=== PATIENT | male | born 1945 | race Caucasian/White ===

== ENCOUNTER 2017-11-08 13:19 | Inpatient (IN) | payer MEDICARE ==
[~2017-11-08] VITALS: Ht 172.7 cm; Wt 59.6 kg
[2017-11-08] MEDS ORDERED: SENN8.6T99 PO ×2 (14:51)
[2017-11-08] MEDS ORDERED: DOCU-109 PO (14:51)
[2017-11-08] MEDS ORDERED: AMIT50TA PO (14:51)
[2017-11-08] MEDS ORDERED: BACL10TA PO (14:51)
[2017-11-08] MEDS ORDERED: MAGN2400 PO (14:51)
[2017-11-08] MEDS ORDERED: ACET325T9 PO (14:51)
[2017-11-08] MEDS ORDERED: LORA10TA3 PO (14:51)
[2017-11-08] MEDS ORDERED: TERA10CA3 PO (14:51)
[2017-11-08] MEDS ORDERED: FAMO20TA5 PO (14:51)
[2017-11-08] MEDS ORDERED: HALO2TAB PO (14:51)
[2017-11-08] MEDS ORDERED: OXYC5CAP PO (14:51)
[2017-11-08] MEDS ORDERED: ONDA4TAB12 PO (14:51)
[2017-11-08] MEDS ORDERED: BISA10SU2 RC (14:51)
[2017-11-08] MEDS ORDERED: LORA0.5T PO (14:51)
[2017-11-08] MEDS ORDERED: MAG355OR12 PO (14:51)
[2017-11-08] MEDS ORDERED: FINA5TAB4 PO (14:51)
[2017-11-08] MEDS ORDERED: LITH300C PO (14:51)
[2017-11-08] MEDS ORDERED: METHYL SALICYLATE/MENTHOL TOPICAL OINTMENT 29GM TUBE. TP PRN ×2 (15:00→15:45)
[2017-11-08 15:14] VITALS: BP 146/90
[2017-11-08] MEDS ORDERED: AMIT75TA PO (15:26)
[2017-11-08] MEDS ORDERED: SENNOSIDES 8.6 MG TABLET PO PRN (15:30)
[2017-11-08] MEDS ORDERED: DOCUSATE SODIUM 100 MG CAPSULE PO PRN (15:30)
[2017-11-08] MEDS ORDERED: ONDANSETRON ODT 4 MG TAB.RAPDIS PO PRN (15:30)
[2017-11-08] MEDS ORDERED: MAG HYDROX/AL HYDROX/SIMETH 30 ML ORAL.SUSP PO PRN (15:45)
[2017-11-08] MEDS: FAMOTIDINE 20 MG TABLET PO SCH (18:31)
[2017-11-08] MEDS: LITHIUM CARBONATE 300 MG TABLET PO SCH (20:18)
[2017-11-08] MEDS: SENNOSIDES 8.6 MG TABLET PO SCH (20:18)
[2017-11-08] MEDS: BACLOFEN 10 MG TABLET PO SCH (20:18)
[2017-11-08] MEDS: AMITRIPTYLINE HCL 75 MG TABLET PO SCH (20:18)
[2017-11-08] MEDS ORDERED: ENOXAPARIN 40 MG/0.4 ML SYRINGE. SQ SCH (21:00)
--- NOTE | 2017-11-08 22:54 | PDOC ---
Exam Note: Torsten Note: Please also refer to the separate dictated note~for this date of service dictated separately.~Patient seen individually. Discussed the patient with Nursing staff reviewed the chart.~Reviewed interim history and current functioning. Reviewed vital signs,~Labs/ Radiology~and current medications noted below. Continue current treatment with the changes noted in the dictated addendum note Assessment: Vital Signs: Vital Signs Date Time Temp Pulse Resp B/P (MAP) Pulse Ox O2 Delivery O2 Flow Rate FiO2 11/08/17 15:14 98.1 73 18 146/90 (108) 96 Current Medications: Meds: Current Medications Multi-Ingredient Ointment (Analgesic [place]) 1 warren PRN QID PRN TP MUSCLE PAIN; Start 11/08/17 at 15:00 Acetaminophen (Tylenol) 650 mg PRN Q6HRS PRN PO PAIN / TEMP; Start 11/08/17 at 15:30 Baclofen (Lioresal) 10 mg BID PO Last administered on 11/08/17at 20:18; Start 11/08/17 at 21:00 Bisacodyl (Dulcolax Supp) 10 mg PRN DAILY PRN RC CONSTIPATION; Start 11/08/17 at 15:30 Docusate Sodium (Colace) 100 mg PRN BID PRN PO CONSTIPATION; Start 11/08/17 at 15:30 Famotidine (Pepcid) 20 mg BIDBFRMEAL PO Last administered on 11/08/17at 18:31; Start 11/08/17 at 16:30 Finasteride (Proscar) 5 mg DAILY PO ; Start 11/09/17 at 09:00 Haloperidol (Haldol) 0.5 mg PRN TID PRN PO AGITATION; Start 11/08/17 at 15:30 Lorazepam (Ativan) 0.5 mg TID PRN PRN PO ANXIETY / AGITATION; Start 11/08/17 at 15:30 Ondansetron HCl (Zofran Odt) 4 mg PRN Q6HRS PRN PO NAUSEA/VOMITING; Start at 15:30 Sennosides (Senna) 8.6 mg BID PO Last administered on 11/08/17at 20:18; Start 11/08/17 at 21:00 Sennosides (Senna) 8.6 mg PRN DAILY PRN PO CONSTIPATION; Start 11/08/17 at 15:30 [place] Carbonate 300 mg BID PO Last administered on 11/08/17at 20:18; Start 11/08 at 21:00 Oxycodone HCl (Roxicodone) 5 mg PRN Q6HRS PRN PO PAIN; Start 11/08/17 at 15:45 Terazosin HCl (Hytrin) 10 mg DAILY PO ; Start 11/09/17 at 09:00 Amitriptyline HCl (Elavil) 75 mg QHS PO Last administered on 11/08/17at 20:18; Start 11/08/17 at 21:00 Cetirizine HCl (ZyrTEC) 10 mg DAILY PO ; Start 11/09/17 at 09:00 Olanzapine (ZyPREXA ZYDIS) 2.5 mg PRN Q2HR PRN PO Psychosis; Start 11/08/17 at 15:45 Multi-Ingredient Ointment (Analgesic [place]) 1 warren PRN QID PRN TP MUSCLE PAIN; Start 11/08/17 at 15:45 Al Hydroxide/Mg Hydroxide (Mylanta Plus Xs) 15 ml PRN AFTMEALHC PRN PO DYSPEPSIA; Start 11/08/17 at 15:45 Magnesium Hydroxide (Milk Of Magnesia) 2,400 mg PRN QHS PRN PO CONSTIPATION; Start 11/08/17 at 15:45 Enoxaparin Sodium (Lovenox) 40 mg Q24H SQ Last administered on 11/08/17at 20:19; Start 11/08/17 at 21:00 Active Scripts Active Reported Amitriptyline Hcl 75 Mg Tablet 75 Mg PO QHS Oxycodone Hcl 5 Mg Capsule 5 Mg PO PRN Q6HRS PRN Lorazepam 0.5 Mg Tablet 0.5 Mg PO TID PRN PRN Famotidine 20 Mg Tablet 20 Mg PO BIDBFRMEAL Haloperidol 2 Mg Tablet 0.5 Mg PO PRN TID PRN Terazosin Hcl 10 Mg Capsule 10 Mg PO DAILY Ondansetron Odt (Ondansetron) 4 Mg Tab.rapdis 4 Mg PO PRN Q6HRS Milk Of Magnesia (Magnesium Hydroxide) 2,400 Mg/10 Ml Oral.susp 2,400 Mg PO PRN QID PRN Loratadine 10 Mg Tablet 10 Mg PO [place] Carbonate 300 Mg Capsule 300 Mg PO BID Baclofen 10 Mg Tablet 10 Mg PO BID Maalox Maximum Strength Susp (Mag Hydrox/Al Hydrox/Simeth) 355 Ml Oral.susp 15 Ml PO PRN Q6HRS PRN Finasteride 5 Mg Tablet 5 Mg PO DAILY Colace (Docusate Sodium) 100 Mg Capsule 100 Mg PO PRN BID PRN Senokot (Sennosides) 8.6 Mg Tablet 8.6 Mg PO PRN DAILY PRN Senokot (Sennosides) 8.6 Mg Tablet 8.6 Mg PO BID Bisacodyl 10 Mg Supp.rect 10 Mg RC PRN DAILY PRN Tylenol (Acetaminophen) 325 Mg Tablet 650 Mg PO PRN Q6HRS PRN I have reviewed the current psychotropics carefully including drug interactions. Risk benefit ratio favors no change other than as noted in my dictated progress note. Diagnosis: Problems: (1) Anxiety disorder (2) Bipolar affective, mixed, sev w/ psych (3) Dementia, vascular, with delusions (4) Mild cognitive impairment MARQUIS SCOTT MD November 08, 2017 22:54
--- NOTE | 2017-11-09 00:01 | HP ---
ADMIT DATE: 11/08/2017 PSYCHIATRIC ADMISSION HISTORY AND EVALUATION This note covers elements not covered in my initial note of 11/08/2017. The patient was seen individually evening of 11/08/2017. Discussed with nursing staff, reviewed the chart, previously discussed with nursing staff on a couple of occasions after the patient was referred to us from [facility], where he presented from [facility] on account of "screaming for 45 minutes at the ghost trying to get into bed with him." Reportedly, the patient has been increasingly confused, disoriented and seems to be telling the ghost to keep quiet when staff are attempting to talk to him. Haldol was initiated at the nursing facility, was not effective. Ativan started, also seemed to have failed. He was referred to the ER, found to be extremely psychotic, confused within the context of his past diagnosis of bipolar disorder with worsening mood swings and referred for inpatient psychiatric stabilization. CHIEF COMPLAINT: "Ghost comes." The patient was clenching his fists restless, anxious, somewhat paranoid, delusional as I met with him, quite apprehensive, seems scared of his psychotic symptoms. HISTORY OF PRESENT ILLNESS: The patient has a history of bipolar disorder with periods of elation, racing thoughts alternating with depression. He has had significant insomnia recently with worsening mood swings, worsening confusion. He has been at the above nursing facility and has failed interventions while there. Behaviors have been deemed dangerous, unmanageable resulting in this referral to the ER and then to us. No active suicidal or homicidal ideation. PAST PSYCHIATRIC HISTORY: As above. PAST MEDICAL HISTORY: Positive for hypothyroidism, chronic constipation, and history of borderline personality disorder. DRUG ALLERGIES: PENICILLIN. CODE STATUS: Full code. ACCU-CHEKS: None. DIET: Regular, takes his medications crushed. Ambulates with wheelchair. CURRENT PSYCHOTROPICS: Crane carbonate 300 mg b.i.d., Zyprexa was added p.r.n., Ativan p.r.n., Haldol 0.5 mg t.i.d. p.r.n., amitriptyline 75 mg at bedtime, and Roxicodone p.r.n. FAMILY HISTORY: Noncontributory. SOCIAL HISTORY: No alcohol, drug abuse, physical, sexual or elder abuse history is noted. Not known to be a perpetrator. The patient states he used to work for the [employer]. He states he lives at home with his and she does the driving, cooking, and grocery shopping. In fact, he has been living at [facility] as noted above. MENTAL STATUS EXAMINATION: The patient was seen individually evening of 11/08/2017. He is in his wheelchair, anxious, clenching his fist, quite paranoid, psychotic. Insight limited, judgment marginal, language function intact. Mood and affect remain labile. The patient was able to tell me the year is 2017, was unsure of the month and the date, however. He did know he came here today earlier in the day. REACTION TO THE HOSPIALIZATION: The patient accepting of it. ASSETS: Stable living at the long-term. IMPRESSION: Bipolar 1 disorder, mixed with psychotic features; cognitive disorder, unspecified versus major neurocognitive disorder; early Alzheimer, vascular with delusion; anxiety disorder, unspecified; impulse control disorder, unspecified. Rest as noted above. TREATMENT PLAN: Admit to Geropsychiatry Unit at [facility]. I will see the patient daily individually from a psychiatric standpoint, medical followup per Dr. Lincoln/Dr. Alonzo. We will check a lithium level, adjust to reach a therapeutic level. Continue rest unchanged. May need to reduce the amitriptyline, since it could be worsening some of his bipolar symptoms. We may need a scheduled atypical antipsychotic, but we make those decisions post baseline assessment. MARQUIS SCOTT MD DR: ARIA/rut JOB#: [id number] / [id number]
[2017-11-09 06:17] VITALS: BP 132/73
[2017-11-09] MEDS: LITHIUM CARBONATE 300 MG TABLET PO SCH ×2 (08:14→20:00)
[2017-11-09] MEDS: SENNOSIDES 8.6 MG TABLET PO SCH ×2 (08:14→20:00)
[2017-11-09] MEDS: FAMOTIDINE 20 MG TABLET PO SCH ×2 (08:14→20:01)
[2017-11-09] MEDS: BACLOFEN 10 MG TABLET PO SCH ×2 (08:14→20:00)
[2017-11-09] MEDS: CETIRIZINE HCL 10 MG TABLET PO SCH (08:16)
[2017-11-09] MEDS: oxyCODONE IR 5 MG TABLET PO PRN (08:16)
[2017-11-09] MEDS: TERAZOSIN 5 MG CAPSULE. PO SCH (08:17)
[2017-11-09] MEDS: FINASTERIDE 5 MG TABLET PO SCH (08:17)
[2017-11-09 10:11] LABS: BASO % 1 % (0-3); EOS # 0.1 x10^3/uL (0.0-0.7); EOS % 2 % (0-3); HEMATOCRIT 44.6 % (39.0-53.0); HEMOGLOBIN 14.5 g/dL (13.0-17.5); LYMPH # 2.5 x10^3/uL (1.0-4.8); LYMPH % 30 % (24-48); MEAN CORPUSCULAR HEMOGLOBIN 30 pg (25-35); MEAN CORPUSCULAR HGB CONC 33 g/dL (31-37); MEAN CORPUSCULAR VOLUME 91 fL (79-100); MONO # 0.5 x10^3/uL (0.0-1.1); MONO % 6 % (0-9); NEUT % 62 % (31-73); PLATELET COUNT 249 x10^3/uL (140-400); RED CELL DISTRIBUTION WIDTH 15.7 % (11.5-14.5); WHITE BLOOD COUNT 8.1 x10^3/uL (4.0-11.0)
[2017-11-09 10:29] LABS: ALBUMIN 3.4 g/dL (3.4-5.0); ALBUMIN/GLOBULIN RATIO 0.6 (1.0-1.7); CALCIUM 9.7 mg/dL (8.5-10.1); CREATININE 1.9 mg/dL (0.7-1.3); GFR 34.9; MAGNESIUM 2.5 mg/dL (1.8-2.4); TOTAL BILIRUBIN 0.7 mg/dL (0.2-1.0); TOTAL PROTEIN 8.7 g/dL (6.4-8.2)
[2017-11-09 16:29] VITALS: BP 138/71
[2017-11-09 17:54] LABS: LI 1.1 mmol/L (0.6-1.2)
[2017-11-09 17:55] LABS: THYROID STIM HORMONE (TSH) 0.222 uIU/mL (0.358-3.740)
--- NOTE | 2017-11-09 18:41 | PDOC ---
Exam Note: Torsten Note: Please also refer to the separate dictated note~for this date of service dictated separately.~Patient seen individually. Discussed the patient with Nursing staff reviewed the chart.~Reviewed interim history and current functioning. Reviewed vital signs,~Labs/ Radiology~and current medications noted below. Continue current treatment with the changes noted in the dictated addendum note Assessment: Vital Signs: Vital Signs Date Time Temp Pulse Resp B/P (MAP) Pulse Ox O2 Delivery O2 Flow Rate FiO2 11/09/17 16:29 98.2 58 19 138/71 (93) 100 11/09/17 09:16 Room Air I&O Intake and Output 11/09/17 07:00 Intake Total 360 ml Output Total 1100 ml Balance -740 ml Intake Oral 360 ml Output Urine Total 1100 ml Labs: Laboratory Tests Test 11/09/17 09:23 White Blood Count 8.1 x10^3/uL (4.0-11.0) Red Blood Count 4.90 x10^6/uL (4.30-5.70) Hemoglobin 14.5 g/dL (13.0-17.5) Hematocrit 44.6 % (39.0-53.0) Mean Corpuscular Volume 91 fL (79-100) Mean Corpuscular Hemoglobin 30 pg (25-35) Mean Corpuscular Hemoglobin Concent 33 g/dL (31-37) Red Cell Distribution Width 15.7 % (11.5-14.5) H Platelet Count 249 x10^3/uL (140-400) Neutrophils (%) (Auto) 62 % (31-73) Lymphocytes (%) (Auto) 30 % (24-48) Monocytes (%) (Auto) 6 % (0-9) Eosinophils (%) (Auto) 2 % (0-3) Basophils (%) (Auto) 1 % (0-3) Neutrophils # (Auto) 5.0 x10^3uL (1.8-7.7) Lymphocytes # (Auto) 2.5 x10^3/uL (1.0-4.8) Monocytes # (Auto) 0.5 x10^3/uL (0.0-1.1) Eosinophils # (Auto) 0.1 x10^3/uL (0.0-0.7) Basophils # (Auto) 0.0 x10^3/uL (0.0-0.2) Sodium Level 142 mmol/L (136-145) Potassium Level 4.0 mmol/L (3.5-5.1) Chloride Level 107 mmol/L (98-107) Carbon Dioxide Level 26 mmol/L (21-32) Anion Gap 9 (6-14) Blood Urea Nitrogen 22 mg/dL (8-26) Creatinine 1.9 mg/dL (0.7-1.3) H Estimated GFR (Cockcroft-Gault) 34.9 BUN/Creatinine Ratio 12 (6-20) Glucose Level 152 mg/dL (70-99) H Calcium Level 9.7 mg/dL (8.5-10.1) Magnesium Level 2.5 mg/dL (1.8-2.4) H Iron Level 61 ug/dL (65-175) L Total Iron Binding Capacity 240 ug/dL (250-450) L Iron Saturation 25 % (15-34) Total Bilirubin 0.7 mg/dL (0.2-1.0) Aspartate Amino Transferase (AST) 32 U/L (15-37) Alanine Aminotransferase (ALT) 53 U/L (16-63) Alkaline Phosphatase 111 U/L (46-116) Total Protein 8.7 g/dL (6.4-8.2) H Albumin 3.4 g/dL (3.4-5.0) Albumin/Globulin Ratio 0.6 (1.0-1.7) L Triglycerides Level 76 mg/dL (0-150) Cholesterol Level 157 mg/dL (0-200) LDL Cholesterol, Calculated 101 mg/dL (0-100) H VLDL Cholesterol, Calculated 15 mg/dL (0-40) Non-HDL Cholesterol Calculated 116 mg/dL (0-129) HDL Cholesterol 41 mg/dL (40-60) Cholesterol/HDL Ratio 3.0 Thyroid Stimulating Hormone (TSH) 0.222 uIU/mL (0.358-3.740) Dime Box Level 1.1 mmol/L (0.6-1.2) Dime Box Last Dose Date 11/08/17 Dime Box Last Dose Time 2100 Current Medications: Meds: Current Medications Multi-Ingredient Ointment (Analgesic [place]) 1 warren PRN QID PRN TP MUSCLE PAIN; Start 11/08/17 at 15:00 Acetaminophen (Tylenol) 650 mg PRN Q6HRS PRN PO PAIN / TEMP; Start 11/08/17 at 15:30 Baclofen (Lioresal) 10 mg BID PO Last administered on 11/09/17at 08:14; Start 11/08/17 at 21:00 Bisacodyl (Dulcolax Supp) 10 mg PRN DAILY PRN RC CONSTIPATION; Start 11/08/17 at 15:30 Docusate Sodium (Colace) 100 mg PRN BID PRN PO CONSTIPATION; Start 11/08/17 at 15:30 Famotidine (Pepcid) 20 mg BIDBFRMEAL PO Last administered on 11/09/17at 08:14; Start 11/08/17 at 16:30 Finasteride (Proscar) 5 mg DAILY PO Last administered on 11/09/17at 08:17; Start 11/09/17 at 09:00 Haloperidol (Haldol) 0.5 mg PRN TID PRN PO AGITATION; Start 11/08/17 at 15:30 Lorazepam (Ativan) 0.5 mg TID PRN PRN PO ANXIETY / AGITATION; Start 11/08/17 at 15:30 Ondansetron HCl (Zofran Odt) 4 mg PRN Q6HRS PRN PO NAUSEA/VOMITING; Start at 15:30 Sennosides (Senna) 8.6 mg BID PO Last administered on 11/09/17at 08:14; Start 11/08/17 at 21:00 Sennosides (Senna) 8.6 mg PRN DAILY PRN PO CONSTIPATION; Start 11/08/17 at 15:30 [place] Carbonate 300 mg BID PO Last administered on 11/09/17at 08:14; Start 11/08 at 21:00 Oxycodone HCl (Roxicodone) 5 mg PRN Q6HRS PRN PO PAIN Last administered on at 08:16; Start 11/08/17 at 15:45 Terazosin HCl (Hytrin) 10 mg DAILY PO Last administered on 11/09/17at 08:17; Start 11/09/17 at 09:00 Amitriptyline HCl (Elavil) 75 mg QHS PO Last administered on 11/08/17at 20:18; Start 11/08/17 at 21:00 Cetirizine HCl (ZyrTEC) 10 mg DAILY PO Last administered on 11/09/17at 08:16; Start 11/09/17 at 09:00 Olanzapine (ZyPREXA ZYDIS) 2.5 mg PRN Q2HR PRN PO Psychosis; Start 11/08/17 at 15:45 Multi-Ingredient Ointment (Analgesic [place]) 1 warren PRN QID PRN TP MUSCLE PAIN; Start 11/08/17 at 15:45 Al Hydroxide/Mg Hydroxide (Mylanta Plus Xs) 15 ml PRN AFTMEALHC PRN PO DYSPEPSIA; Start 11/08/17 at 15:45 Magnesium Hydroxide (Milk Of Magnesia) 2,400 mg PRN QHS PRN PO CONSTIPATION; Start 11/08/17 at 15:45 Enoxaparin Sodium (Lovenox) 40 mg Q24H SQ Last administered on 11/08/17at 20:19; Start 11/08/17 at 21:00; Stop 11/09/17 at 14:41; Status DC Enoxaparin Sodium (Lovenox) 30 mg Q24H SQ ; Start 11/09/17 at 21:00 Active Scripts Active Reported Amitriptyline Hcl 75 Mg Tablet 75 Mg PO QHS Oxycodone Hcl 5 Mg Capsule 5 Mg PO PRN Q6HRS PRN Lorazepam 0.5 Mg Tablet 0.5 Mg PO TID PRN PRN Famotidine 20 Mg Tablet 20 Mg PO BIDBFRMEAL Haloperidol 2 Mg Tablet 0.5 Mg PO PRN TID PRN Terazosin Hcl 10 Mg Capsule 10 Mg PO DAILY Ondansetron Odt (Ondansetron) 4 Mg Tab.rapdis 4 Mg PO PRN Q6HRS Milk Of Magnesia (Magnesium Hydroxide) 2,400 Mg/10 Ml Oral.susp 2,400 Mg PO PRN QID PRN Loratadine 10 Mg Tablet 10 Mg PO [place] Carbonate 300 Mg Capsule 300 Mg PO BID Baclofen 10 Mg Tablet 10 Mg PO BID Maalox Maximum Strength Susp (Mag Hydrox/Al Hydrox/Simeth) 355 Ml Oral.susp 15 Ml PO PRN Q6HRS PRN Finasteride 5 Mg Tablet 5 Mg PO DAILY Colace (Docusate Sodium) 100 Mg Capsule 100 Mg PO PRN BID PRN Senokot (Sennosides) 8.6 Mg Tablet 8.6 Mg PO PRN DAILY PRN Senokot (Sennosides) 8.6 Mg Tablet 8.6 Mg PO BID Bisacodyl 10 Mg Supp.rect 10 Mg RC PRN DAILY PRN Tylenol (Acetaminophen) 325 Mg Tablet 650 Mg PO PRN Q6HRS PRN I have reviewed the current psychotropics carefully including drug interactions. Risk benefit ratio favors no change other than as noted in my dictated progress note. Diagnosis: Problems: (1) Mild cognitive impairment (2) Dementia, vascular, with delusions (3) Bipolar affective, mixed, sev w/ psych (4) Anxiety disorder MARQUIS SCOTT MD November 09, 2017 18:41
[2017-11-09] MEDS: AMITRIPTYLINE HCL 75 MG TABLET PO SCH (20:00)
[2017-11-09] MEDS: ENOXAPARIN 30 MG/0.3 ML SYRINGE. SQ SCH (20:02)
[2017-11-09] MEDS ORDERED: risperiDONE 0.25 MG TABLET. PO SCH (21:00)
[2017-11-09 23:07] LABS: T3 TOTAL 67 ng/dL (71-180); THYROXINE 7.6 ug/dL (4.5-12.0)
[2017-11-10 03:08] LABS: HEMOGLOBIN A1C 5.1 % (4.8-5.6)
[2017-11-10 05:42] LABS: COLOR,URINE YELLOW
[2017-11-10 05:43] LABS: BACTERIA,URINE FEW /HPF (0-FEW); BILIRUBIN,URINE NEG (NEG); CLARITY,URINE HAZY; GLUCOSE,URINE NEG (NEG); NITRITE,URINE NEG (NEG); RBC,URINE OCC /HPF (0-2); UROBILINOGEN,URINE 0.2 mg/dL (0.2 mg/dL); WBC,URINE >40 /HPF (0-4)
[2017-11-10 06:18] VITALS: BP 147/61
[2017-11-10] MEDS: FAMOTIDINE 20 MG TABLET PO SCH ×2 (08:55→17:06)
[2017-11-10] MEDS: BACLOFEN 10 MG TABLET PO SCH ×2 (08:55→19:44)
[2017-11-10] MEDS: TERAZOSIN 5 MG CAPSULE. PO SCH (08:55)
[2017-11-10] MEDS: LITHIUM CARBONATE 300 MG TABLET PO SCH ×2 (08:55→19:43)
[2017-11-10] MEDS: FINASTERIDE 5 MG TABLET PO SCH (08:55)
[2017-11-10] MEDS: SENNOSIDES 8.6 MG TABLET PO SCH ×2 (08:56→19:43)
[2017-11-10] MEDS: CETIRIZINE HCL 10 MG TABLET PO SCH (08:56)
[2017-11-10] MEDS: LORazepam 0.5 MG TABLET PO PRN ×3 (08:57→23:21)
[2017-11-10] MEDS: HALOPERIDOL 2 MG TABLET PO PRN ×3 (08:57→23:21)
--- NOTE | 2017-11-10 10:21 | CONS ---
DATE OF CONSULTATION: 11/09/2017 REASON FOR CONSULTATION: Medical management. HISTORY OF PRESENT ILLNESS: The patient is a 72-year-old male patient, a resident at [facility], who was seen originally to [facility] Emergency Room on account of screaming for 45 minutes that the ghost trying to get into bet with him. The patient apparently has been increasingly confused, disoriented, seems to be telling the ghost to keep quiet when staffs were attempting talk to him. Haldol and subsequently Ativan tried and failed. He was referred to the ER, found to be extremely psychotic, confused within the context of diagnosis of bipolar disorder with worsening mood swings and referred for inpatient psychiatric stabilization. PAST PSYCHIATRIC HISTORY: Significant for bipolar disorder, periods of elevation and racing thoughts alternating with depression, has significant insomnia and worsening mood swings, worsening confusion. His behavior has been deemed dangerous, unmanageable, resulting in his referral to the Emergency Room and then to [facility]. The patient did not have active suicidal or homicidal ideation. PAST MEDICAL HISTORY: Significant for hypothyroidism, benign prostatic hypertrophy, chronic constipation and cervical myelopathy. ALLERGIES: He is allergic to PENICILLIN. MEDICATIONS: He is currently on following medications: He is on loratadine 10 mg once a day, baclofen 10 mg twice a day, terazosin 10 mg daily, oxycodone 5 mg every 6 hours as needed, Tylenol 650 mg every 6 hours, amitriptyline 75 mg at bedtime, Haldol 0.5 mg 3 times a day, lorazepam 0.5 mg 3 times a day. He is on lithium carbonate 300 mg twice a day, Maalox 15 mL every 6 hours as needed, bisacodyl 10 mg rectally daily p.r.n. for constipation, Colace 100 mg twice a day, milk of magnesia 30 mL p.o. daily p.r.n. for constipation, senna 1 tablet twice a day, ondansetron 4 mg every 6 hours as needed, famotidine 20 mg twice a day, finasteride 5 mg once a day. FAMILY HISTORY: Noncontributory. SOCIAL HISTORY: He is a resident at [facility]. He is retired from [employer]. He states that he lives at home with his . However, he has been at [facility] Nursing facility. He does not smoke, drink alcohol or use any recreational drugs. PHYSICAL EXAMINATION: GENERAL: When I examined him, he was resting, slightly propped up in bed, in no apparent distress. He is pale, somewhat cachectic, but no jaundice or cyanosis. No lymphadenopathy, no thyromegaly. No jugular venous distension. No lower limb edema. VITAL SIGNS: His heart rate was 74, blood pressure 132/73, temperature was 97.8, respiratory rate was 18 and oxygen saturation was 96%. HEAD, EYES, EARS, NOSE AND THROAT: Showed normocephalic, atraumatic. NECK: Supple. HEART: Showed normal first and second sounds. No gallop, rub or murmur. CHEST: Clear to auscultation. No crepitation or rhonchi. ABDOMEN: Distended, soft, nontender. No guarding or rigidity. No organomegaly. All hernial orifices intact. Bowel sounds normal. NEUROLOGIC: He was awake, alert. All his cranial nerves are intact. He has marked muscle wasting, especially thenar and hypothenar consistent with severe cervical myelopathy with marked muscle wasting. He apparently is mostly wheelchair bound. LABORATORY DATA: Showed white cell count of 8100, hemoglobin 14.5, hematocrit 44.6, MCV 91, and platelet count 249,000. Her chemistry showed a serum sodium 142, potassium 4, chloride 107, bicarbonate 26, anion gap of 9, BUN 22, creatinine 1.9, estimated GFR was 55 mL per minute, his glucose 152, calcium was 9.7, magnesium 2.5. Total bilirubin, AST, ALT, alkaline phosphatase were normal. His calcium was 8.7. Albumin was 3.4. IMPRESSION: So All in all, this is a 72-year-old male patient, who was [facility] on account of screaming for 45 minutes as the ghost trying to get into bed with him. He has also noted to be increasing confusion and we have reviewed his vital signs, his lab work and all his medications seem to be appropriate and he seemed to be medically stable except the fact that his creatinine is high at 1.9 in the context of the cervical myelopathy. He probably is retaining urine. Apparently a Rosa catheter was already put in, which should hopefully help improve his kidney function. Eventually, I will review all the labs that are still pending at the time of this dictation and make necessary recommendation. Thank you, Dr. Banda for allowing me to participate in the care of this patient. MONIKA FOFANA MD DR: KARLA/rut JOB#: [id number] / [id number]
[2017-11-10 10:57] LABS: CALCIUM 9.5 mg/dL (8.5-10.1); CREATININE 1.9 mg/dL (0.7-1.3); GFR 34.9; POTASSIUM 3.8 mmol/L (3.5-5.1)
[2017-11-10 16:27] VITALS: BP 124/73
--- NOTE | 2017-11-10 17:01 | EKG ---
[address] [address] Test Date: 2017-11-10 Test Time: 14:15:46 Pat Name: SYLWIA TRUJILLO Department: Room: [address] [place] [address] Gender: M Transportation Aide: ENIO : 1945 Requested By: MARQUIS SCOTT Order Number: [id number] Reading MD: Faustino Rivera MD Measurements Intervals Taylor Rate: 70 P: 0 DC: 250 QRS: 24 QRSD: 82 T: 43 QT: 452 QTc: 491 Interpretive Statements SINUS RHYTHM 1ST DEGREE AVB Electronically Signed On 11-11-2017 12:54:29 CDT by Faustino Rivera MD
[2017-11-10] MEDS: ENOXAPARIN 30 MG/0.3 ML SYRINGE. SQ SCH (19:45)
[2017-11-10] MEDS: risperiDONE 0.5 MG TABLET. PO SCH (19:46)
--- NOTE | 2017-11-10 20:54 | PDOC ---
Exam Note: Torsten Note: Please also refer to the separate dictated note~for this date of service dictated separately.~Patient seen individually. Discussed the patient with Nursing staff reviewed the chart.~Reviewed interim history and current functioning. Reviewed vital signs,~Labs/ Radiology~and current medications noted below. Continue current treatment with the changes noted in the dictated addendum note Assessment: Vital Signs: Vital Signs Date Time Temp Pulse Resp B/P (MAP) Pulse Ox O2 Delivery O2 Flow Rate FiO2 11/10/17 16:27 97.7 70 16 124/73 (90) 98 11/09/17 09:16 Room Air I&O Intake and Output 11/10/17 07:00 Intake Total 1140 ml Output Total 1125 ml Balance 15 ml Intake Oral 1140 ml Output Urine Total 1125 ml Labs: Laboratory Tests Test 11/10/17 04:51 11/10/17 09:39 Urine Collection Type Unknown Urine Color Yellow Urine Clarity Hazy Urine pH 6.5 Urine Specific [place] 1.010 Urine Protein Neg (NEG-TRACE) Urine Glucose (UA) Neg mg/dL (NEG) Urine Ketones (Stick) Neg mg/dL (NEG) Urine Blood Small (NEG) Urine Nitrite Neg (NEG) Urine Bilirubin Neg (NEG) Urine Urobilinogen Dipstick 0.2 mg/dL (0.2 mg/dL) Urine Leukocyte Esterase Large (NEG) Urine RBC Occ /HPF (0-2) Urine WBC >40 /HPF (0-4) Urine Squamous Epithelial Cells None /LPF Urine Bacteria Few /HPF (0-FEW) Sodium Level 143 mmol/L (136-145) Potassium Level 3.8 mmol/L (3.5-5.1) Chloride Level 110 mmol/L (98-107) H Carbon Dioxide Level 27 mmol/L (21-32) Anion Gap 6 (6-14) Blood Urea Nitrogen 21 mg/dL (8-26) Creatinine 1.9 mg/dL (0.7-1.3) H Estimated GFR (Cockcroft-Gault) 34.9 Glucose Level 141 mg/dL (70-99) H Calcium Level 9.5 mg/dL (8.5-10.1) Current Medications: Meds: Current Medications Multi-Ingredient Ointment (Analgesic [place]) 1 warren PRN QID PRN TP MUSCLE PAIN; Start 11/08/17 at 15:00 Acetaminophen (Tylenol) 650 mg PRN Q6HRS PRN PO PAIN / TEMP; Start 11/08/17 at 15:30 Baclofen (Lioresal) 10 mg BID PO Last administered on 11/10/17 19:44; Start 11/08/17 at 21:00 Bisacodyl (Dulcolax Supp) 10 mg PRN DAILY PRN RC CONSTIPATION; Start 11/08/17 at 15:30 Docusate Sodium (Colace) 100 mg PRN BID PRN PO CONSTIPATION; Start 11/08/17 at 15:30 Famotidine (Pepcid) 20 mg BIDBFRMEAL PO Last administered on 11/10/17 17:06; Start 11/08/17 at 16:30 Finasteride (Proscar) 5 mg DAILY PO Last administered on 11/10/17 08:55; Start 11/09/17 at 09:00 Haloperidol (Haldol) 0.5 mg PRN TID PRN PO AGITATION Last administered on 13:07; Start 11/08/17 at 15:30 Lorazepam (Ativan) 0.5 mg TID PRN PRN PO ANXIETY / AGITATION Last administered on 11/10/17 13:07; Start 11/08/17 at 15:30 Ondansetron HCl (Zofran Odt) 4 mg PRN Q6HRS PRN PO NAUSEA/VOMITING; Start at 15:30 Sennosides (Senna) 8.6 mg BID PO Last administered on 11/10/17 19:43; Start 11/08/17 at 21:00 Sennosides (Senna) 8.6 mg PRN DAILY PRN PO CONSTIPATION; Start 11/08/17 at 15:30 [place] Carbonate 300 mg BID PO Last administered on 11/10/17 19:43; Start 11/08 at 21:00 Oxycodone HCl (Roxicodone) 5 mg PRN Q6HRS PRN PO PAIN Last administered on 08:16; Start 11/08/17 at 15:45 Terazosin HCl (Hytrin) 10 mg DAILY PO Last administered on 11/10/17 08:55; Start 11/09/17 at 09:00 Amitriptyline HCl (Elavil) 75 mg QHS PO Last administered on 11/09/17 20:00; Start 11/08/17 at 21:00; Stop 11/10/17 at 19:22; Status DC Cetirizine HCl (ZyrTEC) 10 mg DAILY PO Last administered on 11/10/17at 08:56; Start 11/09/17 at 09:00 Olanzapine (ZyPREXA ZYDIS) 2.5 mg PRN Q2HR PRN PO Psychosis; Start 11/08/17 at 15:45 Multi-Ingredient Ointment (Analgesic [place]) 1 warren PRN QID PRN TP MUSCLE PAIN; Start 11/08/17 at 15:45; Status Cancel Al Hydroxide/Mg Hydroxide (Mylanta Plus Xs) 15 ml PRN AFTMEALHC PRN PO DYSPEPSIA; Start 11/08/17 at 15:45 Magnesium Hydroxide (Milk Of Magnesia) 2,400 mg PRN QHS PRN PO CONSTIPATION; Start 11/08/17 at 15:45 Enoxaparin Sodium (Lovenox) 40 mg Q24H SQ Last administered on 11/08/17at 20:19; Start 11/08/17 at 21:00; Stop 11/09/17 at 14:41; Status DC Enoxaparin Sodium (Lovenox) 30 mg Q24H SQ Last administered on 11/10/17at 19:45; Start 11/09/17 at 21:00 Risperidone (RisperDAL) 0.25 mg QHS PO Last administered on 11/09/17 20:00; Start 11/09/17 at 21:00; Stop 11/10/17 at 19:22; Status DC Vitamin D (Vitamin D3) 50,000 unit WEEKLY PO ; Start 11/11/17 at 09:00 Amitriptyline HCl (Elavil) 50 mg QHS PO Last administered on 11/10/17 19:46; Start 11/10/17 at 21:00 Risperidone (RisperDAL) 0.5 mg QHS PO Last administered on 11/10/17 19:46; Start 11/10/17 at 21:00 Active Scripts Active Reported Amitriptyline Hcl 75 Mg Tablet 75 Mg PO QHS Oxycodone Hcl 5 Mg Capsule 5 Mg PO PRN Q6HRS PRN Lorazepam 0.5 Mg Tablet 0.5 Mg PO TID PRN PRN Famotidine 20 Mg Tablet 20 Mg PO BIDBFRMEAL Haloperidol 2 Mg Tablet 0.5 Mg PO PRN TID PRN Terazosin Hcl 10 Mg Capsule 10 Mg PO DAILY Ondansetron Odt (Ondansetron) 4 Mg Tab.rapdis 4 Mg PO PRN Q6HRS Milk Of Magnesia (Magnesium Hydroxide) 2,400 Mg/10 Ml Oral.susp 2,400 Mg PO PRN QID PRN Loratadine 10 Mg Tablet 10 Mg PO [place] Carbonate 300 Mg Capsule 300 Mg PO BID Baclofen 10 Mg Tablet 10 Mg PO BID Maalox Maximum Strength Susp (Mag Hydrox/Al Hydrox/Simeth) 355 Ml Oral.susp 15 Ml PO PRN Q6HRS PRN Finasteride 5 Mg Tablet 5 Mg PO DAILY Colace (Docusate Sodium) 100 Mg Capsule 100 Mg PO PRN BID PRN Senokot (Sennosides) 8.6 Mg Tablet 8.6 Mg PO PRN DAILY PRN Senokot (Sennosides) 8.6 Mg Tablet 8.6 Mg PO BID Bisacodyl 10 Mg Supp.rect 10 Mg RC PRN DAILY PRN Tylenol (Acetaminophen) 325 Mg Tablet 650 Mg PO PRN Q6HRS PRN I have reviewed the current psychotropics carefully including drug interactions. Risk benefit ratio favors no change other than as noted in my dictated progress note. Diagnosis: Problems: (1) Anxiety disorder (2) Bipolar affective, mixed, sev w/ psych (3) Dementia, vascular, with delusions (4) Mild cognitive impairment MARQUIS SCOTT MD November 10, 2017 20:54
[2017-11-10] MEDS ORDERED: AMITRIPTYLINE HCL 50 MG TABLET PO SCH (21:00)
--- NOTE | 2017-11-11 04:59 | PN ---
DATE: 11/09/2017 This is a late entry for 11/09/2017 and covers the elements not covered in my initial note of 11/09/2017. SUBJECTIVE: I met with the patient in the evening of 11/09/2017. The patient slept 6-3/4 hours previous evening, he was anxious at lunchtime, no hallucinations in the morning, but around lunchtime he was actively hallucinating, calling out to people who were not around him "Hey, Hey, you there." He seemed to be hearing backward this people were responding. REVIEW OF SYSTEMS: Ambulation impaired. No CV, , pulmonary, eye, ENT system symptoms on review. Reliability varies. MENTAL STATUS EXAM: Oriented to himself and situation. Speech coherent, low in volume, at times. Abstraction fair, computation impaired, language function intact. Mood and affect remains labile and he remains actively psychotic. LABORATORY DATA: Reviewed. IMPRESSION: Bipolar 1 disorder, mixed with psychotic features; delirium, unspecified. PLAN: Start Risperdal 0.25 mg p.o. at bedtime for his psychosis. Check a lithium level. Rest unchanged. May need to reduce the amitriptyline 75 mg p.o. at bedtime since this could be worsening some of his bipolar symptoms. MARQUIS SCOTT MD DR: ARIA/rut JOB#: [id number] / [id number]
[2017-11-11 06:15] VITALS: BP 117/74
[2017-11-11] MEDS: FAMOTIDINE 20 MG TABLET PO SCH ×3 (08:57→16:30)
[2017-11-11] MEDS: FINASTERIDE 5 MG TABLET PO SCH ×2 (08:57→11:17)
[2017-11-11] MEDS: BACLOFEN 10 MG TABLET PO SCH ×3 (08:57→20:38)
[2017-11-11] MEDS: TERAZOSIN 5 MG CAPSULE. PO SCH ×2 (08:59→11:18)
[2017-11-11] MEDS: LITHIUM CARBONATE 300 MG TABLET PO SCH ×2 (08:59→11:17)
[2017-11-11] MEDS: SENNOSIDES 8.6 MG TABLET PO SCH ×3 (08:59→20:38)
[2017-11-11] MEDS: CETIRIZINE HCL 10 MG TABLET PO SCH ×2 (08:59→11:18)
[2017-11-11] MEDS: CHOLECALCIFEROL (VITAMIN D3) 50,000 UNIT CAPSULE PO SCH ×2 (09:01→11:18)
[2017-11-11] MEDS: HALOPERIDOL 2 MG TABLET PO PRN (09:21)
[2017-11-11] MEDS: LORazepam 0.5 MG TABLET PO PRN (09:21)
[2017-11-11] MEDS: oxyCODONE IR 5 MG TABLET PO PRN ×2 (11:18→12:04)
[2017-11-11] MEDS: MAGNESIUM HYDROXIDE 2,400 MG/30 ML ORAL.SUSP. PO PRN ×2 (11:19→12:05)
[2017-11-11] MEDS: BISACODYL 10 MG SUPP.RECT RC PRN (14:36)
[2017-11-11 16:10] VITALS: BP 119/72
[2017-11-11] MEDS: risperiDONE 0.5 MG TABLET. PO SCH (20:38)
[2017-11-11] MEDS: ENOXAPARIN 30 MG/0.3 ML SYRINGE. SQ SCH (20:40)
--- NOTE | 2017-11-11 20:47 | PDOC ---
Exam Note: Torsten Note: Please also refer to the separate dictated note~for this date of service dictated separately.~Patient seen individually. Discussed the patient with Nursing staff reviewed the chart.~Reviewed interim history and current functioning. Reviewed vital signs,~Labs/ Radiology~and current medications noted below. Continue current treatment with the changes noted in the dictated addendum note Assessment: Vital Signs: Vital Signs Date Time Temp Pulse Resp B/P (MAP) Pulse Ox O2 Delivery O2 Flow Rate FiO2 11/11/17 16:10 98.0 86 18 119/72 (88) 95 11/09/17 09:16 Room Air I&O Intake and Output 11/11/17 07:00 Intake Total 1730 ml Output Total 1150 ml Balance 580 ml Intake Oral 1730 ml Output Urine Total 1150 ml # Voids 1 Labs: Laboratory Tests Test 11/11/17 07:39 Cortisol AM Sample 18.36 ug/dL (4.3-22.4) Current Medications: Meds: Current Medications Multi-Ingredient Ointment (Analgesic [place]) 1 warren PRN QID PRN TP MUSCLE PAIN; Start 11/08/17 at 15:00 Acetaminophen (Tylenol) 650 mg PRN Q6HRS PRN PO PAIN / TEMP; Start 11/08/17 at 15:30 Baclofen (Lioresal) 10 mg BID PO Last administered on 11/11/17at 20:38; Start 11/08/17 at 21:00 Bisacodyl (Dulcolax Supp) 10 mg PRN DAILY PRN RC CONSTIPATION Last administered on 11/11/17at 14:36; Start 11/08/17 at 15:30 Docusate Sodium (Colace) 100 mg PRN BID PRN PO CONSTIPATION; Start 11/08/17 at 15:30 Famotidine (Pepcid) 20 mg BIDBFRMEAL PO Last administered on 11/11/17 11:17; Start 11/08/17 at 16:30 Finasteride (Proscar) 5 mg DAILY PO Last administered on 11/11/17 11:17; Start 11/09/17 at 09:00 Haloperidol (Haldol) 0.5 mg PRN TID PRN PO AGITATION Last administered on at 09:21; Start 11/08/17 at 15:30 Lorazepam (Ativan) 0.5 mg TID PRN PRN PO ANXIETY / AGITATION Last administered on 11/11/17 09:21; Start 11/08/17 at 15:30 Ondansetron HCl (Zofran Odt) 4 mg PRN Q6HRS PRN PO NAUSEA/VOMITING; Start at 15:30 Sennosides (Senna) 8.6 mg BID PO Last administered on 11/11/17 20:38; Start 11/08/17 at 21:00 Sennosides (Senna) 8.6 mg PRN DAILY PRN PO CONSTIPATION; Start 11/08/17 at 15:30 [place] Carbonate 300 mg BID PO Last administered on 11/11/17 11:17; Start 11/08 at 21:00; Stop 11/11/17 at 13:52; Status DC Oxycodone HCl (Roxicodone) 5 mg PRN Q6HRS PRN PO PAIN Last administered on 12:04; Start 11/08/17 at 15:45 Terazosin HCl (Hytrin) 10 mg DAILY PO Last administered on 11/11/17 11:18; Start 11/09/17 at 09:00 Amitriptyline HCl (Elavil) 75 mg QHS PO Last administered on 11/09/17 20:00; Start 11/08/17 at 21:00; Stop 11/10/17 at 19:22; Status DC Cetirizine HCl (ZyrTEC) 10 mg DAILY PO Last administered on 11/11/17 11:18; Start 11/09/17 at 09:00 Olanzapine (ZyPREXA ZYDIS) 2.5 mg PRN Q2HR PRN PO Psychosis; Start 11/08/17 at 15:45; Stop 11/11/17 at 11:33; Status DC Multi-Ingredient Ointment (Analgesic [place]) 1 warren PRN QID PRN TP MUSCLE PAIN; Start 11/08/17 at 15:45; Status Cancel Al Hydroxide/Mg Hydroxide (Mylanta Plus Xs) 15 ml PRN AFTMEALHC PRN PO DYSPEPSIA; Start 11/08/17 at 15:45 Magnesium Hydroxide (Milk Of Magnesia) 2,400 mg PRN QHS PRN PO CONSTIPATION Last administered on 11/11/17 12:05; Start 11/08/17 at 15:45 Enoxaparin Sodium (Lovenox) 40 mg Q24H SQ Last administered on 11/08/17 20:19; Start 11/08/17 at 21:00; Stop 11/09/17 at 14:41; Status DC Enoxaparin Sodium (Lovenox) 30 mg Q24H SQ Last administered on 11/11/17 20:40; Start 11/09/17 at 21:00 Risperidone (RisperDAL) 0.25 mg QHS PO Last administered on 11/09/17 20:00; Start 11/09/17 at 21:00; Stop 11/10/17 at 19:22; Status DC Vitamin D (Vitamin D3) 50,000 unit WEEKLY PO Last administered on 11/11/17 11: 18; Start 11/11/17 at 09:00 Amitriptyline HCl (Elavil) 50 mg QHS PO Last administered on 11/10/17at 19:46; Start 11/10/17 at 21:00; Stop 11/11/17 at 19:46; Status DC Risperidone (RisperDAL) 0.5 mg QHS PO Last administered on 11/11/17at 20:38; Start 11/10/17 at 21:00 Olanzapine (ZyPREXA ZYDIS) 5 mg PRN Q2HR PRN PO Psychosis Last administered on 11/11/17 12:05; Start 11/11/17 at 11:45 [place] Citrate 8 meq BID PO ; Start 11/11/17 at 21:00; Stop 11/11/17 at 21:00; Status DC Trazodone HCl (Desyrel) 50 mg PRN QHS PRN PO INSOMNIA; Start 11/11/17 at 19:45 Active Scripts Active Reported Amitriptyline Hcl 75 Mg Tablet 75 Mg PO QHS Oxycodone Hcl 5 Mg Capsule 5 Mg PO PRN Q6HRS PRN Lorazepam 0.5 Mg Tablet 0.5 Mg PO TID PRN PRN Famotidine 20 Mg Tablet 20 Mg PO BIDBFRMEAL Haloperidol 2 Mg Tablet 0.5 Mg PO PRN TID PRN Terazosin Hcl 10 Mg Capsule 10 Mg PO DAILY Ondansetron Odt (Ondansetron) 4 Mg Tab.rapdis 4 Mg PO PRN Q6HRS Milk Of Magnesia (Magnesium Hydroxide) 2,400 Mg/10 Ml Oral.susp 2,400 Mg PO PRN QID PRN Loratadine 10 Mg Tablet 10 Mg PO [place] Carbonate 300 Mg Capsule 300 Mg PO BID Baclofen 10 Mg Tablet 10 Mg PO BID Maalox Maximum Strength Susp (Mag Hydrox/Al Hydrox/Simeth) 355 Ml Oral.susp 15 Ml PO PRN Q6HRS PRN Finasteride 5 Mg Tablet 5 Mg PO DAILY Colace (Docusate Sodium) 100 Mg Capsule 100 Mg PO PRN BID PRN Senokot (Sennosides) 8.6 Mg Tablet 8.6 Mg PO PRN DAILY PRN Senokot (Sennosides) 8.6 Mg Tablet 8.6 Mg PO BID Bisacodyl 10 Mg Supp.rect 10 Mg RC PRN DAILY PRN Tylenol (Acetaminophen) 325 Mg Tablet 650 Mg PO PRN Q6HRS PRN I have reviewed the current psychotropics carefully including drug interactions. Risk benefit ratio favors no change other than as noted in my dictated progress note. Diagnosis: Problems: (1) Anxiety disorder (2) Bipolar affective, mixed, sev w/ psych (3) Dementia, vascular, with delusions (4) Mild cognitive impairment MARQUIS SCOTT MD November 11, 2017 20:47
[2017-11-11] MEDS ORDERED: LITHIUM CITRATE PO SCH (21:00)
--- NOTE | 2017-11-11 22:22 | PN ---
DATE: 11/10/2017 This is a late entry of 11/10/2017 covers elements not covered in my initial note of 11/10/2017. SUBJECTIVE: I met with the patient in the evening of 11/10/2017 and I had been called by the nursing staff earlier in the day as an emergency on account of his marked agitation, mood lability and we added Ativan and Haldol. He has been quite psychotic, hallucinating, Ativan, Haldol, given at 09:00 a.m., 01:00 p.m. agitated, grabbing at things around him, obsessed with having a coke with his meals. Slept 8-1/2 hours. REVIEW OF SYSTEMS: Ambulation impaired, in wheelchair. No CV, , pulmonary, eye, ENT system symptoms on review. Seemed a little calmer with music running in the background for him per nursing report. MENTAL STATUS EXAM: Oriented to himself and situation. Speech coherent, has some latency. Abstraction fair, computation impaired, language function intact. Mood and affect remains somewhat labile. LABORATORY DATA: Reviewed. UA, C and S is awaited. IMPRESSION: Bipolar 1 disorder, mixed with psychotic features, delirium, unspecified. PLAN: [place] level is 1.1. Maintain lithium at current dosage. Reduce amitriptyline to 50 mg at bedtime in case this is worsening his mood lability, increase Risperdal from 0.25 mg at bedtime to 0.5 mg at bedtime. Continue rest unchanged. MAN Lindsey SCOTT MD DR: ARIA/rut JOB#: [id number] / [id number]
[2017-11-11] MEDS: traZODone 50 MG TABLET. PO PRN (23:09)
[2017-11-12] MEDS: traZODone 50 MG TABLET. PO PRN (00:35)
[2017-11-12] MEDS: FAMOTIDINE 20 MG TABLET PO SCH ×3 (11:30→17:16)
[2017-11-12] MEDS: BACLOFEN 10 MG TABLET PO SCH ×2 (11:31→20:47)
[2017-11-12] MEDS: SENNOSIDES 8.6 MG TABLET PO SCH ×2 (11:31→20:47)
[2017-11-12] MEDS: FINASTERIDE 5 MG TABLET PO SCH (11:31)
[2017-11-12] MEDS: CETIRIZINE HCL 10 MG TABLET PO SCH (11:32)
[2017-11-12] MEDS: TERAZOSIN 5 MG CAPSULE. PO SCH (11:45)
[2017-11-12 18:12] VITALS: BP 93/70
[2017-11-12] MEDS: MIRTAZAPINE 7.5 MG TABLET. PO SCH (20:48)
[2017-11-12] MEDS: risperiDONE 0.5 MG TABLET. PO SCH (20:48)
[2017-11-12 20:55] LABS: BASO # 0.1 x10^3/uL (0.0-0.2); BASO % 1 % (0-3); EOS # 0.2 x10^3/uL (0.0-0.7); EOS % 1 % (0-3); HEMATOCRIT 40.8 % (39.0-53.0); HEMOGLOBIN 13.1 g/dL (13.0-17.5); LYMPH # 2.6 x10^3/uL (1.0-4.8); LYMPH % 24 % (24-48); MEAN CORPUSCULAR HEMOGLOBIN 29 pg (25-35); MEAN CORPUSCULAR HGB CONC 32 g/dL (31-37); MEAN CORPUSCULAR VOLUME 91 fL (79-100); MONO % 9 % (0-9); NEUT # 7.3 x10^3uL (1.8-7.7); NEUT % 66 % (31-73); PLATELET COUNT 232 x10^3/uL (140-400); RED BLOOD COUNT 4.49 x10^6/uL (4.30-5.70); RED CELL DISTRIBUTION WIDTH 15.8 % (11.5-14.5); WHITE BLOOD COUNT 11.1 x10^3/uL (4.0-11.0)
[2017-11-12 21:07] LABS: ALBUMIN 2.9 g/dL (3.4-5.0); ALBUMIN/GLOBULIN RATIO 0.6 (1.0-1.7); CALCIUM 9.5 mg/dL (8.5-10.1); CREATININE 1.9 mg/dL (0.7-1.3); GFR 34.9; POTASSIUM 3.8 mmol/L (3.5-5.1); TOTAL BILIRUBIN 0.3 mg/dL (0.2-1.0); TOTAL PROTEIN 7.6 g/dL (6.4-8.2)
[2017-11-12] MEDS: ENOXAPARIN 30 MG/0.3 ML SYRINGE. SQ SCH (21:38)
--- NOTE | 2017-11-12 22:13 | PDOC ---
Exam Note: Torsten Note: Please also refer to the separate dictated note~for this date of service dictated separately.~Patient seen individually. Discussed the patient with Nursing staff reviewed the chart.~Reviewed interim history and current functioning. Reviewed vital signs,~Labs/ Radiology~and current medications noted below. Continue current treatment with the changes noted in the dictated addendum note Assessment: Vital Signs: Vital Signs Date Time Temp Pulse Resp B/P (MAP) Pulse Ox O2 Delivery O2 Flow Rate FiO2 11/12/17 18:12 98.0 93 24 93/70 (78) 100 11/09/17 09:16 Room Air I&O Intake and Output 11/12/17 07:00 Intake Total 760 ml Output Total 550 ml Balance 210 ml Intake Oral 760 ml Output Urine Total 550 ml Labs: Laboratory Tests Test 11/12/17 20:31 White Blood Count 11.1 x10^3/uL (4.0-11.0) H Red Blood Count 4.49 x10^6/uL (4.30-5.70) Hemoglobin 13.1 g/dL (13.0-17.5) Hematocrit 40.8 % (39.0-53.0) Mean Corpuscular Volume 91 fL (79-100) Mean Corpuscular Hemoglobin 29 pg (25-35) Mean Corpuscular Hemoglobin Concent 32 g/dL (31-37) Red Cell Distribution Width 15.8 % (11.5-14.5) H Platelet Count 232 x10^3/uL (140-400) Neutrophils (%) (Auto) 66 % (31-73) Lymphocytes (%) (Auto) 24 % (24-48) Monocytes (%) (Auto) 9 % (0-9) Eosinophils (%) (Auto) 1 % (0-3) Basophils (%) (Auto) 1 % (0-3) Neutrophils # (Auto) 7.3 x10^3uL (1.8-7.7) Lymphocytes # (Auto) 2.6 x10^3/uL (1.0-4.8) Monocytes # (Auto) 1.0 x10^3/uL (0.0-1.1) Eosinophils # (Auto) 0.2 x10^3/uL (0.0-0.7) Basophils # (Auto) 0.1 x10^3/uL (0.0-0.2) Sodium Level 144 mmol/L (136-145) Potassium Level 3.8 mmol/L (3.5-5.1) Chloride Level 108 mmol/L (98-107) H Carbon Dioxide Level 25 mmol/L (21-32) Anion Gap 11 (6-14) Blood Urea Nitrogen 28 mg/dL (8-26) H Creatinine 1.9 mg/dL (0.7-1.3) H Estimated GFR (Cockcroft-Gault) 34.9 BUN/Creatinine Ratio 15 (6-20) Glucose Level 161 mg/dL (70-99) H Calcium Level 9.5 mg/dL (8.5-10.1) Total Bilirubin 0.3 mg/dL (0.2-1.0) Aspartate Amino Transferase (AST) 16 U/L (15-37) Alanine Aminotransferase (ALT) 30 U/L (16-63) Alkaline Phosphatase 92 U/L (46-116) Total Protein 7.6 g/dL (6.4-8.2) Albumin 2.9 g/dL (3.4-5.0) L Albumin/Globulin Ratio 0.6 (1.0-1.7) L Current Medications: Meds: Current Medications Multi-Ingredient Ointment (Analgesic [place]) 1 warren PRN QID PRN TP MUSCLE PAIN; Start 11/08/17 at 15:00 Acetaminophen (Tylenol) 650 mg PRN Q6HRS PRN PO PAIN / TEMP; Start 11/08/17 at 15:30 Baclofen (Lioresal) 10 mg BID PO Last administered on 11/12/17at 20:47; Start 11/08/17 at 21:00 Bisacodyl (Dulcolax Supp) 10 mg PRN DAILY PRN RC CONSTIPATION Last administered on 11/11/17at 14:36; Start 11/08/17 at 15:30 Docusate Sodium (Colace) 100 mg PRN BID PRN PO CONSTIPATION; Start 11/08/17 at 15:30 Famotidine (Pepcid) 20 mg BIDBFRMEAL PO Last administered on 11/12/17at 17:16; Start 11/08/17 at 16:30 Finasteride (Proscar) 5 mg DAILY PO Last administered on 11/12/17at 11:31; Start 11/09/17 at 09:00 Haloperidol (Haldol) 0.5 mg PRN TID PRN PO AGITATION Last administered on 09:21; Start 11/08/17 at 15:30 Lorazepam (Ativan) 0.5 mg TID PRN PRN PO ANXIETY / AGITATION Last administered on 11/11/17 09:21; Start 11/08/17 at 15:30 Ondansetron HCl (Zofran Odt) 4 mg PRN Q6HRS PRN PO NAUSEA/VOMITING; Start at 15:30 Sennosides (Senna) 8.6 mg BID PO Last administered on 11/12/17at 20:47; Start 11/08/17 at 21:00 Sennosides (Senna) 8.6 mg PRN DAILY PRN PO CONSTIPATION; Start 11/08/17 at 15:30 [place] Carbonate 300 mg BID PO Last administered on 11/11/17at 11:17; Start 11/08 at 21:00; Stop 11/11/17 at 13:52; Status DC Oxycodone HCl (Roxicodone) 5 mg PRN Q6HRS PRN PO PAIN Last administered on at 12:04; Start 11/08/17 at 15:45 Terazosin HCl (Hytrin) 10 mg DAILY PO Last administered on 11/12/17at 11:45; Start 11/09/17 at 09:00 Amitriptyline HCl (Elavil) 75 mg QHS PO Last administered on 11/09/17at 20:00; Start 11/08/17 at 21:00; Stop 11/10/17 at 19:22; Status DC Cetirizine HCl (ZyrTEC) 10 mg DAILY PO Last administered on 11/12/17at 11:32; Start 11/09/17 at 09:00 Olanzapine (ZyPREXA ZYDIS) 2.5 mg PRN Q2HR PRN PO Psychosis; Start 11/08/17 at 15:45; Stop 11/11/17 at 11:33; Status DC Multi-Ingredient Ointment (Analgesic [place]) 1 warren PRN QID PRN TP MUSCLE PAIN; Start 11/08/17 at 15:45; Status Cancel Al Hydroxide/Mg Hydroxide (Mylanta Plus Xs) 15 ml PRN AFTMEALHC PRN PO DYSPEPSIA; Start 11/08/17 at 15:45 Magnesium Hydroxide (Milk Of Magnesia) 2,400 mg PRN QHS PRN PO CONSTIPATION Last administered on 11/11/17 12:05; Start 11/08/17 at 15:45 Enoxaparin Sodium (Lovenox) 40 mg Q24H SQ Last administered on 11/08/17 20:19; Start 11/08/17 at 21:00; Stop 11/09/17 at 14:41; Status DC Enoxaparin Sodium (Lovenox) 30 mg Q24H SQ Last administered on 11/12/17 21:38; Start 11/09/17 at 21:00 Risperidone (RisperDAL) 0.25 mg QHS PO Last administered on 11/09/17 20:00; Start 11/09/17 at 21:00; Stop 11/10/17 at 19:22; Status DC Vitamin D (Vitamin D3) 50,000 unit WEEKLY PO Last administered on 11/11/17 11: 18; Start 11/11/17 at 09:00 Amitriptyline HCl (Elavil) 50 mg QHS PO Last administered on 11/10/17 19:46; Start 11/10/17 at 21:00; Stop 11/11/17 at 19:46; Status DC Risperidone (RisperDAL) 0.5 mg QHS PO Last administered on 11/12/17at 20:48; Start 11/10/17 at 21:00 Olanzapine (ZyPREXA ZYDIS) 5 mg PRN Q2HR PRN PO Psychosis Last administered on 11/12/17at 00:42; Start 11/11/17 at 11:45 [place] Citrate 8 meq BID PO ; Start 11/11/17 at 21:00; Stop 11/11/17 at 21:00; Status DC Trazodone HCl (Desyrel) 50 mg PRN QHS PRN PO INSOMNIA Last administered on at 00:35; Start 11/11/17 at 19:45 Mirtazapine (Remeron) 7.5 mg QHS PO Last administered on 11/12/17at 20:48; Start 11/12/17 at 21:00 Active Scripts Active Reported Amitriptyline Hcl 75 Mg Tablet 75 Mg PO QHS Oxycodone Hcl 5 Mg Capsule 5 Mg PO PRN Q6HRS PRN Lorazepam 0.5 Mg Tablet 0.5 Mg PO TID PRN PRN Famotidine 20 Mg Tablet 20 Mg PO BIDBFRMEAL Haloperidol 2 Mg Tablet 0.5 Mg PO PRN TID PRN Terazosin Hcl 10 Mg Capsule 10 Mg PO DAILY Ondansetron Odt (Ondansetron) 4 Mg Tab.rapdis 4 Mg PO PRN Q6HRS Milk Of Magnesia (Magnesium Hydroxide) 2,400 Mg/10 Ml Oral.susp 2,400 Mg PO PRN QID PRN Loratadine 10 Mg Tablet 10 Mg PO [place] Carbonate 300 Mg Capsule 300 Mg PO BID Baclofen 10 Mg Tablet 10 Mg PO BID Maalox Maximum Strength Susp (Mag Hydrox/Al Hydrox/Simeth) 355 Ml Oral.susp 15 Ml PO PRN Q6HRS PRN Finasteride 5 Mg Tablet 5 Mg PO DAILY Colace (Docusate Sodium) 100 Mg Capsule 100 Mg PO PRN BID PRN Senokot (Sennosides) 8.6 Mg Tablet 8.6 Mg PO PRN DAILY PRN Senokot (Sennosides) 8.6 Mg Tablet 8.6 Mg PO BID Bisacodyl 10 Mg Supp.rect 10 Mg RC PRN DAILY PRN Tylenol (Acetaminophen) 325 Mg Tablet 650 Mg PO PRN Q6HRS PRN I have reviewed the current psychotropics carefully including drug interactions. Risk benefit ratio favors no change other than as noted in my dictated progress note. Diagnosis: Problems: (1) Anxiety disorder (2) Bipolar affective, mixed, sev w/ psych (3) Dementia, vascular, with delusions (4) Mild cognitive impairment MARQUIS SCOTT MD November 12, 2017 22:13
--- NOTE | 2017-11-13 01:04 | PN ---
DATE: 11/11/2017 This is a late entry, 11/11/2017, covers the elements not covered in my initial note, 11/11/2017. SUBJECTIVE: I met with the patient in the evening of 11/11/2017. The patient did have a CT head at [facility] and was negative of anything acute. He has been quite anxious, restless, having jerking movements. Dr. Ford, Neurology has been consulted. [place] level was 1.1. He has been flailing his arms, he had been called by nursing staff several times during the day, paged as an emergency due to his marked agitation, restlessness, refusal of medications, hitting his hand and bursting his knuckles open. He had received 3 p.r.n. of Haldol and Ativan the day before. He slept poorly previous evening. We will start trazodone 50 mg p.o. at bedtime p.r.n., november repeat x 2. REVIEW OF SYSTEMS: Ambulation impaired, in a wheelchair. No CV, , pulmonary, eye, ENT system symptoms on review. Reliability poor. MENTAL STATUS EXAM: Oriented to himself. Insight, judgment, recent memory is impaired. Language function is intact. Attention span short. Mood and affect quite labile, remains quite psychotic, talking to himself. LABORATORY DATA: Reviewed. IMPRESSION: Bipolar 1 disorder, mixed with psychotic features, delirium, unspecified. PLAN: I would like to simplify the patient's psychotropics for baseline assessment and then reinstitute gradually. We will stop the lithium and the amitriptyline. Continue Zyprexa and increase it to 5 mg q.2 hours as needed psychosis, agitation, max 20 mg in 24 hours, start the trazodone as noted above, maintain Risperdal along with Ativan as needed, and Haldol as needed. MAN Lindsey SCOTT MD DR: ARIA/rut JOB#: [id number] / [id number]
[2017-11-13 06:30] VITALS: BP 128/73
[2017-11-13] MEDS: CETIRIZINE HCL 10 MG TABLET PO SCH (09:00)
[2017-11-13] MEDS: BACLOFEN 10 MG TABLET PO SCH ×2 (09:00→20:34)
[2017-11-13] MEDS: TERAZOSIN 5 MG CAPSULE. PO SCH (09:00)
[2017-11-13] MEDS: FINASTERIDE 5 MG TABLET PO SCH (09:00)
[2017-11-13] MEDS: SENNOSIDES 8.6 MG TABLET PO SCH ×2 (09:00→20:34)
[2017-11-13] MEDS: oxyCODONE IR 5 MG TABLET PO PRN (11:53)
[2017-11-13 14:41] LABS: LI 0.7 mmol/L (0.6-1.2)
[2017-11-13] MEDS: FAMOTIDINE 20 MG TABLET PO SCH (16:44)
[2017-11-13] MEDS: ACETAMINOPHEN 325 MG TABLET PO PRN (16:45)
[2017-11-13 17:19] LABS: BACTERIA,URINE 0 /HPF (0-FEW); BILIRUBIN,URINE NEG (NEG); CLARITY,URINE CLEAR; COLOR,URINE YELLOW; GLUCOSE,URINE NEG (NEG); NITRITE,URINE NEG (NEG); RBC,URINE 20-40 /HPF (0-2); UROBILINOGEN,URINE 0.2 mg/dL (0.2 mg/dL)
[2017-11-13 17:20] LABS: HYALINE CASTS, URINE FEW /HPF
[2017-11-13 18:11] VITALS: BP 120/73
[2017-11-13] MEDS: risperiDONE 0.5 MG TABLET. PO SCH (20:34)
[2017-11-13] MEDS: MIRTAZAPINE 7.5 MG TABLET. PO SCH (20:34)
[2017-11-13] MEDS: ENOXAPARIN 30 MG/0.3 ML SYRINGE. SQ SCH (20:35)
[2017-11-13] MEDS: LITHIUM CARBONATE 300 MG TABLET PO SCH (20:35)
--- NOTE | 2017-11-13 20:43 | PDOC ---
Exam Note: Torsten Note: Please also refer to the separate dictated note~for this date of service dictated separately.~Patient seen individually. Discussed the patient with Nursing staff reviewed the chart.~Reviewed interim history and current functioning. Reviewed vital signs,~Labs/ Radiology~and current medications noted below. Continue current treatment with the changes noted in the dictated addendum note Assessment: Vital Signs: Vital Signs Date Time Temp Pulse Resp B/P (MAP) Pulse Ox O2 Delivery O2 Flow Rate FiO2 11/13/17 18:11 97.4 71 18 120/73 (89) 96 11/13/17 14:45 Room Air I&O Intake and Output 11/13/17 07:00 Intake Total 1380 ml Output Total 650 ml Balance 730 ml Intake Oral 1380 ml Output Urine Total 650 ml Labs: Laboratory Tests Test 11/13/17 07:45 11/13/17 16:00 [place] Level 0.7 mmol/L (0.6-1.2) [place] Last Dose Date 11/11/17 [place] Last Dose Time 0900 Urine Collection Type Unknown Urine Color Yellow Urine Clarity Clear Urine pH 7.0 Urine Specific [place] 1.015 Urine Protein 100 mg/dl (NEG-TRACE) Urine Glucose (UA) Neg mg/dL (NEG) Urine Ketones (Stick) Neg mg/dL (NEG) Urine Blood Small (NEG) Urine Nitrite Neg (NEG) Urine Bilirubin Neg (NEG) Urine Urobilinogen Dipstick 0.2 mg/dL (0.2 mg/dL) Urine Leukocyte Esterase Trace (NEG) Urine RBC 20-40 /HPF (0-2) Urine WBC 1-4 /HPF (0-4) Urine Squamous Epithelial Cells None /LPF Urine Bacteria 0 /HPF (0-FEW) Urine Hyaline Casts Few /HPF Urine Mucus Slight /LPF Current Medications: Meds: Current Medications Multi-Ingredient Ointment (Analgesic [place]) 1 warren PRN QID PRN TP MUSCLE PAIN; Start 11/08/17 at 15:00 Acetaminophen (Tylenol) 650 mg PRN Q6HRS PRN PO PAIN / TEMP Last administered on 11/13/17at 16:45; Start 11/08/17 at 15:30 Baclofen (Lioresal) 10 mg BID PO Last administered on 11/13/17at 20:34; Start at 21:00 Bisacodyl (Dulcolax Supp) 10 mg PRN DAILY PRN RC CONSTIPATION Last administered on 11/11/17 14:36; Start 11/08/17 at 15:30 Docusate Sodium (Colace) 100 mg PRN BID PRN PO CONSTIPATION; Start 11/08/17 at 15:30 Famotidine (Pepcid) 20 mg BIDBFRMEAL PO Last administered on 11/13/17 16:44; Start 11/08/17 at 16:30 Finasteride (Proscar) 5 mg DAILY PO Last administered on 11/12/17 11:31; Start 11/09/17 at 09:00 Haloperidol (Haldol) 0.5 mg PRN TID PRN PO AGITATION Last administered on 09:21; Start 11/08/17 at 15:30 Lorazepam (Ativan) 0.5 mg TID PRN PRN PO ANXIETY / AGITATION Last administered on 11/11/17 09:21; Start 11/08/17 at 15:30 Ondansetron HCl (Zofran Odt) 4 mg PRN Q6HRS PRN PO NAUSEA/VOMITING; Start at 15:30 Sennosides (Senna) 8.6 mg BID PO Last administered on 11/13/17 20:34; Start at 21:00 Sennosides (Senna) 8.6 mg PRN DAILY PRN PO CONSTIPATION; Start 11/08/17 at 15:30 [place] Carbonate 300 mg BID PO Last administered on 11/11/17 11:17; Start 11/08 at 21:00; Stop 11/11/17 at 13:52; Status DC Oxycodone HCl (Roxicodone) 5 mg PRN Q6HRS PRN PO PAIN Last administered on 11/13 11:53; Start 11/08/17 at 15:45 Terazosin HCl (Hytrin) 10 mg DAILY PO Last administered on 11/12/17 11:45; Start 11/09/17 at 09:00 Amitriptyline HCl (Elavil) 75 mg QHS PO Last administered on 11/09/17 20:00; Start 11/08/17 at 21:00; Stop 11/10/17 at 19:22; Status DC Cetirizine HCl (ZyrTEC) 10 mg DAILY PO Last administered on 11/12/17at 11:32; Start 11/09/17 at 09:00 Olanzapine (ZyPREXA ZYDIS) 2.5 mg PRN Q2HR PRN PO Psychosis; Start 11/08/17 at 15:45; Stop 11/11/17 at 11:33; Status DC Multi-Ingredient Ointment (Analgesic [place]) 1 warren PRN QID PRN TP MUSCLE PAIN; Start 11/08/17 at 15:45; Status Cancel Al Hydroxide/Mg Hydroxide (Mylanta Plus Xs) 15 ml PRN AFTMEALHC PRN PO DYSPEPSIA; Start 11/08/17 at 15:45 Magnesium Hydroxide (Milk Of Magnesia) 2,400 mg PRN QHS PRN PO CONSTIPATION Last administered on 11/11/17 12:05; Start 11/08/17 at 15:45 Enoxaparin Sodium (Lovenox) 40 mg Q24H SQ Last administered on 11/08/17 20:19; Start 11/08/17 at 21:00; Stop 11/09/17 at 14:41; Status DC Enoxaparin Sodium (Lovenox) 30 mg Q24H SQ Last administered on 11/13/17at 20:35 ; Start 11/09/17 at 21:00 Risperidone (RisperDAL) 0.25 mg QHS PO Last administered on 11/09/17 20:00; Start 11/09/17 at 21:00; Stop 11/10/17 at 19:22; Status DC Vitamin D (Vitamin D3) 50,000 unit WEEKLY PO Last administered on 11/11/17 11: 18; Start 11/11/17 at 09:00 Amitriptyline HCl (Elavil) 50 mg QHS PO Last administered on 11/10/17 19:46; Start 11/10/17 at 21:00; Stop 11/11/17 at 19:46; Status DC Risperidone (RisperDAL) 0.5 mg QHS PO Last administered on 11/13/17 20:34; Start 11/10/17 at 21:00 Olanzapine (ZyPREXA ZYDIS) 5 mg PRN Q2HR PRN PO Psychosis Last administered on 11/12/17at 00:42; Start 11/11/17 at 11:45 [place] Citrate 8 meq BID PO ; Start 11/11/17 at 21:00; Stop 11/11/17 at 21:00; Status DC Trazodone HCl (Desyrel) 50 mg PRN QHS PRN PO INSOMNIA Last administered on at 00:35; Start 11/11/17 at 19:45 Mirtazapine (Remeron) 7.5 mg QHS PO Last administered on 11/13/17at 20:34; Start 11/12/17 at 21:00 [place] Carbonate 150 mg DAILY PO ; Start 11/14/17 at 09:00 [place] Carbonate 300 mg HS PO Last administered on 11/13/17at 20:35; Start 04/23 at 21:00 Active Scripts Active Reported Amitriptyline Hcl 75 Mg Tablet 75 Mg PO QHS Oxycodone Hcl 5 Mg Capsule 5 Mg PO PRN Q6HRS PRN Lorazepam 0.5 Mg Tablet 0.5 Mg PO TID PRN PRN Famotidine 20 Mg Tablet 20 Mg PO BIDBFRMEAL Haloperidol 2 Mg Tablet 0.5 Mg PO PRN TID PRN Terazosin Hcl 10 Mg Capsule 10 Mg PO DAILY Ondansetron Odt (Ondansetron) 4 Mg Tab.rapdis 4 Mg PO PRN Q6HRS Milk Of Magnesia (Magnesium Hydroxide) 2,400 Mg/10 Ml Oral.susp 2,400 Mg PO PRN QID PRN Loratadine 10 Mg Tablet 10 Mg PO [place] Carbonate 300 Mg Capsule 300 Mg PO BID Baclofen 10 Mg Tablet 10 Mg PO BID Maalox Maximum Strength Susp (Mag Hydrox/Al Hydrox/Simeth) 355 Ml Oral.susp 15 Ml PO PRN Q6HRS PRN Finasteride 5 Mg Tablet 5 Mg PO DAILY Colace (Docusate Sodium) 100 Mg Capsule 100 Mg PO PRN BID PRN Senokot (Sennosides) 8.6 Mg Tablet 8.6 Mg PO PRN DAILY PRN Senokot (Sennosides) 8.6 Mg Tablet 8.6 Mg PO BID Bisacodyl 10 Mg Supp.rect 10 Mg RC PRN DAILY PRN Tylenol (Acetaminophen) 325 Mg Tablet 650 Mg PO PRN Q6HRS PRN I have reviewed the current psychotropics carefully including drug interactions. Risk benefit ratio favors no change other than as noted in my dictated progress note. Diagnosis: Problems: (1) Anxiety disorder (2) Bipolar affective, mixed, sev w/ psych (3) Dementia, vascular, with delusions (4) Mild cognitive impairment MARQUIS SCOTT MD November 13, 2017 20:43
[2017-11-14 05:26] VITALS: BP 142/76
[2017-11-14 07:09] LABS: BASO # 0.1 x10^3/uL (0.0-0.2); BASO % 1 % (0-3); EOS # 0.2 x10^3/uL (0.0-0.7); EOS % 3 % (0-3); HEMATOCRIT 43.1 % (39.0-53.0); HEMOGLOBIN 14.3 g/dL (13.0-17.5); LYMPH # 2.7 x10^3/uL (1.0-4.8); LYMPH % 34 % (24-48); MEAN CORPUSCULAR HEMOGLOBIN 30 pg (25-35); MEAN CORPUSCULAR HGB CONC 33 g/dL (31-37); MEAN CORPUSCULAR VOLUME 91 fL (79-100); MONO # 0.7 x10^3/uL (0.0-1.1); MONO % 8 % (0-9); NEUT # 4.4 x10^3uL (1.8-7.7); NEUT % 54 % (31-73); PLATELET COUNT 228 x10^3/uL (140-400); RED BLOOD COUNT 4.74 x10^6/uL (4.30-5.70); RED CELL DISTRIBUTION WIDTH 15.7 % (11.5-14.5)
[2017-11-14 07:17] LABS: ALBUMIN 3.1 g/dL (3.4-5.0); ALBUMIN/GLOBULIN RATIO 0.6 (1.0-1.7); CALCIUM 9.6 mg/dL (8.5-10.1); CREATININE 1.6 mg/dL (0.7-1.3); GFR 42.6; POTASSIUM 3.9 mmol/L (3.5-5.1); TOTAL BILIRUBIN 0.5 mg/dL (0.2-1.0); TOTAL PROTEIN 7.9 g/dL (6.4-8.2)
[2017-11-14] MEDS: FAMOTIDINE 20 MG TABLET PO SCH ×2 (07:30→10:17)
[2017-11-14 08:54] LABS: BGAS PH 7.46 (7.35-7.46)
[2017-11-14] MEDS: BACLOFEN 10 MG TABLET PO SCH ×2 (10:16→20:22)
[2017-11-14] MEDS: FINASTERIDE 5 MG TABLET PO SCH (10:16)
[2017-11-14] MEDS: SENNOSIDES 8.6 MG TABLET PO SCH ×2 (10:16→20:22)
[2017-11-14] MEDS: TERAZOSIN 5 MG CAPSULE. PO SCH (10:17)
[2017-11-14] MEDS: CETIRIZINE HCL 10 MG TABLET PO SCH (10:17)
[2017-11-14] MEDS: LITHIUM CARBONATE 150 MG CAPSULE. PO SCH (10:18)
[2017-11-14] MEDS: ACETAMINOPHEN 325 MG TABLET PO PRN (10:18)
[2017-11-14] MEDS: oxyCODONE IR 5 MG TABLET PO PRN (12:27)
[2017-11-14] MEDS: HALOPERIDOL 2 MG TABLET PO PRN (12:42)
[2017-11-14 16:33] VITALS: BP 133/87
[2017-11-14] MEDS: MIRTAZAPINE 7.5 MG TABLET. PO SCH (20:23)
[2017-11-14] MEDS: risperiDONE 0.5 MG TABLET. PO SCH (20:23)
[2017-11-14] MEDS: LITHIUM CARBONATE 300 MG TABLET PO SCH (20:23)
[2017-11-14] MEDS: ENOXAPARIN 30 MG/0.3 ML SYRINGE. SQ SCH (20:24)
--- NOTE | 2017-11-14 20:42 | PDOC ---
Exam Note: Torsten Note: Please also refer to the separate dictated note~for this date of service dictated separately.~Patient seen individually. Discussed the patient with Nursing staff reviewed the chart.~Reviewed interim history and current functioning. Reviewed vital signs,~Labs/ Radiology~and current medications noted below. Continue current treatment with the changes noted in the dictated addendum note Assessment: Vital Signs: Vital Signs Date Time Temp Pulse Resp B/P (MAP) Pulse Ox O2 Delivery O2 Flow Rate FiO2 11/14/17 16:57 18 97 Room Air 11/14/17 16:33 96.3 81 133/87 (102) I&O Intake and Output 11/14/17 07:00 Intake Total 600 ml Balance 600 ml Intake Oral 600 ml Labs: Laboratory Tests Test 11/14/17 06:28 11/14/17 06:42 11/14/17 08:34 Glucose (Fingerstick) 88 mg/dL (70-99) White Blood Count 8.0 x10^3/uL (4.0-11.0) Red Blood Count 4.74 x10^6/uL (4.30-5.70) Hemoglobin 14.3 g/dL (13.0-17.5) Hematocrit 43.1 % (39.0-53.0) Mean Corpuscular Volume 91 fL (79-100) Mean Corpuscular Hemoglobin 30 pg (25-35) Mean Corpuscular Hemoglobin Concent 33 g/dL (31-37) Red Cell Distribution Width 15.7 % (11.5-14.5) H Platelet Count 228 x10^3/uL (140-400) Neutrophils (%) (Auto) 54 % (31-73) Lymphocytes (%) (Auto) 34 % (24-48) Monocytes (%) (Auto) 8 % (0-9) Eosinophils (%) (Auto) 3 % (0-3) Basophils (%) (Auto) 1 % (0-3) Neutrophils # (Auto) 4.4 x10^3uL (1.8-7.7) Lymphocytes # (Auto) 2.7 x10^3/uL (1.0-4.8) Monocytes # (Auto) 0.7 x10^3/uL (0.0-1.1) Eosinophils # (Auto) 0.2 x10^3/uL (0.0-0.7) Basophils # (Auto) 0.1 x10^3/uL (0.0-0.2) Sodium Level 142 mmol/L (136-145) Potassium Level 3.9 mmol/L (3.5-5.1) Ch[place] Level 106 mmol/L (98-107) Carbon Dioxide Level 29 mmol/L (21-32) Anion Gap 7 (6-14) Blood Urea Nitrogen 25 mg/dL (8-26) Creatinine 1.6 mg/dL (0.7-1.3) H Estimated GFR (Cockcroft-Gault) 42.6 BUN/Creatinine Ratio 16 (6-20) Glucose Level 94 mg/dL (70-99) Lactic Acid Level 0.8 mmol/L (0.4-2.0) Calcium Level 9.6 mg/dL (8.5-10.1) Total Bilirubin 0.5 mg/dL (0.2-1.0) Aspartate Amino Transferase (AST) 15 U/L (15-37) Alanine Aminotransferase (ALT) 27 U/L (16-63) Alkaline Phosphatase 95 U/L (46-116) Total Protein 7.9 g/dL (6.4-8.2) Albumin 3.1 g/dL (3.4-5.0) L Albumin/Globulin Ratio 0.6 (1.0-1.7) L Blood pH 7.46 (7.35-7.46) Blood Gas PCO2 35 mmHg (35-46) Blood Gas PO2 78 mmHg (71-100) Blood Gas HCO3 25 mmol/L (21-28) Arterial Bld O2 Saturation (Calc) 96 % (92-99) FiO2 21 % Current Medications: Meds: Current Medications Multi-Ingredient Ointment (Analgesic [place]) 1 warren PRN QID PRN TP MUSCLE PAIN; Start 11/08/17 at 15:00 Acetaminophen (Tylenol) 650 mg PRN Q6HRS PRN PO PAIN / TEMP Last administered on 11/14/17at 10:18; Start 11/08/17 at 15:30 Baclofen (Lioresal) 10 mg BID PO Last administered on 11/14/17at 20:22; Start at 21:00 Bisacodyl (Dulcolax Supp) 10 mg PRN DAILY PRN RC CONSTIPATION Last administered on 11/11/17 14:36; Start 11/08/17 at 15:30 Docusate Sodium (Colace) 100 mg PRN BID PRN PO CONSTIPATION; Start 11/08/17 at 15:30 Famotidine (Pepcid) 20 mg BIDBFRMEAL PO Last administered on 11/14/17 10:17; Start 11/08/17 at 16:30 Finasteride (Proscar) 5 mg DAILY PO Last administered on 11/14/17 10:16; Start 11/09/17 at 09:00 Haloperidol (Haldol) 0.5 mg PRN TID PRN PO AGITATION Last administered on 12:42; Start 11/08/17 at 15:30 Lorazepam (Ativan) 0.5 mg TID PRN PRN PO ANXIETY / AGITATION Last administered on 11/11/17 09:21; Start 11/08/17 at 15:30 Ondansetron HCl (Zofran Odt) 4 mg PRN Q6HRS PRN PO NAUSEA/VOMITING; Start at 15:30 Sennosides (Senna) 8.6 mg BID PO Last administered on 11/14/17 20:22; Start at 21:00 Sennosides (Senna) 8.6 mg PRN DAILY PRN PO CONSTIPATION; Start 11/08/17 at 15:30 [place] Carbonate 300 mg BID PO Last administered on 11/11/17 11:17; Start 11/08 at 21:00; Stop 11/11/17 at 13:52; Status DC Oxycodone HCl (Roxicodone) 5 mg PRN Q6HRS PRN PO PAIN Last administered on 11/14 12:27; Start 11/08/17 at 15:45 Terazosin HCl (Hytrin) 10 mg DAILY PO Last administered on 11/14/17 10:17; Start 11/09/17 at 09:00 Amitriptyline HCl (Elavil) 75 mg QHS PO Last administered on 11/09/17 20:00; Start 11/08/17 at 21:00; Stop 11/10/17 at 19:22; Status DC Cetirizine HCl (ZyrTEC) 10 mg DAILY PO Last administered on 11/14/17at 10:17; Start 11/09/17 at 09:00 Olanzapine (ZyPREXA ZYDIS) 2.5 mg PRN Q2HR PRN PO Psychosis; Start 11/08/17 at 15:45; Stop 11/11/17 at 11:33; Status DC Multi-Ingredient Ointment (Analgesic [place]) 1 warren PRN QID PRN TP MUSCLE PAIN; Start 11/08/17 at 15:45; Status Cancel Al Hydroxide/Mg Hydroxide (Mylanta Plus Xs) 15 ml PRN AFTMEALHC PRN PO DYSPEPSIA; Start 11/08/17 at 15:45 Magnesium Hydroxide (Milk Of Magnesia) 2,400 mg PRN QHS PRN PO CONSTIPATION Last administered on 11/11/17at 12:05; Start 11/08/17 at 15:45 Enoxaparin Sodium (Lovenox) 40 mg Q24H SQ Last administered on 11/08/17at 20:19; Start 11/08/17 at 21:00; Stop 11/09/17 at 14:41; Status DC Enoxaparin Sodium (Lovenox) 30 mg Q24H SQ Last administered on 11/14/17at 20:24 ; Start 11/09/17 at 21:00 Risperidone (RisperDAL) 0.25 mg QHS PO Last administered on 11/09/17 20:00; Start 11/09/17 at 21:00; Stop 11/10/17 at 19:22; Status DC Vitamin D (Vitamin D3) 50,000 unit WEEKLY PO Last administered on 11/11/17 11: 18; Start 11/11/17 at 09:00 Amitriptyline HCl (Elavil) 50 mg QHS PO Last administered on 11/10/17at 19:46; Start 11/10/17 at 21:00; Stop 11/11/17 at 19:46; Status DC Risperidone (RisperDAL) 0.5 mg QHS PO Last administered on 11/14/17at 20:23; Start 11/10/17 at 21:00 Olanzapine (ZyPREXA ZYDIS) 5 mg PRN Q2HR PRN PO Psychosis Last administered on 11/12/17at 00:42; Start 11/11/17 at 11:45 [place] Citrate 8 meq BID PO ; Start 11/11/17 at 21:00; Stop 11/11/17 at 21:00; Status DC Trazodone HCl (Desyrel) 50 mg PRN QHS PRN PO INSOMNIA Last administered on at 00:35; Start 11/11/17 at 19:45 Mirtazapine (Remeron) 7.5 mg QHS PO Last administered on 11/14/17at 20:23; Start 11/12/17 at 21:00 [place] Carbonate 150 mg DAILY PO Last administered on 11/14/17at 10:18; Start 11/14/17 at 09:00 [place] Carbonate 300 mg HS PO Last administered on 11/14/17at 20:23; Start 04/23 at 21:00 Active Scripts Active Reported Amitriptyline Hcl 75 Mg Tablet 75 Mg PO QHS Oxycodone Hcl 5 Mg Capsule 5 Mg PO PRN Q6HRS PRN Lorazepam 0.5 Mg Tablet 0.5 Mg PO TID PRN PRN Famotidine 20 Mg Tablet 20 Mg PO BIDBFRMEAL Haloperidol 2 Mg Tablet 0.5 Mg PO PRN TID PRN Terazosin Hcl 10 Mg Capsule 10 Mg PO DAILY Ondansetron Odt (Ondansetron) 4 Mg Tab.rapdis 4 Mg PO PRN Q6HRS Milk Of Magnesia (Magnesium Hydroxide) 2,400 Mg/10 Ml Oral.susp 2,400 Mg PO PRN QID PRN Loratadine 10 Mg Tablet 10 Mg PO [place] Carbonate 300 Mg Capsule 300 Mg PO BID Baclofen 10 Mg Tablet 10 Mg PO BID Maalox Maximum Strength Susp (Mag Hydrox/Al Hydrox/Simeth) 355 Ml Oral.susp 15 Ml PO PRN Q6HRS PRN Finasteride 5 Mg Tablet 5 Mg PO DAILY Colace (Docusate Sodium) 100 Mg Capsule 100 Mg PO PRN BID PRN Senokot (Sennosides) 8.6 Mg Tablet 8.6 Mg PO PRN DAILY PRN Senokot (Sennosides) 8.6 Mg Tablet 8.6 Mg PO BID Bisacodyl 10 Mg Supp.rect 10 Mg RC PRN DAILY PRN Tylenol (Acetaminophen) 325 Mg Tablet 650 Mg PO PRN Q6HRS PRN I have reviewed the current psychotropics carefully including drug interactions. Risk benefit ratio favors no change other than as noted in my dictated progress note. Diagnosis: Problems: (1) Anxiety disorder (2) Bipolar affective, mixed, sev w/ psych (3) Dementia, vascular, with delusions (4) Mild cognitive impairment MARQUIS SCOTT MD November 14, 2017 20:42
[2017-11-14] MEDS ORDERED: NYSTATIN TOPICAL POWDER 15GM BOTTLE. TP ONE (22:17)
[2017-11-15 05:48] VITALS: BP 143/89
[2017-11-15 06:31] VITALS: BP 119/79
[2017-11-15] MEDS: SENNOSIDES 8.6 MG TABLET PO SCH ×2 (09:14→20:56)
[2017-11-15] MEDS: BACLOFEN 10 MG TABLET PO SCH ×2 (09:14→20:55)
[2017-11-15] MEDS: FINASTERIDE 5 MG TABLET PO SCH (09:16)
[2017-11-15] MEDS: TERAZOSIN 5 MG CAPSULE. PO SCH (09:16)
[2017-11-15] MEDS: CETIRIZINE HCL 10 MG TABLET PO SCH (09:16)
[2017-11-15] MEDS: LITHIUM CARBONATE 150 MG CAPSULE. PO SCH (09:16)
[2017-11-15] MEDS: FAMOTIDINE 20 MG TABLET PO SCH ×2 (09:17→18:16)
[2017-11-15] MEDS: LORazepam 0.5 MG TABLET PO PRN (09:53)
--- NOTE | 2017-11-15 11:40 | PN ---
DATE: 11/12/2017 This late entry, 11/12/2017, covers elements not covered in my initial note of 11/12/2017. SUBJECTIVE: I met with the patient in the evening. The patient slept just 1 hour previous evening, quite anxious, restless. Appetite is poor. We will check a CBC, CMP evening of 11/12/[address] Lincoln if dehydrated. He has had some night terrors screaming in his bed, hallucinating, repeatedly wanting coke, obsessed with this, drank one-third of his chocolate Boost. REVIEW OF SYSTEMS: Ambulation impaired, in wheelchair. No CV, , pulmonary, eye, ENT system symptoms on review. Reliability poor. MENTAL STATUS EXAM: Oriented to himself and situation at times. Speech coherent, difficult to understand. Abstraction fair, computation impaired, language function intact. Remains intermittently psychotic. No suicidal or homicidal ideation. IMPRESSION: Unchanged from initial note. PLAN: Start Remeron 7.5 mg p.o. at bedtime. We will discuss with family morning of 11/13/2017 about past response to psychotropics and decide to reinstitute lithium or try Depakote. MARQUIS SCOTT MD DR: ARIA/rut JOB#: [id number] / [id number]
--- NOTE | 2017-11-15 11:56 | PN ---
DATE: 11/13/2017 PSYCHIATRIC PROGRESS NOTE This late entry 11/13/2017 covers elements not covered in my initial note of 11/13/2017. SUBJECTIVE: Met with the patient in the evening, staffed at treatment team meeting with the entire team and the patient's , Marquis, attended together with his brother, Drew. Reviewed his history at length. He has been treated with ECT on two separate occasions apparently in the past with good results. He has been tried on various and all psychotropics, according to the family including Depakote and none of these were effective. He has done best on lithium over time and he has been on that for about 40 years. He has been an inpatient at [facility] about 30 years ago. He slept 3-1/4 hours, appetite is 50%, manipulative, repeatedly wanting Coke, unable to attend groups, quite anxious. Fluids are being pushed, ambulation impaired, and in wheelchair. REVIEW OF SYSTEMS: No CV, , pulmonary, eye, ENT system symptoms on review. Reliability varies. MENTAL STATUS EXAM: Oriented to himself, situation. Speech is difficult to understand at times, low in volume. Abstraction fair, computation is impaired, language function intact. Mood and affect remains labile. He does have some dehydration. Fluids are being pushed. LABORATORY DATA: Reviewed. IMPRESSION: Unchanged from initial note. Bipolar 1 disorder, mixed with psychotic features. PLAN: Restart lithium 150 in the morning and 300 at night. Check CBC, CMP, lithium level in 3 days. Continue Rest unchanged for now. Consider ECT if all else fails. MAN Lindsey SCOTT MD DR: ARIA/rut JOB#: [id number] / [id number]
[2017-11-15] MEDS: oxyCODONE IR 5 MG TABLET PO PRN ×2 (12:40→20:59)
[2017-11-15 16:03] VITALS: BP 125/85
[2017-11-15] MEDS: MIRTAZAPINE 7.5 MG TABLET. PO SCH (20:55)
[2017-11-15] MEDS: LITHIUM CARBONATE 300 MG TABLET PO SCH (20:55)
[2017-11-15] MEDS: risperiDONE 0.5 MG TABLET. PO SCH (20:58)
[2017-11-15] MEDS: traZODone 50 MG TABLET. PO PRN (20:59)
[2017-11-15] MEDS: ENOXAPARIN 30 MG/0.3 ML SYRINGE. SQ SCH (21:04)
--- NOTE | 2017-11-15 22:46 | PDOC ---
Exam Note: Torsten Note: Please also refer to the separate dictated note~for this date of service dictated separately.~Patient seen individually. Discussed the patient with Nursing staff reviewed the chart.~Reviewed interim history and current functioning. Reviewed vital signs,~Labs/ Radiology~and current medications noted below. Continue current treatment with the changes noted in the dictated addendum note Assessment: Vital Signs: Vital Signs Date Time Temp Pulse Resp B/P (MAP) Pulse Ox O2 Delivery O2 Flow Rate FiO2 11/15/17 16:03 97.3 79 18 125/85 (98) 100 11/15/17 14:10 Room Air I&O Intake and Output 11/15/17 07:00 Intake Total 240 ml Output Total 520 ml Balance -280 ml Intake Oral 240 ml Output Urine Total 520 ml Current Medications: Meds: Current Medications Multi-Ingredient Ointment (Analgesic [place]) 1 warren PRN QID PRN TP MUSCLE PAIN; Start 11/08/17 at 15:00 Acetaminophen (Tylenol) 650 mg PRN Q6HRS PRN PO PAIN / TEMP Last administered on 11/14/17 10:18; Start 11/08/17 at 15:30 Baclofen (Lioresal) 10 mg BID PO Last administered on 11/15/17at 20:55; Start at 21:00 Bisacodyl (Dulcolax Supp) 10 mg PRN DAILY PRN RC CONSTIPATION Last administered on 11/11/17at 14:36; Start 11/08/17 at 15:30 Docusate Sodium (Colace) 100 mg PRN BID PRN PO CONSTIPATION; Start 11/08/17 at 15:30 Famotidine (Pepcid) 20 mg BIDBFRMEAL PO Last administered on 11/15/17at 18:16; Start 11/08/17 at 16:30 Finasteride (Proscar) 5 mg DAILY PO Last administered on 11/15/17 09:16; Start 11/09/17 at 09:00 Haloperidol (Haldol) 0.5 mg PRN TID PRN PO AGITATION Last administered on 12:42; Start 11/08/17 at 15:30 Lorazepam (Ativan) 0.5 mg TID PRN PRN PO ANXIETY / AGITATION Last administered on 11/15/17 09:53; Start 11/08/17 at 15:30 Ondansetron HCl (Zofran Odt) 4 mg PRN Q6HRS PRN PO NAUSEA/VOMITING; Start at 15:30 Sennosides (Senna) 8.6 mg BID PO Last administered on 11/15/17at 20:56; Start at 21:00 Sennosides (Senna) 8.6 mg PRN DAILY PRN PO CONSTIPATION; Start 11/08/17 at 15:30 [place] Carbonate 300 mg BID PO Last administered on 11/11/17at 11:17; Start 11/08 at 21:00; Stop 11/11/17 at 13:52; Status DC Oxycodone HCl (Roxicodone) 5 mg PRN Q6HRS PRN PO PAIN Last administered on 11/15at 20:59; Start 11/08/17 at 15:45 Terazosin HCl (Hytrin) 10 mg DAILY PO Last administered on 11/15/17at 09:16; Start 11/09/17 at 09:00 Amitriptyline HCl (Elavil) 75 mg QHS PO Last administered on 11/09/17at 20:00; Start 11/08/17 at 21:00; Stop 11/10/17 at 19:22; Status DC Cetirizine HCl (ZyrTEC) 10 mg DAILY PO Last administered on 11/15/17at 09:16; Start 11/09/17 at 09:00 Olanzapine (ZyPREXA ZYDIS) 2.5 mg PRN Q2HR PRN PO Psychosis; Start 11/08/17 at 15:45; Stop 11/11/17 at 11:33; Status DC Multi-Ingredient Ointment (Analgesic [place]) 1 warren PRN QID PRN TP MUSCLE PAIN; Start 11/08/17 at 15:45; Status Cancel Al Hydroxide/Mg Hydroxide (Mylanta Plus Xs) 15 ml PRN AFTMEALHC PRN PO DYSPEPSIA; Start 11/08/17 at 15:45 Magnesium Hydroxide (Milk Of Magnesia) 2,400 mg PRN QHS PRN PO CONSTIPATION Last administered on 11/11/17at 12:05; Start 11/08/17 at 15:45 Enoxaparin Sodium (Lovenox) 40 mg Q24H SQ Last administered on 11/08/17 20:19; Start 11/08/17 at 21:00; Stop 11/09/17 at 14:41; Status DC Enoxaparin Sodium (Lovenox) 30 mg Q24H SQ Last administered on 11/15/17 21:04 ; Start 11/09/17 at 21:00 Risperidone (RisperDAL) 0.25 mg QHS PO Last administered on 11/09/17 20:00; Start 11/09/17 at 21:00; Stop 11/10/17 at 19:22; Status DC Vitamin D (Vitamin D3) 50,000 unit WEEKLY PO Last administered on 11/11/17 11: 18; Start 11/11/17 at 09:00 Amitriptyline HCl (Elavil) 50 mg QHS PO Last administered on 11/10/17 19:46; Start 11/10/17 at 21:00; Stop 11/11/17 at 19:46; Status DC Risperidone (RisperDAL) 0.5 mg QHS PO Last administered on 11/14/17at 20:23; Start 11/10/17 at 21:00; Stop 11/15/17 at 20:19; Status DC Olanzapine (ZyPREXA ZYDIS) 5 mg PRN Q2HR PRN PO Psychosis Last administered on 11/12/17at 00:42; Start 11/11/17 at 11:45 [place] Citrate 8 meq BID PO ; Start 11/11/17 at 21:00; Stop 11/11/17 at 21:00; Status DC Trazodone HCl (Desyrel) 50 mg PRN QHS PRN PO INSOMNIA Last administered on 11/15at 20:59; Start 11/11/17 at 19:45 Mirtazapine (Remeron) 7.5 mg QHS PO Last administered on 11/15/17 20:55; Start 11/12/17 at 21:00 [place] Carbonate 150 mg DAILY PO Last administered on 11/15/17 09:16; Start 11/14/17 at 09:00 [place] Carbonate 300 mg HS PO Last administered on 11/15/17at 20:55; Start 04/23 at 21:00 Nystatin (Nystop) 15 warren STK-MED ONCE TP Last administered on 11/14/17at 22:17; Start 11/14/17 at 22:17; Stop 11/14/17 at 22:18; Status DC Risperidone (RisperDAL) 0.75 mg QHS PO Last administered on 11/15/17at 20:58; Start 11/15/17 at 21:00 Active Scripts Active Reported Amitriptyline Hcl 75 Mg Tablet 75 Mg PO QHS Oxycodone Hcl 5 Mg Capsule 5 Mg PO PRN Q6HRS PRN Lorazepam 0.5 Mg Tablet 0.5 Mg PO TID PRN PRN Famotidine 20 Mg Tablet 20 Mg PO BIDBFRMEAL Haloperidol 2 Mg Tablet 0.5 Mg PO PRN TID PRN Terazosin Hcl 10 Mg Capsule 10 Mg PO DAILY Ondansetron Odt (Ondansetron) 4 Mg Tab.rapdis 4 Mg PO PRN Q6HRS Milk Of Magnesia (Magnesium Hydroxide) 2,400 Mg/10 Ml Oral.susp 2,400 Mg PO PRN QID PRN Loratadine 10 Mg Tablet 10 Mg PO [place] Carbonate 300 Mg Capsule 300 Mg PO BID Baclofen 10 Mg Tablet 10 Mg PO BID Maalox Maximum Strength Susp (Mag Hydrox/Al Hydrox/Simeth) 355 Ml Oral.susp 15 Ml PO PRN Q6HRS PRN Finasteride 5 Mg Tablet 5 Mg PO DAILY Colace (Docusate Sodium) 100 Mg Capsule 100 Mg PO PRN BID PRN Senokot (Sennosides) 8.6 Mg Tablet 8.6 Mg PO PRN DAILY PRN Senokot (Sennosides) 8.6 Mg Tablet 8.6 Mg PO BID Bisacodyl 10 Mg Supp.rect 10 Mg RC PRN DAILY PRN Tylenol (Acetaminophen) 325 Mg Tablet 650 Mg PO PRN Q6HRS PRN I have reviewed the current psychotropics carefully including drug interactions. Risk benefit ratio favors no change other than as noted in my dictated progress note. Diagnosis: Problems: (1) Anxiety disorder (2) Bipolar affective, mixed, sev w/ psych (3) Dementia, vascular, with delusions (4) Mild cognitive impairment MARQUIS SCOTT MD November 15, 2017 22:46
[2017-11-16 05:29] VITALS: BP 118/72
[2017-11-16] MEDS: BISACODYL 10 MG SUPP.RECT RC PRN (05:47)
[2017-11-16 08:52] LABS: BASO # 0.1 x10^3/uL (0.0-0.2); BASO % 1 % (0-3); EOS # 0.2 x10^3/uL (0.0-0.7); EOS % 2 % (0-3); HEMATOCRIT 41.4 % (39.0-53.0); HEMOGLOBIN 13.6 g/dL (13.0-17.5); LYMPH # 3.3 x10^3/uL (1.0-4.8); LYMPH % 31 % (24-48); MEAN CORPUSCULAR HEMOGLOBIN 30 pg (25-35); MEAN CORPUSCULAR HGB CONC 33 g/dL (31-37); MEAN CORPUSCULAR VOLUME 90 fL (79-100); MONO # 0.9 x10^3/uL (0.0-1.1); MONO % 9 % (0-9); NEUT # 6.2 x10^3uL (1.8-7.7); NEUT % 58 % (31-73); PLATELET COUNT 250 x10^3/uL (140-400); RED BLOOD COUNT 4.59 x10^6/uL (4.30-5.70); RED CELL DISTRIBUTION WIDTH 15.7 % (11.5-14.5); WHITE BLOOD COUNT 10.7 x10^3/uL (4.0-11.0)
[2017-11-16 09:11] LABS: ALBUMIN 2.7 g/dL (3.4-5.0); ALBUMIN/GLOBULIN RATIO 0.6 (1.0-1.7); CALCIUM 9.4 mg/dL (8.5-10.1); CREATININE 1.6 mg/dL (0.7-1.3); GFR 42.6; POTASSIUM 4.3 mmol/L (3.5-5.1); TOTAL BILIRUBIN 0.4 mg/dL (0.2-1.0); TOTAL PROTEIN 7.2 g/dL (6.4-8.2)
[2017-11-16] MEDS: LITHIUM CARBONATE 150 MG CAPSULE. PO SCH (09:57)
[2017-11-16] MEDS: FAMOTIDINE 20 MG TABLET PO SCH ×2 (09:57→17:16)
[2017-11-16] MEDS: CETIRIZINE HCL 10 MG TABLET PO SCH (09:58)
[2017-11-16] MEDS: BACLOFEN 10 MG TABLET PO SCH ×2 (09:58→21:09)
[2017-11-16] MEDS: FINASTERIDE 5 MG TABLET PO SCH (09:58)
[2017-11-16] MEDS: SENNOSIDES 8.6 MG TABLET PO SCH ×2 (09:58→21:09)
[2017-11-16] MEDS: TERAZOSIN 5 MG CAPSULE. PO SCH (09:58)
[2017-11-16 10:11] LABS: LI 0.7 mmol/L (0.6-1.2)
[2017-11-16 16:41] VITALS: BP 120/79
--- NOTE | 2017-11-16 20:44 | PDOC ---
Exam Note: Torsten Note: Please also refer to the separate dictated note~for this date of service dictated separately.~Patient seen individually. Discussed the patient with Nursing staff reviewed the chart.~Reviewed interim history and current functioning. Reviewed vital signs,~Labs/ Radiology~and current medications noted below. Continue current treatment with the changes noted in the dictated addendum note Assessment: Vital Signs: Vital Signs Date Time Temp Pulse Resp B/P (MAP) Pulse Ox O2 Delivery O2 Flow Rate FiO2 11/16/17 16:41 99.0 94 20 120/79 (93) 97 11/15/17 14:10 Room Air I&O Intake and Output 11/16/17 07:00 Intake Total 2080 ml Output Total 1200 ml Balance 880 ml Intake Oral 2080 ml Output Urine Total 1200 ml Labs: Laboratory Tests Test 11/16/17 08:05 White Blood Count 10.7 x10^3/uL (4.0-11.0) Red Blood Count 4.59 x10^6/uL (4.30-5.70) Hemoglobin 13.6 g/dL (13.0-17.5) Hematocrit 41.4 % (39.0-53.0) Mean Corpuscular Volume 90 fL (79-100) Mean Corpuscular Hemoglobin 30 pg (25-35) Mean Corpuscular Hemoglobin Concent 33 g/dL (31-37) Red Cell Distribution Width 15.7 % (11.5-14.5) H Platelet Count 250 x10^3/uL (140-400) Neutrophils (%) (Auto) 58 % (31-73) Lymphocytes (%) (Auto) 31 % (24-48) Monocytes (%) (Auto) 9 % (0-9) Eosinophils (%) (Auto) 2 % (0-3) Basophils (%) (Auto) 1 % (0-3) Neutrophils # (Auto) 6.2 x10^3uL (1.8-7.7) Lymphocytes # (Auto) 3.3 x10^3/uL (1.0-4.8) Monocytes # (Auto) 0.9 x10^3/uL (0.0-1.1) Eosinophils # (Auto) 0.2 x10^3/uL (0.0-0.7) Basophils # (Auto) 0.1 x10^3/uL (0.0-0.2) Sodium Level 139 mmol/L (136-145) Potassium Level 4.3 mmol/L (3.5-5.1) Chloride Level 105 mmol/L (98-107) Carbon Dioxide Level 26 mmol/L (21-32) Anion Gap 8 (6-14) Blood Urea Nitrogen 27 mg/dL (8-26) H Creatinine 1.6 mg/dL (0.7-1.3) H Estimated GFR (Cockcroft-Gault) 42.6 BUN/Creatinine Ratio 17 (6-20) Glucose Level 96 mg/dL (70-99) Calcium Level 9.4 mg/dL (8.5-10.1) Total Bilirubin 0.4 mg/dL (0.2-1.0) Aspartate Amino Transferase (AST) 23 U/L (15-37) Alanine Aminotransferase (ALT) 22 U/L (16-63) Alkaline Phosphatase 90 U/L (46-116) Total Protein 7.2 g/dL (6.4-8.2) Albumin 2.7 g/dL (3.4-5.0) L Albumin/Globulin Ratio 0.6 (1.0-1.7) L [place] Level 0.7 mmol/L (0.6-1.2) [place] Last Dose Date 11/15/17 [place] Last Dose Time 2100 Current Medications: Meds: Current Medications Multi-Ingredient Ointment (Analgesic Mio) 1 warren PRN QID PRN TP MUSCLE PAIN; Start 11/08/17 at 15:00 Acetaminophen (Tylenol) 650 mg PRN Q6HRS PRN PO PAIN / TEMP Last administered on 11/14/17at 10:18; Start 11/08/17 at 15:30 Baclofen (Lioresal) 10 mg BID PO Last administered on 11/16/17at 09:58; Start at 21:00 Bisacodyl (Dulcolax Supp) 10 mg PRN DAILY PRN RC CONSTIPATION Last administered on 11/16/17at 05:47; Start 11/08/17 at 15:30 Docusate Sodium (Colace) 100 mg PRN BID PRN PO CONSTIPATION; Start 11/08/17 at 15:30 Famotidine (Pepcid) 20 mg BIDBFRMEAL PO Last administered on 11/16/17 17:16; Start 11/08/17 at 16:30 Finasteride (Proscar) 5 mg DAILY PO Last administered on 11/16/17 09:58; Start 11/09/17 at 09:00 Haloperidol (Haldol) 0.5 mg PRN TID PRN PO AGITATION Last administered on 12:42; Start 11/08/17 at 15:30 Lorazepam (Ativan) 0.5 mg TID PRN PRN PO ANXIETY / AGITATION Last administered on 11/15/17 09:53; Start 11/08/17 at 15:30 Ondansetron HCl (Zofran Odt) 4 mg PRN Q6HRS PRN PO NAUSEA/VOMITING; Start at 15:30 Sennosides (Senna) 8.6 mg BID PO Last administered on 11/16/17 09:58; Start at 21:00 Sennosides (Senna) 8.6 mg PRN DAILY PRN PO CONSTIPATION; Start 11/08/17 at 15:30 [place] Carbonate 300 mg BID PO Last administered on 11/11/17 11:17; Start 11/08 at 21:00; Stop 11/11/17 at 13:52; Status DC Oxycodone HCl (Roxicodone) 5 mg PRN Q6HRS PRN PO PAIN Last administered on 11/15 20:59; Start 11/08/17 at 15:45 Terazosin HCl (Hytrin) 10 mg DAILY PO Last administered on 11/16/17 09:58; Start 11/09/17 at 09:00 Amitriptyline HCl (Elavil) 75 mg QHS PO Last administered on 11/09/17 20:00; Start 11/08/17 at 21:00; Stop 11/10/17 at 19:22; Status DC Cetirizine HCl (ZyrTEC) 10 mg DAILY PO Last administered on 11/16/17 09:58; Start 11/09/17 at 09:00 Olanzapine (ZyPREXA ZYDIS) 2.5 mg PRN Q2HR PRN PO Psychosis; Start 11/08/17 at 15:45; Stop 11/11/17 at 11:33; Status DC Multi-Ingredient Ointment (Analgesic Mio) 1 warren PRN QID PRN TP MUSCLE PAIN; Start 11/08/17 at 15:45; Status Cancel Al Hydroxide/Mg Hydroxide (Mylanta Plus Xs) 15 ml PRN AFTMEALHC PRN PO DYSPEPSIA; Start 11/08/17 at 15:45 Magnesium Hydroxide (Milk Of Magnesia) 2,400 mg PRN QHS PRN PO CONSTIPATION Last administered on 11/11/17at 12:05; Start 11/08/17 at 15:45 Enoxaparin Sodium (Lovenox) 40 mg Q24H SQ Last administered on 11/08/17at 20:19; Start 11/08/17 at 21:00; Stop 11/09/17 at 14:41; Status DC Enoxaparin Sodium (Lovenox) 30 mg Q24H SQ Last administered on 11/15/17at 21:04 ; Start 11/09/17 at 21:00 Risperidone (RisperDAL) 0.25 mg QHS PO Last administered on 11/09/17at 20:00; Start 11/09/17 at 21:00; Stop 11/10/17 at 19:22; Status DC Vitamin D (Vitamin D3) 50,000 unit WEEKLY PO Last administered on 11/11/17 11: 18; Start 11/11/17 at 09:00 Amitriptyline HCl (Elavil) 50 mg QHS PO Last administered on 11/10/17at 19:46; Start 11/10/17 at 21:00; Stop 11/11/17 at 19:46; Status DC Risperidone (RisperDAL) 0.5 mg QHS PO Last administered on 11/14/17at 20:23; Start 11/10/17 at 21:00; Stop 11/15/17 at 20:19; Status DC Olanzapine (ZyPREXA ZYDIS) 5 mg PRN Q2HR PRN PO Psychosis Last administered on 11/12/17at 00:42; Start 11/11/17 at 11:45 [place] Citrate 8 meq BID PO ; Start 11/11/17 at 21:00; Stop 11/11/17 at 21:00; Status DC Trazodone HCl (Desyrel) 50 mg PRN QHS PRN PO INSOMNIA Last administered on 11/15at 20:59; Start 11/11/17 at 19:45 Mirtazapine (Remeron) 7.5 mg QHS PO Last administered on 11/15/17at 20:55; Start 11/12/17 at 21:00 [place] Carbonate 150 mg DAILY PO Last administered on 11/16/17at 09:57; Start 11/14/17 at 09:00 [place] Carbonate 300 mg HS PO Last administered on 11/15/17at 20:55; Start 04/23 at 21:00 Nystatin (Nystop) 15 wraren STK-MED ONCE TP Last administered on 11/14/17at 22:17; Start 11/14/17 at 22:17; Stop 11/14/17 at 22:18; Status DC Risperidone (RisperDAL) 0.75 mg QHS PO Last administered on 11/15/17at 20:58; Start 11/15/17 at 21:00 Active Scripts Active Reported Amitriptyline Hcl 75 Mg Tablet 75 Mg PO QHS Oxycodone Hcl 5 Mg Capsule 5 Mg PO PRN Q6HRS PRN Lorazepam 0.5 Mg Tablet 0.5 Mg PO TID PRN PRN Famotidine 20 Mg Tablet 20 Mg PO BIDBFRMEAL Haloperidol 2 Mg Tablet 0.5 Mg PO PRN TID PRN Terazosin Hcl 10 Mg Capsule 10 Mg PO DAILY Ondansetron Odt (Ondansetron) 4 Mg Tab.rapdis 4 Mg PO PRN Q6HRS Milk Of Magnesia (Magnesium Hydroxide) 2,400 Mg/10 Ml Oral.susp 2,400 Mg PO PRN QID PRN Loratadine 10 Mg Tablet 10 Mg PO [place] Carbonate 300 Mg Capsule 300 Mg PO BID Baclofen 10 Mg Tablet 10 Mg PO BID Maalox Maximum Strength Susp (Mag Hydrox/Al Hydrox/Simeth) 355 Ml Oral.susp 15 Ml PO PRN Q6HRS PRN Finasteride 5 Mg Tablet 5 Mg PO DAILY Colace (Docusate Sodium) 100 Mg Capsule 100 Mg PO PRN BID PRN Senokot (Sennosides) 8.6 Mg Tablet 8.6 Mg PO PRN DAILY PRN Senokot (Sennosides) 8.6 Mg Tablet 8.6 Mg PO BID Bisacodyl 10 Mg Supp.rect 10 Mg RC PRN DAILY PRN Tylenol (Acetaminophen) 325 Mg Tablet 650 Mg PO PRN Q6HRS PRN I have reviewed the current psychotropics carefully including drug interactions. Risk benefit ratio favors no change other than as noted in my dictated progress note. Diagnosis: Problems: (1) Anxiety disorder (2) Bipolar affective, mixed, sev w/ psych (3) Dementia, vascular, with delusions (4) Mild cognitive impairment MARQUIS SCOTT MD November 16, 2017 20:44
[2017-11-16] MEDS: LITHIUM CARBONATE 300 MG TABLET PO SCH (21:09)
[2017-11-16] MEDS: risperiDONE 0.5 MG TABLET. PO SCH (21:09)
[2017-11-16] MEDS: MIRTAZAPINE 7.5 MG TABLET. PO SCH (21:09)
[2017-11-16] MEDS: traZODone 50 MG TABLET. PO PRN (21:14)
[2017-11-16] MEDS: oxyCODONE IR 5 MG TABLET PO PRN (21:14)
[2017-11-16] MEDS: ENOXAPARIN 30 MG/0.3 ML SYRINGE. SQ SCH (21:15)
--- NOTE | 2017-11-16 22:29 | PN ---
DATE: 11/14/2017 This is a late entry of 11/14/2017 covers elements not covered in my initial note of 11/14/2017. SUBJECTIVE: I met with the patient in the evening. The patient slept 5-3/4 hours. IN the morning of 11/14/2017, he was somewhat unresponsive. Dr. Lincoln ordered labs. WBC is improved as is the BUN and creatinine. Albumin is improved as well. He is complaining of pain, was agitated, psychotic, received p.r.n. Haldol at 12:40. Oral intake is poor. Fluids are being pushed. REVIEW OF SYSTEMS: Ambulation impaired, in Broda chair. No CV, , pulmonary, eye system symptoms on review. Reliability poor. MENTAL STATUS EXAM: Oriented to himself and situation. Speech is coherent, has some latency, often responses monosyllabic. Abstraction fair, computation impaired, language function intact. Mood and affect somewhat withdrawn. LABORATORY DATA: Reviewed. IMPRESSION: Bipolar 1 disorder, mixed with psychotic features. PLAN: Continue psychotropics mentioned in my initial note. Repeat lithium level is at 0.7. Continue lithium 150 mg in a.m. and 300 in p.m. Rest unchanged. MAN Lindsey SCOTT MD DR: ARIA/rut JOB#: [id number] / [id number]
--- NOTE | 2017-11-17 00:11 | PN ---
DATE: 11/15/2017 This is a late entry, 11/15/2017, covers the elements not covered in my initial note, 11/15/2017. I met with the patient in the evening. The patient slept 6-3/4 hours the previous night. Appetite is poor, though he takes the fluids better, refuses boost, received Ativan for anxiety at 10 a.m. He is anxious, afraid, paranoid, believing something is behind him. "She is a clone, she is going to hurt me." REVIEW OF SYSTEMS: Ambulation impaired, in a Broda chair. No CV, , pulmonary, eye, ENT system symptoms on review. MENTAL STATUS EXAM: Oriented to himself and situation. Speech coherent, has some latency. Abstraction fair, computation impaired, language function intact, attention span short. Mood and affect somewhat anxious, labile. LABORATORY DATA: Reviewed. IMPRESSION: Bipolar 1 disorder, mixed with psychotic features. Rest unchanged. PLAN: Increase Risperdal from 0.5 mg at bedtime to 0.75 mg at bedtime. Continue rest unchanged including lithium 150 mg before meals and 300 at bedtime, level is 0.7. MAN Linsdey SCOTT MD DR: ARIA/rut JOB#: [id number] / [id number]
[2017-11-17 05:43] VITALS: BP 143/83
--- NOTE | 2017-11-17 08:00 | RAD ---
KUB, 11/17/2017: HISTORY: Abdominal pain There is gas and a moderate amount stool scattered throughout the colon in a nonspecific pattern. There is no evidence of organomegaly. Faint pelvic calcifications are probably vascular. Surgical pins are present in the right hip. There are mild scattered degenerative changes in the lumbar spine. IMPRESSION: No acute abdominal abnormality is detected. Electronically signed by: Roland Guevara MD (11/17/2017 7:57 AM) [facility]
[2017-11-17] MEDS: TERAZOSIN 5 MG CAPSULE. PO SCH (08:31)
[2017-11-17] MEDS: SENNOSIDES 8.6 MG TABLET PO SCH ×2 (08:31→19:27)
[2017-11-17] MEDS: FINASTERIDE 5 MG TABLET PO SCH (08:31)
[2017-11-17] MEDS: LITHIUM CARBONATE 150 MG CAPSULE. PO SCH (08:31)
[2017-11-17] MEDS: BACLOFEN 10 MG TABLET PO SCH ×2 (08:32→19:28)
[2017-11-17] MEDS: CETIRIZINE HCL 10 MG TABLET PO SCH (08:32)
[2017-11-17] MEDS: FAMOTIDINE 20 MG TABLET PO SCH ×2 (08:32→16:58)
[2017-11-17] MEDS: POLYETHYLENE GLYCOL 3350 17 GM PACKET. PO SCH ×2 (08:34→19:27)
[2017-11-17 15:50] VITALS: BP 128/81
[2017-11-17] MEDS: LORazepam 0.5 MG TABLET PO PRN (16:58)
[2017-11-17] MEDS: ENOXAPARIN 30 MG/0.3 ML SYRINGE. SQ SCH (19:27)
[2017-11-17] MEDS: MIRTAZAPINE 7.5 MG TABLET. PO SCH (19:28)
[2017-11-17] MEDS: risperiDONE 0.5 MG TABLET. PO SCH (19:28)
[2017-11-17] MEDS: LITHIUM CARBONATE 300 MG TABLET PO SCH (19:28)
--- NOTE | 2017-11-17 20:48 | PDOC ---
Exam Note: Torsten Note: Please also refer to the separate dictated note~for this date of service dictated separately.~Patient seen individually. Discussed the patient with Nursing staff reviewed the chart.~Reviewed interim history and current functioning. Reviewed vital signs,~Labs/ Radiology~and current medications noted below. Continue current treatment with the changes noted in the dictated addendum note Assessment: Vital Signs: Vital Signs Date Time Temp Pulse Resp B/P (MAP) Pulse Ox O2 Delivery O2 Flow Rate FiO2 11/17/17 15:50 97.5 87 22 128/81 (97) 98 11/17/17 05:43 Room Air I&O Intake and Output 11/17/17 07:00 Intake Total 720 ml Output Total 1250 ml Balance -530 ml Intake Oral 720 ml Output Urine Total 1250 ml Current Medications: Meds: Current Medications Multi-Ingredient Ointment (Analgesic [place]) 1 warren PRN QID PRN TP MUSCLE PAIN; Start 11/08/17 at 15:00 Acetaminophen (Tylenol) 650 mg PRN Q6HRS PRN PO PAIN / TEMP Last administered on 11/14/17at 10:18; Start 11/08/17 at 15:30 Baclofen (Lioresal) 10 mg BID PO Last administered on 11/17/17at 19:28; Start at 21:00 Bisacodyl (Dulcolax Supp) 10 mg PRN DAILY PRN RC CONSTIPATION Last administered on 11/16/17at 05:47; Start 11/08/17 at 15:30 Docusate Sodium (Colace) 100 mg PRN BID PRN PO CONSTIPATION; Start 11/08/17 at 15:30 Famotidine (Pepcid) 20 mg BIDBFRMEAL PO Last administered on 11/17/17at 16:58; Start 11/08/17 at 16:30 Finasteride (Proscar) 5 mg DAILY PO Last administered on 11/17/17at 08:31; Start 11/09/17 at 09:00 Haloperidol (Haldol) 0.5 mg PRN TID PRN PO AGITATION Last administered on at 12:42; Start 11/08/17 at 15:30 Lorazepam (Ativan) 0.5 mg TID PRN PRN PO ANXIETY / AGITATION Last administered on 5/14/18at 16:58; Start 11/08/17 at 15:30 Ondansetron HCl (Zofran Odt) 4 mg PRN Q6HRS PRN PO NAUSEA/VOMITING; Start at 15:30 Sennosides (Senna) 8.6 mg BID PO Last administered on 11/17/17at 19:27; Start at 21:00 Sennosides (Senna) 8.6 mg PRN DAILY PRN PO CONSTIPATION; Start 11/08/17 at 15:30 [place] Carbonate 300 mg BID PO Last administered on 11/11/17at 11:17; Start 11/08 at 21:00; Stop 11/11/17 at 13:52; Status DC Oxycodone HCl (Roxicodone) 5 mg PRN Q6HRS PRN PO PAIN Last administered on 11/16at 21:14; Start 11/08/17 at 15:45 Terazosin HCl (Hytrin) 10 mg DAILY PO Last administered on 11/17/17at 08:31; Start 11/09/17 at 09:00 Amitriptyline HCl (Elavil) 75 mg QHS PO Last administered on 11/09/17at 20:00; Start 11/08/17 at 21:00; Stop 11/10/17 at 19:22; Status DC Cetirizine HCl (ZyrTEC) 10 mg DAILY PO Last administered on 11/17/17at 08:32; Start 11/09/17 at 09:00 Olanzapine (ZyPREXA ZYDIS) 2.5 mg PRN Q2HR PRN PO Psychosis; Start 11/08/17 at 15:45; Stop 11/11/17 at 11:33; Status DC Multi-Ingredient Ointment (Analgesic [place]) 1 warren PRN QID PRN TP MUSCLE PAIN; Start 11/08/17 at 15:45; Status Cancel Al Hydroxide/Mg Hydroxide (Mylanta Plus Xs) 15 ml PRN AFTMEALHC PRN PO DYSPEPSIA; Start 11/08/17 at 15:45 Magnesium Hydroxide (Milk Of Magnesia) 2,400 mg PRN QHS PRN PO CONSTIPATION Last administered on 11/11/17at 12:05; Start 11/08/17 at 15:45 Enoxaparin Sodium (Lovenox) 40 mg Q24H SQ Last administered on 11/08/17 20:19; Start 11/08/17 at 21:00; Stop 11/09/17 at 14:41; Status DC Enoxaparin Sodium (Lovenox) 30 mg Q24H SQ Last administered on 11/17/17 19:27 ; Start 11/09/17 at 21:00 Risperidone (RisperDAL) 0.25 mg QHS PO Last administered on 11/09/17 20:00; Start 11/09/17 at 21:00; Stop 11/10/17 at 19:22; Status DC Vitamin D (Vitamin D3) 50,000 unit WEEKLY PO Last administered on 11/11/17 11: 18; Start 11/11/17 at 09:00 Amitriptyline HCl (Elavil) 50 mg QHS PO Last administered on 11/10/17 19:46; Start 11/10/17 at 21:00; Stop 11/11/17 at 19:46; Status DC Risperidone (RisperDAL) 0.5 mg QHS PO Last administered on 11/14/17at 20:23; Start 11/10/17 at 21:00; Stop 11/15/17 at 20:19; Status DC Olanzapine (ZyPREXA ZYDIS) 5 mg PRN Q2HR PRN PO Psychosis Last administered on 11/17/17 16:58; Start 11/11/17 at 11:45 [place] Citrate 8 meq BID PO ; Start 11/11/17 at 21:00; Stop 11/11/17 at 21:00; Status DC Trazodone HCl (Desyrel) 50 mg PRN QHS PRN PO INSOMNIA Last administered on 11/16at 21:14; Start 11/11/17 at 19:45 Mirtazapine (Remeron) 7.5 mg QHS PO Last administered on 11/17/17 19:28; Start 11/12/17 at 21:00 [place] Carbonate 150 mg DAILY PO Last administered on 11/17/17at 08:31; Start 11/14/17 at 09:00 [place] Carbonate 300 mg HS PO Last administered on 11/17/17 19:28; Start 04/23 at 21:00 Nystatin (Nystop) 15 warren STK-MED ONCE TP Last administered on 11/14/17at 22:17; Start 11/14/17 at 22:17; Stop 11/14/17 at 22:18; Status DC Risperidone (RisperDAL) 0.75 mg QHS PO Last administered on 11/17/17at 19:28; Start 11/15/17 at 21:00 Polyethylene Glycol (miraLAX) 17 gm BID PO Last administered on 11/17/17at 19:27 ; Start 11/17/17 at 09:00 Active Scripts Active Reported Amitriptyline Hcl 75 Mg Tablet 75 Mg PO QHS Oxycodone Hcl 5 Mg Capsule 5 Mg PO PRN Q6HRS PRN Lorazepam 0.5 Mg Tablet 0.5 Mg PO TID PRN PRN Famotidine 20 Mg Tablet 20 Mg PO BIDBFRMEAL Haloperidol 2 Mg Tablet 0.5 Mg PO PRN TID PRN Terazosin Hcl 10 Mg Capsule 10 Mg PO DAILY Ondansetron Odt (Ondansetron) 4 Mg Tab.rapdis 4 Mg PO PRN Q6HRS Milk Of Magnesia (Magnesium Hydroxide) 2,400 Mg/10 Ml Oral.susp 2,400 Mg PO PRN QID PRN Loratadine 10 Mg Tablet 10 Mg PO [place] Carbonate 300 Mg Capsule 300 Mg PO BID Baclofen 10 Mg Tablet 10 Mg PO BID Maalox Maximum Strength Susp (Mag Hydrox/Al Hydrox/Simeth) 355 Ml Oral.susp 15 Ml PO PRN Q6HRS PRN Finasteride 5 Mg Tablet 5 Mg PO DAILY Colace (Docusate Sodium) 100 Mg Capsule 100 Mg PO PRN BID PRN Senokot (Sennosides) 8.6 Mg Tablet 8.6 Mg PO PRN DAILY PRN Senokot (Sennosides) 8.6 Mg Tablet 8.6 Mg PO BID Bisacodyl 10 Mg Supp.rect 10 Mg RC PRN DAILY PRN Tylenol (Acetaminophen) 325 Mg Tablet 650 Mg PO PRN Q6HRS PRN I have reviewed the current psychotropics carefully including drug interactions. Risk benefit ratio favors no change other than as noted in my dictated progress note. Diagnosis: Problems: (1) Anxiety disorder (2) Bipolar affective, mixed, sev w/ psych (3) Dementia, vascular, with delusions (4) Mild cognitive impairment MARQUIS SCOTT MD November 17, 2017 20:48
--- NOTE | 2017-11-18 05:07 | PN ---
DATE: 11/16/2017 This late entry 11/16/2017 covers elements not covered in my initial note 11/16/2017. I met with the patient in the evening. The patient has had a better day previous night. He was psychotic, delusional with nursing staff. He has had a distended abdomen, received suppository, takes his meds in ice cream. [place] level 0.7. REVIEW OF SYSTEMS: Ambulation impaired, in wheelchair. No CV, , pulmonary, eye, ENT system symptoms on review. MENTAL STATUS EXAM: Oriented to himself and situation. Speech moderate latency, often responses monosyllabic. Abstraction fair, computation impaired, language function intact. Mood and affect remains somewhat withdrawn. LABORATORY DATA: Reviewed. IMPRESSION: Unchanged from initial note. PLAN: Continue current psychotropics. Adjust as clinically indicated. MAN Lindsey SCOTT MD DR: ARIA/rut JOB#: [id number] / [id number]
[2017-11-18 08:11] VITALS: BP 127/81
[2017-11-18] MEDS: POLYETHYLENE GLYCOL 3350 17 GM PACKET. PO SCH ×2 (08:14→19:38)
[2017-11-18] MEDS: CETIRIZINE HCL 10 MG TABLET PO SCH (08:15)
[2017-11-18] MEDS: SENNOSIDES 8.6 MG TABLET PO SCH ×2 (08:15→19:37)
[2017-11-18] MEDS: BACLOFEN 10 MG TABLET PO SCH ×2 (08:15→19:37)
[2017-11-18] MEDS: FAMOTIDINE 20 MG TABLET PO SCH ×2 (08:15→16:14)
[2017-11-18] MEDS: TERAZOSIN 5 MG CAPSULE. PO SCH (08:16)
[2017-11-18] MEDS: LITHIUM CARBONATE 150 MG CAPSULE. PO SCH (08:16)
[2017-11-18] MEDS: LORazepam 0.5 MG TABLET PO PRN ×2 (08:16→21:39)
[2017-11-18] MEDS: CHOLECALCIFEROL (VITAMIN D3) 50,000 UNIT CAPSULE PO SCH (08:16)
[2017-11-18] MEDS: FINASTERIDE 5 MG TABLET PO SCH (08:16)
[2017-11-18] MEDS: HALOPERIDOL 2 MG TABLET PO PRN (12:30)
[2017-11-18] MEDS: oxyCODONE IR 5 MG TABLET PO PRN (12:32)
[2017-11-18 16:30] VITALS: BP 101/74
--- NOTE | 2017-11-18 18:07 | PN ---
DATE: 11/17/2017 PSYCHIATRIC PROGRESS NOTE This is a late entry for 11/17/2017, covers elements not covered in my initial note of 11/17/2017. SUBJECTIVE: I met with the patient in the evening. The patient slept 5-1/2 hours, took his medications in the morning, took them crushed. He has had no bowel movements and KUB has been done. Deferred to Dr. Lincoln and Dr. Alonzo. He is tearful at times. REVIEW OF SYSTEMS: Ambulation impaired, in wheelchair. No CV, , pulmonary, eye system symptoms on review. MENTAL STATUS EXAM: Oriented to himself and situation. Speech, low in volume, often responses monosyllabic. Abstraction fair, computation impaired, language function intact, attention span short. Mood and affect somewhat withdrawn. LABORATORY DATA: Reviewed. IMPRESSION: Unchanged from initial note. PLAN: Continue current psychotropics. Check lithium level, adjust as indicated. MAN Lindsey SCOTT MD DR: ARIA/rut JOB#: [id number] / [id number]
[2017-11-18] MEDS: LITHIUM CARBONATE 300 MG TABLET PO SCH (19:36)
[2017-11-18] MEDS: risperiDONE 0.5 MG TABLET. PO SCH (19:37)
[2017-11-18] MEDS: MIRTAZAPINE 7.5 MG TABLET. PO SCH (19:37)
[2017-11-18] MEDS: ENOXAPARIN 30 MG/0.3 ML SYRINGE. SQ SCH (19:38)
--- NOTE | 2017-11-18 20:16 | PDOC ---
Exam Note: Torsten Note: Please also refer to the separate dictated note~for this date of service dictated separately.~Patient seen individually. Discussed the patient with Nursing staff reviewed the chart.~Reviewed interim history and current functioning. Reviewed vital signs,~Labs/ Radiology~and current medications noted below. Continue current treatment with the changes noted in the dictated addendum note Assessment: Vital Signs: Vital Signs Date Time Temp Pulse Resp B/P (MAP) Pulse Ox O2 Delivery O2 Flow Rate FiO2 11/18/17 16:30 97.9 73 18 101/74 (83) 99 11/18/17 13:45 Room Air I&O Intake and Output 11/18/17 07:00 Intake Total 720 ml Output Total 600 ml Balance 120 ml Intake Oral 720 ml Output Urine Total 600 ml Current Medications: Meds: Current Medications Multi-Ingredient Ointment (Analgesic [place]) 1 warren PRN QID PRN TP MUSCLE PAIN; Start 11/08/17 at 15:00 Acetaminophen (Tylenol) 650 mg PRN Q6HRS PRN PO PAIN / TEMP Last administered on 11/14/17at 10:18; Start 11/08/17 at 15:30 Baclofen (Lioresal) 10 mg BID PO Last administered on 11/18/17at 19:37; Start at 21:00 Bisacodyl (Dulcolax Supp) 10 mg PRN DAILY PRN RC CONSTIPATION Last administered on 11/16/17at 05:47; Start 11/08/17 at 15:30 Docusate Sodium (Colace) 100 mg PRN BID PRN PO CONSTIPATION; Start 11/08/17 at 15:30 Famotidine (Pepcid) 20 mg BIDBFRMEAL PO Last administered on 11/18/17at 16:14; Start 11/08/17 at 16:30 Finasteride (Proscar) 5 mg DAILY PO Last administered on 11/18/17at 08:16; Start 11/09/17 at 09:00 Haloperidol (Haldol) 0.5 mg PRN TID PRN PO AGITATION Last administered on at 12:30; Start 11/08/17 at 15:30 Lorazepam (Ativan) 0.5 mg TID PRN PRN PO ANXIETY / AGITATION Last administered on 11/18/17at 08:16; Start 11/08/17 at 15:30 Ondansetron HCl (Zofran Odt) 4 mg PRN Q6HRS PRN PO NAUSEA/VOMITING; Start at 15:30 Sennosides (Senna) 8.6 mg BID PO Last administered on 11/18/17at 19:37; Start at 21:00 Sennosides (Senna) 8.6 mg PRN DAILY PRN PO CONSTIPATION; Start 11/08/17 at 15:30 [place] Carbonate 300 mg BID PO Last administered on 11/11/17at 11:17; Start 11/08 at 21:00; Stop 11/11/17 at 13:52; Status DC Oxycodone HCl (Roxicodone) 5 mg PRN Q6HRS PRN PO PAIN Last administered on 11/18at 12:32; Start 11/08/17 at 15:45 Terazosin HCl (Hytrin) 10 mg DAILY PO Last administered on 11/18/17at 08:16; Start 11/09/17 at 09:00 Amitriptyline HCl (Elavil) 75 mg QHS PO Last administered on 11/09/17at 20:00; Start 11/08/17 at 21:00; Stop 11/10/17 at 19:22; Status DC Cetirizine HCl (ZyrTEC) 10 mg DAILY PO Last administered on 11/18/17at 08:15; Start 11/09/17 at 09:00 Olanzapine (ZyPREXA ZYDIS) 2.5 mg PRN Q2HR PRN PO Psychosis; Start 11/08/17 at 15:45; Stop 11/11/17 at 11:33; Status DC Multi-Ingredient Ointment (Analgesic [place]) 1 warren PRN QID PRN TP MUSCLE PAIN; Start 11/08/17 at 15:45; Status Cancel Al Hydroxide/Mg Hydroxide (Mylanta Plus Xs) 15 ml PRN AFTMEALHC PRN PO DYSPEPSIA; Start 11/08/17 at 15:45 Magnesium Hydroxide (Milk Of Magnesia) 2,400 mg PRN QHS PRN PO CONSTIPATION Last administered on 11/11/17at 12:05; Start 11/08/17 at 15:45 Enoxaparin Sodium (Lovenox) 40 mg Q24H SQ Last administered on 11/08/17 20:19; Start 11/08/17 at 21:00; Stop 11/09/17 at 14:41; Status DC Enoxaparin Sodium (Lovenox) 30 mg Q24H SQ Last administered on 11/18/17 19:38 ; Start 11/09/17 at 21:00 Risperidone (RisperDAL) 0.25 mg QHS PO Last administered on 11/09/17 20:00; Start 11/09/17 at 21:00; Stop 11/10/17 at 19:22; Status DC Vitamin D (Vitamin D3) 50,000 unit WEEKLY PO Last administered on 11/18/17 08: 16; Start 11/11/17 at 09:00 Amitriptyline HCl (Elavil) 50 mg QHS PO Last administered on 11/10/17 19:46; Start 11/10/17 at 21:00; Stop 11/11/17 at 19:46; Status DC Risperidone (RisperDAL) 0.5 mg QHS PO Last administered on 11/14/17at 20:23; Start 11/10/17 at 21:00; Stop 11/15/17 at 20:19; Status DC Olanzapine (ZyPREXA ZYDIS) 5 mg PRN Q2HR PRN PO Psychosis Last administered on 11/17/17 16:58; Start 11/11/17 at 11:45 [place] Citrate 8 meq BID PO ; Start 11/11/17 at 21:00; Stop 11/11/17 at 21:00; Status DC Trazodone HCl (Desyrel) 50 mg PRN QHS PRN PO INSOMNIA Last administered on 11/16 21:14; Start 11/11/17 at 19:45 Mirtazapine (Remeron) 7.5 mg QHS PO Last administered on 11/18/17 19:37; Start 11/12/17 at 21:00 [place] Carbonate 150 mg DAILY PO Last administered on 11/18/17 08:16; Start 11/14/17 at 09:00 [place] Carbonate 300 mg HS PO Last administered on 11/18/17 19:36; Start 04/23 at 21:00 Nystatin (Nystop) 15 warren STK-MED ONCE TP Last administered on 11/14/17at 22:17; Start 11/14/17 at 22:17; Stop 11/14/17 at 22:18; Status DC Risperidone (RisperDAL) 0.75 mg QHS PO Last administered on 11/18/17at 19:37; Start 11/15/17 at 21:00 Polyethylene Glycol (miraLAX) 17 gm BID PO Last administered on 11/18/17at 19:38 ; Start 11/17/17 at 09:00 Active Scripts Active Reported Amitriptyline Hcl 75 Mg Tablet 75 Mg PO QHS Oxycodone Hcl 5 Mg Capsule 5 Mg PO PRN Q6HRS PRN Lorazepam 0.5 Mg Tablet 0.5 Mg PO TID PRN PRN Famotidine 20 Mg Tablet 20 Mg PO BIDBFRMEAL Haloperidol 2 Mg Tablet 0.5 Mg PO PRN TID PRN Terazosin Hcl 10 Mg Capsule 10 Mg PO DAILY Ondansetron Odt (Ondansetron) 4 Mg Tab.rapdis 4 Mg PO PRN Q6HRS Milk Of Magnesia (Magnesium Hydroxide) 2,400 Mg/10 Ml Oral.susp 2,400 Mg PO PRN QID PRN Loratadine 10 Mg Tablet 10 Mg PO [place] Carbonate 300 Mg Capsule 300 Mg PO BID Baclofen 10 Mg Tablet 10 Mg PO BID Maalox Maximum Strength Susp (Mag Hydrox/Al Hydrox/Simeth) 355 Ml Oral.susp 15 Ml PO PRN Q6HRS PRN Finasteride 5 Mg Tablet 5 Mg PO DAILY Colace (Docusate Sodium) 100 Mg Capsule 100 Mg PO PRN BID PRN Senokot (Sennosides) 8.6 Mg Tablet 8.6 Mg PO PRN DAILY PRN Senokot (Sennosides) 8.6 Mg Tablet 8.6 Mg PO BID Bisacodyl 10 Mg Supp.rect 10 Mg RC PRN DAILY PRN Tylenol (Acetaminophen) 325 Mg Tablet 650 Mg PO PRN Q6HRS PRN I have reviewed the current psychotropics carefully including drug interactions. Risk benefit ratio favors no change other than as noted in my dictated progress note. Diagnosis: Problems: (1) Anxiety disorder (2) Bipolar affective, mixed, sev w/ psych (3) Dementia, vascular, with delusions (4) Mild cognitive impairment MARQUIS SCOTT MD November 18, 2017 20:16
[2017-11-19 05:57] VITALS: BP 119/73
[2017-11-19 07:56] LABS: BASO # 0.1 x10^3/uL (0.0-0.2); BASO % 1 % (0-3); EOS # 0.1 x10^3/uL (0.0-0.7); EOS % 1 % (0-3); HEMATOCRIT 42.3 % (39.0-53.0); HEMOGLOBIN 13.6 g/dL (13.0-17.5); LYMPH # 2.6 x10^3/uL (1.0-4.8); LYMPH % 28 % (24-48); MEAN CORPUSCULAR HEMOGLOBIN 29 pg (25-35); MEAN CORPUSCULAR HGB CONC 32 g/dL (31-37); MEAN CORPUSCULAR VOLUME 92 fL (79-100); MONO % 10 % (0-9); NEUT # 5.5 x10^3uL (1.8-7.7); NEUT % 60 % (31-73); PLATELET COUNT 220 x10^3/uL (140-400); RED BLOOD COUNT 4.62 x10^6/uL (4.30-5.70); RED CELL DISTRIBUTION WIDTH 15.5 % (11.5-14.5); WHITE BLOOD COUNT 9.2 x10^3/uL (4.0-11.0)
[2017-11-19 08:18] LABS: ALBUMIN 2.6 g/dL (3.4-5.0); ALBUMIN/GLOBULIN RATIO 0.6 (1.0-1.7); CALCIUM 9.4 mg/dL (8.5-10.1); CREATININE 1.4 mg/dL (0.7-1.3); GFR 49.7; POTASSIUM 4.4 mmol/L (3.5-5.1); TOTAL BILIRUBIN 0.4 mg/dL (0.2-1.0)
[2017-11-19] MEDS: BACLOFEN 10 MG TABLET PO SCH ×2 (08:21→21:00)
[2017-11-19] MEDS: SENNOSIDES 8.6 MG TABLET PO SCH ×2 (08:21→21:00)
[2017-11-19] MEDS: CETIRIZINE HCL 10 MG TABLET PO SCH (08:21)
[2017-11-19] MEDS: TERAZOSIN 5 MG CAPSULE. PO SCH (08:21)
[2017-11-19] MEDS: LITHIUM CARBONATE 150 MG CAPSULE. PO SCH (08:22)
[2017-11-19] MEDS: FINASTERIDE 5 MG TABLET PO SCH (08:22)
[2017-11-19] MEDS: POLYETHYLENE GLYCOL 3350 17 GM PACKET. PO SCH ×2 (08:22→21:00)
[2017-11-19] MEDS: LORazepam 0.5 MG TABLET PO PRN ×2 (08:22→16:26)
[2017-11-19] MEDS: FAMOTIDINE 20 MG TABLET PO SCH ×2 (08:22→16:26)
[2017-11-19 13:19] LABS: LI 0.9 mmol/L (0.6-1.2)
[2017-11-19 18:14] VITALS: BP 112/59
[2017-11-19 20:38] VITALS: BP 178/89
[2017-11-19] MEDS: MIRTAZAPINE 7.5 MG TABLET. PO SCH (21:00)
[2017-11-19] MEDS: LITHIUM CARBONATE 300 MG TABLET PO SCH (21:00)
[2017-11-19] MEDS: ENOXAPARIN 30 MG/0.3 ML SYRINGE. SQ SCH (21:00)
[2017-11-19] MEDS: risperiDONE 1 MG TABLET. PO SCH (21:02)
--- NOTE | 2017-11-19 22:08 | PDOC ---
Exam Note: Torsten Note: Please also refer to the separate dictated note~for this date of service dictated separately.~Patient seen individually. Discussed the patient with Nursing staff reviewed the chart.~Reviewed interim history and current functioning. Reviewed vital signs,~Labs/ Radiology~and current medications noted below. Continue current treatment with the changes noted in the dictated addendum note Assessment: Vital Signs: Vital Signs Date Time Temp Pulse Resp B/P (MAP) Pulse Ox O2 Delivery O2 Flow Rate FiO2 11/19/17 20:38 98.3 87 24 178/89 (118) 94 11/18/17 13:45 Room Air I&O Intake and Output 11/19/17 07:00 Intake Total 1020 ml Output Total 600 ml Balance 420 ml Intake Oral 1020 ml Output Urine Total 600 ml Labs: Laboratory Tests Test 11/19/17 07:38 White Blood Count 9.2 x10^3/uL (4.0-11.0) Red Blood Count 4.62 x10^6/uL (4.30-5.70) Hemoglobin 13.6 g/dL (13.0-17.5) Hematocrit 42.3 % (39.0-53.0) Mean Corpuscular Volume 92 fL (79-100) Mean Corpuscular Hemoglobin 29 pg (25-35) Mean Corpuscular Hemoglobin Concent 32 g/dL (31-37) Red Cell Distribution Width 15.5 % (11.5-14.5) H Platelet Count 220 x10^3/uL (140-400) Neutrophils (%) (Auto) 60 % (31-73) Lymphocytes (%) (Auto) 28 % (24-48) Monocytes (%) (Auto) 10 % (0-9) H Eosinophils (%) (Auto) 1 % (0-3) Basophils (%) (Auto) 1 % (0-3) Neutrophils # (Auto) 5.5 x10^3uL (1.8-7.7) Lymphocytes # (Auto) 2.6 x10^3/uL (1.0-4.8) Monocytes # (Auto) 1.0 x10^3/uL (0.0-1.1) Eosinophils # (Auto) 0.1 x10^3/uL (0.0-0.7) Basophils # (Auto) 0.1 x10^3/uL (0.0-0.2) Sodium Level 139 mmol/L (136-145) Potassium Level 4.4 mmol/L (3.5-5.1) Chloride Level 105 mmol/L (98-107) Carbon Dioxide Level 29 mmol/L (21-32) Anion Gap 5 (6-14) L Blood Urea Nitrogen 25 mg/dL (8-26) Creatinine 1.4 mg/dL (0.7-1.3) H Estimated GFR (Cockcroft-Gault) 49.7 BUN/Creatinine Ratio 18 (6-20) Glucose Level 103 mg/dL (70-99) H Calcium Level 9.4 mg/dL (8.5-10.1) Total Bilirubin 0.4 mg/dL (0.2-1.0) Aspartate Amino Transferase (AST) 21 U/L (15-37) Alanine Aminotransferase (ALT) 21 U/L (16-63) Alkaline Phosphatase 84 U/L (46-116) Total Protein 7.0 g/dL (6.4-8.2) Albumin 2.6 g/dL (3.4-5.0) L Albumin/Globulin Ratio 0.6 (1.0-1.7) L Current Medications: Meds: Current Medications Multi-Ingredient Ointment (Analgesic [place]) 1 warren PRN QID PRN TP MUSCLE PAIN; Start 11/08/17 at 15:00 Acetaminophen (Tylenol) 650 mg PRN Q6HRS PRN PO PAIN / TEMP Last administered on 11/14/17at 10:18; Start 11/08/17 at 15:30 Baclofen (Lioresal) 10 mg BID PO Last administered on 11/19/17at 21:00; Start at 21:00 Bisacodyl (Dulcolax Supp) 10 mg PRN DAILY PRN RC CONSTIPATION Last administered on 11/16/17at 05:47; Start 11/08/17 at 15:30 Docusate Sodium (Colace) 100 mg PRN BID PRN PO CONSTIPATION; Start 11/08/17 at 15:30 Famotidine (Pepcid) 20 mg BIDBFRMEAL PO Last administered on 11/19/17at 16:26; Start 11/08/17 at 16:30 Finasteride (Proscar) 5 mg DAILY PO Last administered on 11/19/17 08:22; Start 11/09/17 at 09:00 Haloperidol (Haldol) 0.5 mg PRN TID PRN PO AGITATION Last administered on 12:30; Start 11/08/17 at 15:30 Lorazepam (Ativan) 0.5 mg TID PRN PRN PO ANXIETY / AGITATION Last administered on 11/19/17 16:26; Start 11/08/17 at 15:30 Ondansetron HCl (Zofran Odt) 4 mg PRN Q6HRS PRN PO NAUSEA/VOMITING; Start at 15:30 Sennosides (Senna) 8.6 mg BID PO Last administered on 11/19/17 21:00; Start at 21:00 Sennosides (Senna) 8.6 mg PRN DAILY PRN PO CONSTIPATION; Start 11/08/17 at 15:30 [place] Carbonate 300 mg BID PO Last administered on 11/11/17 11:17; Start 11/08 at 21:00; Stop 11/11/17 at 13:52; Status DC Oxycodone HCl (Roxicodone) 5 mg PRN Q6HRS PRN PO PAIN Last administered on 11/18 12:32; Start 11/08/17 at 15:45 Terazosin HCl (Hytrin) 10 mg DAILY PO Last administered on 11/19/17 08:21; Start 11/09/17 at 09:00 Amitriptyline HCl (Elavil) 75 mg QHS PO Last administered on 11/09/17at 20:00; Start 11/08/17 at 21:00; Stop 11/10/17 at 19:22; Status DC Cetirizine HCl (ZyrTEC) 10 mg DAILY PO Last administered on 11/19/17 08:21; Start 11/09/17 at 09:00 Olanzapine (ZyPREXA ZYDIS) 2.5 mg PRN Q2HR PRN PO Psychosis; Start 11/08/17 at 15:45; Stop 11/11/17 at 11:33; Status DC Multi-Ingredient Ointment (Analgesic [place]) 1 warren PRN QID PRN TP MUSCLE PAIN; Start 11/08/17 at 15:45; Status Cancel Al Hydroxide/Mg Hydroxide (Mylanta Plus Xs) 15 ml PRN AFTMEALHC PRN PO DYSPEPSIA; Start 11/08/17 at 15:45 Magnesium Hydroxide (Milk Of Magnesia) 2,400 mg PRN QHS PRN PO CONSTIPATION Last administered on 11/11/17at 12:05; Start 11/08/17 at 15:45 Enoxaparin Sodium (Lovenox) 40 mg Q24H SQ Last administered on 11/08/17at 20:19; Start 11/08/17 at 21:00; Stop 11/09/17 at 14:41; Status DC Enoxaparin Sodium (Lovenox 30mg Syringe) 30 mg Q24H SQ Last administered on at 21:00; Start 11/09/17 at 21:00 Risperidone (RisperDAL) 0.25 mg QHS PO Last administered on 11/09/17at 20:00; Start 11/09/17 at 21:00; Stop 11/10/17 at 19:22; Status DC Vitamin D (Vitamin D3) 50,000 unit WEEKLY PO Last administered on 11/18/17at 08: 16; Start 11/11/17 at 09:00 Amitriptyline HCl (Elavil) 50 mg QHS PO Last administered on 11/10/17at 19:46; Start 11/10/17 at 21:00; Stop 11/11/17 at 19:46; Status DC Risperidone (RisperDAL) 0.5 mg QHS PO Last administered on 11/14/17at 20:23; Start 11/10/17 at 21:00; Stop 11/15/17 at 20:19; Status DC Olanzapine (ZyPREXA ZYDIS) 5 mg PRN Q2HR PRN PO Psychosis Last administered on 11/17/17at 16:58; Start 11/11/17 at 11:45 [place] Citrate 8 meq BID PO ; Start 11/11/17 at 21:00; Stop 11/11/17 at 21:00; Status DC Trazodone HCl (Desyrel) 50 mg PRN QHS PRN PO INSOMNIA Last administered on 11/16at 21:14; Start 11/11/17 at 19:45 Mirtazapine (Remeron) 7.5 mg QHS PO Last administered on 11/19/17 21:00; Start 11/12/17 at 21:00 [place] Carbonate 150 mg DAILY PO Last administered on 11/19/17at 08:22; Start 11/14/17 at 09:00 [place] Carbonate 300 mg HS PO Last administered on 11/19/17 21:00; Start 04/23 at 21:00 Nystatin (Nystop) 15 warren STK-MED ONCE TP Last administered on 11/14/17at 22:17; Start 11/14/17 at 22:17; Stop 11/14/17 at 22:18; Status DC Risperidone (RisperDAL) 0.75 mg QHS PO Last administered on 11/18/17at 19:37; Start 11/15/17 at 21:00; Stop 11/19/17 at 13:06; Status DC Polyethylene Glycol (miraLAX) 17 gm BID PO Last administered on 11/19/17at 21:00 ; Start 11/17/17 at 09:00 Risperidone (RisperDAL) 1 mg QHS PO Last administered on 11/19/17at 21:02; Start 11/19/17 at 21:00 Active Scripts Active Reported Amitriptyline Hcl 75 Mg Tablet 75 Mg PO QHS Oxycodone Hcl 5 Mg Capsule 5 Mg PO PRN Q6HRS PRN Lorazepam 0.5 Mg Tablet 0.5 Mg PO TID PRN PRN Famotidine 20 Mg Tablet 20 Mg PO BIDBFRMEAL Haloperidol 2 Mg Tablet 0.5 Mg PO PRN TID PRN Terazosin Hcl 10 Mg Capsule 10 Mg PO DAILY Ondansetron Odt (Ondansetron) 4 Mg Tab.rapdis 4 Mg PO PRN Q6HRS Milk Of Magnesia (Magnesium Hydroxide) 2,400 Mg/10 Ml Oral.susp 2,400 Mg PO PRN QID PRN Loratadine 10 Mg Tablet 10 Mg PO [place] Carbonate 300 Mg Capsule 300 Mg PO BID Baclofen 10 Mg Tablet 10 Mg PO BID Maalox Maximum Strength Susp (Mag Hydrox/Al Hydrox/Simeth) 355 Ml Oral.susp 15 Ml PO PRN Q6HRS PRN Finasteride 5 Mg Tablet 5 Mg PO DAILY Colace (Docusate Sodium) 100 Mg Capsule 100 Mg PO PRN BID PRN Senokot (Sennosides) 8.6 Mg Tablet 8.6 Mg PO PRN DAILY PRN Senokot (Sennosides) 8.6 Mg Tablet 8.6 Mg PO BID Bisacodyl 10 Mg Supp.rect 10 Mg RC PRN DAILY PRN Tylenol (Acetaminophen) 325 Mg Tablet 650 Mg PO PRN Q6HRS PRN I have reviewed the current psychotropics carefully including drug interactions. Risk benefit ratio favors no change other than as noted in my dictated progress note. Diagnosis: Problems: (1) Anxiety disorder (2) Bipolar affective, mixed, sev w/ psych (3) Dementia, vascular, with delusions (4) Mild cognitive impairment MARQUIS SCOTT MD November 19, 2017 22:08
--- NOTE | 2017-11-20 01:19 | PN ---
DATE: 11/18/2017 PSYCHIATRIC PROGRESS NOTE This late entry 11/18/2017 covers elements, not covered in my initial note of 11/18/2017. I met with the patient in the evening. The patient slept 7-3/4 hours previous evening. He was quite agitated at breakfast time, received Ativan at 8:16 in the morning, was actively hallucinating at times, talking about they are trying to "kill me." He was agitated at lunchtime, stating that people were coming to beat his head. He was better after lunch. We will repeat lithium level and check CBC, CMP morning of 11/19/2017. REVIEW OF SYSTEMS: Ambulation impaired, in Broda chair. No CV, , pulmonary, eye, ENT system symptoms on review. Reliability varies. MENTAL STATUS EXAM: Oriented to himself and situation. Speech has some latency, coherent. Abstraction fair, computation impaired, language function intact, attention span short. Mood and affect remain somewhat labile. LABORATORY DATA: Reviewed. IMPRESSION: Unchanged from initial note. PLAN: Check lithium level, CBC, CMP. Continue rest of the psychotropics. May need to increase Risperdal for his ongoing psychotic symptoms. The patient may be a candidate for ECT if he fails adjustments in his psychotropics since he has had ECT twice in the past. MARQUIS SCOTT MD DR: ARIA/rut JOB#: [id number] / [id number]
[2017-11-20 05:56] VITALS: BP 99/58
[2017-11-20] MEDS: CETIRIZINE HCL 10 MG TABLET PO SCH (08:35)
[2017-11-20] MEDS: BACLOFEN 10 MG TABLET PO SCH ×2 (08:35→19:29)
[2017-11-20] MEDS: FAMOTIDINE 20 MG TABLET PO SCH ×2 (08:35→16:43)
[2017-11-20] MEDS: SENNOSIDES 8.6 MG TABLET PO SCH ×2 (08:35→19:29)
[2017-11-20] MEDS: FINASTERIDE 5 MG TABLET PO SCH (08:37)
[2017-11-20] MEDS: LITHIUM CARBONATE 150 MG CAPSULE. PO SCH (08:37)
[2017-11-20] MEDS: oxyCODONE IR 5 MG TABLET PO PRN ×2 (08:37→13:40)
[2017-11-20] MEDS: POLYETHYLENE GLYCOL 3350 17 GM PACKET. PO SCH ×2 (08:38→19:29)
[2017-11-20] MEDS: TERAZOSIN 5 MG CAPSULE. PO SCH (09:00)
[2017-11-20] MEDS: HALOPERIDOL 2 MG TABLET PO PRN (13:07)
[2017-11-20 16:36] VITALS: BP 112/62
[2017-11-20 16:39] VITALS: BP 112/62
[2017-11-20] MEDS: risperiDONE 1 MG TABLET. PO SCH (19:29)
[2017-11-20] MEDS: ENOXAPARIN 30 MG/0.3 ML SYRINGE. SQ SCH (19:29)
[2017-11-20] MEDS: LITHIUM CARBONATE 300 MG TABLET PO SCH (19:29)
[2017-11-20] MEDS: MIRTAZAPINE 7.5 MG TABLET. PO SCH (19:29)
--- NOTE | 2017-11-20 20:13 | PDOC ---
Exam Note: Torsten Note: Please also refer to the separate dictated note~for this date of service dictated separately.~Patient seen individually. Discussed the patient with Nursing staff reviewed the chart.~Reviewed interim history and current functioning. Reviewed vital signs,~Labs/ Radiology~and current medications noted below. Continue current treatment with the changes noted in the dictated addendum note Assessment: Vital Signs: Vital Signs Date Time Temp Pulse Resp B/P (MAP) Pulse Ox O2 Delivery O2 Flow Rate FiO2 11/20/17 16:39 97.2 69 16 112/62 (79) 96 Room Air I&O Intake and Output 11/20/17 07:00 Intake Total 120 ml Output Total 500 ml Balance -380 ml Intake Oral 120 ml Output Urine Total 500 ml Current Medications: Meds: Current Medications Multi-Ingredient Ointment (Analgesic [place]) 1 warren PRN QID PRN TP MUSCLE PAIN; Start 11/08/17 at 15:00 Acetaminophen (Tylenol) 650 mg PRN Q6HRS PRN PO PAIN / TEMP Last administered on 11/14/17at 10:18; Start 11/08/17 at 15:30 Baclofen (Lioresal) 10 mg BID PO Last administered on 11/20/17at 19:29; Start at 21:00 Bisacodyl (Dulcolax Supp) 10 mg PRN DAILY PRN RC CONSTIPATION Last administered on 11/16/17at 05:47; Start 11/08/17 at 15:30 Docusate Sodium (Colace) 100 mg PRN BID PRN PO CONSTIPATION; Start 11/08/17 at 15:30 Famotidine (Pepcid) 20 mg BIDBFRMEAL PO Last administered on 11/20/17at 16:43; Start 11/08/17 at 16:30 Finasteride (Proscar) 5 mg DAILY PO Last administered on 11/20/17at 08:37; Start 11/09/17 at 09:00 Haloperidol (Haldol) 0.5 mg PRN TID PRN PO AGITATION Last administered on at 13:07; Start 11/08/17 at 15:30; Stop 11/20/17 at 19:12; Status DC Lorazepam (Ativan) 0.5 mg TID PRN PRN PO ANXIETY / AGITATION Last administered on 11/19/17at 16:26; Start 11/08/17 at 15:30 Ondansetron HCl (Zofran Odt) 4 mg PRN Q6HRS PRN PO NAUSEA/VOMITING; Start at 15:30 Sennosides (Senna) 8.6 mg BID PO Last administered on 11/20/17at 19:29; Start at 21:00 Sennosides (Senna) 8.6 mg PRN DAILY PRN PO CONSTIPATION; Start 11/08/17 at 15:30 [place] Carbonate 300 mg BID PO Last administered on 11/11/17at 11:17; Start 11/08 at 21:00; Stop 11/11/17 at 13:52; Status DC Oxycodone HCl (Roxicodone) 5 mg PRN Q6HRS PRN PO PAIN Last administered on 11/20at 13:40; Start 11/08/17 at 15:45 Terazosin HCl (Hytrin) 10 mg DAILY PO Last administered on 11/19/17at 08:21; Start 11/09/17 at 09:00 Amitriptyline HCl (Elavil) 75 mg QHS PO Last administered on 11/09/17at 20:00; Start 11/08/17 at 21:00; Stop 11/10/17 at 19:22; Status DC Cetirizine HCl (ZyrTEC) 10 mg DAILY PO Last administered on 11/20/17at 08:35; Start 11/09/17 at 09:00 Olanzapine (ZyPREXA ZYDIS) 2.5 mg PRN Q2HR PRN PO Psychosis; Start 11/08/17 at 15:45; Stop 11/11/17 at 11:33; Status DC Multi-Ingredient Ointment (Analgesic [place]) 1 warren PRN QID PRN TP MUSCLE PAIN; Start 11/08/17 at 15:45; Status Cancel Al Hydroxide/Mg Hydroxide (Mylanta Plus Xs) 15 ml PRN AFTMEALHC PRN PO DYSPEPSIA; Start 11/08/17 at 15:45 Magnesium Hydroxide (Milk Of Magnesia) 2,400 mg PRN QHS PRN PO CONSTIPATION Last administered on 11/11/17at 12:05; Start 11/08/17 at 15:45 Enoxaparin Sodium (Lovenox) 40 mg Q24H SQ Last administered on 11/08/17 20:19; Start 11/08/17 at 21:00; Stop 11/09/17 at 14:41; Status DC Enoxaparin Sodium (Lovenox 30mg Syringe) 30 mg Q24H SQ Last administered on 19:29; Start 11/09/17 at 21:00 Risperidone (RisperDAL) 0.25 mg QHS PO Last administered on 11/09/17 20:00; Start 11/09/17 at 21:00; Stop 11/10/17 at 19:22; Status DC Vitamin D (Vitamin D3) 50,000 unit WEEKLY PO Last administered on 11/18/17 08: 16; Start 11/11/17 at 09:00 Amitriptyline HCl (Elavil) 50 mg QHS PO Last administered on 11/10/17 19:46; Start 11/10/17 at 21:00; Stop 11/11/17 at 19:46; Status DC Risperidone (RisperDAL) 0.5 mg QHS PO Last administered on 11/14/17at 20:23; Start 11/10/17 at 21:00; Stop 11/15/17 at 20:19; Status DC Olanzapine (ZyPREXA ZYDIS) 5 mg PRN Q2HR PRN PO Psychosis Last administered on 11/17/17at 16:58; Start 11/11/17 at 11:45 [place] Citrate 8 meq BID PO ; Start 11/11/17 at 21:00; Stop 11/11/17 at 21:00; Status DC Trazodone HCl (Desyrel) 50 mg PRN QHS PRN PO INSOMNIA Last administered on 11/16 21:14; Start 11/11/17 at 19:45 Mirtazapine (Remeron) 7.5 mg QHS PO Last administered on 11/20/17 19:29; Start 11/12/17 at 21:00 [place] Carbonate 150 mg DAILY PO Last administered on 11/20/17at 08:37; Start 11/14/17 at 09:00 [place] Carbonate 300 mg HS PO Last administered on 11/20/17 19:29; Start 04/23 at 21:00 Nystatin (Nystop) 15 warren STK-MED ONCE TP Last administered on 11/14/17at 22:17; Start 11/14/17 at 22:17; Stop 11/14/17 at 22:18; Status DC Risperidone (RisperDAL) 0.75 mg QHS PO Last administered on 11/18/17at 19:37; Start 11/15/17 at 21:00; Stop 11/19/17 at 13:06; Status DC Polyethylene Glycol (miraLAX) 17 gm BID PO Last administered on 11/20/17at 19:29 ; Start 11/17/17 at 09:00 Risperidone (RisperDAL) 1 mg QHS PO Last administered on 11/20/17at 19:29; Start 11/19/17 at 21:00 Active Scripts Active Reported Amitriptyline Hcl 75 Mg Tablet 75 Mg PO QHS Oxycodone Hcl 5 Mg Capsule 5 Mg PO PRN Q6HRS PRN Lorazepam 0.5 Mg Tablet 0.5 Mg PO TID PRN PRN Famotidine 20 Mg Tablet 20 Mg PO BIDBFRMEAL Haloperidol 2 Mg Tablet 0.5 Mg PO PRN TID PRN Terazosin Hcl 10 Mg Capsule 10 Mg PO DAILY Ondansetron Odt (Ondansetron) 4 Mg Tab.rapdis 4 Mg PO PRN Q6HRS Milk Of Magnesia (Magnesium Hydroxide) 2,400 Mg/10 Ml Oral.susp 2,400 Mg PO PRN QID PRN Loratadine 10 Mg Tablet 10 Mg PO [place] Carbonate 300 Mg Capsule 300 Mg PO BID Baclofen 10 Mg Tablet 10 Mg PO BID Maalox Maximum Strength Susp (Mag Hydrox/Al Hydrox/Simeth) 355 Ml Oral.susp 15 Ml PO PRN Q6HRS PRN Finasteride 5 Mg Tablet 5 Mg PO DAILY Colace (Docusate Sodium) 100 Mg Capsule 100 Mg PO PRN BID PRN Senokot (Sennosides) 8.6 Mg Tablet 8.6 Mg PO PRN DAILY PRN Senokot (Sennosides) 8.6 Mg Tablet 8.6 Mg PO BID Bisacodyl 10 Mg Supp.rect 10 Mg RC PRN DAILY PRN Tylenol (Acetaminophen) 325 Mg Tablet 650 Mg PO PRN Q6HRS PRN I have reviewed the current psychotropics carefully including drug interactions. Risk benefit ratio favors no change other than as noted in my dictated progress note. Diagnosis: Problems: (1) Anxiety disorder (2) Bipolar affective, mixed, sev w/ psych (3) Dementia, vascular, with delusions (4) Mild cognitive impairment MARQUIS SCOTT MD November 20, 2017 20:13
[2017-11-21 01:54] VITALS: BP 92/57
[2017-11-21 05:36] VITALS: BP 115/83
[2017-11-21] MEDS: LORazepam 0.5 MG TABLET PO PRN (07:06)
[2017-11-21] MEDS: oxyCODONE IR 5 MG TABLET PO PRN ×3 (07:07→23:20)
[2017-11-21] MEDS: TERAZOSIN 5 MG CAPSULE. PO SCH (10:08)
[2017-11-21] MEDS: SENNOSIDES 8.6 MG TABLET PO SCH ×2 (10:08→20:33)
[2017-11-21] MEDS: FAMOTIDINE 20 MG TABLET PO SCH ×2 (10:09→16:52)
[2017-11-21] MEDS: CETIRIZINE HCL 10 MG TABLET PO SCH (10:09)
[2017-11-21] MEDS: LITHIUM CARBONATE 150 MG CAPSULE. PO SCH (10:09)
[2017-11-21] MEDS: BACLOFEN 10 MG TABLET PO SCH ×2 (10:09→20:33)
[2017-11-21] MEDS: FINASTERIDE 5 MG TABLET PO SCH (10:09)
[2017-11-21] MEDS: POLYETHYLENE GLYCOL 3350 17 GM PACKET. PO SCH ×2 (10:10→20:33)
[2017-11-21 16:17] VITALS: BP 134/76
[2017-11-21] MEDS: NEOMY/BACITR/POLYMYXIN OINT PACKET. TP SCH (19:30)
[2017-11-21] MEDS: risperiDONE 1 MG TABLET. PO SCH (20:31)
[2017-11-21] MEDS: LITHIUM CARBONATE 300 MG TABLET PO SCH (20:33)
[2017-11-21] MEDS: MIRTAZAPINE 7.5 MG TABLET. PO SCH (20:33)
[2017-11-21] MEDS: ENOXAPARIN 30 MG/0.3 ML SYRINGE. SQ SCH (20:34)
[2017-11-22] MEDS: traZODone 50 MG TABLET. PO PRN (01:44)
--- NOTE | 2017-11-22 02:22 | PN ---
DATE: 11/19/2017 This is a late entry, 11/19/2017, covers the elements not covered in my initial note, 11/19/2017. SUBJECTIVE: I met with the patient in the evening, staffed at treatment team meeting with the entire team. Morning of 11/19/2017, the patient was worse in the morning, hallucinating, combative, angry. He is quite labile, withdrawn. Appetite is poor. REVIEW OF SYSTEMS: Ambulation impaired, in Broda chair. No CV, , pulmonary, eye, ENT system symptoms on review. Reliability poor. MENTAL STATUS EXAM: Oriented to himself and situation. Speech has some latency, at times pressured. Abstraction fair, computation impaired, language function intact, attention span short. Mood and affect still somewhat labile. LABORATORY DATA: Reviewed. IMPRESSION: Bipolar 1 disorder, mixed with psychotic features; cognitive disorder, unspecified. PLAN: Continue current psychotropics. Increase Risperdal to 1 mg by mouth at bedtime. The patient has responded positively to electroconvulsive therapy in the past and this may be needed again depending on how he does with the changes in his psychotropics. MAN Lindsey SCOTT MD DR: ARIA/rut JOB#: [id number] / [id number]
--- NOTE | 2017-11-22 02:28 | PN ---
DATE: 11/20/2017 This is a late entry, 11/20/2017, covers the elements not covered in my initial note, 11/20/2017. SUBJECTIVE: I met with the patient in the evening. The patient slept 6-1/2 hours, mildly agitated in the morning, having pain, received Roxicodone. He has been psychotic, hallucinating, believes there is someone behind him. "He is going to hit me." He ate some dinner. REVIEW OF SYSTEMS: Ambulation impaired, in Broda chair. No CV, , pulmonary, eye, ENT system symptoms on review. MENTAL STATUS EXAM: Oriented to himself and situation. Speech, moderate latency, coherent. Abstraction fair, computation impaired, language function intact. Mood and affect remains labile. LABORATORY DATA: Reviewed. IMPRESSION: Unchanged from initial note. PLAN: Continue current psychotropics and Risperdal was increased. [place] is therapeutic. Consider electroconvulsive therapy if all else fail. MARQUIS SCOTT MD DR: ARIA/rut JOB#: [id number] / [id number]
[2017-11-22 06:05] VITALS: BP 115/71
[2017-11-22 07:49] LABS: BASO # 0.1 x10^3/uL (0.0-0.2); BASO % 1 % (0-3); EOS # 0.1 x10^3/uL (0.0-0.7); EOS % 1 % (0-3); HEMOGLOBIN 12.2 g/dL (13.0-17.5); LYMPH # 2.4 x10^3/uL (1.0-4.8); LYMPH % 19 % (24-48); MEAN CORPUSCULAR HEMOGLOBIN 30 pg (25-35); MEAN CORPUSCULAR HGB CONC 33 g/dL (31-37); MEAN CORPUSCULAR VOLUME 90 fL (79-100); MONO % 8 % (0-9); NEUT # 9.2 x10^3uL (1.8-7.7); NEUT % 72 % (31-73); PLATELET COUNT 237 x10^3/uL (140-400); RED BLOOD COUNT 4.11 x10^6/uL (4.30-5.70); RED CELL DISTRIBUTION WIDTH 15.7 % (11.5-14.5); WHITE BLOOD COUNT 12.7 x10^3/uL (4.0-11.0)
[2017-11-22 08:19] LABS: ALBUMIN 2.5 g/dL (3.4-5.0); ALBUMIN/GLOBULIN RATIO 0.6 (1.0-1.7); CALCIUM 9.4 mg/dL (8.5-10.1); CREATININE 1.3 mg/dL (0.7-1.3); GFR 54.1; POTASSIUM 3.9 mmol/L (3.5-5.1); TOTAL BILIRUBIN 0.7 mg/dL (0.2-1.0); TOTAL PROTEIN 6.8 g/dL (6.4-8.2)
[2017-11-22] MEDS: FAMOTIDINE 20 MG TABLET PO SCH ×2 (08:57→17:13)
[2017-11-22] MEDS: LITHIUM CARBONATE 150 MG CAPSULE. PO SCH (08:57)
[2017-11-22] MEDS: TERAZOSIN 5 MG CAPSULE. PO SCH (08:58)
[2017-11-22] MEDS: BACLOFEN 10 MG TABLET PO SCH ×2 (08:58→20:21)
[2017-11-22] MEDS: FINASTERIDE 5 MG TABLET PO SCH (08:58)
[2017-11-22] MEDS: POLYETHYLENE GLYCOL 3350 17 GM PACKET. PO SCH ×2 (08:58→20:22)
[2017-11-22] MEDS: SENNOSIDES 8.6 MG TABLET PO SCH ×2 (08:59→20:22)
[2017-11-22] MEDS: CETIRIZINE HCL 10 MG TABLET PO SCH (08:59)
[2017-11-22 13:21] LABS: % BANDS 1 % (0-9); % LYMPHS 16 % (24-48); % MONOS 6 % (0-10); % SEGS 77 % (35-66); PLT ESTIMATE ADEQUATE (ADEQUATE); TOXIC GRANULATION SLIGHT
[2017-11-22] MEDS: NEOMY/BACITR/POLYMYXIN OINT PACKET. TP SCH (16:15)
[2017-11-22 16:33] VITALS: BP 140/59
[2017-11-22] MEDS: MIRTAZAPINE 7.5 MG TABLET. PO SCH (20:22)
[2017-11-22] MEDS: LITHIUM CARBONATE 300 MG TABLET PO SCH (20:22)
[2017-11-22] MEDS: risperiDONE 1 MG TABLET. PO SCH (20:22)
[2017-11-22] MEDS: ENOXAPARIN 30 MG/0.3 ML SYRINGE. SQ SCH (20:25)
[2017-11-22] MEDS: oxyCODONE IR 5 MG TABLET PO PRN (20:26)
--- NOTE | 2017-11-22 22:38 | PDOC ---
Exam Note: Torsten Note: Late entry for date of service November 21, 2017. Please also refer to the separate dictated note~for this date of service dictated separately.~Patient seen individually. Discussed the patient with Nursing staff reviewed the chart.~ Reviewed interim history and current functioning. Reviewed vital signs,~Labs/ Radiology~and current medications noted below. Continue current treatment with the changes noted in the dictated addendum note Assessment: Vital Signs: VS - Last 72 Hours, by Label Date Time Temp Pulse Resp B/P (MAP) Pulse Ox O2 Delivery O2 Flow Rate FiO2 11/22/17 16:33 97.2 72 20 140/59 (86) 95 11/22/17 08:58 91 115/71 11/22/17 06:05 98.8 91 20 115/71 (86) 98 11/22/17 01:45 18 11/21/17 23:20 20 11/21/17 16:50 96 Room Air 11/21/17 16:17 98.4 78 16 134/76 (95) 96 11/21/17 13:19 18 96 Room Air 11/21/17 10:08 78 115/83 11/21/17 07:07 18 96 Room Air 11/21/17 05:36 97.3 78 22 115/83 (94) Room Air 11/21/17 01:54 98.4 73 20 92/57 (69) 96 Room Air 11/20/17 16:39 97.2 69 16 112/62 (79) 96 Room Air 11/20/17 16:36 97.2 69 16 112/62 (79) 96 Room Air 11/20/17 13:40 18 97 Room Air 11/20/17 09:00 74 99/58 11/20/17 08:37 18 97 Room Air 11/20/17 05:56 97.2 74 18 99/58 (72) 97 Vital Signs Date Time Temp Pulse Resp B/P (MAP) Pulse Ox O2 Delivery O2 Flow Rate FiO2 11/22/17 16:33 97.2 72 20 140/59 (86) 95 11/21/17 16:50 Room Air I&O Intake and Output 11/22/17 07:00 Intake Total 240 ml Output Total 1600 ml Balance -1360 ml Intake Oral 240 ml Output Urine Total 1600 ml Labs: Laboratory Tests Test 11/22/17 07:30 White Blood Count 12.7 x10^3/uL (4.0-11.0) H Red Blood Count 4.11 x10^6/uL (4.30-5.70) L Hemoglobin 12.2 g/dL (13.0-17.5) L Hematocrit 37.0 % (39.0-53.0) L Mean Corpuscular Volume 90 fL (79-100) Mean Corpuscular Hemoglobin 30 pg (25-35) Mean Corpuscular Hemoglobin Concent 33 g/dL (31-37) Red Cell Distribution Width 15.7 % (11.5-14.5) H Platelet Count 237 x10^3/uL (140-400) Neutrophils (%) (Auto) 72 % (31-73) Lymphocytes (%) (Auto) 19 % (24-48) L Monocytes (%) (Auto) 8 % (0-9) Eosinophils (%) (Auto) 1 % (0-3) Basophils (%) (Auto) 1 % (0-3) Neutrophils # (Auto) 9.2 x10^3uL (1.8-7.7) H Lymphocytes # (Auto) 2.4 x10^3/uL (1.0-4.8) Monocytes # (Auto) 1.0 x10^3/uL (0.0-1.1) Eosinophils # (Auto) 0.1 x10^3/uL (0.0-0.7) Basophils # (Auto) 0.1 x10^3/uL (0.0-0.2) Segmented Neutrophils % 77 % (35-66) H Band Neutrophils % 1 % (0-9) Lymphocytes % 16 % (24-48) L Monocytes % 6 % (0-10) Toxic Granulation Slight Platelet Estimate Adequate (ADEQUATE) Large Platelets Occ Sodium Level 138 mmol/L (136-145) Potassium Level 3.9 mmol/L (3.5-5.1) Chloride Level 104 mmol/L (98-107) Carbon Dioxide Level 27 mmol/L (21-32) Anion Gap 7 (6-14) Blood Urea Nitrogen 21 mg/dL (8-26) Creatinine 1.3 mg/dL (0.7-1.3) Estimated GFR (Cockcroft-Gault) 54.1 BUN/Creatinine Ratio 16 (6-20) Glucose Level 98 mg/dL (70-99) Calcium Level 9.4 mg/dL (8.5-10.1) Total Bilirubin 0.7 mg/dL (0.2-1.0) Aspartate Amino Transferase (AST) 18 U/L (15-37) Alanine Aminotransferase (ALT) 21 U/L (16-63) Alkaline Phosphatase 91 U/L (46-116) Total Protein 6.8 g/dL (6.4-8.2) Albumin 2.5 g/dL (3.4-5.0) L Albumin/Globulin Ratio 0.6 (1.0-1.7) L Current Medications: Meds: Current Medications Multi-Ingredient Ointment (Analgesic [place]) 1 warren PRN QID PRN TP MUSCLE PAIN; Start 11/08/17 at 15:00 Acetaminophen (Tylenol) 650 mg PRN Q6HRS PRN PO PAIN / TEMP Last administered on 11/14/17at 10:18; Start 11/08/17 at 15:30 Baclofen (Lioresal) 10 mg BID PO Last administered on 11/22/17at 20:21; Start at 21:00 Bisacodyl (Dulcolax Supp) 10 mg PRN DAILY PRN RC CONSTIPATION Last administered on 11/16/17at 05:47; Start 11/08/17 at 15:30 Docusate Sodium (Colace) 100 mg PRN BID PRN PO CONSTIPATION; Start 11/08/17 at 15:30 Famotidine (Pepcid) 20 mg BIDBFRMEAL PO Last administered on 11/22/17at 17:13; Start 11/08/17 at 16:30 Finasteride (Proscar) 5 mg DAILY PO Last administered on 11/22/17at 08:58; Start 11/09/17 at 09:00 Haloperidol (Haldol) 0.5 mg PRN TID PRN PO AGITATION Last administered on at 13:07; Start 11/08/17 at 15:30; Stop 11/20/17 at 19:12; Status DC Lorazepam (Ativan) 0.5 mg TID PRN PRN PO ANXIETY / AGITATION Last administered on 11/21/17at 07:06; Start 11/08/17 at 15:30 Ondansetron HCl (Zofran Odt) 4 mg PRN Q6HRS PRN PO NAUSEA/VOMITING; Start at 15:30 Sennosides (Senna) 8.6 mg BID PO Last administered on 11/22/17 20:22; Start at 21:00 Sennosides (Senna) 8.6 mg PRN DAILY PRN PO CONSTIPATION; Start 11/08/17 at 15:30 Pollard Carbonate 300 mg BID PO Last administered on 11/11/17 11:17; Start 11/08 at 21:00; Stop 11/11/17 at 13:52; Status DC Oxycodone HCl (Roxicodone) 5 mg PRN Q6HRS PRN PO PAIN Last administered on 11/22 20:26; Start 11/08/17 at 15:45 Terazosin HCl (Hytrin) 10 mg DAILY PO Last administered on 11/22/17 08:58; Start 11/09/17 at 09:00 Amitriptyline HCl (Elavil) 75 mg QHS PO Last administered on 11/09/17 20:00; Start 11/08/17 at 21:00; Stop 11/10/17 at 19:22; Status DC Cetirizine HCl (ZyrTEC) 10 mg DAILY PO Last administered on 11/22/17at 08:59; Start 11/09/17 at 09:00 Olanzapine (ZyPREXA ZYDIS) 2.5 mg PRN Q2HR PRN PO Psychosis; Start 11/08/17 at 15:45; Stop 11/11/17 at 11:33; Status DC Multi-Ingredient Ointment (Analgesic [place]) 1 warren PRN QID PRN TP MUSCLE PAIN; Start 11/08/17 at 15:45; Status Cancel Al Hydroxide/Mg Hydroxide (Mylanta Plus Xs) 15 ml PRN AFTMEALHC PRN PO DYSPEPSIA; Start 11/08/17 at 15:45 Magnesium Hydroxide (Milk Of Magnesia) 2,400 mg PRN QHS PRN PO CONSTIPATION Last administered on 11/11/17at 12:05; Start 11/08/17 at 15:45 Enoxaparin Sodium (Lovenox) 40 mg Q24H SQ Last administered on 11/08/17at 20:19; Start 11/08/17 at 21:00; Stop 11/09/17 at 14:41; Status DC Enoxaparin Sodium (Lovenox 30mg Syringe) 30 mg Q24H SQ Last administered on 20:25; Start 11/09/17 at 21:00 Risperidone (RisperDAL) 0.25 mg QHS PO Last administered on 11/09/17 20:00; Start 11/09/17 at 21:00; Stop 11/10/17 at 19:22; Status DC Vitamin D (Vitamin D3) 50,000 unit WEEKLY PO Last administered on 11/18/17 08: 16; Start 11/11/17 at 09:00 Amitriptyline HCl (Elavil) 50 mg QHS PO Last administered on 11/10/17 19:46; Start 11/10/17 at 21:00; Stop 11/11/17 at 19:46; Status DC Risperidone (RisperDAL) 0.5 mg QHS PO Last administered on 11/14/17at 20:23; Start 11/10/17 at 21:00; Stop 11/15/17 at 20:19; Status DC Olanzapine (ZyPREXA ZYDIS) 5 mg PRN Q2HR PRN PO Psychosis Last administered on 11/22/17at 01:44; Start 11/11/17 at 11:45 [place] Citrate 8 meq BID PO ; Start 11/11/17 at 21:00; Stop 11/11/17 at 21:00; Status DC Trazodone HCl (Desyrel) 50 mg PRN QHS PRN PO INSOMNIA Last administered on 11/22at 01:44; Start 11/11/17 at 19:45 Mirtazapine (Remeron) 7.5 mg QHS PO Last administered on 11/22/17 20:22; Start 11/12/17 at 21:00 [place] Carbonate 150 mg DAILY PO Last administered on 11/22/17at 08:57; Start 11/14/17 at 09:00 [place] Carbonate 300 mg HS PO Last administered on 11/22/17 20:22; Start 04/23 at 21:00 Nystatin (Nystop) 15 warren STK-MED ONCE TP Last administered on 11/14/17 22:17; Start 11/14/17 at 22:17; Stop 11/14/17 at 22:18; Status DC Risperidone (RisperDAL) 0.75 mg QHS PO Last administered on 11/18/17at 19:37; Start 11/15/17 at 21:00; Stop 11/19/17 at 13:06; Status DC Polyethylene Glycol (miraLAX) 17 gm BID PO Last administered on 11/22/17at 20:22 ; Start 11/17/17 at 09:00 Risperidone (RisperDAL) 1 mg QHS PO Last administered on 11/20/17at 19:29; Start 11/19/17 at 21:00; Stop 11/21/17 at 20:05; Status DC Neomycin/ Polymyxin/ Bacitracin (Triple Antibiotic Ointment) 1 pkt DAILY TP Last administered on 11/22/17at 16:15; Start 11/21/17 at 19:30 Risperidone (RisperDAL) 1.5 mg QHS PO Last administered on 11/22/17at 20:22; Start 11/21/17 at 21:00 Active Scripts Active Reported Amitriptyline Hcl 75 Mg Tablet 75 Mg PO QHS Oxycodone Hcl 5 Mg Capsule 5 Mg PO PRN Q6HRS PRN Lorazepam 0.5 Mg Tablet 0.5 Mg PO TID PRN PRN Famotidine 20 Mg Tablet 20 Mg PO BIDBFRMEAL Haloperidol 2 Mg Tablet 0.5 Mg PO PRN TID PRN Terazosin Hcl 10 Mg Capsule 10 Mg PO DAILY Ondansetron Odt (Ondansetron) 4 Mg Tab.rapdis 4 Mg PO PRN Q6HRS Milk Of Magnesia (Magnesium Hydroxide) 2,400 Mg/10 Ml Oral.susp 2,400 Mg PO PRN QID PRN Loratadine 10 Mg Tablet 10 Mg PO [place] Carbonate 300 Mg Capsule 300 Mg PO BID Baclofen 10 Mg Tablet 10 Mg PO BID Maalox Maximum Strength Susp (Mag Hydrox/Al Hydrox/Simeth) 355 Ml Oral.susp 15 Ml PO PRN Q6HRS PRN Finasteride 5 Mg Tablet 5 Mg PO DAILY Colace (Docusate Sodium) 100 Mg Capsule 100 Mg PO PRN BID PRN Senokot (Sennosides) 8.6 Mg Tablet 8.6 Mg PO PRN DAILY PRN Senokot (Sennosides) 8.6 Mg Tablet 8.6 Mg PO BID Bisacodyl 10 Mg Supp.rect 10 Mg RC PRN DAILY PRN Tylenol (Acetaminophen) 325 Mg Tablet 650 Mg PO PRN Q6HRS PRN I have reviewed the current psychotropics carefully including drug interactions. Risk benefit ratio favors no change other than as noted in my dictated progress note. Diagnosis: Problems: (1) Anxiety disorder (2) Bipolar affective, mixed, sev w/ psych (3) Dementia, vascular, with delusions (4) Mild cognitive impairment MARQUIS SCOTT MD November 22, 2017 22:38
--- NOTE | 2017-11-22 23:11 | PDOC ---
Exam Note: Torsten Note: Please also refer to the separate dictated note~for this date of service dictated separately.~Patient seen individually. Discussed the patient with Nursing staff reviewed the chart.~Reviewed interim history and current functioning. Reviewed vital signs,~Labs/ Radiology~and current medications noted below. Continue current treatment with the changes noted in the dictated addendum note Assessment: Vital Signs: Vital Signs Date Time Temp Pulse Resp B/P (MAP) Pulse Ox O2 Delivery O2 Flow Rate FiO2 11/22/17 16:33 97.2 72 20 140/59 (86) 95 11/21/17 16:50 Room Air I&O Intake and Output 11/22/17 07:00 Intake Total 240 ml Output Total 1600 ml Balance -1360 ml Intake Oral 240 ml Output Urine Total 1600 ml Labs: Laboratory Tests Test 11/22/17 07:30 White Blood Count 12.7 x10^3/uL (4.0-11.0) H Red Blood Count 4.11 x10^6/uL (4.30-5.70) L Hemoglobin 12.2 g/dL (13.0-17.5) L Hematocrit 37.0 % (39.0-53.0) L Mean Corpuscular Volume 90 fL (79-100) Mean Corpuscular Hemoglobin 30 pg (25-35) Mean Corpuscular Hemoglobin Concent 33 g/dL (31-37) Red Cell Distribution Width 15.7 % (11.5-14.5) H Platelet Count 237 x10^3/uL (140-400) Neutrophils (%) (Auto) 72 % (31-73) Lymphocytes (%) (Auto) 19 % (24-48) L Monocytes (%) (Auto) 8 % (0-9) Eosinophils (%) (Auto) 1 % (0-3) Basophils (%) (Auto) 1 % (0-3) Neutrophils # (Auto) 9.2 x10^3uL (1.8-7.7) H Lymphocytes # (Auto) 2.4 x10^3/uL (1.0-4.8) Monocytes # (Auto) 1.0 x10^3/uL (0.0-1.1) Eosinophils # (Auto) 0.1 x10^3/uL (0.0-0.7) Basophils # (Auto) 0.1 x10^3/uL (0.0-0.2) Segmented Neutrophils % 77 % (35-66) H Band Neutrophils % 1 % (0-9) Lymphocytes % 16 % (24-48) L Monocytes % 6 % (0-10) Toxic Granulation Slight Platelet Estimate Adequate (ADEQUATE) Large Platelets Occ Sodium Level 138 mmol/L (136-145) Potassium Level 3.9 mmol/L (3.5-5.1) Chloride Level 104 mmol/L (98-107) Carbon Dioxide Level 27 mmol/L (21-32) Anion Gap 7 (6-14) Blood Urea Nitrogen 21 mg/dL (8-26) Creatinine 1.3 mg/dL (0.7-1.3) Estimated GFR (Cockcroft-Gault) 54.1 BUN/Creatinine Ratio 16 (6-20) Glucose Level 98 mg/dL (70-99) Calcium Level 9.4 mg/dL (8.5-10.1) Total Bilirubin 0.7 mg/dL (0.2-1.0) Aspartate Amino Transferase (AST) 18 U/L (15-37) Alanine Aminotransferase (ALT) 21 U/L (16-63) Alkaline Phosphatase 91 U/L (46-116) Total Protein 6.8 g/dL (6.4-8.2) Albumin 2.5 g/dL (3.4-5.0) L Albumin/Globulin Ratio 0.6 (1.0-1.7) L Current Medications: Meds: Current Medications Multi-Ingredient Ointment (Analgesic [place]) 1 warren PRN QID PRN TP MUSCLE PAIN; Start 11/08/17 at 15:00 Acetaminophen (Tylenol) 650 mg PRN Q6HRS PRN PO PAIN / TEMP Last administered on 11/14/17at 10:18; Start 11/08/17 at 15:30 Baclofen (Lioresal) 10 mg BID PO Last administered on 11/22/17at 20:21; Start at 21:00 Bisacodyl (Dulcolax Supp) 10 mg PRN DAILY PRN RC CONSTIPATION Last administered on 11/16/17at 05:47; Start 11/08/17 at 15:30 Docusate Sodium (Colace) 100 mg PRN BID PRN PO CONSTIPATION; Start 11/08/17 at 15:30 Famotidine (Pepcid) 20 mg BIDBFRMEAL PO Last administered on 11/22/17 17:13; Start 11/08/17 at 16:30 Finasteride (Proscar) 5 mg DAILY PO Last administered on 11/22/17 08:58; Start 11/09/17 at 09:00 Haloperidol (Haldol) 0.5 mg PRN TID PRN PO AGITATION Last administered on at 13:07; Start 11/08/17 at 15:30; Stop 11/20/17 at 19:12; Status DC Lorazepam (Ativan) 0.5 mg TID PRN PRN PO ANXIETY / AGITATION Last administered on 11/21/17 07:06; Start 11/08/17 at 15:30 Ondansetron HCl (Zofran Odt) 4 mg PRN Q6HRS PRN PO NAUSEA/VOMITING; Start at 15:30 Sennosides (Senna) 8.6 mg BID PO Last administered on 11/22/17 20:22; Start at 21:00 Sennosides (Senna) 8.6 mg PRN DAILY PRN PO CONSTIPATION; Start 11/08/17 at 15:30 [place] Carbonate 300 mg BID PO Last administered on 11/11/17 11:17; Start 11/08 at 21:00; Stop 11/11/17 at 13:52; Status DC Oxycodone HCl (Roxicodone) 5 mg PRN Q6HRS PRN PO PAIN Last administered on 11/22at 20:26; Start 11/08/17 at 15:45 Terazosin HCl (Hytrin) 10 mg DAILY PO Last administered on 11/22/17 08:58; Start 11/09/17 at 09:00 Amitriptyline HCl (Elavil) 75 mg QHS PO Last administered on 11/09/17 20:00; Start 11/08/17 at 21:00; Stop 11/10/17 at 19:22; Status DC Cetirizine HCl (ZyrTEC) 10 mg DAILY PO Last administered on 11/22/17at 08:59; Start 11/09/17 at 09:00 Olanzapine (ZyPREXA ZYDIS) 2.5 mg PRN Q2HR PRN PO Psychosis; Start 11/08/17 at 15:45; Stop 11/11/17 at 11:33; Status DC Multi-Ingredient Ointment (Analgesic [place]) 1 warren PRN QID PRN TP MUSCLE PAIN; Start 11/08/17 at 15:45; Status Cancel Al Hydroxide/Mg Hydroxide (Mylanta Plus Xs) 15 ml PRN AFTMEALHC PRN PO DYSPEPSIA; Start 11/08/17 at 15:45 Magnesium Hydroxide (Milk Of Magnesia) 2,400 mg PRN QHS PRN PO CONSTIPATION Last administered on 11/11/17at 12:05; Start 11/08/17 at 15:45 Enoxaparin Sodium (Lovenox) 40 mg Q24H SQ Last administered on 11/08/17at 20:19; Start 11/08/17 at 21:00; Stop 11/09/17 at 14:41; Status DC Enoxaparin Sodium (Lovenox 30mg Syringe) 30 mg Q24H SQ Last administered on at 20:25; Start 11/09/17 at 21:00 Risperidone (RisperDAL) 0.25 mg QHS PO Last administered on 11/09/17at 20:00; Start 11/09/17 at 21:00; Stop 11/10/17 at 19:22; Status DC Vitamin D (Vitamin D3) 50,000 unit WEEKLY PO Last administered on 11/18/17at 08: 16; Start 11/11/17 at 09:00 Amitriptyline HCl (Elavil) 50 mg QHS PO Last administered on 11/10/17at 19:46; Start 11/10/17 at 21:00; Stop 11/11/17 at 19:46; Status DC Risperidone (RisperDAL) 0.5 mg QHS PO Last administered on 11/14/17at 20:23; Start 11/10/17 at 21:00; Stop 11/15/17 at 20:19; Status DC Olanzapine (ZyPREXA ZYDIS) 5 mg PRN Q2HR PRN PO Psychosis Last administered on 11/22/17at 01:44; Start 11/11/17 at 11:45 [place] Citrate 8 meq BID PO ; Start 11/11/17 at 21:00; Stop 11/11/17 at 21:00; Status DC Trazodone HCl (Desyrel) 50 mg PRN QHS PRN PO INSOMNIA Last administered on 11/22at 01:44; Start 11/11/17 at 19:45 Mirtazapine (Remeron) 7.5 mg QHS PO Last administered on 11/22/17 20:22; Start 11/12/17 at 21:00 [place] Carbonate 150 mg DAILY PO Last administered on 11/22/17at 08:57; Start 11/14/17 at 09:00 [place] Carbonate 300 mg HS PO Last administered on 11/22/17 20:22; Start 04/23 at 21:00 Nystatin (Nystop) 15 warren STK-MED ONCE TP Last administered on 11/14/17 22:17; Start 11/14/17 at 22:17; Stop 11/14/17 at 22:18; Status DC Risperidone (RisperDAL) 0.75 mg QHS PO Last administered on 11/18/17at 19:37; Start 11/15/17 at 21:00; Stop 11/19/17 at 13:06; Status DC Polyethylene Glycol (miraLAX) 17 gm BID PO Last administered on 11/22/17 20:22 ; Start 11/17/17 at 09:00 Risperidone (RisperDAL) 1 mg QHS PO Last administered on 11/20/17 19:29; Start 11/19/17 at 21:00; Stop 11/21/17 at 20:05; Status DC Neomycin/ Polymyxin/ Bacitracin (Triple Antibiotic Ointment) 1 pkt DAILY TP Last administered on 11/22/17at 16:15; Start 11/21/17 at 19:30 Risperidone (RisperDAL) 1.5 mg QHS PO Last administered on 11/22/17at 20:22; Start 11/21/17 at 21:00 Active Scripts Active Reported Amitriptyline Hcl 75 Mg Tablet 75 Mg PO QHS Oxycodone Hcl 5 Mg Capsule 5 Mg PO PRN Q6HRS PRN Lorazepam 0.5 Mg Tablet 0.5 Mg PO TID PRN PRN Famotidine 20 Mg Tablet 20 Mg PO BIDBFRMEAL Haloperidol 2 Mg Tablet 0.5 Mg PO PRN TID PRN Terazosin Hcl 10 Mg Capsule 10 Mg PO DAILY Ondansetron Odt (Ondansetron) 4 Mg Tab.rapdis 4 Mg PO PRN Q6HRS Milk Of Magnesia (Magnesium Hydroxide) 2,400 Mg/10 Ml Oral.susp 2,400 Mg PO PRN QID PRN Loratadine 10 Mg Tablet 10 Mg PO [place] Carbonate 300 Mg Capsule 300 Mg PO BID Baclofen 10 Mg Tablet 10 Mg PO BID Maalox Maximum Strength Susp (Mag Hydrox/Al Hydrox/Simeth) 355 Ml Oral.susp 15 Ml PO PRN Q6HRS PRN Finasteride 5 Mg Tablet 5 Mg PO DAILY Colace (Docusate Sodium) 100 Mg Capsule 100 Mg PO PRN BID PRN Senokot (Sennosides) 8.6 Mg Tablet 8.6 Mg PO PRN DAILY PRN Senokot (Sennosides) 8.6 Mg Tablet 8.6 Mg PO BID Bisacodyl 10 Mg Supp.rect 10 Mg RC PRN DAILY PRN Tylenol (Acetaminophen) 325 Mg Tablet 650 Mg PO PRN Q6HRS PRN I have reviewed the current psychotropics carefully including drug interactions. Risk benefit ratio favors no change other than as noted in my dictated progress note. Diagnosis: Problems: (1) Anxiety disorder (2) Bipolar affective, mixed, sev w/ psych (3) Dementia, vascular, with delusions (4) Mild cognitive impairment MARQUIS SCOTT MD November 22, 2017 23:11
[2017-11-23 05:57] VITALS: BP 115/69
[2017-11-23] MEDS: LITHIUM CARBONATE 150 MG CAPSULE. PO SCH (09:03)
[2017-11-23] MEDS: FAMOTIDINE 20 MG TABLET PO SCH ×2 (09:03→17:12)
[2017-11-23] MEDS: FINASTERIDE 5 MG TABLET PO SCH (09:04)
[2017-11-23] MEDS: BACLOFEN 10 MG TABLET PO SCH (09:04)
[2017-11-23] MEDS: CETIRIZINE HCL 10 MG TABLET PO SCH (09:04)
[2017-11-23] MEDS: TERAZOSIN 5 MG CAPSULE. PO SCH (09:04)
[2017-11-23] MEDS: POLYETHYLENE GLYCOL 3350 17 GM PACKET. PO SCH (09:04)
[2017-11-23] MEDS: SENNOSIDES 8.6 MG TABLET PO SCH (09:04)
[2017-11-23] MEDS: NEOMY/BACITR/POLYMYXIN OINT PACKET. TP SCH (09:04)
[2017-11-23 15:37] VITALS: BP 118/66
[2017-11-23] MEDS ORDERED: CHOL500021 PO (17:41)
[2017-11-23] MEDS ORDERED: ENOX40DI SQ (17:43)
[2017-11-23] MEDS ORDERED: NEOM1PAC TP (17:44)
[2017-11-23] MEDS ORDERED: POLY17PO5 PO (17:45)
[2017-11-23] MEDS ORDERED: LITH150C PO (17:46)
[2017-11-23] MEDS ORDERED: MIRT15TA PO (17:47)
[2017-11-23] MEDS ORDERED: OLAN5TAB5 PO (17:48)
[2017-11-23] MEDS ORDERED: RISP1TAB43 PO (17:50)
[2017-11-23] MEDS ORDERED: TRAZ50TA15 PO (17:51)
--- NOTE | 2017-11-23 20:10 | PDOC ---
Exam Note: Torsten Note: Please also refer to the separate dictated note~for this date of service dictated separately.~Patient seen individually. Discussed the patient with Nursing staff reviewed the chart.~Reviewed interim history and current functioning. Reviewed vital signs,~Labs/ Radiology~and current medications noted below. Continue current treatment with the changes noted in the dictated addendum note Assessment: Vital Signs: Vital Signs Date Time Temp Pulse Resp B/P (MAP) Pulse Ox O2 Delivery O2 Flow Rate FiO2 11/23/17 15:37 98.2 75 16 118/66 (83) 94 11/21/17 16:50 Room Air I&O Intake and Output 11/23/17 07:00 Intake Total 1210 ml Output Total 700 ml Balance 510 ml Intake Oral 1210 ml Output Urine Total 550 ml Urine/Stool Mix 150 ml Current Medications: Meds: Current Medications Multi-Ingredient Ointment (Analgesic [place]) 1 warren PRN QID PRN TP MUSCLE PAIN; Start 11/08/17 at 15:00; Stop 11/23/17 at 18:33; Status DC Acetaminophen (Tylenol) 650 mg PRN Q6HRS PRN PO PAIN / TEMP Last administered on 11/14/17at 10:18; Start 11/08/17 at 15:30; Stop 11/23/17 at 18:33; Status DC Baclofen (Lioresal) 10 mg BID PO Last administered on 11/23/17at 09:04; Start at 21:00; Stop 11/23/17 at 18:33; Status DC Bisacodyl (Dulcolax Supp) 10 mg PRN DAILY PRN RC CONSTIPATION Last administered on 11/16/17at 05:47; Start 11/08/17 at 15:30; Stop 11/23/17 at 18:33 ; Status DC Docusate Sodium (Colace) 100 mg PRN BID PRN PO CONSTIPATION; Start 11/08/17 at 15:30; Stop 11/23/17 at 18:33; Status DC Famotidine (Pepcid) 20 mg BIDBFRMEAL PO Last administered on 11/23/17at 17:12; Start 11/08/17 at 16:30; Stop 11/23/17 at 18:33; Status DC Finasteride (Proscar) 5 mg DAILY PO Last administered on 5/20/18at 09:04; Start 11/09/17 at 09:00; Stop 11/23/17 at 18:33; Status DC Haloperidol (Haldol) 0.5 mg PRN TID PRN PO AGITATION Last administered on at 13:07; Start 11/08/17 at 15:30; Stop 11/20/17 at 19:12; Status DC Lorazepam (Ativan) 0.5 mg TID PRN PRN PO ANXIETY / AGITATION Last administered on 11/21/17 07:06; Start 11/08/17 at 15:30; Stop 11/23/17 at 18:33; Status DC Ondansetron HCl (Zofran Odt) 4 mg PRN Q6HRS PRN PO NAUSEA/VOMITING; Start at 15:30; Stop 11/23/17 at 18:33; Status DC Sennosides (Senna) 8.6 mg BID PO Last administered on 11/23/17 09:04; Start at 21:00; Stop 11/23/17 at 18:33; Status DC Sennosides (Senna) 8.6 mg PRN DAILY PRN PO CONSTIPATION; Start 11/08/17 at 15:30 ; Stop 11/23/17 at 18:33; Status DC Rafael Hernandez Carbonate 300 mg BID PO Last administered on 11/11/17at 11:17; Start 11/08 at 21:00; Stop 11/11/17 at 13:52; Status DC Oxycodone HCl (Roxicodone) 5 mg PRN Q6HRS PRN PO PAIN Last administered on 11/22at 20:26; Start 11/08/17 at 15:45; Stop 11/23/17 at 18:33; Status DC Terazosin HCl (Hytrin) 10 mg DAILY PO Last administered on 11/23/17 09:04; Start 11/09/17 at 09:00; Stop 11/23/17 at 18:33; Status DC Amitriptyline HCl (Elavil) 75 mg QHS PO Last administered on 11/09/17at 20:00; Start 11/08/17 at 21:00; Stop 11/10/17 at 19:22; Status DC Cetirizine HCl (ZyrTEC) 10 mg DAILY PO Last administered on 11/23/17at 09:04; Start 11/09/17 at 09:00; Stop 11/23/17 at 18:33; Status DC Olanzapine (ZyPREXA ZYDIS) 2.5 mg PRN Q2HR PRN PO Psychosis; Start 11/08/17 at 15:45; Stop 11/11/17 at 11:33; Status DC Multi-Ingredient Ointment (Analgesic [place]) 1 warren PRN QID PRN TP MUSCLE PAIN; Start 11/08/17 at 15:45; Status Cancel Al Hydroxide/Mg Hydroxide (Mylanta Plus Xs) 15 ml PRN AFTMEALHC PRN PO DYSPEPSIA; Start 11/08/17 at 15:45; Stop 11/23/17 at 18:33; Status DC Magnesium Hydroxide (Milk Of Magnesia) 2,400 mg PRN QHS PRN PO CONSTIPATION Last administered on 11/11/17at 12:05; Start 11/08/17 at 15:45; Stop 11/23/17 at 18 :33; Status DC Enoxaparin Sodium (Lovenox) 40 mg Q24H SQ Last administered on 11/08/17at 20:19; Start 11/08/17 at 21:00; Stop 11/09/17 at 14:41; Status DC Enoxaparin Sodium (Lovenox 30mg Syringe) 30 mg Q24H SQ Last administered on at 20:25; Start 11/09/17 at 21:00; Stop 11/23/17 at 18:33; Status DC Risperidone (RisperDAL) 0.25 mg QHS PO Last administered on 11/09/17at 20:00; Start 11/09/17 at 21:00; Stop 11/10/17 at 19:22; Status DC Vitamin D (Vitamin D3) 50,000 unit WEEKLY PO Last administered on 11/18/17at 08: 16; Start 11/11/17 at 09:00; Stop 11/23/17 at 18:33; Status DC Amitriptyline HCl (Elavil) 50 mg QHS PO Last administered on 11/10/17at 19:46; Start 11/10/17 at 21:00; Stop 11/11/17 at 19:46; Status DC Risperidone (RisperDAL) 0.5 mg QHS PO Last administered on 11/14/17at 20:23; Start 11/10/17 at 21:00; Stop 11/15/17 at 20:19; Status DC Olanzapine (ZyPREXA ZYDIS) 5 mg PRN Q2HR PRN PO Psychosis Last administered on 11/22/17at 01:44; Start 11/11/17 at 11:45; Stop 11/23/17 at 18:33; Status DC Rafael Hernandez Citrate 8 meq BID PO ; Start 11/11/17 at 21:00; Stop 11/11/17 at 21:00; Status DC Trazodone HCl (Desyrel) 50 mg PRN QHS PRN PO INSOMNIA Last administered on 11/22at 01:44; Start 11/11/17 at 19:45; Stop 11/23/17 at 18:33; Status DC Mirtazapine (Remeron) 7.5 mg QHS PO Last administered on 11/22/17at 20:22; Start 11/12/17 at 21:00; Stop 11/23/17 at 18:33; Status DC Rafael Hernandez Carbonate 150 mg DAILY PO Last administered on 11/23/17at 09:03; Start 11/14/17 at 09:00; Stop 11/23/17 at 18:33; Status DC Rafael Hernandez Carbonate 300 mg HS PO Last administered on 11/22/17at 20:22; Start 04/23 at 21:00; Stop 11/23/17 at 18:33; Status DC Nystatin (Nystop) 15 warren STK-MED ONCE TP Last administered on 11/14/17at 22:17; Start 11/14/17 at 22:17; Stop 11/14/17 at 22:18; Status DC Risperidone (RisperDAL) 0.75 mg QHS PO Last administered on 11/18/17at 19:37; Start 11/15/17 at 21:00; Stop 11/19/17 at 13:06; Status DC Polyethylene Glycol (miraLAX) 17 gm BID PO Last administered on 11/23/17at 09:04 ; Start 11/17/17 at 09:00; Stop 11/23/17 at 18:33; Status DC Risperidone (RisperDAL) 1 mg QHS PO Last administered on 11/20/17at 19:29; Start 11/19/17 at 21:00; Stop 11/21/17 at 20:05; Status DC Neomycin/ Polymyxin/ Bacitracin (Triple Antibiotic Ointment) 1 pkt DAILY TP Last administered on 11/23/17at 09:04; Start 11/21/17 at 19:30; Stop 11/23/17 at 18:33; Status DC Risperidone (RisperDAL) 1.5 mg QHS PO Last administered on 11/22/17at 20:22; Start 11/21/17 at 21:00; Stop 11/23/17 at 18:33; Status DC Active Scripts Active Reported Trazodone Hcl 50 Mg Tablet 1 Tab PO QHS PRN Risperdal (Risperidone) 1 Mg Tablet 1.5 Mg PO QHS Zyprexa Zydis (Olanzapine) 5 Mg Tab.rapdis 5 Mg PO PRN Q2HR PRN Remeron (Mirtazapine) 15 Mg Tablet 0.5 Tab PO QHS Rafael Hernandez Carbonate 150 Mg Capsule 1 Cap PO DAILY Miralax (Polyethylene Glycol 3350) 17 Gm Powd.pack 1 Packet PO BID Triple Antibiotic Ointment (Neomy Sulf/Bacitra/Polymyxin B) 1 Each Packet 1 Each TP DAILY Lovenox (Enoxaparin Sodium) 40 Mg/0.4 Ml Disp.syrin 30 Mg SQ DAILY D3-50 (Cholecalciferol (Vitamin D3)) 50,000 Unit Capsule 1 Cap PO WEEKLY Oxycodone Hcl 5 Mg Capsule 5 Mg PO PRN Q6HRS PRN Lorazepam 0.5 Mg Tablet 0.5 Mg PO TID PRN PRN Famotidine 20 Mg Tablet 20 Mg PO BIDBFRMEAL Terazosin Hcl 10 Mg Capsule 10 Mg PO DAILY Ondansetron Odt (Ondansetron) 4 Mg Tab.rapdis 4 Mg PO PRN Q6HRS Milk Of Magnesia (Magnesium Hydroxide) 2,400 Mg/10 Ml Oral.susp 2,400 Mg PO PRN QID PRN Loratadine 10 Mg Tablet 10 Mg PO Rafael Hernandez Carbonate 300 Mg Capsule 300 Mg PO HS Baclofen 10 Mg Tablet 10 Mg PO BID Maalox Maximum Strength Susp (Mag Hydrox/Al Hydrox/Simeth) 355 Ml Oral.susp 15 Ml PO PRN Q6HRS PRN Finasteride 5 Mg Tablet 5 Mg PO DAILY Colace (Docusate Sodium) 100 Mg Capsule 100 Mg PO PRN BID PRN Senokot (Sennosides) 8.6 Mg Tablet 8.6 Mg PO PRN DAILY PRN Senokot (Sennosides) 8.6 Mg Tablet 8.6 Mg PO BID Bisacodyl 10 Mg Supp.rect 10 Mg RC PRN DAILY PRN Tylenol (Acetaminophen) 325 Mg Tablet 650 Mg PO PRN Q6HRS PRN I have reviewed the current psychotropics carefully including drug interactions. Risk benefit ratio favors no change other than as noted in my dictated progress note. Diagnosis: Problems: (1) Mild cognitive impairment (2) Dementia, vascular, with delusions (3) Bipolar affective, mixed, sev w/ psych (4) Anxiety disorder MARQUIS SCOTT MD November 23, 2017 20:10
--- NOTE | 2017-11-23 20:56 | PN ---
DATE: 11/21/2017 This is a late entry of 11/21/2017 covers elements not covered in my initial note of 11/21/2017. SUBJECTIVE: I met with the patient in the evening. The patient has been quite confused, anxious, agitated "send me to combat." He has; otherwise, made statements "let me ", yelling at times. He has been agitated. He bit his finger extremely hard to where it was bleeding with skin tear. He has been talking about vampires in the evening, mitts were placed on his hands to help prevent another recurrence of the above. He received Ativan, Roxicodone with some response. REVIEW OF SYSTEMS: Ambulation impaired, in Broda chair. No CV, , pulmonary, eye, ENT system symptoms on review. MENTAL STATUS EXAM: Oriented to himself and situation. Speech coherent, rapid at times. Abstraction fair, computation impaired, language function intact, attention span short. Mood and affect somewhat labile. LABORATORY DATA: Reviewed. IMPRESSION: Unchanged from initial note. PLAN: Continue current psychotropics, but increase Risperdal from 1 mg at bedtime to 1.5 mg at bedtime. Adjust further as clinically indicated. Check CBC and CMP in the morning of 11/22/2017. MAN Lindsey SCOTT MD DR: ARIA/rut JOB#: [id number] / [id number]
--- NOTE | 2017-11-24 09:55 | PN ---
DATE: 11/22/2017 PSYCHIATRIC PROGRESS NOTE This is a late entry 11/22/2017 covers elements not covered in my initial note 11/22/2017. SUBJECTIVE: I met with the patient in the evening. Overall, the patient slept 3 hours previous evening, little more awake, oriented, laughing with nursing staff, which is an improvement. Appetite slightly better. He was joking with nursing staff and called me "how are you doing bro." Staffs were quite amused with this and certainly it is remarkable that he appears with a dietary assistant heart and some sense of humor as opposed to how he has been doing in the past few days. REVIEW OF SYSTEMS: Ambulation impaired, in Broda chair. No CV, , pulmonary, eye system symptoms on review. Reliability poor. MENTAL STATUS EXAM: Oriented to himself and situations at times. Speech has some latency, coherent, often responses monosyllabic. Abstraction fair, computation impaired, language function intact. Mood and affect somewhat withdrawn, despite the above, improvement. LABORATORY DATA: Reviewed. IMPRESSION: Unchanged from initial note. PLAN: Continue current psychotropics including lithium, Risperdal, Remeron, Ativan p.r.n. MAN Lindsey SCOTT MD DR: ARIA/rut JOB#: [id number] / [id number]
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
--- NOTE | 2017-11-24 16:32 | RAD ---
History: Cellulitis, osteomyelitis. Comparison: None. Findings: PA, lateral, and oblique views of the left hand. Evaluation is significantly limited as there is flexion of the 2nd through 5th digits. IV catheter is seen involving the dorsal wrist. There is an obliquely oriented fracture involving the shaft of the 5th distal phalanx. On the lateral view, there is evidence of pencil in cup deformity involving one of the DIP joints, although it is difficult to assess exactly the joint; this may be the 3rd DIP joint. Impression: 1. Limited examination. 2. Obliquely oriented fracture involving the 5th distal phalanx, age indeterminate. 3. Apparent pencil in cup deformity of the DIP joint, possibly 3rd DIP joint. Pencil in cup appearance can be seen in the setting of psoriatic or rheumatoid arthritis, Ian's syndrome, or systemic sclerosis. Additional possibility could be septic arthritis. Electronically signed by: Boom Bauman MD (11/24/2017 4:29 PM) [facility]
== END 2017-11-23 18:33 | disposition short-term general hospital (02) | DRG 884 ==
LOC: GEROPSY 13:19
PROVIDERS: ADMIT Psychiatry & Neurology Psychiatry; ATTEND Psychiatry & Neurology Psychiatry
DX: F01.51 Vascular dementia, unspecified severity, with behavioral disturbance (principal); G30.0 Alzheimer's disease with early onset; F02.81 Dementia in other diseases classified elsewhere, unspecified severity, with behavioral disturbance; F31.64 Bipolar disorder, current episode mixed, severe, with psychotic features; G95.9 Disease of spinal cord, unspecified; F05 Delirium due to known physiological condition; E03.9 Hypothyroidism, unspecified; F41.9 Anxiety disorder, unspecified; F63.9 Impulse disorder, unspecified; K59.09 Other constipation; F60.3 Borderline personality disorder; N40.0 Benign prostatic hyperplasia without lower urinary tract symptoms; G47.00 Insomnia, unspecified; F51.4 Sleep terrors [night terrors]; L08.9 Local infection of the skin and subcutaneous tissue, unspecified; Z88.0 Allergy status to penicillin; Z79.899 Other long term (current) drug therapy
CPT/HCPCS: 36415; 36600; 74018; 80048; 80053; 80061; 80178; 81001; 82306; 82533; 82607; 82803; 82947; 83036; 83540; 83550; 83605; 83735; 84436; 84443; 84480; 85007; 85025; 86593; 87040; 87086; 93005; J1650

== ENCOUNTER 2017-11-23 19:34 | Inpatient (IN) | payer MEDICARE ==
[~2017-11-23] VITALS: Ht 175.3 cm; Wt 61.4 kg
[2017-11-23 19:00] VITALS: BP 112/72
[~2017-11-23 19:34] MED LIST: ACET325T9 PO; AMIT50TA PO; AMIT75TA PO; BACL10TA PO; BISA10SU2 RC; CHOL500021 PO; DOCU-109 PO; ENOX40DI SQ; FAMO20TA5 PO; FINA5TAB4 PO; HALO2TAB PO; LITH150C PO; LITH300C PO; LORA0.5T PO; LORA10TA3 PO; MAG355OR12 PO; MAGN2400 PO; MIRT15TA PO; NEOM1PAC TP; OLAN5TAB5 PO; ONDA4TAB12 PO; OXYC5CAP PO; POLY17PO5 PO; RISP1TAB43 PO; SENN8.6T99 PO; TERA10CA3 PO; TRAZ-85 PO
[2017-11-23] MEDS ORDERED: MAG HYDROX/AL HYDROX/SIMETH 30 ML ORAL.SUSP PO PRN (20:00)
[2017-11-23] MEDS ORDERED: ACETAMINOPHEN 325 MG TABLET PO PRN (20:00)
[2017-11-23] MEDS ORDERED: VANCOMYCIN 1.5 GM in IV NORMAL SALINE 500ML 500 ML IV ONE (20:00)
[2017-11-23] MEDS ORDERED: DOCUSATE SODIUM 100 MG CAPSULE PO PRN (20:00)
[2017-11-23] MEDS ORDERED: NON FORMULARY ITEM (Bisacodyl 10 MG) RC PRN (20:00)
[2017-11-23] MEDS ORDERED: SENNOSIDES 8.6 MG PO PRN (20:00)
[2017-11-23] MEDS ORDERED: LORAZEPAM 0.5 MG PO PRN (20:00)
[2017-11-23] MEDS ORDERED: ONDANSETRON ODT 4 MG TAB.RAPDIS PO PRN (20:00)
[2017-11-23] MEDS ORDERED: MAGNESIUM HYDROXIDE 2,400 MG/30 ML ORAL.SUSP. PO PRN ×2 (20:00→21:30)
[2017-11-23] MEDS ORDERED: NON FORMULARY ITEM (Trazodone Hcl 1 TAB) PO PRN (20:00)
[2017-11-23] MEDS: IV NORMAL SALINE 1,000ML 1,000 ML IV SCH (20:49)
[2017-11-23] MEDS ORDERED: RISPERIDONE 1.5 MG PO SCH (21:00)
[2017-11-23] MEDS ORDERED: NON FORMULARY ITEM (Baclofen 10 MG) PO SCH (21:00)
[2017-11-23] MEDS ORDERED: SENNOSIDES 8.6 MG PO SCH (21:00)
[2017-11-23] MEDS ORDERED: NON FORMULARY ITEM (Lithium Carbonate 300 MG) PO SCH (21:00)
[2017-11-23] MEDS ORDERED: MIRTAZAPINE PO SCH (21:00)
[2017-11-23] MEDS ORDERED: NON FORMULARY ITEM (Polyethylene Glycol 3350 (Miralax) 1 PACKET) PO SCH (21:00)
[2017-11-23] MEDS ORDERED: SENNOSIDES 8.6 MG TABLET PO PRN (21:30)
[2017-11-23] MEDS ORDERED: LORazepam 0.5 MG TABLET PO PRN (21:30)
[2017-11-23] MEDS ORDERED: oxyCODONE IR 5 MG TABLET PO PRN (21:30)
[2017-11-23] MEDS ORDERED: BISACODYL 10 MG SUPP.RECT PR PRN (21:30)
[2017-11-23 21:59] LABS: BASO # 0.1 x10^3/uL (0.0-0.2); BASO % 1 % (0-3); EOS # 0.1 x10^3/uL (0.0-0.7); EOS % 1 % (0-3); HEMATOCRIT 36.4 % (39.0-53.0); LYMPH # 2.9 x10^3/uL (1.0-4.8); LYMPH % 28 % (24-48); MEAN CORPUSCULAR HEMOGLOBIN 30 pg (25-35); MEAN CORPUSCULAR HGB CONC 33 g/dL (31-37); MEAN CORPUSCULAR VOLUME 91 fL (79-100); MONO # 0.8 x10^3/uL (0.0-1.1); MONO % 8 % (0-9); NEUT # 6.3 x10^3uL (1.8-7.7); NEUT % 62 % (31-73); PLATELET COUNT 243 x10^3/uL (140-400); RED BLOOD COUNT 4.01 x10^6/uL (4.30-5.70); RED CELL DISTRIBUTION WIDTH 15.6 % (11.5-14.5); WHITE BLOOD COUNT 10.2 x10^3/uL (4.0-11.0)
[2017-11-23] MEDS: traZODone 50 MG TABLET. PO PRN (22:01)
[2017-11-23] MEDS: MIRTAZAPINE 7.5 MG TABLET. PO SCH (22:01)
[2017-11-23] MEDS: risperiDONE 1 MG TABLET. PO SCH (22:01)
[2017-11-23] MEDS: LITHIUM CARBONATE 300 MG TABLET PO SCH (22:01)
[2017-11-23 22:09] LABS: ALBUMIN 2.3 g/dL (3.4-5.0); ALBUMIN/GLOBULIN RATIO 0.5 (1.0-1.7); CALCIUM 8.8 mg/dL (8.5-10.1); CREATININE 1.2 mg/dL (0.7-1.3); GFR 59.3; POTASSIUM 4.1 mmol/L (3.5-5.1); TOTAL BILIRUBIN 0.5 mg/dL (0.2-1.0); TOTAL PROTEIN 6.5 g/dL (6.4-8.2)
[2017-11-23] MEDS ORDERED: NYSTATIN TOPICAL POWDER 15GM BOTTLE. TP ONE (22:45)
[2017-11-23 22:46] VITALS: BP 112/72
[2017-11-23] MEDS: VANCOMYCIN PER PHARMACY MC PRN (22:49)
--- NOTE | 2017-11-23 22:51 | NUR ---
Pharmacy Vancomycin Dosing Note S:Consulted to monitor and dose vancomycin started 11/23/17. O:SYLWIA TRUJILLO is a 72 year old M with Cellulitis . Height: 5 feet, 9 inches Weight: 61.178833 kg [place] Body Weight: 70.70 Adjusted Body Weight: 66.94 Dosing Weight: Actual Other Antibiotics: MERREM 1GM IV Q12H LABS: Last BUN: 25 Last Creatinine: 1.2 Creatinine Clearance: 47.5 Last WBC: 10.2 Last Platelets: 243 Tmax (past 24 hours): Microbiology: I/O: Drug Levels: Last level: on at Last dose given at Vancomycin Dosing: Loading Dose: 1500 mg x1 11/23/172050 Dosing Weight: Actual Target Trough: 10-20 A: Based on: Actual Wt and CrCl P: 1. 11/24/172099 Vancomycin 1000 mg IV q24h 2. Follow up Trough level on 11/25/17 at 2030 3. Pharmacy will continue to monitor, follow and adjust therapy as needed. DAMARIS THAKUR RPH, 11/23/172250 Signed: 11/23/17 at 2251 by DAMARIS THAKUR RPH PHA
[2017-11-23 23:00] VITALS: BP 123/76
[2017-11-23] MEDS: MEROPENEM 1 GM in IV NORMAL SALINE 100ML 100 ML IV SCH (23:00)
--- NOTE | 2017-11-23 23:18 | NUR ---
The patient, SYLWIA TRUJILLO, 72 y/o, M admitted by MONIKA FOFANA MD, was given written information regarding hospital policies, unit procedures and contact persons. Patient admitted from the [facility] with a dx of cellulitis to the left pinky on hand. New orders noted. Patient is very pleasant at this time. Alert to name only. Photographs taken of wound to pinky and to coccyx put in chart. Patient denies pain at this time. Valuables were checked and left with patient.
[2017-11-24 05:46] VITALS: BP 128/68
[2017-11-24] MEDS ORDERED: FAMOTIDINE 20 MG PO SCH (07:30)
[2017-11-24] MEDS: MEROPENEM 1 GM in IV NORMAL SALINE 100ML 100 ML IV SCH ×2 (08:29→20:14)
[2017-11-24] MEDS: LITHIUM CARBONATE 150 MG CAPSULE. PO SCH (08:37)
[2017-11-24] MEDS: FINASTERIDE 5 MG TABLET PO SCH (08:39)
[2017-11-24] MEDS: BACLOFEN 10 MG TABLET PO SCH ×2 (08:39→20:13)
[2017-11-24] MEDS: FAMOTIDINE 20 MG TABLET PO SCH ×2 (08:39→20:11)
[2017-11-24] MEDS: POLYETHYLENE GLYCOL 3350 17 GM PACKET. PO SCH ×2 (08:39→20:12)
[2017-11-24] MEDS: TERAZOSIN 5 MG CAPSULE. PO SCH (08:39)
[2017-11-24] MEDS: SENNOSIDES 8.6 MG TABLET PO SCH ×2 (08:40→20:11)
[2017-11-24] MEDS: CETIRIZINE HCL 10 MG TABLET PO SCH (08:40)
[2017-11-24] MEDS: NYSTATIN TOPICAL POWDER 15GM BOTTLE. TP SCH ×2 (08:41→20:10)
[2017-11-24] MEDS: NEOMYCIN/BACITRAC/POLY TOPICAL OINTMENT 28GM TUBE. TP SCH (08:41)
[2017-11-24] MEDS ORDERED: ENOXAPARIN 30 MG/0.3 ML SYRINGE. SQ SCH (09:00)
[2017-11-24] MEDS ORDERED: ENOXAPARIN SODIUM SQ SCH (09:00)
[2017-11-24] MEDS ORDERED: LITHIUM CARBONATE PO SCH (09:00)
[2017-11-24] MEDS ORDERED: TERAZOSIN HCL 10 MG PO SCH (09:00)
[2017-11-24] MEDS ORDERED: NON FORMULARY ITEM (Finasteride 5 MG) PO SCH (09:00)
[2017-11-24 10:39] VITALS: BP 113/64
[2017-11-24] MEDS: VANCOMYCIN PER PHARMACY MC PRN (11:34)
[2017-11-24] MEDS: LACTOBACILLUS RHAMNOSUS GG 1 CAPSULE. PO SCH ×2 (13:26→20:11)
[2017-11-24] MEDS: IV NORMAL SALINE 1,000ML 1,000 ML IV SCH (13:26)
[2017-11-24 15:26] VITALS: BP 138/74
--- NOTE | 2017-11-24 18:11 | HP ---
ADMIT DATE: 11/23/2017 HISTORY OF PRESENT ILLNESS: The patient is a 72-year-old male patient who was seen yesterday at [facility]. He has bitten his tongue, however, has bitten his left fifth finger and sustained laceration on the medial aspect of the tip of his finger, did not require any suturing, but redness and swelling has dramatically worsened. A decision was made to transfer him down to [address] [place] [address] to start him on IV antibiotic for possible cellulitis and/or underlying osteomyelitis. The patient was originally admitted to [facility] Emergency Room from [facility] on the account of screaming for 45 minutes that the ghost is trying to get into bed with him. The patient apparently has been increasingly confused, disoriented, seems to be during the course to keep quiet. When staffs were attempting to talk to him, Jenl and subsequently Ativan tried and failed, he was referred to the Emergency Room, found to be extremely psychotic, confused within the context, diagnosed with bipolar disorder with worsening mood swings and referred for inpatient psychiatric stabilization. While there, he apparently bitten his left fifth finger, and subsequently, there is worsening redness and swelling, and given that he has dysphagia and his intake of oral antibiotic are unreliable, a decision was made to transfer him down to [address] [place] [address] to start him on IV antibiotic. PAST MEDICAL HISTORY: Significant for hypothyroidism, benign prostatic hypertrophy, chronic constipation, cervical myelopathy with quadriplegia as well as neurogenic bladder requiring indwelling Rosa catheter. He has also acute on chronic kidney injury because of bladder outlet obstruction. PAST PSYCHIATRIC HISTORY: Significant for bipolar disorder. There is racing thoughts alternating with depression, has significant insomnia and worsening mood swings, worsening confusion. His behavior apparently has been deemed dangerous, unmanageable, resulting in his referral to the Emergency Room and then to [facility] where he was from there transferred to [address] [place] [address]. FAMILY HISTORY: Noncontributory. SOCIAL HISTORY: Resident at [facility]. Retired from [employer]. He apparently has been at [facility] for a while. He does not smoke, drink alcohol or use any recreational drugs. MEDICATIONS: He is currently on following medications: He is on loratadine 10 mg once a day, baclofen 10 mg twice a day, Lovenox 30 mg subcutaneously once a day, terazosin 10 mg daily, oxycodone 5 mg every 6 hours, acetaminophen 650 mg every 6 hours. He is on mirtazapine 7.5 mg once a day, trazodone 50 mg at bedtime, olanzapine 5 mg for Zyprexa Zydis every 2 hours, risperidone 1.5 mg at bedtime. He is on lorazepam 0.5 mg 3 times a day, lithium carbonate 300 mg at bedtime, lithium carbonate 150 mg daily, Maalox 15 mL every 6 hours, bisacodyl 10 mg rectally daily p.r.n. for constipation, Colace 100 mg twice a day, milk of magnesia 30 mL p.o. daily p.r.n. for constipation, polyethylene glycol 17 grams daily p.r.n. for constipation, senna 1 tablet twice a day, ondansetron 4 mg every 6 hours as needed, famotidine 20 mg twice a day. Neomycin, triple antibiotic ointment applied topically daily. Vitamin D for cholecalciferol 50,000 units weekly and finasteride 5 mg once a day. PHYSICAL EXAMINATION: GENERAL: On examining him, he was extremely pale, cachectic, but no jaundice, cyanosis, or thyromegaly. No jugular venous distension. No limb edema. VITAL SIGNS: His heart rate was 75, blood pressure was 118/66, temperature was 98.2, respiratory rate was 16 and oxygen saturation was 94%. HEAD, EYES, EARS, NOSE AND THROAT: Showed normocephalic, atraumatic. NECK: Supple. HEART: Showed normal first and second heart sounds with no gallop, rub or murmur. CHEST: Clear to auscultation. No crepitation or rhonchi. ABDOMEN: Scaphoid, soft, nontender. No guarding or rigidity. No organomegaly. All hernial orifices intact. Bowel sounds normal. NEUROLOGIC: He was awake, alert, but very confused. All his cranial nerves are intact. He has quadriplegia with marked muscle wasting and fixed flexion contraction of both upper and lower extremities. Skin: He has marked swelling and erythema of the left fifth finger. LABORATORY DATA: On admission showed a white cell count of 10,000, hemoglobin 12, hematocrit 36, MCV 91, and platelet count 243,000. His serum sodium is 138, potassium 4.1, chloride 105, bicarbonate 27, anion gap of 6, BUN 25, creatinine 1.2, estimated GFR was 59 mL per minute. His glucose was 100, calcium was 8.8. Total bilirubin, AST, ALT, alkaline phosphatase were normal. Total protein was 6.5, albumin was 2.3. ASSESSMENT AND PLAN: In summary, this is a 72-year-old male patient who apparently bit his left fifth finger, sustaining laceration. The wound become infected and developed a cellulitis and questionable osteomyelitis of his left fifth finger. We will continue with IV antibiotic in the form of vancomycin and meropenem as he is allergic to PENICILLIN. Continued all his other medication. Follow his labs. I will arrange for an x-ray of his left hand and follow his labs on a daily basis, decide on further management accordingly. Would also consult Dr. Banda [place]. MONIKA FOFANA MD DR: KARLA/rut JOB#: [id number] / [id number]
--- NOTE | 2017-11-24 18:57 | NUR ---
wound care patient seen per wound care consult. see wound assessment. patient has IAD, maceration and stage 2 pressure ulcer with DTI on the coccyx area the area was cleaned, measured and redressed with BENJAMIN, recommendations of continuing with BENJAMIN or Calazime cream, prn. patient needs to be turning every 2 hours and was turned to the left side at this time. patient also has a wound to the left 5th finger, from notes in the chart patient bit his left 5th finger, the wound was cleaned, measured and with measurement the depth feels as if bone or tendon may be exposed, patient has some purulent drainage with cleaning, recommendations of [facility] with a Telfa dressing, change every other day. will order patient a P500 bed at this time. wound care will continue to f/u for possible changes.
[2017-11-24 19:00] VITALS: BP 132/83
[2017-11-24] MEDS: LITHIUM CARBONATE 300 MG TABLET PO SCH (20:10)
[2017-11-24] MEDS: MIRTAZAPINE 7.5 MG TABLET. PO SCH (20:11)
[2017-11-24] MEDS: traZODone 50 MG TABLET. PO PRN (20:11)
[2017-11-24] MEDS: risperiDONE 1 MG TABLET. PO SCH (20:11)
[2017-11-24] MEDS: VANCOMYCIN 1 GM in IV NORMAL SALINE 250ML 250 ML IV SCH (21:13)
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
--- NOTE | 2017-11-24 22:49 | NUR ---
Nursing: P500 Specialty bed ordered per protocol for wound healing. Order confirmation placed on paper chart. Per nursing sup, bed will arrive tomorrow morning. Will continue to turn Q2 hours and position for maximal comfort. Bed alarmed and in lowest position for safety.
[2017-11-24 23:00] VITALS: BP 149/64
[2017-11-25] MEDS: IV NORMAL SALINE 1,000ML 1,000 ML IV SCH ×2 (03:41→13:00)
--- NOTE | 2017-11-25 03:48 | PN ---
DATE: SUBJECTIVE: The patient is resting flat, comfortably in bed and is in no apparent distress. On questioning him, he denied any complaint. Nursing staff stated that he continued to have obvious redness, swelling of his left fifth finger, multiple wounds in the knuckles of his other fingers. He has also stage 2 sacrococcygeal decubitus ulcer. He has an indwelling Rosa catheter. PHYSICAL EXAMINATION: GENERAL: When I examined him, he looked pale, cachectic, no jaundice, cyanosis, or thyromegaly. No jugular venous distension. No limb edema. VITAL SIGNS: His heart rate was 71, blood pressure was 113/64, temperature was 98.1, respiratory rate 20, and oxygen saturation was 98%. HEAD, EYES, EARS, NOSE AND THROAT: Normocephalic, atraumatic. NECK: Supple. HEART: Showed normal first and second heart sounds with no gallop, rub or murmur. CHEST: Clear to auscultation. No crepitation or rhonchi. ABDOMEN: Scaphoid, soft, nontender. NEUROLOGIC: He is awake, alert, confused. All his cranial nerves are intact. He has quadriplegia with marked muscle wasting and fixed flexion contraction, particular of his upper extremities and fingers, both hands. He has marked swelling and erythema of his left fifth finger with a wound on the palmar aspect of the distal end of his left fifth finger. Multiple scabbing wounds on the knuckles of all the other fingers of both hands, likely from self-inflicted trauma to these fingers, although probably some edema is not intentional. He has an indwelling Rosa catheter, has stage II sacrococcygeal decubitus ulcer. His intake over the last 24 hours was 710, output was 1300. LABORATORY DATA: No lab work was done today. ASSESSMENT: Cellulitis, questionable osteomyelitis of his left fifth finger. To continue with IV antibiotic in the form of vancomycin and meropenem as he is allergic to penicillin. Other medical problems include bipolar disorder. To continue with all his other medications. Continue with finasteride for his enlarged prostate. Continue with pain management. I will repeat all his labs tomorrow and also arrange for him to have an x-ray of the left fifth finger, and we might have to do a bone scan or a CT scan of the hand. MONIKA FOFANA MD DR: Elvin JOB#: [id number] / [id number]
[2017-11-25 06:15] VITALS: BP 129/65
[2017-11-25 06:49] LABS: HEMATOCRIT 34.1 % (39.0-53.0); HEMOGLOBIN 11.2 g/dL (13.0-17.5); RED BLOOD COUNT 3.76 x10^6/uL (4.30-5.70); RED CELL DISTRIBUTION WIDTH 15.6 % (11.5-14.5); WHITE BLOOD COUNT 7.5 x10^3/uL (4.0-11.0)
[2017-11-25 07:05] LABS: ALBUMIN/GLOBULIN RATIO 0.5 (1.0-1.7); C REACTIVE PROTEIN 11.2 mg/L (0-3.3); CALCIUM 8.2 mg/dL (8.5-10.1); CREATININE 1.2 mg/dL (0.7-1.3); GFR 59.3; POTASSIUM 3.9 mmol/L (3.5-5.1); TOTAL BILIRUBIN 0.4 mg/dL (0.2-1.0); TOTAL PROTEIN 5.8 g/dL (6.4-8.2)
[2017-11-25] MEDS: NEOMYCIN/BACITRAC/POLY TOPICAL OINTMENT 28GM TUBE. TP SCH (09:00)
[2017-11-25] MEDS: ENOXAPARIN 40 MG/0.4 ML SYRINGE. SQ SCH (10:07)
[2017-11-25] MEDS: LACTOBACILLUS RHAMNOSUS GG 1 CAPSULE. PO SCH ×2 (10:10→21:28)
[2017-11-25] MEDS: LITHIUM CARBONATE 150 MG CAPSULE. PO SCH (10:10)
[2017-11-25] MEDS: POLYETHYLENE GLYCOL 3350 17 GM PACKET. PO SCH ×2 (10:11→21:00)
[2017-11-25] MEDS: TERAZOSIN 5 MG CAPSULE. PO SCH (10:11)
[2017-11-25] MEDS: BACLOFEN 10 MG TABLET PO SCH ×2 (10:11→21:28)
[2017-11-25] MEDS: FAMOTIDINE 20 MG TABLET PO SCH ×2 (10:11→21:28)
[2017-11-25] MEDS: FINASTERIDE 5 MG TABLET PO SCH (10:11)
[2017-11-25] MEDS: SENNOSIDES 8.6 MG TABLET PO SCH ×2 (10:12→21:27)
[2017-11-25] MEDS: CETIRIZINE HCL 10 MG TABLET PO SCH (10:12)
[2017-11-25] MEDS: MEROPENEM 1 GM in IV NORMAL SALINE 100ML 100 ML IV SCH ×2 (10:31→21:27)
[2017-11-25] MEDS: NYSTATIN TOPICAL POWDER 15GM BOTTLE. TP SCH ×2 (10:32→21:00)
[2017-11-25 16:01] VITALS: BP 125/69
[2017-11-25 19:16] VITALS: BP_SYST 125; BP_SYST 173; BP_DIAS 74; BP_DIAS 78
--- NOTE | 2017-11-25 21:21 | PN ---
DATE: 11/25/2017 SUBJECTIVE: The patient is resting flat in his low air loss mattress, in no apparent distress. On questioning him, he denied any complaint. His left fifth finger continued to be red and swollen and the x-ray of his hand showed that he has an obliquely oriented fracture involving the fifth distal phalanx, age indeterminate. His apparent [id number] deformity of the distal interphalangeal joint, possibly third, this appearance was seen in the setting of psoriatic or rheumatoid arthritis, Ian syndrome, systemic sclerosis, addition of could be septic arthritis. PHYSICAL EXAMINATION: GENERAL: When I saw him today, he was resting slightly propped up in bed, in no apparent respiratory distress. He was pale, but no jaundice, cyanosis or thyromegaly. No jugular venous distension. No lower limb edema. VITAL SIGNS: His heart rate was 91, blood pressure 129/65, temperature was 97.6, respiratory rate 20, and oxygen saturation was 97% on room air. HEAD, EYES, EARS, NOSE AND THROAT: Showed normocephalic, atraumatic. NECK: Supple. HEART: Showed normal first and second heart sounds. No gallop, rub or murmur. CHEST: Clear to auscultation. No crepitation or rhonchi. ABDOMEN: Distended, soft. No guarding or rigidity. No organomegaly. Hernial orifice intact. Bowel sounds normal. NEUROLOGIC: He is awake, alert, responding appropriately. His cranial nerves are intact. He has quadriplegia with marked muscle wasting bone of all 4 limbs. He has an indwelling Rosa catheter. His left fifth finger is markedly swollen and erythematous. He was seen by the wound care nurse and he apparently was diagnosed with a stage 2 pressure ulcer with deep tissue injury on the coccyx area. LABORATORY DATA: His lab work today showed a white cell count of 7500, hemoglobin 11, hematocrit 34, MCV 91, and platelet count of 221,000. His chemistry showed that his serum sodium was 144, potassium 3.9, chloride 111, bicarbonate 26, anion gap of 7, BUN 24, creatinine 1.2, estimated GFR was 59 mL per minute. His glucose was 94, calcium was 8.2. Total bilirubin, AST, ALT, alkaline phosphatase were normal. C-reactive protein is high at 11.2. Total protein was 5.8, albumin 2. His sedimentation rate was 35 mm per hour. ASSESSMENT: 1. Left fifth finger fracture, possible cellulitis, and underlying osteomyelitis according to the x-ray. 2. Stage II sacral decubitus ulcer. 3. Cervical myelopathy with quadriplegia. 4. Other medical problems include hypothyroidism, benign prostatic hypertrophy with bladder outlet obstruction, chronic constipation, chronic kidney injury has resolved. His creatinine is down to 1.2 from 2, when he was upstairs. PLAN: To continue with the intravenous antibiotic. Continue with deep venous thrombosis prophylaxis. Continue with pain management and all other medication. I will contact the orthopedic surgeon to see whether amputation of his fifth finger might be necessary. MONIKA FOFANA MD DR: KARLA/rut JOB#: [id number] / [id number]
[2017-11-25] MEDS: MIRTAZAPINE 7.5 MG TABLET. PO SCH (21:27)
[2017-11-25] MEDS: risperiDONE 1 MG TABLET. PO SCH (21:28)
[2017-11-25] MEDS: LITHIUM CARBONATE 300 MG TABLET PO SCH (21:29)
[2017-11-25 21:37] LABS: VANC TR 12.4 mcg/mL (10.0-20.0)
[2017-11-25] MEDS: VANCOMYCIN PER PHARMACY MC PRN (21:52)
--- NOTE | 2017-11-25 21:55 | NUR ---
Pharmacy Vancomycin Dosing Note S:Consulted to monitor and dose vancomycin started 11/23/17. O:SYLWIA TRUJILLO is a 72 year old M with Cellulitis . Height: 5 feet, 9 inches Weight: 61.802670 kg [place] Body Weight: 70.70 Adjusted Body Weight: 66.98 Dosing Weight: Actual Other Antibiotics: MERREM 1GM IV Q12H LABS: Last BUN: 24 Last Creatinine: 1.2 Creatinine Clearance: 47.5 Last WBC: 7.5 Last Platelets: 221 Drug Levels: Last Trough level: 12.4 on 11/25/17 at 2030 Last dose given 11/25/17 at 2100 Vancomycin Dosing: Loading Dose: 1500 mg x1 Dosing Weight: Actual Target Trough: 10-20 A: Based on: Trough and renal function P: 1. Continue Vancomycin 1000 mg IV q24h 2. Follow up Trough level on 11/28/17 at 2030 3. Pharmacy will continue to monitor, follow and adjust therapy as needed. JEREMY VALENCIA, 11/25/17 0140
[2017-11-25] MEDS: VANCOMYCIN 1 GM in IV NORMAL SALINE 250ML 250 ML IV SCH (22:37)
[2017-11-25 23:00] VITALS: BP 111/68
[2017-11-26] MEDS: IV NORMAL SALINE 1,000ML 1,000 ML IV SCH ×2 (01:51→14:45)
[2017-11-26 06:19] VITALS: BP 154/84
[2017-11-26] MEDS: SENNOSIDES 8.6 MG TABLET PO SCH ×2 (08:15→21:38)
[2017-11-26] MEDS: LITHIUM CARBONATE 150 MG CAPSULE. PO SCH (08:15)
[2017-11-26] MEDS: BACLOFEN 10 MG TABLET PO SCH ×2 (08:15→21:38)
[2017-11-26] MEDS: LACTOBACILLUS RHAMNOSUS GG 1 CAPSULE. PO SCH ×2 (08:15→21:38)
[2017-11-26] MEDS: ASCORBIC ACID 500 MG TABLET PO SCH (08:15)
[2017-11-26] MEDS: CETIRIZINE HCL 10 MG TABLET PO SCH (08:15)
[2017-11-26] MEDS: MULTIVITAMIN with MINERAL TABLET. PO SCH (08:15)
[2017-11-26] MEDS: FAMOTIDINE 20 MG TABLET PO SCH ×2 (08:15→21:38)
[2017-11-26] MEDS: FINASTERIDE 5 MG TABLET PO SCH (08:16)
[2017-11-26] MEDS: TERAZOSIN 5 MG CAPSULE. PO SCH (08:16)
[2017-11-26] MEDS: POLYETHYLENE GLYCOL 3350 17 GM PACKET. PO SCH ×2 (08:17→21:38)
[2017-11-26] MEDS: ENOXAPARIN 40 MG/0.4 ML SYRINGE. SQ SCH (08:17)
[2017-11-26] MEDS: MEROPENEM 1 GM in IV NORMAL SALINE 100ML 100 ML IV SCH ×2 (08:17→21:12)
[2017-11-26] MEDS: oxyCODONE IR 5 MG TABLET PO PRN ×2 (08:19→18:23)
[2017-11-26] MEDS: NYSTATIN TOPICAL POWDER 15GM BOTTLE. TP SCH ×2 (08:25→21:00)
[2017-11-26] MEDS: NEOMYCIN/BACITRAC/POLY TOPICAL OINTMENT 28GM TUBE. TP SCH (08:25)
[2017-11-26] MEDS: VANCOMYCIN PER PHARMACY MC PRN (10:58)
[2017-11-26 11:07] VITALS: BP 119/66
--- NOTE | 2017-11-26 11:50 | NUR ---
Pt pleasant but confused this am. Appetite poor, adequate fluid intake. Pt bathed and applied Nystatin powder to groin are and BENJAMIN to coccyx. No bleeding noted. Pt had large BM. Will continue to monitor.
--- NOTE | 2017-11-26 12:42 | NUR ---
IP: patient tests + for MRSA nasal screen, requires contact precautions until 2 negative results 7 days apart.
[2017-11-26 14:43] VITALS: BP 122/66
[2017-11-26 18:35] VITALS: BP 144/94
[2017-11-26 20:48] VITALS: BP 111/67
[2017-11-26] MEDS: LITHIUM CARBONATE 300 MG TABLET PO SCH (21:00)
[2017-11-26] MEDS: MIRTAZAPINE 7.5 MG TABLET. PO SCH (21:38)
[2017-11-26] MEDS: risperiDONE 1 MG TABLET. PO SCH (21:38)
[2017-11-26] MEDS: VANCOMYCIN 1 GM in IV NORMAL SALINE 250ML 250 ML IV SCH (22:33)
[2017-11-26 23:14] VITALS: BP 125/68
[2017-11-27] MEDS: IV NORMAL SALINE 1,000ML 1,000 ML IV SCH (05:03)
--- NOTE | 2017-11-27 05:10 | PN ---
DATE: 11/26/2017 SUBJECTIVE: The patient is resting slightly propped up in bed, in no apparent distress. Apparently, he has been less agitated. His left fifth finger continued to be red and swollen, although not painful. His x-ray showed that he has obliquely oriented fracture involving the fifth distal phalanx, age indeterminate and apparent [id number] deformity of the distal interphalangeal joint, possibly third distal interphalangeal joint. This abnormality can be seen in the setting of psoriatic rheumatoid arthritis, Ian syndrome with systemic sclerosis and additional possibility could be septic arthritis. PHYSICAL EXAMINATION: GENERAL: When I examined him today, he looked pale, cachectic, but no jaundice or cyanosis. No lymphadenopathy, no thyromegaly, no jugular venous distension, no audible bruit. VITAL SIGNS: His heart rate is 68, blood pressure was 122/66, temperature was 97.7, respiratory rate 20, and oxygen saturation was 95% on room air. HEAD, EYES, EARS, NOSE AND THROAT: Showed he is normocephalic, atraumatic. NECK: Supple. HEART: Showed normal first and second heart sounds with no gallop, rub or murmur. CHEST: Clear to auscultation. No crepitation or rhonchi. ABDOMEN: Scaphoid, soft, nontender. NEUROLOGIC: He was awake, alert, but very confused; however, all his cranial nerves are intact. He has quadriplegia with marked muscle wasting and fixed flexion contraction of both upper and lower extremities. He has claw fingers in both hands. His left fifth finger is very swollen and erythematous. The palmar aspect of the distal phalanx had an open wound that goes all the way down to the bone. His intake over the last 24 hours was 4500, output was 3600. LABORATORY DATA: As of this morning, his serum sodium is 144, potassium 3.9, chloride 111, bicarbonate 26, anion gap of 7, BUN 24, creatinine 1.2. Estimated GFR was 59 mL per minute. His glucose was 94, calcium was 8.2. Total bilirubin, AST, ALT, alkaline phosphatase were normal. His total protein was 5.8, albumin 2. His white cell count was 7500, hemoglobin 11, hematocrit 34, MCV 91, and platelet count 221,000. ASSESSMENT: 1. Left fifth finger fracture. Possible cellulitis and underlying osteomyelitis. 2. Stage II sacral decubitus ulcer. 3. Cervical myelopathy with quadriplegia. 4. Other medical problems include: A. Hypothyroidism. B. Benign prostatic hypertrophy with bladder outlet obstruction requiring indwelling Rosa catheter. C. Chronic constipation. D. Chronic kidney injury that has resolved. In fact, he has acute on chronic kidney injury. His creatinine came down from 2 to 1.2. PLAN: To continue with IV antibiotic. Continue with deep vein thrombosis prophylaxis. Continue with pain management. I have left a message with Dr. Thomas to have a look at the x-ray and advice on further management as probably amputation of the left fifth finger would be the appropriate treatment given that it is severely fractured and infected. MONIKA FOFANA MD DR: KARLA/rut JOB#: [id number] / [id number]
[2017-11-27 05:41] VITALS: BP 133/69
[2017-11-27 06:31] LABS: ALBUMIN 2.2 g/dL (3.4-5.0); ALBUMIN/GLOBULIN RATIO 0.5 (1.0-1.7); CALCIUM 8.5 mg/dL (8.5-10.1); GFR 73.2; HEMOGLOBIN 11.9 g/dL (13.0-17.5); POTASSIUM 4.3 mmol/L (3.5-5.1); RED BLOOD COUNT 4.05 x10^6/uL (4.30-5.70); RED CELL DISTRIBUTION WIDTH 15.9 % (11.5-14.5); TOTAL BILIRUBIN 0.4 mg/dL (0.2-1.0); TOTAL PROTEIN 6.3 g/dL (6.4-8.2); WHITE BLOOD COUNT 8.2 x10^3/uL (4.0-11.0)
[2017-11-27] MEDS: MEROPENEM 1 GM in IV NORMAL SALINE 100ML 100 ML IV SCH (08:33)
[2017-11-27] MEDS: MULTIVITAMIN with MINERAL TABLET. PO SCH (08:41)
[2017-11-27] MEDS: ASCORBIC ACID 500 MG TABLET PO SCH (08:41)
[2017-11-27] MEDS: ENOXAPARIN 40 MG/0.4 ML SYRINGE. SQ SCH (08:41)
[2017-11-27] MEDS: FAMOTIDINE 20 MG TABLET PO SCH (08:42)
[2017-11-27] MEDS: FINASTERIDE 5 MG TABLET PO SCH (08:42)
[2017-11-27] MEDS: BACLOFEN 10 MG TABLET PO SCH (08:42)
[2017-11-27] MEDS: SENNOSIDES 8.6 MG TABLET PO SCH (08:42)
[2017-11-27] MEDS: LACTOBACILLUS RHAMNOSUS GG 1 CAPSULE. PO SCH (08:43)
[2017-11-27] MEDS: TERAZOSIN 5 MG CAPSULE. PO SCH (08:43)
[2017-11-27] MEDS: CETIRIZINE HCL 10 MG TABLET PO SCH (08:44)
[2017-11-27] MEDS: LITHIUM CARBONATE 150 MG CAPSULE. PO SCH (08:45)
[2017-11-27] MEDS: NYSTATIN TOPICAL POWDER 15GM BOTTLE. TP SCH (08:46)
[2017-11-27] MEDS: POLYETHYLENE GLYCOL 3350 17 GM PACKET. PO SCH (08:46)
[2017-11-27] MEDS: NEOMYCIN/BACITRAC/POLY TOPICAL OINTMENT 28GM TUBE. TP SCH (10:00)
[2017-11-27 13:27] VITALS: BP 116/69
--- NOTE | 2017-11-27 13:56 | NUR ---
NURSING DISCHARGE NOTE: Patient transferred to [facility] at 1348 via cart and accompanied by [facility] personnel. Patient's gold ring was in a personal belongings envelope in the paperwork packet sent to [facility]. Report was called to EDDIE Darnell and she was made aware of the presence of the ring.
[2017-11-27] MEDS ORDERED: MEROPENEM 1 GM in IV NORMAL SALINE 100ML 100 ML IV SCH (14:00)
--- NOTE | 2017-11-27 14:26 | DS ---
DATE OF DISCHARGE: 11/27/2017 HOSPITAL COURSE: The patient is a 72-year-old male patient who was transferred from [facility] on account of infected left fifth finger that he has bitten. His distal phalanx was found to be broken, but nondisplaced. He has wounds at the palmar aspect of the left fifth finger. We did start him on IV antibiotics in the form of vancomycin and meropenem as he is allergic to PENICILLIN, and I did consult Dr. Grace yesterday and he looked at the x-ray and explained the clinical finding and he recommended that amputation is probably the best treatment for his infected broken left fifth finger, and therefore, we transferred him today to [facility]. PHYSICAL EXAMINATION: GENERAL: On examining him today, he looked well and was clearly in no apparent respiratory distress. He was pale, cachectic, but no jaundiced or cyanosed. No lymphadenopathy, no thyromegaly. No jugular venous distention. No lower limb edema. VITAL SIGNS: His heart rate was 62, blood pressure was 133/69, temperature was 98.3, respiratory rate was 14, and oxygen saturation was 96%. HEAD, EYES, EARS, NOSE AND THROAT: Showed normocephalic, atraumatic. NECK: Supple. HEART: Normal first and second heart sounds with no gallop, rub, or murmur. CHEST: Clear to auscultation. No crepitation or rhonchi. ABDOMEN: Scaphoid, soft, nontender. NEUROLOGIC: He is confused, but without any obvious lateralizing sign. He has quadriplegia with marked muscle wasting and fixed flexion contracture. He has claw hands with multiple scabbed wounds in the knuckles of the fingers of both hands. His left fifth finger is markedly swollen and erythematous. LABORATORY DATA: The x-ray showed distal phalanx as broken obliquely. His intake over the last 24 hours was 1200, output was 3600. His lab work this morning showed a white cell count of 8200, hemoglobin 12, hematocrit 37, MCV 91, and platelet count 228,000. His sedimentation rate was 35 mm per hour. His chemistry as of this morning showed a serum sodium of 145, potassium 4.3, chloride 111, bicarbonate 27, anion gap of 7, BUN of 18, creatinine 1. Estimated GFR was 73 mL per minute. His glucose was 99. Calcium was 8.5. Total bilirubin, AST, ALT, and alkaline phosphatase were normal. His C-reactive protein was 11.2 mg/dL, total protein was 6.3, albumin 2.2. DISCHARGE MEDICATIONS: He will be discharged and transferred to [facility] to continue on vitamin D 50,000 units once a week, vancomycin 1 gram IV once a day, meropenem 1 g IV q.8 hourly, multivitamin 1 tablet once a day, ascorbic acid 250 mg once a day. We will hold his Lovenox in case the orthopedic surgeons plan to amputate the finger tomorrow. Continue with lactobacillus rhamnosus 1 capsule twice a day, nystatin powder applied topically twice a day, terazosin 10 mg daily, senna 1 tablet twice a day, polyethylene glycol 17 g twice a day, lithium carbonate 150 mg p.o. daily, finasteride 5 mg daily, famotidine 20 mg p.o. b.i.d., baclofen 10 mg b.i.d., cetirizine 10 mg once a day, triple antibiotic applied topically, lithium carbonate 300 mg at bedtime, trazodone 50 mg at bedtime, risperidone 1.5 mg at bedtime, mirtazapine 7.5 mg at bedtime, oxycodone 5 mg every 6 hours, magnesium hydroxide or milk of magnesia 30 mL p.o. daily p.r.n. for constipation, Colace 100 mg twice a day, ondansetron 4 mg every 4 hours as needed, olanzapine 5 mg every 2 hours, and Tylenol 650 mg every 6 hours. FINAL DISCHARGE/TRANSFER DIAGNOSES: 1. Left fifth finger fracture with cellulitis and underlying osteomyelitis. 2. Stage 3 sacral decubitus ulcers. 3. Cervical myelopathy with quadriplegia. 4. Other medical problems include: A. Hypothyroidism. B. Benign prostatic hypertrophy with bladder outlet obstruction requiring indwelling Rosa catheter C. Chronic constipation. D. Doclx-sl-ydkczwj kidney injury, resolving. E. Bipolar disorder, mixed with psychotic feature; cognitive disorder, unspecified versus major neurocognitive disorder; early Alzheimer, vascular with delusion. MONIKA FOFANA MD DR: KARLA/rut JOB#: [id number] / [id number]
[2017-11-30] MEDS ORDERED: CHOLECALCIFEROL (VITAMIN D3) 50,000 UNIT CAPSULE PO SCH (09:00)
== END 2017-11-27 13:48 | disposition short-term general hospital (02) | DRG 539 ==
LOC: 1 SOUTH 19:34
PROVIDERS: ADMIT Internal Medicine; ATTEND Internal Medicine
DX: M86.8X4 Other osteomyelitis, hand (principal); G82.50 Quadriplegia, unspecified; L89.153 Pressure ulcer of sacral region, stage 3; N17.9 Acute kidney failure, unspecified; N13.8 Other obstructive and reflux uropathy; F02.81 Dementia in other diseases classified elsewhere, unspecified severity, with behavioral disturbance; F31.64 Bipolar disorder, current episode mixed, severe, with psychotic features; G95.9 Disease of spinal cord, unspecified; L89.152 Pressure ulcer of sacral region, stage 2; R13.10 Dysphagia, unspecified; G30.9 Alzheimer's disease, unspecified; F22 Delusional disorders; L03.012 Cellulitis of left finger; S61.217A Laceration without foreign body of left little finger without damage to nail, initial encounter; F31.9 Bipolar disorder, unspecified; X58.XXXA Exposure to other specified factors, initial encounter; K59.09 Other constipation; F09 Unspecified mental disorder due to known physiological condition; F01.50 Vascular dementia, unspecified severity, without behavioral disturbance, psychotic disturbance, mood disturbance, and anxiety; E03.9 Hypothyroidism, unspecified; N18.9 Chronic kidney disease, unspecified; N40.1 Benign prostatic hyperplasia with lower urinary tract symptoms; S62.607A Fracture of unspecified phalanx of left little finger, initial encounter for closed fracture; Z88.0 Allergy status to penicillin; Y93.89 Activity, other specified; Y92.89 Other specified places as the place of occurrence of the external cause; Y99.8 Other external cause status; Z79.899 Other long term (current) drug therapy
CPT/HCPCS: 36415; 73120; 80053; 80202; 85025; 85027; 85651; 86140; 87641; J1650; J2185; J3370; J7040; J7050; 99285-25; J7030

== ENCOUNTER 2017-11-29 18:00 | Inpatient (IN) | payer MEDICARE ==
[~2017-11-29] VITALS: Ht 175.3 cm; Wt 61.0 kg
[~2017-11-29 18:00] MED LIST changes: -TRAZ-85 PO; +TRAZ50TA15 PO
--- NOTE | 2017-11-29 18:35 | NUR ---
Admission Note with Justification for Admission to [facility] Patient admitted to [facility] for protective oversight for emergency stabilization of acute psychiatric crisis. Pt admitted from: [facility] Mode of arrival: EMS Accompanied By: EMS Precipitating behaviors that initiated intake and admission: pt discharged from [facility] to [facility] for medical reasons. Pt remains delusional and is still in need of med adjustment Description of failure of out patient attempts at stabilization in previous setting list behavior and medication trials: Continued on current meds. Behaviors and assessment findings upon admission: Pt in pleasant spirits. Pt states he is glad to see us again. Plan: Admit for protective oversight for adjustment and stabilization of medications, behaviors and mood. Intense treatment regimen including groups, medication adjustments, therapy, consistent regimen for ADL's, self care, and sleep hygiene. Daily monitoring by Inpatient staff, Psychiatry, and Medical Physician.
[2017-11-29 18:44] VITALS: BP 123/84
[2017-11-29] MEDS ORDERED: MULT-638 PO (21:03)
[2017-11-29] MEDS ORDERED: MAGN400O7 PO (21:03)
[2017-11-29] MEDS ORDERED: MIRT7.5T8 PO (21:03)
[2017-11-29] MEDS ORDERED: ASCO-78 PO (21:03)
[2017-11-29] MEDS ORDERED: CETI10TA22 PO (21:03)
[2017-11-29] MEDS ORDERED: CHOL10003 PO (21:03)
[2017-11-29] MEDS ORDERED: LACT1CAP21 PO (21:03)
[2017-11-29] MEDS ORDERED: SIME80TA14 PO (21:03)
[2017-11-29] MEDS ORDERED: ONDA4TAB10 PO (21:14)
[2017-11-29] MEDS ORDERED: NEOMY/BACITR/POLYMYXIN OINT PACKET. TP PRN (21:15)
[2017-11-29] MEDS ORDERED: SIMETHICONE 80 MG TAB.CHEW PO PRN (21:15)
[2017-11-29] MEDS ORDERED: MAGNESIUM HYDROXIDE 2,400 MG/30 ML ORAL.SUSP. PO PRN (21:15)
[2017-11-29] MEDS ORDERED: MAG HYDROX/AL HYDROX/SIMETH 30 ML ORAL.SUSP PO PRN (21:15)
[2017-11-29] MEDS ORDERED: METHYL SALICYLATE/MENTHOL TOPICAL OINTMENT 29GM TUBE. TP PRN (21:15)
[2017-11-29] MEDS ORDERED: DOCUSATE SODIUM 100 MG CAPSULE PO PRN (21:30)
[2017-11-29] MEDS ORDERED: ONDANSETRON ODT 4 MG TAB.RAPDIS PO PRN (21:30)
[2017-11-29] MEDS ORDERED: BISACODYL 10 MG SUPP.RECT PR PRN (21:30)
[2017-11-29] MEDS ORDERED: LORazepam 0.5 MG TABLET PO PRN (21:30)
[2017-11-29] MEDS: LITHIUM CARBONATE 150 MG CAPSULE. PO SCH (22:31)
[2017-11-29] MEDS: TERAZOSIN 5 MG CAPSULE. PO SCH (22:31)
[2017-11-29] MEDS: POLYETHYLENE GLYCOL 3350 17 GM PACKET. PO SCH (22:32)
[2017-11-29] MEDS: risperiDONE 0.5 MG TABLET. PO SCH (22:32)
[2017-11-29] MEDS: MIRTAZAPINE 7.5 MG TABLET. PO SCH (22:32)
[2017-11-29] MEDS: BACLOFEN 10 MG TABLET PO SCH (22:32)
[2017-11-29] MEDS: LACTOBACILLUS RHAMNOSUS GG 1 CAPSULE. PO SCH (22:32)
[2017-11-29] MEDS: SENNOSIDES 8.6 MG TABLET PO SCH (22:32)
--- NOTE | 2017-11-29 23:20 | PDOC ---
Exam Note: Torsten Note: Please also refer to the separate dictated note~for this date of service dictated separately.~Patient seen individually. Discussed the patient with Nursing staff reviewed the chart.~Reviewed interim history and current functioning. Reviewed vital signs,~Labs/ Radiology~and current medications noted below. Continue current treatment with the changes noted in the dictated addendum note Assessment: Vital Signs: Vital Signs Date Time Temp Pulse Resp B/P (MAP) Pulse Ox O2 Delivery O2 Flow Rate FiO2 11/29/17 22:31 71 123/84 11/29/17 18:44 98.0 18 97 Current Medications: Meds: Current Medications Acetaminophen (Tylenol) 650 mg PRN Q6HRS PRN PO PAIN / TEMP; Start 11/29/17 at 21:15 Multi-Ingredient Ointment (Analgesic Vernon) 1 warren PRN QID PRN TP MUSCLE PAIN; Start 11/29/17 at 21:15 Al Hydroxide/Mg Hydroxide (Mylanta Plus Xs) 15 ml PRN AFTMEALHC PRN PO DYSPEPSIA; Start 11/29/17 at 21:15 Magnesium Hydroxide (Milk Of Magnesia) 2,400 mg PRN QHS PRN PO CONSTIPATION; Start 11/29/17 at 21:15 Mirtazapine (Remeron) 7.5 mg QHS PO Last administered on 11/29/17at 22:32; Start 11/29/17 at 22:00 Olanzapine (ZyPREXA ZYDIS) 5 mg PRN Q2HR PRN PO PSYCHOSIS; Start 11/29/17 at 21 :15 Baclofen (Lioresal) 10 mg BID PO Last administered on 11/29/17at 22:32; Start at 22:00 [place] Carbonate 150 mg DAILY PO ; Start 11/30/17 at 09:00 [place] Carbonate 300 mg QHS PO Last administered on 11/29/17at 22:31; Start at 22:00 Lorazepam (Ativan) 0.5 mg PRN TID PRN PO ANXIETY / AGITATION; Start 11/29/17 at 21:30 Risperidone (RisperDAL) 1.5 mg QHS PO Last administered on 11/29/17at 22:32; Start 11/29/17 at 22:00 Trazodone HCl (Desyrel) 50 mg PRN QHS PRN PO INSOMNIA, MAY REPEAT X1; Start at 21:30 Vitamin D (Vitamin D3) 5,000 unit DAILY PO ; Start 11/30/17 at 09:00 Multivitamins/ Calcium (Thera-M Plus) 1 tab DAILY PO ; Start 11/30/17 at 09:00 Neomycin/ Polymyxin/ Bacitracin (Triple Antibiotic Ointment) 1 pkt PRN DAILY PRN TP Wound Healing; Start 11/29/17 at 21:15 Simethicone (Gas-X) 80 mg PRN AFTMEALHC PRN PO GAS / BLOATING; Start 11/29/17 at 21:15 Ascorbic Acid (Vitamin C) 500 mg DAILY PO ; Start 11/30/17 at 09:00 Bisacodyl (Dulcolax Supp) 10 mg PRN DAILY PRN [place] CONSTIPATION; Start 11/29/17 at 21:30 Cetirizine HCl (ZyrTEC) 10 mg DAILY PO ; Start 11/30/17 at 09:00 Docusate Sodium (Colace) 100 mg PRN BID PRN PO CONSTIPATION; Start 11/29/17 at 21:30 Famotidine (Pepcid) 20 mg BIDBFRMEAL PO ; Start 11/30/17 at 07:30 Finasteride (Proscar) 5 mg DAILY PO ; Start 11/30/17 at 09:00 Lactobacillus Rhamnosus (Culturelle) 1 cap BID PO Last administered on at 22:32; Start 11/29/17 at 22:00 Oxycodone HCl (Roxicodone) 5 mg PRN Q6HRS PRN PO PAIN; Start 11/29/17 at 21:30 Polyethylene Glycol (miraLAX) 17 gm BID PO Last administered on 11/29/17at 22:32 ; Start 11/29/17 at 22:00 Sennosides (Senna) 8.6 mg BID PO Last administered on 11/29/17at 22:32; Start at 22:00 Terazosin HCl (Hytrin) 10 mg QHS PO Last administered on 11/29/17at 22:31; Start 11/29/17 at 22:00 Ondansetron HCl (Zofran Odt) 4 mg PRN Q8HRS PRN PO NAUSEA/VOMITING; Start 11/29 at 21:30 Active Scripts Active Reported Zofran Odt (Ondansetron) 4 Mg Tab.rapdis 4 Mg PO PRN Q6HRS PRN Simethicone 80 Mg Tab.chew 80 Mg PO PRN AFTMEALHC PRN Thera M Plus Tablet (Multivits,Ca,Minerals/Iron/FA) 1 Each Tablet 1 Tab PO DAILY Mirtazapine 7.5 Mg Tablet 7.5 Mg PO QHS Milk Of Magnesia (Magnesium Hydroxide) 400 Mg/5 Ml Oral.susp 2,400 Mg PO PRN DAILY PRN Culturelle (Lactobacillus Rhamnosus Gg) 1 Each Capsule 1 Each PO BID Vitamin D3 (Cholecalciferol (Vitamin D3)) 1,000 Unit Tablet 5,000 Unit PO DAILY Zyrtec (Cetirizine Hcl) 10 Mg Tablet 10 Mg PO DAILY Vitamin C (Ascorbate Calcium) 500 Mg Tablet 500 Mg PO DAILY Trazodone Hcl 50 Mg Tablet 50 Mg PO PRN QHS PRN Risperdal (Risperidone) 1 Mg Tablet 1.5 Mg PO QHS Zyprexa Zydis (Olanzapine) 5 Mg Tab.rapdis 5 Mg PO PRN Q2HR PRN [place] Carbonate 150 Mg Capsule 150 Mg PO DAILY Miralax (Polyethylene Glycol 3350) 17 Gm Powd.pack 17 Gm PO BID Triple Antibiotic Ointment (Neomy Sulf/Bacitra/Polymyxin B) 1 Each Packet 1 Packet TP PRN DAILY PRN Oxycodone Hcl 5 Mg Capsule 5 Mg PO PRN Q6HRS PRN Lorazepam 0.5 Mg Tablet 0.5 Mg PO TID PRN PRN Famotidine 20 Mg Tablet 20 Mg PO BIDBFRMEAL Terazosin Hcl 10 Mg Capsule 10 Mg PO DAILY [place] Carbonate 300 Mg Capsule 300 Mg PO HS Baclofen 10 Mg Tablet 10 Mg PO BID Maalox Maximum Strength Susp (Mag Hydrox/Al Hydrox/Simeth) 355 Ml Oral.susp 30 Ml PO PRN Q2HR PRN Finasteride 5 Mg Tablet 5 Mg PO DAILY Colace (Docusate Sodium) 100 Mg Capsule 100 Mg PO PRN BID PRN Senokot (Sennosides) 8.6 Mg Tablet 8.6 Mg PO BID Bisacodyl 10 Mg Supp.rect 10 Mg RC PRN DAILY PRN Tylenol (Acetaminophen) 325 Mg Tablet 650 Mg PO PRN Q6HRS PRN I have reviewed the current psychotropics carefully including drug interactions. Risk benefit ratio favors no change other than as noted in my dictated progress note. Diagnosis: Problems: (1) Anxiety disorder (2) Bipolar affective, mixed, sev w/ psych (3) Dementia, vascular, with delusions (4) Mild cognitive impairment MARQUIS SCOTT MD November 29, 2017 23:20
--- NOTE | 2017-11-30 02:59 | NUR ---
Behavior Intervention Response and Plan: BIRP Note: Behavior: Assumed Care of patient, patient located in Patient Room at shift change. Patient exhibited the following behavior Calm, Disorganized, Hallucinating. Brief assessment on rounds of vital signs, medication needs, lab studies, and pain. Treatment plan problems 1 and 2. Intervention: Patient assessed and the following interventions initiated safety checks 15 Minute Checks Cognitive Assessment , Head to toe Assessment , Medications. Response: After interactions and interventions patient responded in the following manner, Calm , Compliant ,Cooperative. Continue to assess behaviors and condition will continue to monitor throughout the shift as needed. Patient educated on ADL's, and hand hygiene. 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 Continue to assess patient for changes in above assessment. Monitor for medication needs, pain, and safety concerns. Hourly rounding performed to ensure safe environment.
[2017-11-30] MEDS: oxyCODONE IR 5 MG TABLET PO PRN (05:31)
[2017-11-30 06:18] VITALS: BP 105/62
[2017-11-30] MEDS ORDERED: FAMOTIDINE 20 MG TABLET PO SCH (07:30)
[2017-11-30] MEDS: POLYETHYLENE GLYCOL 3350 17 GM PACKET. PO SCH ×2 (07:48→20:32)
[2017-11-30] MEDS: ASCORBIC ACID 500 MG TABLET PO SCH (07:48)
[2017-11-30] MEDS: CETIRIZINE HCL 10 MG TABLET PO SCH (07:48)
[2017-11-30] MEDS: SENNOSIDES 8.6 MG TABLET PO SCH ×2 (07:48→20:32)
[2017-11-30] MEDS: FINASTERIDE 5 MG TABLET PO SCH (07:49)
[2017-11-30] MEDS: MULTIVITAMIN with MINERAL TABLET. PO SCH (07:49)
[2017-11-30] MEDS: LACTOBACILLUS RHAMNOSUS GG 1 CAPSULE. PO SCH ×2 (07:49→20:33)
[2017-11-30] MEDS: LITHIUM CARBONATE 150 MG CAPSULE. PO SCH ×2 (07:49→20:33)
[2017-11-30] MEDS: BACLOFEN 10 MG TABLET PO SCH ×2 (07:49→20:34)
[2017-11-30] MEDS: CHOLECALCIFEROL (VITAMIN D3) 1,000 UNIT TABLET PO SCH (07:49)
--- NOTE | 2017-11-30 09:23 | NUR ---
Behavior Intervention Response and Plan: BIRP Note: Behavior: Assumed Care of patient, patient located in Patient Room at shift change. Patient exhibited the following behavior Disorganized, Delusions, Compliant. Brief assessment on rounds of vital signs, medication needs, lab studies, and pain. Treatment plan problems . Intervention: Patient assessed and the following interventions initiated safety checks 15 Minute Checks Cognitive Assessment , Head to toe Assessment , Medications. Response: After interactions and interventions patient responded in the following manner, Disorganized , Delusions ,Compliant. Continue to assess behaviors and condition will continue to monitor throughout the shift as needed. Patient educated on ADL's, and hand hygiene. 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 Continue to assess patient for changes in above assessment. Monitor for medication needs, pain, and safety concerns. Hourly rounding performed to ensure safe environment.
[2017-11-30 11:08] LABS: ALBUMIN 2.6 g/dL (3.4-5.0); ALBUMIN/GLOBULIN RATIO 0.5 (1.0-1.7); CALCIUM 8.7 mg/dL (8.5-10.1); CREATININE 1.2 mg/dL (0.7-1.3); GFR 59.3; MAGNESIUM 2.6 mg/dL (1.8-2.4); POTASSIUM 3.8 mmol/L (3.5-5.1); TOTAL BILIRUBIN 0.6 mg/dL (0.2-1.0); TOTAL PROTEIN 7.8 g/dL (6.4-8.2)
[2017-11-30 11:30] LABS: BASO # 0.1 x10^3/uL (0.0-0.2); BASO % 1 % (0-3); EOS # 0.1 x10^3/uL (0.0-0.7); EOS % 1 % (0-3); HEMATOCRIT 41.2 % (39.0-53.0); HEMOGLOBIN 13.3 g/dL (13.0-17.5); LYMPH # 2.9 x10^3/uL (1.0-4.8); LYMPH % 39 % (24-48); MEAN CORPUSCULAR HEMOGLOBIN 30 pg (25-35); MEAN CORPUSCULAR HGB CONC 32 g/dL (31-37); MEAN CORPUSCULAR VOLUME 92 fL (79-100); MONO # 0.4 x10^3/uL (0.0-1.1); MONO % 5 % (0-9); NEUT % 54 % (31-73); PLATELET COUNT 238 x10^3/uL (140-400); RED BLOOD COUNT 4.47 x10^6/uL (4.30-5.70); WHITE BLOOD COUNT 7.4 x10^3/uL (4.0-11.0)
[2017-11-30 12:49] LABS: BACTERIA,URINE 0 /HPF (0-FEW); BILIRUBIN,URINE NEG (NEG); CLARITY,URINE HAZY; COLOR,URINE PINK; GLUCOSE,URINE NEG (NEG); NITRITE,URINE NEG (NEG); RBC,URINE >40 /HPF (0-2); SQUAMOUS EPITHELIAL CELL,UR OCC /LPF; UROBILINOGEN,URINE 0.2 mg/dL (0.2 mg/dL); WBC,URINE OCC /HPF (0-4)
[2017-11-30 16:45] VITALS: BP 118/79
[2017-11-30 16:46] LABS: LI 0.6 mmol/L (0.6-1.2)
[2017-11-30 17:01] LABS: THYROID STIM HORMONE (TSH) 25.736 uIU/mL (0.358-3.740)
--- NOTE | 2017-11-30 18:28 | NUR ---
pt in bed for meals. awaiting a broda chair. pt delusional at times but in pleasant spirits. Compliant with meds and cares. yelling out for short time in afternoon. Surgical dressing removed. xeroform gauze, 4x4 and abdullahi reapllied. pt tolerated well. sutures intact. slight redness to site. mild swelling to digits and hand. pt voices no c/o.
[2017-11-30] MEDS: TERAZOSIN 5 MG CAPSULE. PO SCH (20:32)
[2017-11-30] MEDS: risperiDONE 0.5 MG TABLET. PO SCH (20:33)
[2017-11-30] MEDS: MIRTAZAPINE 7.5 MG TABLET. PO SCH (20:33)
[2017-11-30] MEDS: FAMOTIDINE 20 MG TABLET PO SCH (20:34)
--- NOTE | 2017-11-30 20:53 | PDOC ---
Exam Note: Torsten Note: Please also refer to the separate dictated note~for this date of service dictated separately.~Patient seen individually. Discussed the patient with Nursing staff reviewed the chart.~Reviewed interim history and current functioning. Reviewed vital signs,~Labs/ Radiology~and current medications noted below. Continue current treatment with the changes noted in the dictated addendum note Assessment: Vital Signs: Vital Signs Date Time Temp Pulse Resp B/P (MAP) Pulse Ox O2 Delivery O2 Flow Rate FiO2 11/30/17 20:32 66 118/79 11/30/17 16:45 97.8 20 98 11/30/17 06:31 Room Air I&O Intake and Output 11/30/17 07:00 Intake Total 300 ml Output Total 850 ml Balance -550 ml Intake Oral 300 ml Output Urine Total 850 ml Labs: Laboratory Tests Test 11/30/17 10:04 11/30/17 12:30 White Blood Count 7.4 x10^3/uL (4.0-11.0) Red Blood Count 4.47 x10^6/uL (4.30-5.70) Hemoglobin 13.3 g/dL (13.0-17.5) Hematocrit 41.2 % (39.0-53.0) Mean Corpuscular Volume 92 fL (79-100) Mean Corpuscular Hemoglobin 30 pg (25-35) Mean Corpuscular Hemoglobin Concent 32 g/dL (31-37) Red Cell Distribution Width 16.0 % (11.5-14.5) H Platelet Count 238 x10^3/uL (140-400) Neutrophils (%) (Auto) 54 % (31-73) Lymphocytes (%) (Auto) 39 % (24-48) Monocytes (%) (Auto) 5 % (0-9) Eosinophils (%) (Auto) 1 % (0-3) Basophils (%) (Auto) 1 % (0-3) Neutrophils # (Auto) 4.0 x10^3uL (1.8-7.7) Lymphocytes # (Auto) 2.9 x10^3/uL (1.0-4.8) Monocytes # (Auto) 0.4 x10^3/uL (0.0-1.1) Eosinophils # (Auto) 0.1 x10^3/uL (0.0-0.7) Basophils # (Auto) 0.1 x10^3/uL (0.0-0.2) Sodium Level 143 mmol/L (136-145) Potassium Level 3.8 mmol/L (3.5-5.1) Chloride Level 107 mmol/L (98-107) Carbon Dioxide Level 28 mmol/L (21-32) Anion Gap 8 (6-14) Blood Urea Nitrogen 15 mg/dL (8-26) Creatinine 1.2 mg/dL (0.7-1.3) Estimated GFR (Cockcroft-Gault) 59.3 BUN/Creatinine Ratio 13 (6-20) Glucose Level 129 mg/dL (70-99) H Calcium Level 8.7 mg/dL (8.5-10.1) Magnesium Level 2.6 mg/dL (1.8-2.4) H Iron Level 45 ug/dL (65-175) L Total Iron Binding Capacity 205 ug/dL (250-450) L Iron Saturation 22 % (15-34) Total Bilirubin 0.6 mg/dL (0.2-1.0) Aspartate Amino Transferase (AST) 17 U/L (15-37) Alanine Aminotransferase (ALT) 19 U/L (16-63) Alkaline Phosphatase 97 U/L (46-116) Total Protein 7.8 g/dL (6.4-8.2) Albumin 2.6 g/dL (3.4-5.0) L Albumin/Globulin Ratio 0.5 (1.0-1.7) L Triglycerides Level 85 mg/dL (0-150) Cholesterol Level 143 mg/dL (0-200) LDL Cholesterol, Calculated 94 mg/dL (0-100) VLDL Cholesterol, Calculated 17 mg/dL (0-40) Non-HDL Cholesterol Calculated 111 mg/dL (0-129) HDL Cholesterol 32 mg/dL (40-60) L Cholesterol/HDL Ratio 4.0 Thyroid Stimulating Hormone (TSH) 25.736 uIU/mL (0.358-3.740) [place] Level 0.6 mmol/L (0.6-1.2) [place] Last Dose Date Unknown [place] Last Dose Time Unknown Urine Collection Type Unknown Urine Color [place] Urine Clarity Hazy Urine pH 8.5 Urine Specific [place] 1.015 Urine Protein 100 mg/dl (NEG-TRACE) Urine Glucose (UA) Neg mg/dL (NEG) Urine Ketones (Stick) Neg mg/dL (NEG) Urine Blood Large (NEG) Urine Nitrite Neg (NEG) Urine Bilirubin Neg (NEG) Urine Urobilinogen Dipstick 0.2 mg/dL (0.2 mg/dL) Urine Leukocyte Esterase Trace (NEG) Urine RBC >40 /HPF (0-2) Urine WBC Occ /HPF (0-4) Urine Squamous Epithelial Cells Occ /LPF Urine Bacteria 0 /HPF (0-FEW) Current Medications: Meds: Current Medications Acetaminophen (Tylenol) 650 mg PRN Q6HRS PRN PO PAIN / TEMP; Start 11/29/17 at 21:15 Multi-Ingredient Ointment (Analgesic [place]) 1 warren PRN QID PRN TP MUSCLE PAIN; Start 11/29/17 at 21:15 Al Hydroxide/Mg Hydroxide (Mylanta Plus Xs) 15 ml PRN AFTMEALHC PRN PO DYSPEPSIA Last administered on 11/30/17at 03:43; Start 11/29/17 at 21:15 Magnesium Hydroxide (Milk Of Magnesia) 2,400 mg PRN QHS PRN PO CONSTIPATION; Start 11/29/17 at 21:15 Mirtazapine (Remeron) 7.5 mg QHS PO Last administered on 11/30/17at 20:33; Start 11/29/17 at 22:00 Olanzapine (ZyPREXA ZYDIS) 5 mg PRN Q2HR PRN PO PSYCHOSIS; Start 11/29/17 at 21 :15 Baclofen (Lioresal) 10 mg BID PO Last administered on 11/30/17at 20:34; Start at 22:00 [place] Carbonate 150 mg DAILY PO Last administered on 11/30/17at 07:49; Start 11/30/17 at 09:00 [place] Carbonate 300 mg QHS PO Last administered on 11/30/17at 20:33; Start at 22:00 Lorazepam (Ativan) 0.5 mg PRN TID PRN PO ANXIETY / AGITATION; Start 11/29/17 at 21:30 Risperidone (RisperDAL) 1.5 mg QHS PO Last administered on 11/30/17at 20:33; Start 11/29/17 at 22:00 Trazodone HCl (Desyrel) 50 mg PRN QHS PRN PO INSOMNIA, MAY REPEAT X1; Start at 21:30 Vitamin D (Vitamin D3) 5,000 unit DAILY PO Last administered on 11/30/17at 07:49 ; Start 11/30/17 at 09:00 Multivitamins/ Calcium (Thera-M Plus) 1 tab DAILY PO Last administered on at 07:49; Start 11/30/17 at 09:00 Neomycin/ Polymyxin/ Bacitracin (Triple Antibiotic Ointment) 1 pkt PRN DAILY PRN TP Wound Healing; Start 11/29/17 at 21:15 Simethicone (Gas-X) 80 mg PRN AFTMEALHC PRN PO GAS / BLOATING; Start 11/29/17 at 21:15 Ascorbic Acid (Vitamin C) 500 mg DAILY PO Last administered on 11/30/17at 07:48 ; Start 11/30/17 at 09:00 Bisacodyl (Dulcolax Supp) 10 mg PRN DAILY PRN [place] CONSTIPATION; Start 11/29/17 at 21:30 Cetirizine HCl (ZyrTEC) 10 mg DAILY PO Last administered on 11/30/17at 07:48; Start 11/30/17 at 09:00 Docusate Sodium (Colace) 100 mg PRN BID PRN PO CONSTIPATION; Start 11/29/17 at 21:30 Famotidine (Pepcid) 20 mg BIDBFRMEAL PO Last administered on 11/30/17at 07:49; Start 11/30/17 at 07:30; Stop 11/30/17 at 07:53; Status DC Finasteride (Proscar) 5 mg DAILY PO Last administered on 11/30/17at 07:49; Start 11/30/17 at 09:00 Lactobacillus Rhamnosus (Culturelle) 1 cap BID PO Last administered on at 20:33; Start 11/29/17 at 22:00 Oxycodone HCl (Roxicodone) 5 mg PRN Q6HRS PRN PO PAIN Last administered on 11/30at 05:31; Start 11/29/17 at 21:30 Polyethylene Glycol (miraLAX) 17 gm BID PO Last administered on 11/30/17at 20:32 ; Start 11/29/17 at 22:00 Sennosides (Senna) 8.6 mg BID PO Last administered on 11/30/17at 20:32; Start at 22:00 Terazosin HCl (Hytrin) 10 mg QHS PO Last administered on 11/30/17at 20:32; Start 11/29/17 at 22:00 Ondansetron HCl (Zofran Odt) 4 mg PRN Q8HRS PRN PO NAUSEA/VOMITING; Start 11/29 at 21:30 Famotidine (Pepcid) 20 mg BID PO Last administered on 11/30/17at 20:34; Start at 21:00 Levothyroxine Sodium (Synthroid) 50 mcg DAILY06 PO ; Start 12/01/17 at 06:00 Active Scripts Active Reported Zofran Odt (Ondansetron) 4 Mg Tab.rapdis 4 Mg PO PRN Q6HRS PRN Simethicone 80 Mg Tab.chew 80 Mg PO PRN AFTMEALHC PRN Thera M Plus Tablet (Multivits,Ca,Minerals/Iron/FA) 1 Each Tablet 1 Tab PO DAILY Mirtazapine 7.5 Mg Tablet 7.5 Mg PO QHS Milk Of Magnesia (Magnesium Hydroxide) 400 Mg/5 Ml Oral.susp 2,400 Mg PO PRN DAILY PRN Culturelle (Lactobacillus Rhamnosus Gg) 1 Each Capsule 1 Each PO BID Vitamin D3 (Cholecalciferol (Vitamin D3)) 1,000 Unit Tablet 5,000 Unit PO DAILY Zyrtec (Cetirizine Hcl) 10 Mg Tablet 10 Mg PO DAILY Vitamin C (Ascorbate Calcium) 500 Mg Tablet 500 Mg PO DAILY Trazodone Hcl 50 Mg Tablet 50 Mg PO PRN QHS PRN Risperdal (Risperidone) 1 Mg Tablet 1.5 Mg PO QHS Zyprexa Zydis (Olanzapine) 5 Mg Tab.rapdis 5 Mg PO PRN Q2HR PRN [place] Carbonate 150 Mg Capsule 150 Mg PO DAILY Miralax (Polyethylene Glycol 3350) 17 Gm Powd.pack 17 Gm PO BID Triple Antibiotic Ointment (Neomy Sulf/Bacitra/Polymyxin B) 1 Each Packet 1 Packet TP PRN DAILY PRN Oxycodone Hcl 5 Mg Capsule 5 Mg PO PRN Q6HRS PRN Lorazepam 0.5 Mg Tablet 0.5 Mg PO TID PRN PRN Famotidine 20 Mg Tablet 20 Mg PO BIDBFRMEAL Terazosin Hcl 10 Mg Capsule 10 Mg PO DAILY [place] Carbonate 300 Mg Capsule 300 Mg PO HS Baclofen 10 Mg Tablet 10 Mg PO BID Maalox Maximum Strength Susp (Mag Hydrox/Al Hydrox/Simeth) 355 Ml Oral.susp 30 Ml PO PRN Q2HR PRN Finasteride 5 Mg Tablet 5 Mg PO DAILY Colace (Docusate Sodium) 100 Mg Capsule 100 Mg PO PRN BID PRN Senokot (Sennosides) 8.6 Mg Tablet 8.6 Mg PO BID Bisacodyl 10 Mg Supp.rect 10 Mg RC PRN DAILY PRN Tylenol (Acetaminophen) 325 Mg Tablet 650 Mg PO PRN Q6HRS PRN I have reviewed the current psychotropics carefully including drug interactions. Risk benefit ratio favors no change other than as noted in my dictated progress note. Diagnosis: Problems: (1) Anxiety disorder (2) Bipolar affective, mixed, sev w/ psych (3) Dementia, vascular, with delusions (4) Mild cognitive impairment (5) Osteomyelitis of hand, left, acute (6) Quadriplegia MARQUIS SCOTT MD November 30, 2017 20:53
--- NOTE | 2017-11-30 23:40 | NUR ---
Behavior Intervention Response and Plan: BIRP Note: Behavior: Assumed Care of patient, patient located in Patient Room at shift change. Patient exhibited the following behavior Calm, Cooperative, Interactive. Brief assessment on rounds of vital signs, medication needs, lab studies, and pain. Treatment plan problems 1 and 2. Intervention: Patient assessed and the following interventions initiated safety checks 15 Minute Checks Cognitive Assessment , Head to toe Assessment , Medications. Response: After interactions and interventions patient responded in the following manner, Calm , Compliant ,Cooperative. Continue to assess behaviors and condition will continue to monitor throughout the shift as needed. Patient educated on ADL's, and hand hygiene. 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 Continue to assess patient for changes in above assessment. Monitor for medication needs, pain, and safety concerns. Hourly rounding performed to ensure safe environment.
[2017-12-01] MEDS: LEVOTHYROXINE 50 MCG TABLET PO SCH (05:03)
[2017-12-01 06:28] VITALS: BP 115/62
[2017-12-01] MEDS: CETIRIZINE HCL 10 MG TABLET PO SCH (07:58)
[2017-12-01] MEDS: POLYETHYLENE GLYCOL 3350 17 GM PACKET. PO SCH ×2 (07:58→19:40)
[2017-12-01] MEDS: CHOLECALCIFEROL (VITAMIN D3) 1,000 UNIT TABLET PO SCH (07:58)
[2017-12-01] MEDS: FINASTERIDE 5 MG TABLET PO SCH (07:58)
[2017-12-01] MEDS: SENNOSIDES 8.6 MG TABLET PO SCH ×2 (07:59→19:41)
[2017-12-01] MEDS: MULTIVITAMIN with MINERAL TABLET. PO SCH (07:59)
[2017-12-01] MEDS: LITHIUM CARBONATE 150 MG CAPSULE. PO SCH ×2 (07:59→19:41)
[2017-12-01] MEDS: LACTOBACILLUS RHAMNOSUS GG 1 CAPSULE. PO SCH ×2 (07:59→19:42)
[2017-12-01] MEDS: FAMOTIDINE 20 MG TABLET PO SCH ×2 (07:59→19:41)
[2017-12-01] MEDS: BACLOFEN 10 MG TABLET PO SCH ×2 (07:59→19:41)
[2017-12-01] MEDS: ASCORBIC ACID 500 MG TABLET PO SCH (08:00)
--- NOTE | 2017-12-01 10:53 | NUR ---
Behavior Intervention Response and Plan: BIRP Note: Behavior: Assumed Care of patient, patient located in Patient Room at shift change. Patient exhibited the following behavior Disorganized, Delusions, Compliant. Brief assessment on rounds of vital signs, medication needs, lab studies, and pain. Treatment plan problems . Intervention: Patient assessed and the following interventions initiated safety checks 15 Minute Checks Cognitive Assessment , Head to toe Assessment , Medications. Response: After interactions and interventions patient responded in the following manner, Disorganized , Delusions ,Compliant. Continue to assess behaviors and condition will continue to monitor throughout the shift as needed. Patient educated on ADL's, and hand hygiene. 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 Continue to assess patient for changes in above assessment. Monitor for medication needs, pain, and safety concerns. Hourly rounding performed to ensure safe environment.
[2017-12-01 13:07] LABS: T3 TOTAL 73 ng/dL (71-180); THYROXINE 4.9 ug/dL (4.5-12.0)
[2017-12-01 15:40] VITALS: BP 106/64
[2017-12-01] MEDS: MIRTAZAPINE 7.5 MG TABLET. PO SCH (19:41)
[2017-12-01] MEDS: TERAZOSIN 5 MG CAPSULE. PO SCH (19:41)
[2017-12-01] MEDS: risperiDONE 0.5 MG TABLET. PO SCH (19:42)
[2017-12-01] MEDS: oxyCODONE IR 5 MG TABLET PO PRN (19:43)
--- NOTE | 2017-12-01 19:45 | NUR ---
Behavior Intervention Response and Plan: BIRP Note: Behavior: Assumed Care of patient, patient located in Day Room at shift change. Patient exhibited the following behavior Interactive, Calm, Compliant. Brief assessment on rounds of vital signs, medication needs, lab studies, and pain. Treatment plan problems . Intervention: Patient assessed and the following interventions initiated safety checks 15 Minute Checks Cognitive Assessment , Head to toe Assessment , Medications. Response: After interactions and interventions patient responded in the following manner, Interactive , Calm ,Compliant. Continue to assess behaviors and condition will continue to monitor throughout the shift as needed. Patient educated on ADL's, and hand hygiene. 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 Continue to assess patient for changes in above assessment. Monitor for medication needs, pain, and safety concerns. Hourly rounding performed to ensure safe environment.
--- NOTE | 2017-12-01 19:59 | NUR ---
pt in pleasant spirits. compliant with meds. yelled out x1 today. able to track with a conversation. appetite poor. drinks fluids well.
--- NOTE | 2017-12-01 20:33 | PDOC ---
Exam Note: Torsten Note: Please also refer to the separate dictated note~for this date of service dictated separately.~Patient seen individually. Discussed the patient with Nursing staff reviewed the chart.~Reviewed interim history and current functioning. Reviewed vital signs,~Labs/ Radiology~and current medications noted below. Continue current treatment with the changes noted in the dictated addendum note Assessment: Vital Signs: Vital Signs Date Time Temp Pulse Resp B/P (MAP) Pulse Ox O2 Delivery O2 Flow Rate FiO2 12/01/17 19:43 20 Room Air 12/01/17 19:41 76 106/64 12/01/17 15:40 97.7 96 I&O Intake and Output 12/01/17 07:00 Intake Total 1240 ml Output Total 450 ml Balance 790 ml Intake Oral 1240 ml Output Urine Total 450 ml # Bowel Movements 2 Current Medications: Meds: Current Medications Acetaminophen (Tylenol) 650 mg PRN Q6HRS PRN PO PAIN / TEMP; Start 11/29/17 at 21:15 Multi-Ingredient Ointment (Analgesic [place]) 1 [place] PRN QID PRN TP MUSCLE PAIN; Start 11/29/17 at 21:15 Al Hydroxide/Mg Hydroxide (Mylanta Plus Xs) 15 ml PRN AFTMEALHC PRN PO DYSPEPSIA Last administered on 11/30/17at 03:43; Start 11/29/17 at 21:15 Magnesium Hydroxide (Milk Of Magnesia) 2,400 mg PRN QHS PRN PO CONSTIPATION; Start 11/29/17 at 21:15 Mirtazapine (Remeron) 7.5 mg QHS PO Last administered on 12/01/17at 19:41; Start 11/29/17 at 22:00 Olanzapine (ZyPREXA ZYDIS) 5 mg PRN Q2HR PRN PO PSYCHOSIS; Start 11/29/17 at 21 :15 Baclofen (Lioresal) 10 mg BID PO Last administered on 12/01/17at 19:41; Start at 22:00 [place] Carbonate 150 mg DAILY PO Last administered on 12/01/17at 07:59; Start 11/30/17 at 09:00 [place] Carbonate 300 mg QHS PO Last administered on 12/01/17at 19:41; Start at 22:00 Lorazepam (Ativan) 0.5 mg PRN TID PRN PO ANXIETY / AGITATION; Start 11/29/17 at 21:30 Risperidone (RisperDAL) 1.5 mg QHS PO Last administered on 12/01/17at 19:42; Start 11/29/17 at 22:00 Trazodone HCl (Desyrel) 50 mg PRN QHS PRN PO INSOMNIA, MAY REPEAT X1; Start at 21:30 Vitamin D (Vitamin D3) 5,000 unit DAILY PO Last administered on 12/01/17at 07:58 ; Start 11/30/17 at 09:00 Multivitamins/ Calcium (Thera-M Plus) 1 tab DAILY PO Last administered on at 07:59; Start 11/30/17 at 09:00 Neomycin/ Polymyxin/ Bacitracin (Triple Antibiotic Ointment) 1 pkt PRN DAILY PRN TP Wound Healing; Start 11/29/17 at 21:15 Simethicone (Gas-X) 80 mg PRN AFTMEALHC PRN PO GAS / BLOATING; Start 11/29/17 at 21:15 Ascorbic Acid (Vitamin C) 500 mg DAILY PO Last administered on 12/01/17at 08:00 ; Start 11/30/17 at 09:00 Bisacodyl (Dulcolax Supp) 10 mg PRN DAILY PRN [place] CONSTIPATION; Start 11/29/17 at 21:30 Cetirizine HCl (ZyrTEC) 10 mg DAILY PO Last administered on 12/01/17at 07:58; Start 11/30/17 at 09:00 Docusate Sodium (Colace) 100 mg PRN BID PRN PO CONSTIPATION; Start 11/29/17 at 21:30 Famotidine (Pepcid) 20 mg BIDBFRMEAL PO Last administered on 11/30/17at 07:49; Start 11/30/17 at 07:30; Stop 11/30/17 at 07:53; Status DC Finasteride (Proscar) 5 mg DAILY PO Last administered on 12/01/17at 07:58; Start 11/30/17 at 09:00 Lactobacillus Rhamnosus (Culturelle) 1 cap BID PO Last administered on at 19:42; Start 11/29/17 at 22:00 Oxycodone HCl (Roxicodone) 5 mg PRN Q6HRS PRN PO PAIN Last administered on 12/01 19:43; Start 11/29/17 at 21:30 Polyethylene Glycol (miraLAX) 17 gm BID PO Last administered on 12/01/17 19:40 ; Start 11/29/17 at 22:00 Sennosides (Senna) 8.6 mg BID PO Last administered on 12/01/17 19:41; Start at 22:00 Terazosin HCl (Hytrin) 10 mg QHS PO Last administered on 12/01/17 19:41; Start 11/29/17 at 22:00 Ondansetron HCl (Zofran Odt) 4 mg PRN Q8HRS PRN PO NAUSEA/VOMITING; Start 11/29 at 21:30 Famotidine (Pepcid) 20 mg BID PO Last administered on 12/01/17 19:41; Start at 21:00 Levothyroxine Sodium (Synthroid) 50 mcg DAILY06 PO Last administered on at 05:03; Start 12/01/17 at 06:00 Active Scripts Active Reported Zofran Odt (Ondansetron) 4 Mg Tab.rapdis 4 Mg PO PRN Q6HRS PRN Simethicone 80 Mg Tab.chew 80 Mg PO PRN AFTMEALHC PRN Thera M Plus Tablet (Multivits,Ca,Minerals/Iron/FA) 1 Each Tablet 1 Tab PO DAILY Mirtazapine 7.5 Mg Tablet 7.5 Mg PO QHS Milk Of Magnesia (Magnesium Hydroxide) 400 Mg/5 Ml Oral.susp 2,400 Mg PO PRN DAILY PRN Culturelle (Lactobacillus Rhamnosus Gg) 1 Each Capsule 1 Each PO BID Vitamin D3 (Cholecalciferol (Vitamin D3)) 1,000 Unit Tablet 5,000 Unit PO DAILY Zyrtec (Cetirizine Hcl) 10 Mg Tablet 10 Mg PO DAILY Vitamin C (Ascorbate Calcium) 500 Mg Tablet 500 Mg PO DAILY Trazodone Hcl 50 Mg Tablet 50 Mg PO PRN QHS PRN Risperdal (Risperidone) 1 Mg Tablet 1.5 Mg PO QHS Zyprexa Zydis (Olanzapine) 5 Mg Tab.rapdis 5 Mg PO PRN Q2HR PRN [place] Carbonate 150 Mg Capsule 150 Mg PO DAILY Miralax (Polyethylene Glycol 3350) 17 Gm Powd.pack 17 Gm PO BID Triple Antibiotic Ointment (Neomy Sulf/Bacitra/Polymyxin B) 1 Each Packet 1 Packet TP PRN DAILY PRN Oxycodone Hcl 5 Mg Capsule 5 Mg PO PRN Q6HRS PRN Lorazepam 0.5 Mg Tablet 0.5 Mg PO TID PRN PRN Famotidine 20 Mg Tablet 20 Mg PO BIDBFRMEAL Terazosin Hcl 10 Mg Capsule 10 Mg PO DAILY [place] Carbonate 300 Mg Capsule 300 Mg PO HS Baclofen 10 Mg Tablet 10 Mg PO BID [place] Maximum Strength Susp (Mag Hydrox/Al Hydrox/Simeth) 355 Ml Oral.susp 30 Ml PO PRN Q2HR PRN Finasteride 5 Mg Tablet 5 Mg PO DAILY Colace (Docusate Sodium) 100 Mg Capsule 100 Mg PO PRN BID PRN Senokot (Sennosides) 8.6 Mg Tablet 8.6 Mg PO BID Bisacodyl 10 Mg Supp.rect 10 Mg RC PRN DAILY PRN Tylenol (Acetaminophen) 325 Mg Tablet 650 Mg PO PRN Q6HRS PRN I have reviewed the current psychotropics carefully including drug interactions. Risk benefit ratio favors no change other than as noted in my dictated progress note. Diagnosis: Problems: (1) Anxiety disorder (2) Bipolar affective, mixed, sev w/ psych (3) Dementia, vascular, with delusions (4) Mild cognitive impairment (5) Osteomyelitis of hand, left, acute (6) Quadriplegia MARQUIS SCOTT MD December 01, 2017 20:33
[2017-12-01 23:07] LABS: THYROXINE 5.2 ug/dL (4.5-12.0)
--- NOTE | 2017-12-02 02:00 | PN ---
DATE: 11/30/2017 ADDENDUM SUBJECTIVE: The patient is a 72-year-old male patient, who was transferred to [facility] as he has infected broken left fifth finger and in consultation with Dr. Peng, he recommended surgical amputation is the best option available and after the amputation was done Dr. Peng did not recommend any long-term antibiotic therapy and as the patient remained stable, but continued to have behavioral problems. 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 PAST MEDICAL HISTORY: Significant for hypothyroidism, benign prostatic hypertrophy, chronic constipation, cervical myelopathy with quadriplegia as well as neurogenic bladder requiring indwelling Rosa catheter, also acute on-chronic kidney injury because of bladder outlet obstruction. PAST PSYCHIATRIC HISTORY: Significant for having bipolar disorder. There is racing thoughts alternating with depression, has significant insomnia and worsening mood swings, worsening confusion. FAMILY HISTORY: Noncontributory. SOCIAL HISTORY: He is a resident at [facility], [place] from the [employer]. He apparently has been at [facility] for a while. He does not smoke, drink alcohol or use any recreational drugs. OBJECTIVE: GENERAL: On examining him today, he looked well and was clearly in no apparent respiratory distress, pale, but no jaundice, cyanosis, or thyromegaly. No jugular venous distension. No lower limb edema. VITAL SIGNS: His heart rate was 66, blood pressure 118/79, temperature was 97.8, respiratory rate 20, and oxygen saturation was 98%. The rest of clinical exam is stable. HEAD, EYES, EARS, NOSE, AND THROAT: Showed normocephalic, atraumatic. NECK: Supple. HEART: Showed normal first and second heart sounds with no gallop, rub, or murmur. CHEST: Clear to auscultation. No crepitation or rhonchi. ABDOMEN: Distended, soft, nontender. NEUROLOGIC: He is awake, alert, but confused. All cranial nerves intact. He has quadriplegia with marked muscle wasting and fixed flexion contraction of all 4 limbs. Has neurogenic bladder with bladder outlet obstruction requiring indwelling Rosa catheter. LABORATORY DATA: His lab work this morning showed a white cell count of 7,400, hemoglobin 13, hematocrit 41, MCV 92, and platelet count 236,000. His chemistry showed a serum sodium 143, potassium 3.8, chloride 107, bicarbonate 28, anion gap of 8, BUN 15, creatinine 1.2, estimated GFR was 59 mL per minute. His glucose was 129, calcium was 8.7, magnesium 2.6. Serum iron was 45, TIBC was 205, and percent saturation was ____. His total bilirubin, AST, ALT, alkaline phosphatase were normal. Total protein 7.8, albumin 2.6. Serum triglycerides were 85.7, total cholesterol 143, LDL was 94, VLDL was 17, HDL was 32, and the ratio was 4. His TSH was 25.736. He is currently on following medication, famotidine 20 mg twice a day, finasteride 5 mg once a day, cetirizine 10 mg once a day, ascorbic acid 500 mg daily, multivitamin 1 tablet once a day, vitamin D 5,000 international units as once a day, lithium carbonate 150 mg daily, terazosin 10 mg at bedtime, senna 8.6 once a day, polyethylene glycol 17 grams once b.i.d., Lactobacillus rhamnosus 1 capsule twice a day, risperidone 1.5 mg at bedtime, lithium carbonate 300 mg at bedtime, baclofen 10 mg twice a day, mirtazapine 7.5 mg at bedtime, ondansetron 4 mg every 6 hours, oxycodone 5 mg every 6 hours, Docusate sodium 100 mg twice a day, bisacodyl 10 mg rectally as needed for constipation, trazodone 50 mg at bedtime, lorazepam 0.5 mg 2 times a day, and simethicone 80 mg after meals, olanzapine 5 mg every 2 hours. The patient is not on any Synthroid. I will start him on levothyroxine 50 mcg. We will check his free T3, free T4 and will also start him on 50 mcg and monitor his response. Thank you, Dr. Banda for allowing me to participate in the care of this patient. MONIKA FOFANA MD DR: KARLA/rut JOB#: [id number] / [id number]
[2017-12-02] MEDS: LEVOTHYROXINE 50 MCG TABLET PO SCH (05:54)
[2017-12-02 06:10] VITALS: BP 118/69
[2017-12-02] MEDS: CHOLECALCIFEROL (VITAMIN D3) 1,000 UNIT TABLET PO SCH (07:54)
[2017-12-02] MEDS: BACLOFEN 10 MG TABLET PO SCH ×2 (07:55→19:23)
[2017-12-02] MEDS: LITHIUM CARBONATE 150 MG CAPSULE. PO SCH ×2 (07:55→19:25)
[2017-12-02] MEDS: FINASTERIDE 5 MG TABLET PO SCH (07:55)
[2017-12-02] MEDS: ASCORBIC ACID 500 MG TABLET PO SCH (07:55)
[2017-12-02] MEDS: CETIRIZINE HCL 10 MG TABLET PO SCH (07:55)
[2017-12-02] MEDS: LACTOBACILLUS RHAMNOSUS GG 1 CAPSULE. PO SCH ×2 (07:55→19:23)
[2017-12-02] MEDS: FAMOTIDINE 20 MG TABLET PO SCH ×2 (07:55→19:23)
[2017-12-02] MEDS: MULTIVITAMIN with MINERAL TABLET. PO SCH (07:55)
[2017-12-02] MEDS: SENNOSIDES 8.6 MG TABLET PO SCH ×2 (07:55→19:25)
[2017-12-02] MEDS: POLYETHYLENE GLYCOL 3350 17 GM PACKET. PO SCH ×2 (07:56→19:22)
[2017-12-02] MEDS: oxyCODONE IR 5 MG TABLET PO PRN ×2 (07:59→19:26)
--- NOTE | 2017-12-02 08:40 | NUR ---
Behavior Intervention Response and Plan: BIRP Note: Behavior: Assumed Care of patient, patient located in Patient Room at shift change. Patient exhibited the following behavior Restless, Interactive, Disorganized. Brief assessment on rounds of vital signs, medication needs, lab studies, and pain. Treatment plan problems 1 & 2. Intervention: Patient assessed and the following interventions initiated safety checks 15 Minute Checks Cognitive Assessment , Head to toe Assessment , Medications. Response: After interactions and interventions patient responded in the following manner, Calm , Appropriate ,Compliant. Continue to assess behaviors and condition will continue to monitor throughout the shift as needed. Patient educated on ADL's, and hand hygiene. 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 Continue to assess patient for changes in above assessment. Monitor for medication needs, pain, and safety concerns. Hourly rounding performed to ensure safe environment.
--- NOTE | 2017-12-02 09:56 | NUR ---
SW requested Level II eval to be completed as this is pt's 2nd admit to a psych facility in less then 2 years (both to this facility in same stay, just dc to med floor then readmit.).
--- NOTE | 2017-12-02 09:59 | NUR ---
Psychosocial Assessment completed w/pt's , Marquis during previous admit on 11/08/17. Pt was born and raised in [place], [place] w/1 brother. Pt's mother was diagnosed with Bipolar and his father had an undiagnosed MHI. Pt completed HS and attended a [employer] for typing. Pt joined the [employer], but was injured during bootcamp, so he was not able to serve. Pt his current named Marquis for 44 years. They do not have any children. Pt is very close w/his brother, Drew. 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 Pt applied for disability, but felt extreme guilt and suffered from depression. [facility] and then was connected w/a [facility] who he continues to see outpatient. Pt struggled w/Bipolar throughout adult life, and according to Marquis, is the reason they chose not to have children. Pt's mental health was managed well prior to early longterm, and then back on track after his admit to the [facility]. No history of SI or additional Psych hospital admits. 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 Pt became weak, suffered from a UTI and admitted to [facility], dc to [facility] then was transitioned to [facility] in [place]. Pt was only there for 3 days as he continued to have increased agitation, aggression, hallucinations, mood lability. Pt then was taken to [facility] ED and came to this facility. Pt has no history of alcohol or substance abuse. GOALS: Pt is 80% VA connected and is in the process of obtaining placement in a LTCF w/[place] contract for [place]. 1. Family support 2. Community Support
--- NOTE | 2017-12-02 10:02 | NUR ---
INSURANCE INFORMATION CARLOS contacted Pt's [employer] as it is listed as MCO @ [phone] provided on [place] CSNAP sheet. CARLOS spoke w/option #2 who stated pt's RR is actually a RR SUPPLEMENT and will be considered a secondary to Medicare. There is not authorization required as Medicare is primary payor source and CARLOS verified Medicare will cover Psych benefits for pt.
--- NOTE | 2017-12-02 10:45 | NUR ---
ACTIVITY THERAPY ASSESSMENT Completed based on observation and interview. Pt. was shouting out for water from his bed while listening to music from a [employer]. UNDERCOLLAR MAKER gave him a drink of water and Pt. was appreciative. He was talkative and able to carry a conversation. Pt. enjoys music and wanted to sing for the group. He became slightly tearful when talking about the stevenson he gets when putting a smile on other's faces. Pt. was able to remember his , and is able to express his needs clearly. His left hand had a few fingers that were wrapped and he has little functioning of hands and feet. He usually is in a Broda wheelchair and is only allowed to be up for an hour. Pt. likes to sing along and listen to music all day. Initial goal aimed to increase stimulation: Pt. will participate in at least one group a day.
[2017-12-02] MEDS: ACETAMINOPHEN 325 MG TABLET PO PRN (12:29)
--- NOTE | 2017-12-02 13:26 | NUR ---
CARLOS contacted CARLOS Collier at the [facility] regarding Pt's VA benefit for LTC coverage. Pt is 80% connected and qualifies for LTC coverage. Pt does not have PCP thru the VA, but consistently saw a psychiatrist. Maia is attempting to get the Forming And Assembling Supervisor to bypass the PCP requirement to enable pt to receive the VA contract for LTC. This SW will continue to send updated clinicals to prove the need for LTC and Maia will submit to the Chief MO for review. Possible LTCF that accept VA contracts: [facility], [facility], [facility], [facility], [facility] .
--- NOTE | 2017-12-02 15:00 | NUR ---
P500 bed delivered for patient. Patient transferred to new bed without complaints. Will continue to monitor.
[2017-12-02 16:09] VITALS: BP 154/81
--- NOTE | 2017-12-02 19:22 | NUR ---
Wound Care Wound care consult for buttock pressure ulcer. Pt has stage III to bilateral buttocks. Pt also has surgical incision to distal portion of 5th finger. Cleansed and measured wounds. Applied calazime to buttocks. Pt is on P500 bed and should be left to right turns only. Applied aquacel ag and hydrocolloid to finger as pot stated his gauze dressing keeps falling off. No other wounds found on skin inspection. Pt turned to the left side at this time. Floated heels and educated pt on pressure ulcer prevention. WC will continue to follow for possible changes.
[2017-12-02] MEDS: risperiDONE 0.5 MG TABLET. PO SCH (19:23)
[2017-12-02] MEDS: MIRTAZAPINE 7.5 MG TABLET. PO SCH (19:23)
[2017-12-02] MEDS: TERAZOSIN 5 MG CAPSULE. PO SCH (19:23)
--- NOTE | 2017-12-02 20:37 | PDOC ---
Exam Note: Torsten Note: Please also refer to the separate dictated note~for this date of service dictated separately.~Patient seen individually. Discussed the patient with Nursing staff reviewed the chart.~Reviewed interim history and current functioning. Reviewed vital signs,~Labs/ Radiology~and current medications noted below. Continue current treatment with the changes noted in the dictated addendum note Assessment: Vital Signs: Vital Signs Date Time Temp Pulse Resp B/P (MAP) Pulse Ox O2 Delivery O2 Flow Rate FiO2 12/02/17 20:26 16 99 Room Air 12/02/17 19:23 68 154/81 12/02/17 16:09 97.8 I&O Intake and Output 12/02/17 07:00 Intake Total 1920 ml Balance 1920 ml Intake Oral 1920 ml # Bowel Movements 1 Current Medications: Meds: Current Medications Acetaminophen (Tylenol) 650 mg PRN Q6HRS PRN PO PAIN / TEMP Last administered on 12/02/17 12:29; Start 11/29/17 at 21:15 Multi-Ingredient Ointment (Analgesic [place]) 1 warren PRN QID PRN TP MUSCLE PAIN; Start 11/29/17 at 21:15 Al Hydroxide/Mg Hydroxide (Mylanta Plus Xs) 15 ml PRN AFTMEALHC PRN PO DYSPEPSIA Last administered on 11/30/17at 03:43; Start 11/29/17 at 21:15 Magnesium Hydroxide (Milk Of Magnesia) 2,400 mg PRN QHS PRN PO CONSTIPATION; Start 11/29/17 at 21:15 Mirtazapine (Remeron) 7.5 mg QHS PO Last administered on 12/02/17 19:23; Start 11/29/17 at 22:00 Olanzapine (ZyPREXA ZYDIS) 5 mg PRN Q2HR PRN PO PSYCHOSIS; Start 11/29/17 at 21 :15 Baclofen (Lioresal) 10 mg BID PO Last administered on 12/02/17 19:23; Start at 22:00 [place] Carbonate 150 mg DAILY PO Last administered on 12/02/17at 07:55; Start 11/30/17 at 09:00 [place] Carbonate 300 mg QHS PO Last administered on 12/02/17 19:25; Start at 22:00 Lorazepam (Ativan) 0.5 mg PRN TID PRN PO ANXIETY / AGITATION; Start 11/29/17 at 21:30 Risperidone (RisperDAL) 1.5 mg QHS PO Last administered on 12/02/17at 19:23; Start 11/29/17 at 22:00 Trazodone HCl (Desyrel) 50 mg PRN QHS PRN PO INSOMNIA, MAY REPEAT X1; Start at 21:30 Vitamin D (Vitamin D3) 5,000 unit DAILY PO Last administered on 12/02/17at 07:54 ; Start 11/30/17 at 09:00; Stop 12/02/17 at 15:34; Status DC Multivitamins/ Calcium (Thera-M Plus) 1 tab DAILY PO Last administered on at 07:55; Start 11/30/17 at 09:00 Neomycin/ Polymyxin/ Bacitracin (Triple Antibiotic Ointment) 1 pkt PRN DAILY PRN TP Wound Healing; Start 11/29/17 at 21:15 Simethicone (Gas-X) 80 mg PRN AFTMEALHC PRN PO GAS / BLOATING; Start 11/29/17 at 21:15 Ascorbic Acid (Vitamin C) 500 mg DAILY PO Last administered on 12/02/17at 07:55 ; Start 11/30/17 at 09:00 Bisacodyl (Dulcolax Supp) 10 mg PRN DAILY PRN [place] CONSTIPATION; Start 11/29/17 at 21:30 Cetirizine HCl (ZyrTEC) 10 mg DAILY PO Last administered on 12/02/17at 07:55; Start 11/30/17 at 09:00 Docusate Sodium (Colace) 100 mg PRN BID PRN PO CONSTIPATION; Start 11/29/17 at 21:30 Famotidine (Pepcid) 20 mg BIDBFRMEAL PO Last administered on 11/30/17at 07:49; Start 11/30/17 at 07:30; Stop 11/30/17 at 07:53; Status DC Finasteride (Proscar) 5 mg DAILY PO Last administered on 12/02/17at 07:55; Start 11/30/17 at 09:00 Lactobacillus Rhamnosus (Culturelle) 1 cap BID PO Last administered on at 19:23; Start 11/29/17 at 22:00 Oxycodone HCl (Roxicodone) 5 mg PRN Q6HRS PRN PO PAIN Last administered on 12/02 19:26; Start 11/29/17 at 21:30 Polyethylene Glycol (miraLAX) 17 gm BID PO Last administered on 12/02/17 19:22 ; Start 11/29/17 at 22:00 Sennosides (Senna) 8.6 mg BID PO Last administered on 12/02/17 19:25; Start at 22:00 Terazosin HCl (Hytrin) 10 mg QHS PO Last administered on 12/02/17 19:23; Start 11/29/17 at 22:00 Ondansetron HCl (Zofran Odt) 4 mg PRN Q8HRS PRN PO NAUSEA/VOMITING; Start 11/29 at 21:30 Famotidine (Pepcid) 20 mg BID PO Last administered on 12/02/17 19:23; Start at 21:00 Levothyroxine Sodium (Synthroid) 50 mcg DAILY06 PO Last administered on at 05:54; Start 12/01/17 at 06:00 Vitamin D (Vitamin D3) 50,000 unit WEEKLY PO ; Start 12/03/17 at 09:00 Active Scripts Active Reported Zofran Odt (Ondansetron) 4 Mg Tab.rapdis 4 Mg PO PRN Q6HRS PRN Simethicone 80 Mg Tab.chew 80 Mg PO PRN AFTMEALHC PRN Thera M Plus Tablet (Multivits,Ca,Minerals/Iron/FA) 1 Each Tablet 1 Tab PO DAILY Mirtazapine 7.5 Mg Tablet 7.5 Mg PO QHS Milk Of Magnesia (Magnesium Hydroxide) 400 Mg/5 Ml Oral.susp 2,400 Mg PO PRN DAILY PRN Culturelle (Lactobacillus Rhamnosus Gg) 1 Each Capsule 1 Each PO BID Vitamin D3 (Cholecalciferol (Vitamin D3)) 1,000 Unit Tablet 5,000 Unit PO DAILY Zyrtec (Cetirizine Hcl) 10 Mg Tablet 10 Mg PO DAILY Vitamin C (Ascorbate Calcium) 500 Mg Tablet 500 Mg PO DAILY Trazodone Hcl 50 Mg Tablet 50 Mg PO PRN QHS PRN Risperdal (Risperidone) 1 Mg Tablet 1.5 Mg PO QHS Zyprexa Zydis (Olanzapine) 5 Mg Tab.rapdis 5 Mg PO PRN Q2HR PRN [place] Carbonate 150 Mg Capsule 150 Mg PO DAILY Miralax (Polyethylene Glycol 3350) 17 Gm Powd.pack 17 Gm PO BID Triple Antibiotic Ointment (Neomy Sulf/Bacitra/Polymyxin B) 1 Each Packet 1 Packet TP PRN DAILY PRN Oxycodone Hcl 5 Mg Capsule 5 Mg PO PRN Q6HRS PRN Lorazepam 0.5 Mg Tablet 0.5 Mg PO TID PRN PRN Famotidine 20 Mg Tablet 20 Mg PO BIDBFRMEAL Terazosin Hcl 10 Mg Capsule 10 Mg PO DAILY [place] Carbonate 300 Mg Capsule 300 Mg PO HS Baclofen 10 Mg Tablet 10 Mg PO BID Maalox Maximum Strength Susp (Mag Hydrox/Al Hydrox/Simeth) 355 Ml Oral.susp 30 Ml PO PRN Q2HR PRN Finasteride 5 Mg Tablet 5 Mg PO DAILY Colace (Docusate Sodium) 100 Mg Capsule 100 Mg PO PRN BID PRN Senokot (Sennosides) 8.6 Mg Tablet 8.6 Mg PO BID Bisacodyl 10 Mg Supp.rect 10 Mg RC PRN DAILY PRN Tylenol (Acetaminophen) 325 Mg Tablet 650 Mg PO PRN Q6HRS PRN I have reviewed the current psychotropics carefully including drug interactions. Risk benefit ratio favors no change other than as noted in my dictated progress note. Diagnosis: Problems: (1) Anxiety disorder (2) Bipolar affective, mixed, sev w/ psych (3) Dementia, vascular, with delusions (4) Mild cognitive impairment (5) Osteomyelitis of hand, left, acute (6) Quadriplegia MARQUIS SCOTT MD December 02, 2017 20:37
--- NOTE | 2017-12-02 23:56 | NUR ---
Behavior Intervention Response and Plan: BIRP Note: Behavior: Assumed Care of patient, patient located in Patient Room at shift change. Patient exhibited the following behavior Calm, Interactive, Social. Brief assessment on rounds of vital signs, medication needs, lab studies, and pain. Treatment plan problems 1 and 2. Intervention: Patient assessed and the following interventions initiated safety checks 15 Minute Checks Cognitive Assessment , Head to toe Assessment , Medications. Response: After interactions and interventions patient responded in the following manner, Calm , Compliant ,Cooperative. Continue to assess behaviors and condition will continue to monitor throughout the shift as needed. Patient educated on ADL's, and hand hygiene. Plan: Continue to monitor Master Treatment Plan for patient's progress toward short term goals of Improved Mood, Decreased Anxiety, senior care goals to return to previous living setting vs placement. Continue to assess patient for changes in above assessment. Monitor for medication needs, pain, and safety concerns. Hourly rounding performed to ensure safe environment.
[2017-12-03] MEDS: LEVOTHYROXINE 50 MCG TABLET PO SCH (05:41)
[2017-12-03 05:55] VITALS: BP 128/71
[2017-12-03] MEDS: oxyCODONE IR 5 MG TABLET PO PRN ×2 (06:17→20:56)
[2017-12-03] MEDS: FINASTERIDE 5 MG TABLET PO SCH (08:47)
[2017-12-03] MEDS: ASCORBIC ACID 500 MG TABLET PO SCH (08:47)
[2017-12-03] MEDS: BACLOFEN 10 MG TABLET PO SCH ×2 (08:47→20:35)
[2017-12-03] MEDS: MULTIVITAMIN with MINERAL TABLET. PO SCH (08:47)
[2017-12-03] MEDS: LACTOBACILLUS RHAMNOSUS GG 1 CAPSULE. PO SCH ×2 (08:47→20:35)
[2017-12-03] MEDS: SENNOSIDES 8.6 MG TABLET PO SCH ×2 (08:47→20:36)
[2017-12-03] MEDS: FAMOTIDINE 20 MG TABLET PO SCH ×2 (08:47→20:35)
[2017-12-03] MEDS: CHOLECALCIFEROL (VITAMIN D3) 50,000 UNIT CAPSULE PO SCH (08:48)
[2017-12-03] MEDS: POLYETHYLENE GLYCOL 3350 17 GM PACKET. PO SCH ×2 (08:48→20:36)
[2017-12-03] MEDS: CETIRIZINE HCL 10 MG TABLET PO SCH (08:48)
[2017-12-03] MEDS: ACETAMINOPHEN 325 MG TABLET PO PRN (08:48)
[2017-12-03] MEDS: LITHIUM CARBONATE 150 MG CAPSULE. PO SCH ×2 (08:48→20:35)
--- NOTE | 2017-12-03 09:15 | NUR ---
Behavior Intervention Response and Plan: BIRP Note: Behavior: Assumed Care of patient, patient located in Patient Room at shift change. Patient exhibited the following behavior Interactive, Disorganized, Social. Brief assessment on rounds of vital signs, medication needs, lab studies, and pain. Treatment plan problems 1 & 2. Intervention: Patient assessed and the following interventions initiated safety checks 15 Minute Checks Cognitive Assessment , Head to toe Assessment , Medications. Response: After interactions and interventions patient responded in the following manner, Calm , Appropriate ,Compliant. Continue to assess behaviors and condition will continue to monitor throughout the shift as needed. Patient educated on ADL's, and hand hygiene. 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 Continue to assess patient for changes in above assessment. Monitor for medication needs, pain, and safety concerns. Hourly rounding performed to ensure safe environment.
--- NOTE | 2017-12-03 10:46 | PN ---
DATE: 12/01/2017 PSYCHIATRIC PROGRESS NOTE This is a late entry 12/01/2017, covers elements not covered in my initial note 12/01/2017. SUBJECTIVE: I met with the patient in the evening. Overall, the patient slept 5-3/4 hours, more lucid in the morning, somewhat delusional in the evening, appetite poor at 25%, compliant with medications. Has some urinary retention. Will defer to Dr. Lincoln including possible UTI. REVIEW OF SYSTEMS: Ambulation impaired, in wheelchair. No CV, , pulmonary, eye system symptoms on review. MENTAL STATUS EXAM: Oriented to himself and situation. Speech is coherent, abstraction fair, little pressured at times. Attention span short, language function intact. Mood and affect still somewhat anxious, labile, but improved. No suicidal or homicidal ideations. Psychotic symptoms overall better, but little more in the evening. LABORATORY DATA: Reviewed. IMPRESSION: Bipolar 1 disorder, mixed with psychotic features, in partial remission; cognitive disorder, unspecified. PLAN: Continue current psychotropics mentioned in my initial note. Repeat lithium level is 0.6. MAN Lindsey SCOTT MD DR: ARIA/rut JOB#: [id number] / [id number]
--- NOTE | 2017-12-03 10:46 | PN ---
DATE: 11/30/2017 PSYCHIATRIC PROGRESS NOTE This is a late entry 11/30/2017 covers elements not covered in my initial note 11/30/2017. SUBJECTIVE: I met with the patient in the evening. The patient slept 6 hours previous evening, somewhat delusional at times, but pleasant, compliant. UA has reflux to cultures. No active hallucinations noted. REVIEW OF SYSTEMS: Ambulation impaired, in wheelchair. No CV, , pulmonary, eye system symptoms on review. Reliability varies. MENTAL STATUS EXAM: Oriented to himself and situation. Speech coherent, less pressured. Abstraction fair, computation impaired, language function intact, attention span short. Mood and affect remains somewhat anxious, labile, but improved. LABORATORY DATA: Reviewed. IMPRESSION: Bipolar 1 disorder, mixed with psychotic features; cognitive disorder, unspecified. Rest unchanged. PLAN: Continue current psychotropics, treat UTI if culture positive. [place] level may be repeated in a day or two. Continue Risperdal. MAN Lindsey SCOTT MD DR: ARIA/rut JOB#: [id number] / [id number]
--- NOTE | 2017-12-03 13:00 | NUR ---
Patient's dressing to his left hand fell off. Dressing and bandage replaced per wound care instructions. Patient tolerated procedure well. Incision appeared clean, no drainage, well approximated, mild erythema near incision site. Will continue to moniter.
--- NOTE | 2017-12-03 15:00 | NUR ---
WEEKLY THERAPEUTIC RECREATION NOTE Date of Admission: 11/29/2017 Date of AT Assessment: 12/02/2017 Goal aimed: to increase stimulation Initial goal: Pt. will participate in at least one group a day. Weekly progress towards goal: on track Group participation level: moderate Behaviors observed: singing music from his room, wanted to sing for group-karaoke on Friday, more alert, pleasant Plan: no changes to goal
[2017-12-03 16:07] VITALS: BP 103/65
[2017-12-03] MEDS: MIRTAZAPINE 7.5 MG TABLET. PO SCH (20:35)
[2017-12-03] MEDS: risperiDONE 0.5 MG TABLET. PO SCH (20:35)
[2017-12-03] MEDS: TERAZOSIN 5 MG CAPSULE. PO SCH (20:39)
[2017-12-03 20:43] VITALS: BP 107/60
--- NOTE | 2017-12-03 20:53 | PDOC ---
Exam Note: Torsten Note: Please also refer to the separate dictated note~for this date of service dictated separately.~Patient seen individually. Discussed the patient with Nursing staff reviewed the chart.~Reviewed interim history and current functioning. Reviewed vital signs,~Labs/ Radiology~and current medications noted below. Continue current treatment with the changes noted in the dictated addendum note Assessment: Vital Signs: Vital Signs Date Time Temp Pulse Resp B/P (MAP) Pulse Ox O2 Delivery O2 Flow Rate FiO2 12/03/17 20:43 98.3 67 18 107/60 (76) 97 Room Air I&O Intake and Output 12/03/17 07:00 Intake Total 2040 ml Output Total 1500 ml Balance 540 ml Intake Oral 2040 ml Output Urine Total 1500 ml Current Medications: Meds: Current Medications Acetaminophen (Tylenol) 650 mg PRN Q6HRS PRN PO PAIN / TEMP Last administered on 12/03/17 08:48; Start 11/29/17 at 21:15 Multi-Ingredient Ointment ([facility] [place]) 1 warren PRN QID PRN TP MUSCLE PAIN; Start 11/29/17 at 21:15 Al Hydroxide/Mg Hydroxide (Mylanta Plus Xs) 15 ml PRN AFTMEALHC PRN PO DYSPEPSIA Last administered on 11/30/17 03:43; Start 11/29/17 at 21:15 Magnesium Hydroxide (Milk Of Magnesia) 2,400 mg PRN QHS PRN PO CONSTIPATION; Start 11/29/17 at 21:15 Mirtazapine (Remeron) 7.5 mg QHS PO Last administered on 12/03/17 20:35; Start 11/29/17 at 22:00 Olanzapine (ZyPREXA ZYDIS) 5 mg PRN Q2HR PRN PO PSYCHOSIS; Start 11/29/17 at 21 :15 Baclofen (Lioresal) 10 mg BID PO Last administered on 12/03/17 20:35; Start at 22:00 [place] Carbonate 150 mg DAILY PO Last administered on 12/03/17 08:48; Start 11/30/17 at 09:00 [place] Carbonate 300 mg QHS PO Last administered on 12/03/17at 20:35; Start at 22:00 Lorazepam (Ativan) 0.5 mg PRN TID PRN PO ANXIETY / AGITATION; Start 11/29/17 at 21:30 Risperidone (RisperDAL) 1.5 mg QHS PO Last administered on 12/03/17at 20:35; Start 11/29/17 at 22:00 Trazodone HCl (Desyrel) 50 mg PRN QHS PRN PO INSOMNIA, MAY REPEAT X1; Start at 21:30 Vitamin D (Vitamin D3) 5,000 unit DAILY PO Last administered on 12/02/17at 07:54 ; Start 11/30/17 at 09:00; Stop 12/02/17 at 15:34; Status DC Multivitamins/ Calcium (Thera-M Plus) 1 tab DAILY PO Last administered on at 08:47; Start 11/30/17 at 09:00 Neomycin/ Polymyxin/ Bacitracin (Triple Antibiotic Ointment) 1 pkt PRN DAILY PRN TP Wound Healing; Start 11/29/17 at 21:15 Simethicone (Gas-X) 80 mg PRN AFTMEALHC PRN PO GAS / BLOATING; Start 11/29/17 at 21:15 Ascorbic Acid (Vitamin C) 500 mg DAILY PO Last administered on 12/03/17at 08:47 ; Start 11/30/17 at 09:00 Bisacodyl (Dulcolax Supp) 10 mg PRN DAILY PRN [place] CONSTIPATION; Start 11/29/17 at 21:30 Cetirizine HCl (ZyrTEC) 10 mg DAILY PO Last administered on 12/03/17at 08:48; Start 11/30/17 at 09:00 Docusate Sodium (Colace) 100 mg PRN BID PRN PO CONSTIPATION; Start 11/29/17 at 21:30 Famotidine (Pepcid) 20 mg BIDBFRMEAL PO Last administered on 11/30/17at 07:49; Start 11/30/17 at 07:30; Stop 11/30/17 at 07:53; Status DC Finasteride (Proscar) 5 mg DAILY PO Last administered on 12/03/17at 08:47; Start 11/30/17 at 09:00 Lactobacillus Rhamnosus (Culturelle) 1 cap BID PO Last administered on at 20:35; Start 11/29/17 at 22:00 Oxycodone HCl (Roxicodone) 5 mg PRN Q6HRS PRN PO PAIN Last administered on 12/03 06:17; Start 11/29/17 at 21:30 Polyethylene Glycol (miraLAX) 17 gm BID PO Last administered on 12/03/17 20:36 ; Start 11/29/17 at 22:00 Sennosides (Senna) 8.6 mg BID PO Last administered on 12/03/17 20:36; Start at 22:00 Terazosin HCl (Hytrin) 10 mg QHS PO Last administered on 12/02/17 19:23; Start 11/29/17 at 22:00 Ondansetron HCl (Zofran Odt) 4 mg PRN Q8HRS PRN PO NAUSEA/VOMITING; Start 11/29 at 21:30 Famotidine (Pepcid) 20 mg BID PO Last administered on 12/03/17 20:35; Start at 21:00 Levothyroxine Sodium (Synthroid) 50 mcg DAILY06 PO Last administered on 05:41; Start 12/01/17 at 06:00 Vitamin D (Vitamin D3) 50,000 unit WEEKLY PO Last administered on 12/03/17 08: 48; Start 12/03/17 at 09:00 Active Scripts Active Reported Zofran Odt (Ondansetron) 4 Mg Tab.rapdis 4 Mg PO PRN Q6HRS PRN Simethicone 80 Mg Tab.chew 80 Mg PO PRN AFTMEALHC PRN Thera M Plus Tablet (Multivits,Ca,Minerals/Iron/FA) 1 Each Tablet 1 Tab PO DAILY Mirtazapine 7.5 Mg Tablet 7.5 Mg PO QHS Milk Of Magnesia (Magnesium Hydroxide) 400 Mg/5 Ml Oral.susp 2,400 Mg PO PRN DAILY PRN Culturelle (Lactobacillus Rhamnosus Gg) 1 Each Capsule 1 Each PO BID Vitamin D3 (Cholecalciferol (Vitamin D3)) 1,000 Unit Tablet 5,000 Unit PO DAILY Zyrtec (Cetirizine Hcl) 10 Mg Tablet 10 Mg PO DAILY Vitamin C (Ascorbate Calcium) 500 Mg Tablet 500 Mg PO DAILY Trazodone Hcl 50 Mg Tablet 50 Mg PO PRN QHS PRN Risperdal (Risperidone) 1 Mg Tablet 1.5 Mg PO QHS Zyprexa Zydis (Olanzapine) 5 Mg Tab.rapdis 5 Mg PO PRN Q2HR PRN [place] Carbonate 150 Mg Capsule 150 Mg PO DAILY Miralax (Polyethylene Glycol 3350) 17 Gm Powd.pack 17 Gm PO BID Triple Antibiotic Ointment (Neomy Sulf/Bacitra/Polymyxin B) 1 Each Packet 1 Packet TP PRN DAILY PRN Oxycodone Hcl 5 Mg Capsule 5 Mg PO PRN Q6HRS PRN Lorazepam 0.5 Mg Tablet 0.5 Mg PO TID PRN PRN Famotidine 20 Mg Tablet 20 Mg PO BIDBFRMEAL Terazosin Hcl 10 Mg Capsule 10 Mg PO DAILY [place] Carbonate 300 Mg Capsule 300 Mg PO HS Baclofen 10 Mg Tablet 10 Mg PO BID Maalox Maximum Strength Susp (Mag Hydrox/Al Hydrox/Simeth) 355 Ml Oral.susp 30 Ml PO PRN Q2HR PRN Finasteride 5 Mg Tablet 5 Mg PO DAILY Colace (Docusate Sodium) 100 Mg Capsule 100 Mg PO PRN BID PRN Senokot (Sennosides) 8.6 Mg Tablet 8.6 Mg PO BID Bisacodyl 10 Mg Supp.rect 10 Mg RC PRN DAILY PRN Tylenol (Acetaminophen) 325 Mg Tablet 650 Mg PO PRN Q6HRS PRN I have reviewed the current psychotropics carefully including drug interactions. Risk benefit ratio favors no change other than as noted in my dictated progress note. Diagnosis: Problems: (1) Anxiety disorder (2) Bipolar affective, mixed, sev w/ psych (3) Dementia, vascular, with delusions (4) Mild cognitive impairment (5) Osteomyelitis of hand, left, acute (6) Quadriplegia MARQUIS SCOTT MD December 03, 2017 20:53
[2017-12-04] MEDS: traZODone 50 MG TABLET. PO PRN ×2 (01:12→20:02)
--- NOTE | 2017-12-04 01:20 | NUR ---
Pt in bed yelling out and restless. Pt reports having bad dreams about werewolves. Pt delusional at this time, reports that "they're coming in through the windows that's why the curtains are blowing". Pt reoriented to current situation. PRN Trazodone also administered at this time.
--- NOTE | 2017-12-04 01:50 | NUR ---
Behavior Intervention Response and Plan: BIRP Note: Behavior: Assumed Care of patient, patient located in Patient Room at shift change. Patient exhibited the following behavior Disorganized, Restless, Cooperative. Brief assessment on rounds of vital signs, medication needs, lab studies, and pain. Treatment plan problems 1 and 2. Intervention: Patient assessed and the following interventions initiated safety checks 15 Minute Checks Cognitive Assessment , Head to toe Assessment , Medications. Response: After interactions and interventions patient responded in the following manner, Anxious , Delusions ,Restless. Continue to assess behaviors and condition will continue to monitor throughout the shift as needed. Patient educated on ADL's, and hand hygiene. 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 Continue to assess patient for changes in above assessment. Monitor for medication needs, pain, and safety concerns. Hourly rounding performed to ensure safe environment.
--- NOTE | 2017-12-04 03:00 | PN ---
DATE: 12/02/2017 This is a late entry, 12/02/2017, covers the elements not covered in my initial note, 12/02/2017. SUBJECTIVE: I met with the patient in the evening. Overall, the patient remains somewhat withdrawn, spending much time in bed. He did not seem to recognize me, thought I was a preacher. He keeps his headphones in place, seems to calm him down. He got the P500 bed, very pleased with this. REVIEW OF SYSTEMS: Ambulation impaired, in wheelchair. No CV, , pulmonary, eye system symptoms on review. Intermittently in Broda chair. MENTAL STATUS EXAM: Oriented to himself and situation. Speech has some latency, coherent. Abstraction fair, computation impaired, language function intact, attention span short. Mood and affect is improved. IMPRESSION: [place] level 0.6. IMPRESSION: Unchanged from initial note. PLAN: Continue current psychotropics. Adjust further as clinically indicated. MAN Lindsey SCOTT MD DR: ARIA/rut JOB#: [id number] / [id number]
[2017-12-04] MEDS: LEVOTHYROXINE 50 MCG TABLET PO SCH (05:49)
[2017-12-04] MEDS: oxyCODONE IR 5 MG TABLET PO PRN ×3 (05:57→18:18)
--- NOTE | 2017-12-04 06:01 | NUR ---
Pt c/o sacral wound pain. Pt repositioned and wound dressing changed. PRN Oxycodone administered as ordered.
[2017-12-04 06:05] VITALS: BP 108/70
[2017-12-04] MEDS: POLYETHYLENE GLYCOL 3350 17 GM PACKET. PO SCH ×2 (08:16→20:00)
[2017-12-04] MEDS: LACTOBACILLUS RHAMNOSUS GG 1 CAPSULE. PO SCH ×2 (08:16→20:00)
[2017-12-04] MEDS: ACETAMINOPHEN 325 MG TABLET PO PRN ×2 (08:16→20:02)
[2017-12-04] MEDS: SENNOSIDES 8.6 MG TABLET PO SCH ×2 (08:16→20:00)
[2017-12-04] MEDS: ASCORBIC ACID 500 MG TABLET PO SCH (08:16)
[2017-12-04] MEDS: MULTIVITAMIN with MINERAL TABLET. PO SCH (08:16)
[2017-12-04] MEDS: FINASTERIDE 5 MG TABLET PO SCH (08:16)
[2017-12-04] MEDS: FAMOTIDINE 20 MG TABLET PO SCH ×2 (08:16→19:59)
[2017-12-04] MEDS: BACLOFEN 10 MG TABLET PO SCH ×2 (08:16→20:00)
[2017-12-04] MEDS: LITHIUM CARBONATE 150 MG CAPSULE. PO SCH ×2 (08:16→19:59)
[2017-12-04] MEDS: CETIRIZINE HCL 10 MG TABLET PO SCH (08:17)
--- NOTE | 2017-12-04 09:30 | NUR ---
Behavior Intervention Response and Plan: BIRP Note: Behavior: Assumed Care of patient, patient located in Patient Room at shift change. Patient exhibited the following behavior Interactive, Disorganized, Compulsive. Brief assessment on rounds of vital signs, medication needs, lab studies, and pain. Treatment plan problems 1 & 2. Intervention: Patient assessed and the following interventions initiated safety checks 15 Minute Checks Cognitive Assessment , Head to toe Assessment , Medications. Response: After interactions and interventions patient responded in the following manner, Calm , Appropriate ,Compliant. Continue to assess behaviors and condition will continue to monitor throughout the shift as needed. Patient educated on ADL's, and hand hygiene. 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 Continue to assess patient for changes in above assessment. Monitor for medication needs, pain, and safety concerns. Hourly rounding performed to ensure safe environment.
--- NOTE | 2017-12-04 12:15 | NUR ---
patient complains of sacral pain, prn meds provided per eMAR
[2017-12-04 16:03] VITALS: BP 128/62
[2017-12-04] MEDS: TERAZOSIN 5 MG CAPSULE. PO SCH (20:00)
[2017-12-04] MEDS: risperiDONE 0.5 MG TABLET. PO SCH (20:00)
[2017-12-04] MEDS: MIRTAZAPINE 7.5 MG TABLET. PO SCH (20:02)
--- NOTE | 2017-12-04 20:34 | PDOC ---
Exam Note: Torsten Note: Please also refer to the separate dictated note~for this date of service dictated separately.~Patient seen individually. Discussed the patient with Nursing staff reviewed the chart.~Reviewed interim history and current functioning. Reviewed vital signs,~Labs/ Radiology~and current medications noted below. Continue current treatment with the changes noted in the dictated addendum note Assessment: Vital Signs: Vital Signs Date Time Temp Pulse Resp B/P (MAP) Pulse Ox O2 Delivery O2 Flow Rate FiO2 12/04/17 20:00 78 128/62 12/04/17 19:18 18 22 Room Air 12/04/17 16:03 97.7 I&O Intake and Output 12/04/17 07:00 Intake Total 1795 ml Output Total 1600 ml Balance 195 ml Intake Oral 1795 ml Output Urine Total 1600 ml Current Medications: Meds: Current Medications Acetaminophen (Tylenol) 650 mg PRN Q6HRS PRN PO PAIN / TEMP Last administered on 12/04/17 20:02; Start 11/29/17 at 21:15 Multi-Ingredient Ointment (Analgesic [place]) 1 warren PRN QID PRN TP MUSCLE PAIN; Start 11/29/17 at 21:15 Al Hydroxide/Mg Hydroxide (Mylanta Plus Xs) 15 ml PRN AFTMEALHC PRN PO DYSPEPSIA Last administered on 11/30/17at 03:43; Start 11/29/17 at 21:15 Magnesium Hydroxide (Milk Of Magnesia) 2,400 mg PRN QHS PRN PO CONSTIPATION; Start 11/29/17 at 21:15 Mirtazapine (Remeron) 7.5 mg QHS PO Last administered on 12/04/17 20:02; Start 11/29/17 at 22:00 Olanzapine (ZyPREXA ZYDIS) 5 mg PRN Q2HR PRN PO PSYCHOSIS; Start 11/29/17 at 21 :15 Baclofen (Lioresal) 10 mg BID PO Last administered on 12/04/17 20:00; Start at 22:00 [place] Carbonate 150 mg DAILY PO Last administered on 12/04/17 08:16; Start 11/30/17 at 09:00 [place] Carbonate 300 mg QHS PO Last administered on 12/04/17at 19:59; Start at 22:00 Lorazepam (Ativan) 0.5 mg PRN TID PRN PO ANXIETY / AGITATION; Start 11/29/17 at 21:30 Risperidone (RisperDAL) 1.5 mg QHS PO Last administered on 12/04/17at 20:00; Start 11/29/17 at 22:00 Trazodone HCl (Desyrel) 50 mg PRN QHS PRN PO INSOMNIA, MAY REPEAT X1 Last administered on 12/04/17at 20:02; Start 11/29/17 at 21:30 Vitamin D (Vitamin D3) 5,000 unit DAILY PO Last administered on 12/02/17 07:54 ; Start 11/30/17 at 09:00; Stop 12/02/17 at 15:34; Status DC Multivitamins/ Calcium (Thera-M Plus) 1 tab DAILY PO Last administered on at 08:16; Start 11/30/17 at 09:00 Neomycin/ Polymyxin/ Bacitracin (Triple Antibiotic Ointment) 1 pkt PRN DAILY PRN TP Wound Healing; Start 11/29/17 at 21:15 Simethicone (Gas-X) 80 mg PRN AFTMEALHC PRN PO GAS / BLOATING; Start 11/29/17 at 21:15 Ascorbic Acid (Vitamin C) 500 mg DAILY PO Last administered on 12/04/17at 08:16 ; Start 11/30/17 at 09:00 Bisacodyl (Dulcolax Supp) 10 mg PRN DAILY PRN [place] CONSTIPATION; Start 11/29/17 at 21:30 Cetirizine HCl (ZyrTEC) 10 mg DAILY PO Last administered on 12/04/17at 08:17; Start 11/30/17 at 09:00 Docusate Sodium (Colace) 100 mg PRN BID PRN PO CONSTIPATION; Start 11/29/17 at 21:30 Famotidine (Pepcid) 20 mg BIDBFRMEAL PO Last administered on 11/30/17at 07:49; Start 11/30/17 at 07:30; Stop 11/30/17 at 07:53; Status DC Finasteride (Proscar) 5 mg DAILY PO Last administered on 12/04/17at 08:16; Start 11/30/17 at 09:00 Lactobacillus Rhamnosus (Culturelle) 1 cap BID PO Last administered on 20:00; Start 11/29/17 at 22:00 Oxycodone HCl (Roxicodone) 5 mg PRN Q6HRS PRN PO PAIN Last administered on 12/04 18:18; Start 11/29/17 at 21:30 Polyethylene Glycol (miraLAX) 17 gm BID PO Last administered on 12/04/17 20:00 ; Start 11/29/17 at 22:00 Sennosides (Senna) 8.6 mg BID PO Last administered on 12/04/17 20:00; Start at 22:00 Terazosin HCl (Hytrin) 10 mg QHS PO Last administered on 12/04/17 20:00; Start 11/29/17 at 22:00 Ondansetron HCl (Zofran Odt) 4 mg PRN Q8HRS PRN PO NAUSEA/VOMITING; Start 11/29 at 21:30 Famotidine (Pepcid) 20 mg BID PO Last administered on 12/04/17at 19:59; Start at 21:00 Levothyroxine Sodium (Synthroid) 50 mcg DAILY06 PO Last administered on 05:49; Start 12/01/17 at 06:00 Vitamin D (Vitamin D3) 50,000 unit WEEKLY PO Last administered on 12/03/17 08: 48; Start 12/03/17 at 09:00 Active Scripts Active Reported Zofran Odt (Ondansetron) 4 Mg Tab.rapdis 4 Mg PO PRN Q6HRS PRN Simethicone 80 Mg Tab.chew 80 Mg PO PRN AFTMEALHC PRN Thera M Plus Tablet (Multivits,Ca,Minerals/Iron/FA) 1 Each Tablet 1 Tab PO DAILY Mirtazapine 7.5 Mg Tablet 7.5 Mg PO QHS Milk Of Magnesia (Magnesium Hydroxide) 400 Mg/5 Ml Oral.susp 2,400 Mg PO PRN DAILY PRN Culturelle (Lactobacillus Rhamnosus Gg) 1 Each Capsule 1 Each PO BID Vitamin D3 (Cholecalciferol (Vitamin D3)) 1,000 Unit Tablet 5,000 Unit PO DAILY Zyrtec (Cetirizine Hcl) 10 Mg Tablet 10 Mg PO DAILY Vitamin C (Ascorbate Calcium) 500 Mg Tablet 500 Mg PO DAILY Trazodone Hcl 50 Mg Tablet 50 Mg PO PRN QHS PRN Risperdal (Risperidone) 1 Mg Tablet 1.5 Mg PO QHS Zyprexa Zydis (Olanzapine) 5 Mg Tab.rapdis 5 Mg PO PRN Q2HR PRN [place] Carbonate 150 Mg Capsule 150 Mg PO DAILY Miralax (Polyethylene Glycol 3350) 17 Gm Powd.pack 17 Gm PO BID Triple Antibiotic Ointment (Neomy Sulf/Bacitra/Polymyxin B) 1 Each Packet 1 Packet TP PRN DAILY PRN Oxycodone Hcl 5 Mg Capsule 5 Mg PO PRN Q6HRS PRN Lorazepam 0.5 Mg Tablet 0.5 Mg PO TID PRN PRN Famotidine 20 Mg Tablet 20 Mg PO BIDBFRMEAL Terazosin Hcl 10 Mg Capsule 10 Mg PO DAILY [place] Carbonate 300 Mg Capsule 300 Mg PO HS Baclofen 10 Mg Tablet 10 Mg PO BID Maalox Maximum Strength Susp (Mag Hydrox/Al Hydrox/Simeth) 355 Ml Oral.susp 30 Ml PO PRN Q2HR PRN Finasteride 5 Mg Tablet 5 Mg PO DAILY Colace (Docusate Sodium) 100 Mg Capsule 100 Mg PO PRN BID PRN Senokot (Sennosides) 8.6 Mg Tablet 8.6 Mg PO BID Bisacodyl 10 Mg Supp.rect 10 Mg RC PRN DAILY PRN Tylenol (Acetaminophen) 325 Mg Tablet 650 Mg PO PRN Q6HRS PRN I have reviewed the current psychotropics carefully including drug interactions. Risk benefit ratio favors no change other than as noted in my dictated progress note. Diagnosis: Problems: (1) Anxiety disorder (2) Bipolar affective, mixed, sev w/ psych (3) Dementia, vascular, with delusions (4) Mild cognitive impairment (5) Osteomyelitis of hand, left, acute (6) Quadriplegia MARQUIS SCOTT MD December 04, 2017 20:34
--- NOTE | 2017-12-04 21:20 | PN ---
DATE: 12/03/2017 PSYCHIATRIC PROGRESS NOTE This is a late entry 12/03/2017 covers elements not covered in my initial note 12/03/2017. SUBJECTIVE: I met with the patient in the evening. Overall, the patient has had a better day. He spends much time in his room in bed because he likes the bed, which is very comfortable. He is in . He was up for [place], goes out for his meals. REVIEW OF SYSTEMS: Ambulation impaired, in wheelchair. We will start physical therapy. No CV, , pulmonary, eye, ENT system symptoms on review. He enjoys listening to music with headphones which are helped to calm him down. MENTAL STATUS EXAM: Oriented to himself and situation. Speech has some latency, coherent. Abstraction fair, computation impaired, language function intact, attention span short. Mood and affect, lability is improved. No clear psychotic symptoms. LABORATORY DATA: Reviewed. IMPRESSION: Unchanged from initial note bipolar 1 disorder, mixed with psychotic features, in partial remission. Rest unchanged. PLAN: Continue current psychotropics. [place] level is 0.6. MAN Lindsey SCOTT MD DR: ARIA/rut JOB#: [id number] / [id number]
--- NOTE | 2017-12-05 02:22 | NUR ---
Behavior Intervention Response and Plan: BIRP Note: Behavior: Assumed Care of patient, patient located in Patient Room at shift change. Patient exhibited the following behavior Restless, Cooperative, Appropriate. Brief assessment on rounds of vital signs, medication needs, lab studies, and pain. Treatment plan problems 1 and 2. Intervention: Patient assessed and the following interventions initiated safety checks 15 Minute Checks Cognitive Assessment , Head to toe Assessment , Medications. Response: After interactions and interventions patient responded in the following manner, Calm , Compliant ,Cooperative. Continue to assess behaviors and condition will continue to monitor throughout the shift as needed. Patient educated on ADL's, and hand hygiene. 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 Continue to assess patient for changes in above assessment. Monitor for medication needs, pain, and safety concerns. Hourly rounding performed to ensure safe environment.
[2017-12-05] MEDS: LEVOTHYROXINE 50 MCG TABLET PO SCH (05:25)
[2017-12-05 05:58] VITALS: BP 93/52
[2017-12-05] MEDS: FAMOTIDINE 20 MG TABLET PO SCH ×2 (07:29→19:52)
[2017-12-05] MEDS: LITHIUM CARBONATE 150 MG CAPSULE. PO SCH ×2 (07:30→19:52)
[2017-12-05] MEDS: ASCORBIC ACID 500 MG TABLET PO SCH (07:30)
[2017-12-05] MEDS: BACLOFEN 10 MG TABLET PO SCH ×2 (07:30→19:51)
[2017-12-05] MEDS: MULTIVITAMIN with MINERAL TABLET. PO SCH (07:30)
[2017-12-05] MEDS: CETIRIZINE HCL 10 MG TABLET PO SCH (07:30)
[2017-12-05] MEDS: FINASTERIDE 5 MG TABLET PO SCH (07:30)
[2017-12-05] MEDS: SENNOSIDES 8.6 MG TABLET PO SCH ×2 (07:30→19:51)
[2017-12-05] MEDS: POLYETHYLENE GLYCOL 3350 17 GM PACKET. PO SCH ×2 (07:30→19:51)
[2017-12-05] MEDS: LACTOBACILLUS RHAMNOSUS GG 1 CAPSULE. PO SCH ×2 (07:30→19:51)
[2017-12-05] MEDS: oxyCODONE IR 5 MG TABLET PO PRN ×3 (07:38→22:45)
--- NOTE | 2017-12-05 09:42 | NUR ---
Behavior Intervention Response and Plan: BIRP Note: Behavior: Assumed Care of patient, patient located in Patient Room at shift change. Patient exhibited the following behavior Restless, Cooperative, Appropriate. Brief assessment on rounds of vital signs, medication needs, lab studies, and pain. Treatment plan problems 1 and 2. Intervention: Patient assessed and the following interventions initiated safety checks 15 Minute Checks Cognitive Assessment , Head to toe Assessment , Medications. Response: After interactions and interventions patient responded in the following manner, Calm , Compliant ,Cooperative. Continue to assess behaviors and condition will continue to monitor throughout the shift as needed. Patient educated on ADL's, and hand hygiene. 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 Continue to assess patient for changes in above assessment. Monitor for medication needs, pain, and safety concerns. Hourly rounding performed to ensure safe environment.
[2017-12-05] MEDS: ACETAMINOPHEN 325 MG TABLET PO PRN (10:54)
[2017-12-05 15:59] VITALS: BP 114/56
[2017-12-05] MEDS: risperiDONE 0.5 MG TABLET. PO SCH (19:51)
[2017-12-05] MEDS: TERAZOSIN 5 MG CAPSULE. PO SCH (19:51)
[2017-12-05] MEDS: MIRTAZAPINE 7.5 MG TABLET. PO SCH (19:52)
--- NOTE | 2017-12-05 20:37 | PDOC ---
Exam Note: Torsten Note: Please also refer to the separate dictated note~for this date of service dictated separately.~Patient seen individually. Discussed the patient with Nursing staff reviewed the chart.~Reviewed interim history and current functioning. Reviewed vital signs,~Labs/ Radiology~and current medications noted below. Continue current treatment with the changes noted in the dictated addendum note Assessment: Vital Signs: Vital Signs Date Time Temp Pulse Resp B/P (MAP) Pulse Ox O2 Delivery O2 Flow Rate FiO2 12/05/17 20:27 96 12/05/17 19:51 66 114/64 12/05/17 15:59 98.5 16 12/05/17 07:38 Room Air I&O Intake and Output 12/05/17 07:00 Intake Total 1620 ml Output Total 700 ml Balance 920 ml Intake Oral 1620 ml Output Urine Total 700 ml Current Medications: Meds: Current Medications Acetaminophen (Tylenol) 650 mg PRN Q6HRS PRN PO PAIN / TEMP Last administered on 12/05/17 10:54; Start 11/29/17 at 21:15 Multi-Ingredient Ointment (Analgesic [place]) 1 [place]ren PRN QID PRN TP MUSCLE PAIN; Start 11/29/17 at 21:15 Al Hydroxide/Mg Hydroxide (Mylanta Plus Xs) 15 ml PRN AFTMEALHC PRN PO DYSPEPSIA Last administered on 11/30/17at 03:43; Start 11/29/17 at 21:15 Magnesium Hydroxide (Milk Of Magnesia) 2,400 mg PRN QHS PRN PO CONSTIPATION; Start 11/29/17 at 21:15 Mirtazapine (Remeron) 7.5 mg QHS PO Last administered on 12/05/17at 19:52; Start 11/29/17 at 22:00 Olanzapine (ZyPREXA ZYDIS) 5 mg PRN Q2HR PRN PO PSYCHOSIS; Start 11/29/17 at 21 :15 Baclofen (Lioresal) 10 mg BID PO Last administered on 12/05/17 19:51; Start at 22:00 [place] Carbonate 150 mg DAILY PO Last administered on 12/05/17 07:30; Start at 09:00 [place] Carbonate 300 mg QHS PO Last administered on 12/05/17 19:52; Start at 22:00 Lorazepam (Ativan) 0.5 mg PRN TID PRN PO ANXIETY / AGITATION Last administered on 12/05/17at 10:54; Start 11/29/17 at 21:30 Risperidone (RisperDAL) 1.5 mg QHS PO Last administered on 12/05/17at 19:51; Start 11/29/17 at 22:00 Trazodone HCl (Desyrel) 50 mg PRN QHS PRN PO INSOMNIA, MAY REPEAT X1 Last administered on 12/04/17at 20:02; Start 11/29/17 at 21:30 Vitamin D (Vitamin D3) 5,000 unit DAILY PO Last administered on 12/02/17 07:54 ; Start 11/30/17 at 09:00; Stop 12/02/17 at 15:34; Status DC Multivitamins/ Calcium (Thera-M Plus) 1 tab DAILY PO Last administered on at 07:30; Start 11/30/17 at 09:00 Neomycin/ Polymyxin/ Bacitracin (Triple Antibiotic Ointment) 1 pkt PRN DAILY PRN TP Wound Healing; Start 11/29/17 at 21:15 Simethicone (Gas-X) 80 mg PRN AFTMEALHC PRN PO GAS / BLOATING; Start 11/29/17 at 21:15 Ascorbic Acid (Vitamin C) 500 mg DAILY PO Last administered on 12/05/17at 07:30; Start 11/30/17 at 09:00 Bisacodyl (Dulcolax Supp) 10 mg PRN DAILY PRN [place] CONSTIPATION; Start 11/29/17 at 21:30 Cetirizine HCl (ZyrTEC) 10 mg DAILY PO Last administered on 12/05/17at 07:30; Start 11/30/17 at 09:00 Docusate Sodium (Colace) 100 mg PRN BID PRN PO CONSTIPATION; Start 11/29/17 at 21:30 Famotidine (Pepcid) 20 mg BIDBFRMEAL PO Last administered on 11/30/17at 07:49; Start 11/30/17 at 07:30; Stop 11/30/17 at 07:53; Status DC Finasteride (Proscar) 5 mg DAILY PO Last administered on 12/05/17at 07:30; Start 11/30/17 at 09:00 Lactobacillus Rhamnosus (Culturelle) 1 cap BID PO Last administered on 19:51; Start 11/29/17 at 22:00 Oxycodone HCl (Roxicodone) 5 mg PRN Q6HRS PRN PO PAIN Last administered on 16:48; Start 11/29/17 at 21:30 Polyethylene Glycol (miraLAX) 17 gm BID PO Last administered on 12/05/17 19:51 ; Start 11/29/17 at 22:00 Sennosides (Senna) 8.6 mg BID PO Last administered on 12/05/17 19:51; Start at 22:00 Terazosin HCl (Hytrin) 10 mg QHS PO Last administered on 12/05/17 19:51; Start 11/29/17 at 22:00 Ondansetron HCl (Zofran Odt) 4 mg PRN Q8HRS PRN PO NAUSEA/VOMITING; Start 11/29 at 21:30 Famotidine (Pepcid) 20 mg BID PO Last administered on 12/05/17 19:52; Start at 21:00 Levothyroxine Sodium (Synthroid) 50 mcg DAILY06 PO Last administered on 05:25; Start 12/01/17 at 06:00 Vitamin D (Vitamin D3) 50,000 unit WEEKLY PO Last administered on 12/03/17 08: 48; Start 12/03/17 at 09:00 Active Scripts Active Reported Zofran Odt (Ondansetron) 4 Mg Tab.rapdis 4 Mg PO PRN Q6HRS PRN Simethicone 80 Mg Tab.chew 80 Mg PO PRN AFTMEALHC PRN Thera M Plus Tablet (Multivits,Ca,Minerals/Iron/FA) 1 Each Tablet 1 Tab PO DAILY Mirtazapine 7.5 Mg Tablet 7.5 Mg PO QHS Milk Of Magnesia (Magnesium Hydroxide) 400 Mg/5 Ml Oral.susp 2,400 Mg PO PRN DAILY PRN Culturelle (Lactobacillus Rhamnosus Gg) 1 Each Capsule 1 Each PO BID Vitamin D3 (Cholecalciferol (Vitamin D3)) 1,000 Unit Tablet 5,000 Unit PO DAILY Zyrtec (Cetirizine Hcl) 10 Mg Tablet 10 Mg PO DAILY Vitamin C (Ascorbate Calcium) 500 Mg Tablet 500 Mg PO DAILY Trazodone Hcl 50 Mg Tablet 50 Mg PO PRN QHS PRN Risperdal (Risperidone) 1 Mg Tablet 1.5 Mg PO QHS Zyprexa Zydis (Olanzapine) 5 Mg Tab.rapdis 5 Mg PO PRN Q2HR PRN [place] Carbonate 150 Mg Capsule 150 Mg PO DAILY Miralax (Polyethylene Glycol 3350) 17 Gm Powd.pack 17 Gm PO BID Triple Antibiotic Ointment (Neomy Sulf/Bacitra/Polymyxin B) 1 Each Packet 1 Packet TP PRN DAILY PRN Oxycodone Hcl 5 Mg Capsule 5 Mg PO PRN Q6HRS PRN Lorazepam 0.5 Mg Tablet 0.5 Mg PO TID PRN PRN Famotidine 20 Mg Tablet 20 Mg PO BIDBFRMEAL Terazosin Hcl 10 Mg Capsule 10 Mg PO DAILY [place] Carbonate 300 Mg Capsule 300 Mg PO HS Baclofen 10 Mg Tablet 10 Mg PO BID Maalox Maximum Strength Susp (Mag Hydrox/Al Hydrox/Simeth) 355 Ml Oral.susp 30 Ml PO PRN Q2HR PRN Finasteride 5 Mg Tablet 5 Mg PO DAILY Colace (Docusate Sodium) 100 Mg Capsule 100 Mg PO PRN BID PRN Senokot (Sennosides) 8.6 Mg Tablet 8.6 Mg PO BID Bisacodyl 10 Mg Supp.rect 10 Mg RC PRN DAILY PRN Tylenol (Acetaminophen) 325 Mg Tablet 650 Mg PO PRN Q6HRS PRN I have reviewed the current psychotropics carefully including drug interactions. Risk benefit ratio favors no change other than as noted in my dictated progress note. Diagnosis: Problems: (1) Anxiety disorder (2) Bipolar affective, mixed, sev w/ psych (3) Dementia, vascular, with delusions (4) Mild cognitive impairment (5) Osteomyelitis of hand, left, acute (6) Quadriplegia MARQUIS SCOTT MD Dec 05, 2017 20:36
[2017-12-05] MEDS: traZODone 50 MG TABLET. PO PRN (22:45)
--- NOTE | 2017-12-05 22:52 | NUR ---
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 Nurse in to assess, Pt noted with c/o severe pain in back, remains delusional and denies feeling tired. PRN Oxycodone and Trazodone administered per PRN order at this time.
--- NOTE | 2017-12-05 23:01 | NUR ---
Behavior Intervention Response and Plan: BIRP Note: Behavior: Assumed Care of patient, patient located in Patient Room at shift change. Patient exhibited the following behavior Calm, Delusions, Compliant. Brief assessment on rounds of vital signs, medication needs, lab studies, and pain. Treatment plan problems Altered thought process and Fall Risk. Intervention: Patient assessed and the following interventions initiated safety checks 15 Minute Checks Cognitive Assessment , Head to toe Assessment , Medications. Response: After interactions and interventions patient responded in the following manner, Calm , Delusions ,Compliant. Continue to assess behaviors and condition will continue to monitor throughout the shift as needed. Patient educated on ADL's, and hand hygiene. 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 Continue to assess patient for changes in above assessment. Monitor for medication needs, pain, and safety concerns. Hourly rounding performed to ensure safe environment.
[2017-12-06] MEDS: LEVOTHYROXINE 50 MCG TABLET PO SCH (05:59)
[2017-12-06 06:13] VITALS: BP 110/65
[2017-12-06] MEDS: POLYETHYLENE GLYCOL 3350 17 GM PACKET. PO SCH ×2 (07:28→19:32)
[2017-12-06] MEDS: SENNOSIDES 8.6 MG TABLET PO SCH ×2 (07:28→19:30)
[2017-12-06] MEDS: LITHIUM CARBONATE 150 MG CAPSULE. PO SCH ×2 (07:28→19:30)
[2017-12-06] MEDS: CETIRIZINE HCL 10 MG TABLET PO SCH (07:28)
[2017-12-06] MEDS: FAMOTIDINE 20 MG TABLET PO SCH ×2 (07:28→19:31)
[2017-12-06] MEDS: MULTIVITAMIN with MINERAL TABLET. PO SCH (07:28)
[2017-12-06] MEDS: LACTOBACILLUS RHAMNOSUS GG 1 CAPSULE. PO SCH ×2 (07:28→19:29)
[2017-12-06] MEDS: BACLOFEN 10 MG TABLET PO SCH ×2 (07:28→19:30)
[2017-12-06] MEDS: FINASTERIDE 5 MG TABLET PO SCH (07:28)
[2017-12-06] MEDS: ASCORBIC ACID 500 MG TABLET PO SCH (07:28)
[2017-12-06 09:32] LABS: BASO # 0.1 x10^3/uL (0.0-0.2); BASO % 1 % (0-3); EOS # 0.1 x10^3/uL (0.0-0.7); EOS % 1 % (0-3); LYMPH # 3.2 x10^3/uL (1.0-4.8); LYMPH % 39 % (24-48); MEAN CORPUSCULAR HEMOGLOBIN 31 pg (25-35); MEAN CORPUSCULAR HGB CONC 33 g/dL (31-37); MEAN CORPUSCULAR VOLUME 92 fL (79-100); MONO # 0.5 x10^3/uL (0.0-1.1); MONO % 7 % (0-9); NEUT # 4.3 x10^3uL (1.8-7.7); NEUT % 53 % (31-73); PLATELET COUNT 209 x10^3/uL (140-400); RED CELL DISTRIBUTION WIDTH 16.2 % (11.5-14.5); WHITE BLOOD COUNT 8.1 x10^3/uL (4.0-11.0)
[2017-12-06 09:39] LABS: ALBUMIN 2.2 g/dL (3.4-5.0); ALBUMIN/GLOBULIN RATIO 0.6 (1.0-1.7); CALCIUM 8.6 mg/dL (8.5-10.1); CREATININE 1.1 mg/dL (0.7-1.3); GFR 65.6; TOTAL BILIRUBIN 0.3 mg/dL (0.2-1.0); TOTAL PROTEIN 6.1 g/dL (6.4-8.2)
--- NOTE | 2017-12-06 09:41 | NUR ---
Behavior Intervention Response and Plan: BIRP Note: Behavior: Assumed Care of patient, patient located in Day Room at shift change. Patient exhibited the following behavior Interactive, Calm, Compliant. Brief assessment on rounds of vital signs, medication needs, lab studies, and pain. Treatment plan problems . Intervention: Patient assessed and the following interventions initiated safety checks 15 Minute Checks Cognitive Assessment , Head to toe Assessment , Medications. Response: After interactions and interventions patient responded in the following manner, Interactive , Calm ,Compliant. Continue to assess behaviors and condition will continue to monitor throughout the shift as needed. Patient educated on ADL's, and hand hygiene. 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 Continue to assess patient for changes in above assessment. Monitor for medication needs, pain, and safety concerns. Hourly rounding performed to ensure safe environment.
[2017-12-06 10:37] LABS: LI 0.8 mmol/L (0.6-1.2)
[2017-12-06 16:32] VITALS: BP 117/62
--- NOTE | 2017-12-06 16:33 | NUR ---
pt up for meals. confused in am. more lucid in afternoon. pt yelling out intermittently. hard to understand at times. has been compliant with meds and cares.
[2017-12-06] MEDS: risperiDONE 0.5 MG TABLET. PO SCH (19:30)
[2017-12-06] MEDS: MIRTAZAPINE 15 MG TABLET PO SCH (19:32)
[2017-12-06] MEDS: TERAZOSIN 5 MG CAPSULE. PO SCH (19:32)
--- NOTE | 2017-12-06 22:02 | PDOC ---
Exam Note: Torsten Note: Please also refer to the separate dictated note~for this date of service dictated separately.~Patient seen individually. Discussed the patient with Nursing staff reviewed the chart.~Reviewed interim history and current functioning. Reviewed vital signs,~Labs/ Radiology~and current medications noted below. Continue current treatment with the changes noted in the dictated addendum note Assessment: Vital Signs: Vital Signs Date Time Temp Pulse Resp B/P (MAP) Pulse Ox O2 Delivery O2 Flow Rate FiO2 12/06/17 19:32 70 117/62 12/06/17 16:32 98.1 20 97 12/05/17 07:38 Room Air I&O Intake and Output 12/06/17 07:00 Intake Total 1560 ml Output Total 850 ml Balance 710 ml Intake Oral 1560 ml Output Urine Total 850 ml Labs: Laboratory Tests Test 12/06/17 06:50 White Blood Count 8.1 x10^3/uL (4.0-11.0) Red Blood Count 3.60 x10^6/uL (4.30-5.70) L Hemoglobin 11.0 g/dL (13.0-17.5) L Hematocrit 33.0 % (39.0-53.0) L Mean Corpuscular Volume 92 fL (79-100) Mean Corpuscular Hemoglobin 31 pg (25-35) Mean Corpuscular Hemoglobin Concent 33 g/dL (31-37) Red Cell Distribution Width 16.2 % (11.5-14.5) H Platelet Count 209 x10^3/uL (140-400) Neutrophils (%) (Auto) 53 % (31-73) Lymphocytes (%) (Auto) 39 % (24-48) Monocytes (%) (Auto) 7 % (0-9) Eosinophils (%) (Auto) 1 % (0-3) Basophils (%) (Auto) 1 % (0-3) Neutrophils # (Auto) 4.3 x10^3uL (1.8-7.7) Lymphocytes # (Auto) 3.2 x10^3/uL (1.0-4.8) Monocytes # (Auto) 0.5 x10^3/uL (0.0-1.1) Eosinophils # (Auto) 0.1 x10^3/uL (0.0-0.7) Basophils # (Auto) 0.1 x10^3/uL (0.0-0.2) Sodium Level 142 mmol/L (136-145) Potassium Level 4.0 mmol/L (3.5-5.1) Chloride Level 107 mmol/L (98-107) Carbon Dioxide Level 30 mmol/L (21-32) Anion Gap 5 (6-14) L Blood Urea Nitrogen 24 mg/dL (8-26) Creatinine 1.1 mg/dL (0.7-1.3) Estimated GFR (Cockcroft-Gault) 65.6 BUN/Creatinine Ratio 22 (6-20) H Glucose Level 96 mg/dL (70-99) Calcium Level 8.6 mg/dL (8.5-10.1) Total Bilirubin 0.3 mg/dL (0.2-1.0) Aspartate Amino Transferase (AST) 13 U/L (15-37) L Alanine Aminotransferase (ALT) 14 U/L (16-63) L Alkaline Phosphatase 81 U/L (46-116) Total Protein 6.1 g/dL (6.4-8.2) L Albumin 2.2 g/dL (3.4-5.0) L Albumin/Globulin Ratio 0.6 (1.0-1.7) L [place] Level 0.8 mmol/L (0.6-1.2) [place] Last Dose Date 12/05/17 [place] Last Dose Time 0900 Current Medications: Meds: Current Medications Acetaminophen (Tylenol) 650 mg PRN Q6HRS PRN PO PAIN / TEMP Last administered on 12/05/17at 10:54; Start 11/29/17 at 21:15 Multi-Ingredient Ointment (Analgesic Chandler) 1 warren PRN QID PRN TP MUSCLE PAIN; Start 11/29/17 at 21:15 Al Hydroxide/Mg Hydroxide (Mylanta Plus Xs) 15 ml PRN AFTMEALHC PRN PO DYSPEPSIA Last administered on 11/30/17at 03:43; Start 11/29/17 at 21:15 Magnesium Hydroxide (Milk Of Magnesia) 2,400 mg PRN QHS PRN PO CONSTIPATION; Start 11/29/17 at 21:15 Mirtazapine (Remeron) 7.5 mg QHS PO Last administered on 12/05/17at 19:52; Start 11/29/17 at 22:00; Stop 12/06/17 at 18:13; Status DC Olanzapine (ZyPREXA ZYDIS) 5 mg PRN Q2HR PRN PO PSYCHOSIS Last administered on 12/06/17 10:11; Start 11/29/17 at 21:15 Baclofen (Lioresal) 10 mg BID PO Last administered on 12/06/17 19:30; Start at 22:00 [place] Carbonate 150 mg DAILY PO Last administered on 12/06/17 07:28; Start at 09:00 [place] Carbonate 300 mg QHS PO Last administered on 12/06/17 19:30; Start at 22:00 Lorazepam (Ativan) 0.5 mg PRN TID PRN PO ANXIETY / AGITATION Last administered on 12/05/17 10:54; Start 11/29/17 at 21:30 Risperidone (RisperDAL) 1.5 mg QHS PO Last administered on 12/06/17 19:30; Start 11/29/17 at 22:00 Trazodone HCl (Desyrel) 50 mg PRN QHS PRN PO INSOMNIA, MAY REPEAT X1 Last administered on 12/05/17 22:45; Start 11/29/17 at 21:30 Vitamin D (Vitamin D3) 5,000 unit DAILY PO Last administered on 12/02/17 07:54 ; Start 11/30/17 at 09:00; Stop 12/02/17 at 15:34; Status DC Multivitamins/ Calcium (Thera-M Plus) 1 tab DAILY PO Last administered on 07:28; Start 11/30/17 at 09:00 Neomycin/ Polymyxin/ Bacitracin (Triple Antibiotic Ointment) 1 pkt PRN DAILY PRN TP Wound Healing; Start 11/29/17 at 21:15 Simethicone (Gas-X) 80 mg PRN AFTMEALHC PRN PO GAS / BLOATING; Start 11/29/17 at 21:15 Ascorbic Acid (Vitamin C) 500 mg DAILY PO Last administered on 12/06/17 07:28; Start 11/30/17 at 09:00 Bisacodyl (Dulcolax Supp) 10 mg PRN DAILY PRN [place] CONSTIPATION; Start 11/29/17 at 21:30 Cetirizine HCl (ZyrTEC) 10 mg DAILY PO Last administered on 12/06/17 07:28; Start 11/30/17 at 09:00 Docusate Sodium (Colace) 100 mg PRN BID PRN PO CONSTIPATION; Start 11/29/17 at 21:30 Famotidine (Pepcid) 20 mg BIDBFRMEAL PO Last administered on 11/30/17 07:49; Start 11/30/17 at 07:30; Stop 11/30/17 at 07:53; Status DC Finasteride (Proscar) 5 mg DAILY PO Last administered on 12/06/17 07:28; Start 11/30/17 at 09:00 Lactobacillus Rhamnosus (Culturelle) 1 cap BID PO Last administered on 19:29; Start 11/29/17 at 22:00 Oxycodone HCl (Roxicodone) 5 mg PRN Q6HRS PRN PO PAIN Last administered on 22:45; Start 11/29/17 at 21:30 Polyethylene Glycol (miraLAX) 17 gm BID PO Last administered on 12/06/17 19:32 ; Start 11/29/17 at 22:00 Sennosides (Senna) 8.6 mg BID PO Last administered on 12/06/17 19:30; Start at 22:00 Terazosin HCl (Hytrin) 10 mg QHS PO Last administered on 12/06/17 19:32; Start 11/29/17 at 22:00 Ondansetron HCl (Zofran Odt) 4 mg PRN Q8HRS PRN PO NAUSEA/VOMITING; Start 11/29 at 21:30 Famotidine (Pepcid) 20 mg BID PO Last administered on 12/06/17 19:31; Start at 21:00 Levothyroxine Sodium (Synthroid) 50 mcg DAILY06 PO Last administered on 05:59; Start 12/01/17 at 06:00 Vitamin D (Vitamin D3) 50,000 unit WEEKLY PO Last administered on 12/03/17 08: 48; Start 12/03/17 at 09:00 Mirtazapine (Remeron) 15 mg QHS PO Last administered on 12/06/17at 19:32; Start 12/06/17 at 21:00 Active Scripts Active Reported Zofran Odt (Ondansetron) 4 Mg Tab.rapdis 4 Mg PO PRN Q6HRS PRN Simethicone 80 Mg Tab.chew 80 Mg PO PRN AFTMEALHC PRN Thera M Plus Tablet (Multivits,Ca,Minerals/Iron/FA) 1 Each Tablet 1 Tab PO DAILY Mirtazapine 7.5 Mg Tablet 7.5 Mg PO QHS Milk Of Magnesia (Magnesium Hydroxide) 400 Mg/5 Ml Oral.susp 2,400 Mg PO PRN DAILY PRN Culturelle (Lactobacillus Rhamnosus Gg) 1 Each Capsule 1 Each PO BID Vitamin D3 (Cholecalciferol (Vitamin D3)) 1,000 Unit Tablet 5,000 Unit PO DAILY Zyrtec (Cetirizine Hcl) 10 Mg Tablet 10 Mg PO DAILY Vitamin C (Ascorbate Calcium) 500 Mg Tablet 500 Mg PO DAILY Trazodone Hcl 50 Mg Tablet 50 Mg PO PRN QHS PRN Risperdal (Risperidone) 1 Mg Tablet 1.5 Mg PO QHS Zyprexa Zydis (Olanzapine) 5 Mg Tab.rapdis 5 Mg PO PRN Q2HR PRN [place] Carbonate 150 Mg Capsule 150 Mg PO DAILY Miralax (Polyethylene Glycol 3350) 17 Gm Powd.pack 17 Gm PO BID Triple Antibiotic Ointment (Neomy Sulf/Bacitra/Polymyxin B) 1 Each Packet 1 Packet TP PRN DAILY PRN Oxycodone Hcl 5 Mg Capsule 5 Mg PO PRN Q6HRS PRN Lorazepam 0.5 Mg Tablet 0.5 Mg PO TID PRN PRN Famotidine 20 Mg Tablet 20 Mg PO BIDBFRMEAL Terazosin Hcl 10 Mg Capsule 10 Mg PO DAILY [place] Carbonate 300 Mg Capsule 300 Mg PO HS Baclofen 10 Mg Tablet 10 Mg PO BID Maalox Maximum Strength Susp (Mag Hydrox/Al Hydrox/Simeth) 355 Ml Oral.susp 30 Ml PO PRN Q2HR PRN Finasteride 5 Mg Tablet 5 Mg PO DAILY Colace (Docusate Sodium) 100 Mg Capsule 100 Mg PO PRN BID PRN Senokot (Sennosides) 8.6 Mg Tablet 8.6 Mg PO BID Bisacodyl 10 Mg Supp.rect 10 Mg RC PRN DAILY PRN Tylenol (Acetaminophen) 325 Mg Tablet 650 Mg PO PRN Q6HRS PRN I have reviewed the current psychotropics carefully including drug interactions. Risk benefit ratio favors no change other than as noted in my dictated progress note. Diagnosis: Problems: (1) Anxiety disorder (2) Bipolar affective, mixed, sev w/ psych (3) Dementia, vascular, with delusions (4) Mild cognitive impairment (5) Osteomyelitis of hand, left, acute (6) Quadriplegia MARQUIS SCOTT MD Dec 06, 2017 22:02
--- NOTE | 2017-12-06 22:20 | NUR ---
Behavior Intervention Response and Plan: BIRP Note: Behavior: Assumed Care of patient, patient located in Patient Room at shift change. Patient exhibited the following behavior Calm, Delusions, Compliant. Brief assessment on rounds of vital signs, medication needs, lab studies, and pain. Treatment plan problems Altered thought process and Fall Risk. Intervention: Patient assessed and the following interventions initiated safety checks 15 Minute Checks Cognitive Assessment , Head to toe Assessment , Medications. Response: After interactions and interventions patient responded in the following manner, Calm , Delusions ,Compliant. Continue to assess behaviors and condition will continue to monitor throughout the shift as needed. Patient educated on ADL's, and hand hygiene. Plan: Continue to monitor Master Treatment Plan for patient's progress toward short term goals of Decreased Agitation, Decreased Aggression, care home goals to return to previous living setting vs placement. Continue to assess patient for changes in above assessment. Monitor for medication needs, pain, and safety concerns. Hourly rounding performed to ensure safe environment.
[2017-12-06] MEDS: traZODone 50 MG TABLET. PO PRN (22:22)
[2017-12-06] MEDS: oxyCODONE IR 5 MG TABLET PO PRN (22:22)
--- NOTE | 2017-12-06 22:29 | NUR ---
Nursing Note; Patient in bed with c/o sever back pain, rating at an 8/10 on 0-10 scale. PRN Oxycodone and Trazodone administered per PRN order. Snack given and consumed at this time.
[2017-12-07] MEDS: LEVOTHYROXINE 50 MCG TABLET PO SCH (05:00)
[2017-12-07] MEDS: oxyCODONE IR 5 MG TABLET PO PRN ×2 (05:00→23:15)
--- NOTE | 2017-12-07 05:05 | NUR ---
Nursing Note: Pt in bed yelling "help me with my pain" Nurse in to assess, Pt c/o sever back pain rated at an 8/10. PRN Oxycodone administered per PRN order at this time
[2017-12-07 05:46] VITALS: BP 114/64
[2017-12-07] MEDS: LITHIUM CARBONATE 150 MG CAPSULE. PO SCH ×2 (07:29→19:38)
[2017-12-07] MEDS: CETIRIZINE HCL 10 MG TABLET PO SCH (07:29)
[2017-12-07] MEDS: LACTOBACILLUS RHAMNOSUS GG 1 CAPSULE. PO SCH ×2 (07:29→19:38)
[2017-12-07] MEDS: BACLOFEN 10 MG TABLET PO SCH ×2 (07:29→19:39)
[2017-12-07] MEDS: ASCORBIC ACID 500 MG TABLET PO SCH (07:29)
[2017-12-07] MEDS: SENNOSIDES 8.6 MG TABLET PO SCH ×2 (07:29→19:39)
[2017-12-07] MEDS: POLYETHYLENE GLYCOL 3350 17 GM PACKET. PO SCH ×2 (07:29→19:37)
[2017-12-07] MEDS: FAMOTIDINE 20 MG TABLET PO SCH ×2 (07:29→19:38)
[2017-12-07] MEDS: MULTIVITAMIN with MINERAL TABLET. PO SCH (07:29)
[2017-12-07] MEDS: FINASTERIDE 5 MG TABLET PO SCH (07:30)
--- NOTE | 2017-12-07 09:53 | NUR ---
Behavior Intervention Response and Plan: BIRP Note: Behavior: Assumed Care of patient, patient located in Day Room at shift change. Patient exhibited the following behavior Interactive, Calm, Compliant. Brief assessment on rounds of vital signs, medication needs, lab studies, and pain. Treatment plan problems . Intervention: Patient assessed and the following interventions initiated safety checks 15 Minute Checks Cognitive Assessment , Head to toe Assessment , Medications. Response: After interactions and interventions patient responded in the following manner, Interactive , Calm ,Compliant. Continue to assess behaviors and condition will continue to monitor throughout the shift as needed. Patient educated on ADL's, and hand hygiene. Plan: Continue to monitor Master Treatment Plan for patient's progress toward short term goals of Decreased Anxiety, No harm To self/ others, manager long term care goals to return to previous living setting vs placement. Continue to assess patient for changes in above assessment. Monitor for medication needs, pain, and safety concerns. Hourly rounding performed to ensure safe environment.
[2017-12-07 16:26] VITALS: BP 120/55
--- NOTE | 2017-12-07 18:41 | NUR ---
pt up for meals. more clear today. in pleasant spirits. and brother to visit. compliant with meds and cares. Staff to call Dr Champion 12/08 and find out when sutures need removed.
[2017-12-07] MEDS: TERAZOSIN 5 MG CAPSULE. PO SCH (19:38)
[2017-12-07] MEDS: risperiDONE 0.5 MG TABLET. PO SCH (19:38)
[2017-12-07] MEDS: MIRTAZAPINE 15 MG TABLET PO SCH (19:39)
[2017-12-07] MEDS: traZODone 50 MG TABLET. PO PRN (19:40)
--- NOTE | 2017-12-07 19:52 | PDOC ---
Exam Note: Torsten Note: Please also refer to the separate dictated note~for this date of service dictated separately.~Patient seen individually. Discussed the patient with Nursing staff reviewed the chart.~Reviewed interim history and current functioning. Reviewed vital signs,~Labs/ Radiology~and current medications noted below. Continue current treatment with the changes noted in the dictated addendum note Assessment: Vital Signs: Vital Signs Date Time Temp Pulse Resp B/P (MAP) Pulse Ox O2 Delivery O2 Flow Rate FiO2 12/07/17 19:38 64 120/55 12/07/17 16:26 97.9 20 96 12/05/17 07:38 Room Air I&O Intake and Output 12/07/17 07:00 Intake Total 860 ml Output Total 1600 ml Balance -740 ml Intake Oral 860 ml Output Urine Total 1600 ml # Bowel Movements 1 Current Medications: Meds: Current Medications Acetaminophen (Tylenol) 650 mg PRN Q6HRS PRN PO PAIN / TEMP Last administered on 12/05/17 10:54; Start 11/29/17 at 21:15 Multi-Ingredient Ointment (Analgesic Ru[place]) 1 warren PRN QID PRN TP MUSCLE PAIN; Start 11/29/17 at 21:15 Al Hydroxide/Mg Hydroxide (Mylanta Plus Xs) 15 ml PRN AFTMEALHC PRN PO DYSPEPSIA Last administered on 11/30/17at 03:43; Start 11/29/17 at 21:15 Magnesium Hydroxide (Milk Of Magnesia) 2,400 mg PRN QHS PRN PO CONSTIPATION; Start 11/29/17 at 21:15 Mirtazapine (Remeron) 7.5 mg QHS PO Last administered on 12/05/17 19:52; Start 11/29/17 at 22:00; Stop 12/06/17 at 18:13; Status DC Olanzapine (ZyPREXA ZYDIS) 5 mg PRN Q2HR PRN PO PSYCHOSIS Last administered on 12/06/17 10:11; Start 11/29/17 at 21:15 Baclofen (Lioresal) 10 mg BID PO Last administered on 12/07/17 19:39; Start at 22:00 [place] Carbonate 150 mg DAILY PO Last administered on 12/07/17at 07:29; Start at 09:00 [place] Carbonate 300 mg QHS PO Last administered on 12/07/17 19:38; Start at 22:00 Lorazepam (Ativan) 0.5 mg PRN TID PRN PO ANXIETY / AGITATION Last administered on 12/05/17 10:54; Start 11/29/17 at 21:30 Risperidone (RisperDAL) 1.5 mg QHS PO Last administered on 12/07/17 19:38; Start 11/29/17 at 22:00 Trazodone HCl (Desyrel) 50 mg PRN QHS PRN PO INSOMNIA, MAY REPEAT X1 Last administered on 12/07/17 19:40; Start 11/29/17 at 21:30 Vitamin D (Vitamin D3) 5,000 unit DAILY PO Last administered on 12/02/17 07:54 ; Start 11/30/17 at 09:00; Stop 12/02/17 at 15:34; Status DC Multivitamins/ Calcium (Thera-M Plus) 1 tab DAILY PO Last administered on 07:29; Start 11/30/17 at 09:00 Neomycin/ Polymyxin/ Bacitracin (Triple Antibiotic Ointment) 1 pkt PRN DAILY PRN TP Wound Healing; Start 11/29/17 at 21:15 Simethicone (Gas-X) 80 mg PRN AFTMEALHC PRN PO GAS / BLOATING; Start 11/29/17 at 21:15 Ascorbic Acid (Vitamin C) 500 mg DAILY PO Last administered on 12/07/17 07:29; Start 11/30/17 at 09:00 Bisacodyl (Dulcolax Supp) 10 mg PRN DAILY PRN [place] CONSTIPATION; Start 11/29/17 at 21:30 Cetirizine HCl (ZyrTEC) 10 mg DAILY PO Last administered on 12/07/17 07:29; Start 11/30/17 at 09:00 Docusate Sodium (Colace) 100 mg PRN BID PRN PO CONSTIPATION; Start 11/29/17 at 21:30 Famotidine (Pepcid) 20 mg BIDBFRMEAL PO Last administered on 11/30/17at 07:49; Start 11/30/17 at 07:30; Stop 11/30/17 at 07:53; Status DC Finasteride (Proscar) 5 mg DAILY PO Last administered on 12/07/17 07:30; Start 11/30/17 at 09:00 Lactobacillus Rhamnosus (Culturelle) 1 cap BID PO Last administered on 19:38; Start 11/29/17 at 22:00 Oxycodone HCl (Roxicodone) 5 mg PRN Q6HRS PRN PO PAIN Last administered on 05:00; Start 11/29/17 at 21:30 Polyethylene Glycol (miraLAX) 17 gm BID PO Last administered on 12/07/17 19:37 ; Start 11/29/17 at 22:00 Sennosides (Senna) 8.6 mg BID PO Last administered on 12/07/17 19:39; Start at 22:00 Terazosin HCl (Hytrin) 10 mg QHS PO Last administered on 12/07/17 19:38; Start 11/29/17 at 22:00 Ondansetron HCl (Zofran Odt) 4 mg PRN Q8HRS PRN PO NAUSEA/VOMITING; Start 11/29 at 21:30 Famotidine (Pepcid) 20 mg BID PO Last administered on 12/07/17 19:38; Start at 21:00 Levothyroxine Sodium (Synthroid) 50 mcg DAILY06 PO Last administered on 05:00; Start 12/01/17 at 06:00 Vitamin D (Vitamin D3) 50,000 unit WEEKLY PO Last administered on 12/03/17 08: 48; Start 12/03/17 at 09:00 Mirtazapine (Remeron) 15 mg QHS PO Last administered on 12/07/17 19:39; Start 12/06/17 at 21:00 Active Scripts Active Reported Zofran Odt (Ondansetron) 4 Mg Tab.rapdis 4 Mg PO PRN Q6HRS PRN Simethicone 80 Mg Tab.chew 80 Mg PO PRN AFTMEALHC PRN Thera M Plus Tablet (Multivits,Ca,Minerals/Iron/FA) 1 Each Tablet 1 Tab PO DAILY Mirtazapine 7.5 Mg Tablet 7.5 Mg PO QHS Milk Of Magnesia (Magnesium Hydroxide) 400 Mg/5 Ml Oral.susp 2,400 Mg PO PRN DAILY PRN Culturelle (Lactobacillus Rhamnosus Gg) 1 Each Capsule 1 Each PO BID Vitamin D3 (Cholecalciferol (Vitamin D3)) 1,000 Unit Tablet 5,000 Unit PO DAILY Zyrtec (Cetirizine Hcl) 10 Mg Tablet 10 Mg PO DAILY Vitamin C (Ascorbate Calcium) 500 Mg Tablet 500 Mg PO DAILY Trazodone Hcl 50 Mg Tablet 50 Mg PO PRN QHS PRN Risperdal (Risperidone) 1 Mg Tablet 1.5 Mg PO QHS Zyprexa Zydis (Olanzapine) 5 Mg Tab.rapdis 5 Mg PO PRN Q2HR PRN [place] Carbonate 150 Mg Capsule 150 Mg PO DAILY Miralax (Polyethylene Glycol 3350) 17 Gm Powd.pack 17 Gm PO BID Triple Antibiotic Ointment (Neomy Sulf/Bacitra/Polymyxin B) 1 Each Packet 1 Packet TP PRN DAILY PRN Oxycodone Hcl 5 Mg Capsule 5 Mg PO PRN Q6HRS PRN Lorazepam 0.5 Mg Tablet 0.5 Mg PO TID PRN PRN Famotidine 20 Mg Tablet 20 Mg PO BIDBFRMEAL Terazosin Hcl 10 Mg Capsule 10 Mg PO DAILY [place] Carbonate 300 Mg Capsule 300 Mg PO HS Baclofen 10 Mg Tablet 10 Mg PO BID Maalox Maximum Strength Susp (Mag Hydrox/Al Hydrox/Simeth) 355 Ml Oral.susp 30 Ml PO PRN Q2HR PRN Finasteride 5 Mg Tablet 5 Mg PO DAILY Colace (Docusate Sodium) 100 Mg Capsule 100 Mg PO PRN BID PRN Senokot (Sennosides) 8.6 Mg Tablet 8.6 Mg PO BID Bisacodyl 10 Mg Supp.rect 10 Mg RC PRN DAILY PRN Tylenol (Acetaminophen) 325 Mg Tablet 650 Mg PO PRN Q6HRS PRN I have reviewed the current psychotropics carefully including drug interactions. Risk benefit ratio favors no change other than as noted in my dictated progress note. Diagnosis: Problems: (1) Anxiety disorder (2) Bipolar affective, mixed, sev w/ psych (3) Dementia, vascular, with delusions (4) Mild cognitive impairment (5) Osteomyelitis of hand, left, acute (6) Quadriplegia MARQUIS SCOTT MD Dec 07, 2017 19:52
[2017-12-08] MEDS: LEVOTHYROXINE 50 MCG TABLET PO SCH (03:58)
[2017-12-08 05:52] VITALS: BP 103/59
[2017-12-08] MEDS: SENNOSIDES 8.6 MG TABLET PO SCH ×2 (07:48→20:11)
[2017-12-08] MEDS: FAMOTIDINE 20 MG TABLET PO SCH ×2 (07:48→20:12)
[2017-12-08] MEDS: FINASTERIDE 5 MG TABLET PO SCH (07:48)
[2017-12-08] MEDS: ASCORBIC ACID 500 MG TABLET PO SCH (07:48)
[2017-12-08] MEDS: LACTOBACILLUS RHAMNOSUS GG 1 CAPSULE. PO SCH ×2 (07:49→20:12)
[2017-12-08] MEDS: MULTIVITAMIN with MINERAL TABLET. PO SCH (07:49)
[2017-12-08] MEDS: LITHIUM CARBONATE 150 MG CAPSULE. PO SCH ×2 (07:49→20:11)
[2017-12-08] MEDS: BACLOFEN 10 MG TABLET PO SCH ×2 (07:49→20:11)
[2017-12-08] MEDS: POLYETHYLENE GLYCOL 3350 17 GM PACKET. PO SCH ×2 (07:49→20:11)
[2017-12-08] MEDS: CETIRIZINE HCL 10 MG TABLET PO SCH (07:49)
[2017-12-08] MEDS: oxyCODONE IR 5 MG TABLET PO PRN ×2 (09:58→18:24)
--- NOTE | 2017-12-08 10:20 | HP ---
ADMIT DATE: 11/30/2017 ADDENDUM SUBJECTIVE: The patient is a 72-year-old male patient, who was transferred to [facility] as he has infected broken left fifth finger and in consultation with Dr. Peng, he recommended surgical amputation is the best option available and after the amputation was done Dr. Peng did not recommend any long-term antibiotic therapy and as the patient remained stable, but continued to have behavioral problems. 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 PAST MEDICAL HISTORY: Significant for hypothyroidism, benign prostatic hypertrophy, chronic constipation, cervical myelopathy with quadriplegia as well as neurogenic bladder requiring indwelling Rosa catheter, also acute on-chronic kidney injury because of bladder outlet obstruction. PAST PSYCHIATRIC HISTORY: Significant for having bipolar disorder. There is racing thoughts alternating with depression, has significant insomnia and worsening mood swings, worsening confusion. FAMILY HISTORY: Noncontributory. SOCIAL HISTORY: He is a resident at [facility], retired from the [employer]. He apparently has been at [facility] for a while. He does not smoke, drink alcohol or use any recreational drugs. OBJECTIVE: GENERAL: On examining him today, he looked well and was clearly in no apparent respiratory distress, pale, but no jaundice, cyanosis, or thyromegaly. No jugular venous distension. No lower limb edema. VITAL SIGNS: His heart rate was 66, blood pressure 118/79, temperature was 97.8, respiratory rate 20, and oxygen saturation was 98%. The rest of clinical exam is stable. HEAD, EYES, EARS, NOSE, AND THROAT: Showed normocephalic, atraumatic. NECK: Supple. HEART: Showed normal first and second heart sounds with no gallop, rub, or murmur. CHEST: Clear to auscultation. No crepitation or rhonchi. ABDOMEN: Distended, soft, nontender. NEUROLOGIC: He is awake, alert, but confused. All cranial nerves intact. He has quadriplegia with marked muscle wasting and fixed flexion contraction of all 4 limbs. Has neurogenic bladder with bladder outlet obstruction requiring indwelling Rosa catheter. LABORATORY DATA: His lab work this morning showed a white cell count of 7,400, hemoglobin 13, hematocrit 41, MCV 92, and platelet count 236,000. His chemistry showed a serum sodium 143, potassium 3.8, chloride 107, bicarbonate 28, anion gap of 8, BUN 15, creatinine 1.2, estimated GFR was 59 mL per minute. His glucose was 129, calcium was 8.7, magnesium 2.6. Serum iron was 45, TIBC was 205, and percent saturation was ____. His total bilirubin, AST, ALT, alkaline phosphatase were normal. Total protein 7.8, albumin 2.6. Serum triglycerides were 85.7, total cholesterol 143, LDL was 94, VLDL was 17, HDL was 32, and the ratio was 4. His TSH was 25.736. He is currently on following medication, famotidine 20 mg twice a day, finasteride 5 mg once a day, cetirizine 10 mg once a day, ascorbic acid 500 mg daily, multivitamin 1 tablet once a day, vitamin D 5,000 international units as once a day, lithium carbonate 150 mg daily, terazosin 10 mg at bedtime, senna 8.6 once a day, polyethylene glycol 17 grams once b.i.d., Lactobacillus rhamnosus 1 capsule twice a day, risperidone 1.5 mg at bedtime, lithium carbonate 300 mg at bedtime, baclofen 10 mg twice a day, mirtazapine 7.5 mg at bedtime, ondansetron 4 mg every 6 hours, oxycodone 5 mg every 6 hours, Docusate sodium 100 mg twice a day, bisacodyl 10 mg rectally as needed for constipation, trazodone 50 mg at bedtime, lorazepam 0.5 mg 2 times a day, and simethicone 80 mg after meals, olanzapine 5 mg every 2 hours. The patient is not on any Synthroid. I will start him on levothyroxine 50 mcg. We will check his free T3, free T4 and will also start him on 50 mcg and monitor his response. Thank you, Dr. Banda for allowing me to participate in the care of this patient. MONIKA FOFANA MD DR: KALRA/rut JOB#: [id number] / [id number]
--- NOTE | 2017-12-08 13:32 | NUR ---
CARLOS unable to send out admission referrals at this time due to lack of P and current notes available. [facility] Instructor has been notified of issue and is being addressed. CARLOS will send out referrals as soon as the issue is resolved. CARLOS also received notice from CARLOS Collier at [facility] that she will beout of the office this week and new contact will be Gem Elizabeth at [phone] bdy [phone].
--- NOTE | 2017-12-08 14:43 | HP ---
ADMIT DATE: 11/29/2017 PSYCHIATRIC ADMISSION HISTORY/EVALUATION This is a late entry for date of service 11/29/2017. I dictated this note earlier, but it is not traceable in the electronic health record system and I am re-dictating the note. IDENTIFYING DATA: The patient is a 72-year-old male, who was initially referred to us from [facility] on account of marked exacerbation of his bipolar disorder, psychotic symptoms, agitation, disorganization. He was stabilized from a psychiatric standpoint [facility], but during an acute phase of psychosis and marked agitation, he had bitten his finger off. This was treated by wound consult, but it ultimately got infected and he was transferred to [facility] by Dr. Lincoln where the finger was amputated. We made adjustments in his psychotropics during that hospitalization with an adjustment of the lithium, initiation of Risperdal, which appeared to stabilize him somewhat from a psychiatric standpoint. Nevertheless at [place] after the amputation he remains psychotic with marked mood lability, agitation and he was referred back to us for psychiatric stabilization. CHIEF COMPLAINT: "I am better." HISTORY OF PRESENT ILLNESS: As noted, the patient has a long history of bipolar disorder with 2 separate courses of ECT treatment in the past. Most recently at [facility] he had been on lithium and his antipsychotics and that failed this treatment and the changes during his last hospitalization mentioned above. He continues to have some sleep and appetite changes, intermittent psychotic symptoms, confusion, agitation. PAST PSYCHIATRIC HISTORY: As above. MEDICAL HISTORY: Status post finger amputation. Rest of the medical history is unchanged from his last admission and the reader is referred to that evaluation for details. DIET: Regular. ACCU-CHEKS: None. CODE STATUS: DNR. ALLERGIES: PENICILLIN. Ambulates, he is in Broda assist x 2. CURRENT PSYCHOTROPICS: Ranier carbonate 150 mg in the morning and 300 mg at night with a lithium level of 0.6, Risperdal 1.5 mg at bedtime, Remeron 7.5 mg at bedtime, trazodone 50 mg at bedtime p.r.n., may repeat x 1 for insomnia, Ativan p.r.n. FAMILY HISTORY: Noncontributory. SOCIAL HISTORY: No alcohol or drug abuse, physical, sexual or elder abuse history is noted. Not known to be a perpetrator. MENTAL STATUS EXAMINATION: The patient was seen shortly after he arrived on the unit. He is oriented to himself. Insight, judgment, recent and remote memory, attention and concentration impaired though at other times he seems more lucid. No active suicidal or homicidal ideation. IMPRESSION: Bipolar 1 disorder, mixed with psychotic features with acute exacerbation; anxiety disorder, unspecified; delirium, unspecified; impulse control disorder, unspecified. Rest as noted above and from my prior evaluation. PLAN: Continue current psychotropics, repeat lithium level, observe baseline, adjust the Risperdal. I will see him daily individually from a psychiatric standpoint, medical followup per Dr. Lincoln/Dr Alonzo. MAN Lindsey SCOTT MD DR: ARIA/nts JOB#: [id number] / [id number]
[2017-12-08 16:35] VITALS: BP 124/57
[2017-12-08] MEDS: MIRTAZAPINE 15 MG TABLET PO SCH (20:12)
[2017-12-08] MEDS: TERAZOSIN 5 MG CAPSULE. PO SCH (20:12)
[2017-12-08] MEDS: risperiDONE 0.5 MG TABLET. PO SCH (20:16)
[2017-12-08] MEDS: traZODone 50 MG TABLET. PO PRN (20:16)
--- NOTE | 2017-12-08 20:47 | PDOC ---
Exam Note: Torsten Note: Please also refer to the separate dictated note~for this date of service dictated separately.~Patient seen individually. Discussed the patient with Nursing staff reviewed the chart.~Reviewed interim history and current functioning. Reviewed vital signs,~Labs/ Radiology~and current medications noted below. Continue current treatment with the changes noted in the dictated addendum note Assessment: Vital Signs: Vital Signs Date Time Temp Pulse Resp B/P (MAP) Pulse Ox O2 Delivery O2 Flow Rate FiO2 12/08/17 20:12 69 124/57 12/08/17 18:24 97 12/08/17 16:35 98.1 18 Room Air I&O Intake and Output 12/08/17 07:00 Intake Total 1560 ml Output Total 1850 ml Balance -290 ml Intake Oral 1560 ml Output Urine Total 1850 ml # Bowel Movements 1 Current Medications: Meds: Current Medications Acetaminophen (Tylenol) 650 mg PRN Q6HRS PRN PO PAIN / TEMP Last administered on 12/05/17 10:54; Start 11/29/17 at 21:15 Multi-Ingredient Ointment (Analgesic Keiser) 1 warren PRN QID PRN TP MUSCLE PAIN; Start 11/29/17 at 21:15 Al Hydroxide/Mg Hydroxide (Mylanta Plus Xs) 15 ml PRN AFTMEALHC PRN PO DYSPEPSIA Last administered on 11/30/17at 03:43; Start 11/29/17 at 21:15 Magnesium Hydroxide (Milk Of Magnesia) 2,400 mg PRN QHS PRN PO CONSTIPATION; Start 11/29/17 at 21:15 Mirtazapine (Remeron) 7.5 mg QHS PO Last administered on 12/05/17at 19:52; Start 11/29/17 at 22:00; Stop 12/06/17 at 18:13; Status DC Olanzapine (ZyPREXA ZYDIS) 5 mg PRN Q2HR PRN PO PSYCHOSIS Last administered on 12/06/17 10:11; Start 11/29/17 at 21:15 Baclofen (Lioresal) 10 mg BID PO Last administered on 12/08/17at 20:11; Start at 22:00 Cheraw Carbonate 150 mg DAILY PO Last administered on 12/08/17at 07:49; Start at 09:00 Cheraw Carbonate 300 mg QHS PO Last administered on 12/08/17 20:11; Start at 22:00 Lorazepam (Ativan) 0.5 mg PRN TID PRN PO ANXIETY / AGITATION Last administered on 12/05/17 10:54; Start 11/29/17 at 21:30 Risperidone (RisperDAL) 1.5 mg QHS PO Last administered on 12/08/17 20:16; Start 11/29/17 at 22:00 Trazodone HCl (Desyrel) 50 mg PRN QHS PRN PO INSOMNIA, MAY REPEAT X1 Last administered on 12/08/17 20:16; Start 11/29/17 at 21:30 Vitamin D (Vitamin D3) 5,000 unit DAILY PO Last administered on 12/02/17 07:54 ; Start 11/30/17 at 09:00; Stop 12/02/17 at 15:34; Status DC Multivitamins/ Calcium (Thera-M Plus) 1 tab DAILY PO Last administered on at 07:49; Start 11/30/17 at 09:00 Neomycin/ Polymyxin/ Bacitracin (Triple Antibiotic Ointment) 1 pkt PRN DAILY PRN TP Wound Healing; Start 11/29/17 at 21:15 Simethicone (Gas-X) 80 mg PRN AFTMEALHC PRN PO GAS / BLOATING; Start 11/29/17 at 21:15 Ascorbic Acid (Vitamin C) 500 mg DAILY PO Last administered on 12/08/17at 07:48; Start 11/30/17 at 09:00 Bisacodyl (Dulcolax Supp) 10 mg PRN DAILY PRN [place] CONSTIPATION; Start 11/29/17 at 21:30 Cetirizine HCl (ZyrTEC) 10 mg DAILY PO Last administered on 12/08/17 07:49; Start 11/30/17 at 09:00 Docusate Sodium (Colace) 100 mg PRN BID PRN PO CONSTIPATION; Start 11/29/17 at 21:30 Famotidine (Pepcid) 20 mg BIDBFRMEAL PO Last administered on 11/30/17at 07:49; Start 11/30/17 at 07:30; Stop 11/30/17 at 07:53; Status DC Finasteride (Proscar) 5 mg DAILY PO Last administered on 12/08/17 07:48; Start 11/30/17 at 09:00 Lactobacillus Rhamnosus (Culturelle) 1 cap BID PO Last administered on 20:12; Start 11/29/17 at 22:00 Oxycodone HCl (Roxicodone) 5 mg PRN Q6HRS PRN PO PAIN Last administered on 18:24; Start 11/29/17 at 21:30 Polyethylene Glycol (miraLAX) 17 gm BID PO Last administered on 12/08/17 20:11 ; Start 11/29/17 at 22:00 Sennosides (Senna) 8.6 mg BID PO Last administered on 12/08/17 20:11; Start at 22:00 Terazosin HCl (Hytrin) 10 mg QHS PO Last administered on 12/08/17 20:12; Start 11/29/17 at 22:00 Ondansetron HCl (Zofran Odt) 4 mg PRN Q8HRS PRN PO NAUSEA/VOMITING; Start 11/29 at 21:30 Famotidine (Pepcid) 20 mg BID PO Last administered on 12/08/17 20:12; Start at 21:00 Levothyroxine Sodium (Synthroid) 50 mcg DAILY06 PO Last administered on 03:58; Start 12/01/17 at 06:00 Vitamin D (Vitamin D3) 50,000 unit WEEKLY PO Last administered on 12/03/17 08: 48; Start 12/03/17 at 09:00 Mirtazapine (Remeron) 15 mg QHS PO Last administered on 12/08/17 20:12; Start 12/06/17 at 21:00 Active Scripts Active Reported Zofran Odt (Ondansetron) 4 Mg Tab.rapdis 4 Mg PO PRN Q6HRS PRN Simethicone 80 Mg Tab.chew 80 Mg PO PRN AFTMEALHC PRN Thera M Plus Tablet (Multivits,Ca,Minerals/Iron/FA) 1 Each Tablet 1 Tab PO DAILY Mirtazapine 7.5 Mg Tablet 7.5 Mg PO QHS Milk Of Magnesia (Magnesium Hydroxide) 400 Mg/5 Ml Oral.susp 2,400 Mg PO PRN DAILY PRN Culturelle (Lactobacillus Rhamnosus Gg) 1 Each Capsule 1 Each PO BID Vitamin D3 (Cholecalciferol (Vitamin D3)) 1,000 Unit Tablet 5,000 Unit PO DAILY Zyrtec (Cetirizine Hcl) 10 Mg Tablet 10 Mg PO DAILY Vitamin C (Ascorbate Calcium) 500 Mg Tablet 500 Mg PO DAILY Trazodone Hcl 50 Mg Tablet 50 Mg PO PRN QHS PRN Risperdal (Risperidone) 1 Mg Tablet 1.5 Mg PO QHS Zyprexa Zydis (Olanzapine) 5 Mg Tab.rapdis 5 Mg PO PRN Q2HR PRN Cheraw Carbonate 150 Mg Capsule 150 Mg PO DAILY Miralax (Polyethylene Glycol 3350) 17 Gm Powd.pack 17 Gm PO BID Triple Antibiotic Ointment (Neomy Sulf/Bacitra/Polymyxin B) 1 Each Packet 1 Packet TP PRN DAILY PRN Oxycodone Hcl 5 Mg Capsule 5 Mg PO PRN Q6HRS PRN Lorazepam 0.5 Mg Tablet 0.5 Mg PO TID PRN PRN Famotidine 20 Mg Tablet 20 Mg PO BIDBFRMEAL Terazosin Hcl 10 Mg Capsule 10 Mg PO DAILY Cheraw Carbonate 300 Mg Capsule 300 Mg PO HS Baclofen 10 Mg Tablet 10 Mg PO BID Maalox Maximum Strength Susp (Mag Hydrox/Al Hydrox/Simeth) 355 Ml Oral.susp 30 Ml PO PRN Q2HR PRN Finasteride 5 Mg Tablet 5 Mg PO DAILY Colace (Docusate Sodium) 100 Mg Capsule 100 Mg PO PRN BID PRN Senokot (Sennosides) 8.6 Mg Tablet 8.6 Mg PO BID Bisacodyl 10 Mg Supp.rect 10 Mg RC PRN DAILY PRN Tylenol (Acetaminophen) 325 Mg Tablet 650 Mg PO PRN Q6HRS PRN I have reviewed the current psychotropics carefully including drug interactions. Risk benefit ratio favors no change other than as noted in my dictated progress note. Diagnosis: Problems: (1) Anxiety disorder (2) Bipolar affective, mixed, sev w/ psych (3) Dementia, vascular, with delusions (4) Mild cognitive impairment (5) Osteomyelitis of hand, left, acute (6) Quadriplegia MARQUIS SCOTT MD Dec 08, 2017 20:47
--- NOTE | 2017-12-08 21:15 | PN ---
DATE: 12/05/2017 This late entry 12/05/2017 covers elements not covered in my initial note 12/05/2017. SUBJECTIVE: I met with the patient in the evening. The patient is doing a little better, gets anxious with pain spending much time in bed secondary to the wound on his bottom. Received Ativan p.r.n. We will check a lithium level 12/06. REVIEW OF SYSTEMS: Ambulation impaired, in bed. No CV, , pulmonary, eye, ENT system symptoms on review. MENTAL STATUS EXAM: Oriented to himself and situation. Speech coherent, still somewhat pressured. Abstraction fair, computation impaired, language function intact, attention span short. Mood and affect, somewhat anxious, but overall better. LABORATORY DATA: Reviewed. IMPRESSION: Unchanged from initial note. PLAN: Continue psychotropics mentioned in my initial note. MAN Lindsey SCOTT MD DR: ARIA/rut JOB#: [id number] / [id number]
--- NOTE | 2017-12-08 21:48 | PN ---
DATE: 12/06/2017 This is a late entry for 12/06/2017 covers elements not covered in my initial note of 12/06/2017. SUBJECTIVE: I met with the patient in the evening. The patient slept 3-1/2 hours previous evening. He is more lucid, awake, alert, oriented to himself and situation. He was nevertheless delusional and yelling today earlier in the afternoon per nursing report. In the evening, he was cognitively much clearer. REVIEW OF SYSTEMS: Ambulation impaired. No CV, , pulmonary, eye, ENT system symptoms on review. MENTAL STATUS EXAM: Oriented to himself and situation. Speech is coherent, less pressured. Abstraction fair, computation impaired, language function intact. Attention span short. He is unable to do serial 7s beyond the first step. No suicidal or homicidal ideation. LABORATORY DATA: Reviewed. IMPRESSION: Unchanged from initial note. Ferguson level is 0.8. PLAN: Continue current psychotropics from initial note. MAN Lindsey SCOTT MD DR: ARIA/rut JOB#: [id number] / [id number]
[2017-12-09] MEDS: oxyCODONE IR 5 MG TABLET PO PRN ×3 (00:19→21:46)
--- NOTE | 2017-12-09 00:28 | NUR ---
Pt in bed restless, yelling out. Pt c/o severe all over pain. PRN Oxycodone administered as ordered at this time.
--- NOTE | 2017-12-09 00:43 | NUR ---
Behavior Intervention Response and Plan: BIRP Note: Behavior: Assumed Care of patient, patient located in Patient Room at shift change. Patient exhibited the following behavior Restless, Cooperative, Defensive. Brief assessment on rounds of vital signs, medication needs, lab studies, and pain. Treatment plan problems 1 and 2. Intervention: Patient assessed and the following interventions initiated safety checks 15 Minute Checks Cognitive Assessment , Head to toe Assessment , Medications. Response: After interactions and interventions patient responded in the following manner, Calm , Compliant ,Cooperative. Continue to assess behaviors and condition will continue to monitor throughout the shift as needed. Patient educated on ADL's, and hand hygiene. Plan: Continue to monitor Master Treatment Plan for patient's progress toward short term goals of Improved Mood, No harm To self/ others, oil heaterman goals to return to previous living setting vs placement. Continue to assess patient for changes in above assessment. Monitor for medication needs, pain, and safety concerns. Hourly rounding performed to ensure safe environment.
[2017-12-09 06:05] VITALS: BP 127/67
[2017-12-09] MEDS: LEVOTHYROXINE 50 MCG TABLET PO SCH (06:12)
--- NOTE | 2017-12-09 06:19 | PN ---
DATE: 12/04/2017 This is a late entry for 12/04, covers elements not covered in my initial note 12/04. SUBJECTIVE: I met with the patient in the evening. The patient was staffed at a treatment team meeting with the entire team in the morning. The patient slept 5-1/2 hours. He is receiving physical therapy, but remains in a Broda chair, spends much time in his room. Previous evening, he talked about having a nightmare of seeing wolves. He may need level 2 placement or placement ____ contract. We will defer to social service to help coordinate this. Received trazodone at 1:15 a.m. REVIEW OF SYSTEMS: Ambulation impaired, in a Broda chair. No CV, , pulmonary, eye, ENT system symptoms on review. MENTAL STATUS EXAM: The patient is much more oriented. Speech has some latency, coherent. Abstraction fair, computation impaired, language function intact, attention span short. Mood and affect, lability is improved. He is oriented to himself, situation and place, able to do 1 step on serial 7's. LABORATORY DATA: Reviewed. IMPRESSION: Unchanged from initial note bipolar 1 disorder, mixed with psychotic features, in partial remission; cognitive disorder, unspecified; anxiety disorder, unspecified. PLAN: Continue current psychotropics including lithium, Risperdal, Remeron, trazodone, along with Ativan. MAN Lindsey SCOTT MD DR: ARIA/rut JOB#: [id number] / [id number]
--- NOTE | 2017-12-09 08:33 | PN ---
DATE: 12/07/2017 This late entry 12/07/2017 covers elements not covered in my initial note 12/07/2017. Met with the patient in the afternoon. Also met with the patient's and brother who were visiting him. They are both very happy and pleased that the patient is doing so much better. They remarked how the patient was cognitively much more intact, oriented, recognized all of them, asked them relevant questions as opposed to when he was first admitted here with marked confusion, agitation, psychotic symptoms. REVIEW OF SYSTEMS: Ambulation impaired. No CV, , pulmonary, eye, ENT system symptoms on review. Reliability fair. MENTAL STATUS EXAM: Oriented to himself and situation. Speech is coherent, abstraction fair, computation impaired, language function intact, attention span short. Mood and affect showing improvement. LABORATORY DATA: Reviewed. IMPRESSION: Bipolar I disorder, mixed with psychotic features, in partial remission; cognitive disorder, unspecified. PLAN: Continue psychotropics mentioned in my initial note. MARQUIS SCOTT MD DR: ARIA/rut JOB#: [id number] / [id number]
[2017-12-09] MEDS: POLYETHYLENE GLYCOL 3350 17 GM PACKET. PO SCH ×2 (09:32→19:16)
[2017-12-09] MEDS: FAMOTIDINE 20 MG TABLET PO SCH ×2 (09:32→19:17)
[2017-12-09] MEDS: FINASTERIDE 5 MG TABLET PO SCH (09:33)
[2017-12-09] MEDS: SENNOSIDES 8.6 MG TABLET PO SCH ×2 (09:33→19:17)
[2017-12-09] MEDS: LACTOBACILLUS RHAMNOSUS GG 1 CAPSULE. PO SCH ×2 (09:33→19:16)
[2017-12-09] MEDS: ASCORBIC ACID 500 MG TABLET PO SCH (09:33)
[2017-12-09] MEDS: BACLOFEN 10 MG TABLET PO SCH ×2 (09:33→19:17)
[2017-12-09] MEDS: LITHIUM CARBONATE 150 MG CAPSULE. PO SCH ×2 (09:33→19:17)
[2017-12-09] MEDS: CETIRIZINE HCL 10 MG TABLET PO SCH (09:33)
[2017-12-09] MEDS: MULTIVITAMIN with MINERAL TABLET. PO SCH (09:33)
--- NOTE | 2017-12-09 09:46 | NUR ---
CARLOS left message for Misty w/[facility] regarding request for Level II as pt has now admitted x2 to psych.
--- NOTE | 2017-12-09 10:17 | NUR ---
call placed to Dr love,s office inquiring as to when sutures in hand are to be removed Dr. Love wants sutures removed on 12/15 or 12/16 and document removal.
--- NOTE | 2017-12-09 12:57 | NUR ---
Behavior Intervention Response and Plan: BIRP Note: Behavior: Assumed Care of patient, patient located in Patient Room at shift change. Patient exhibited the following behavior Restless, Demanding, Irritable. Brief assessment on rounds of vital signs, medication needs, lab studies, and pain. Treatment plan problems 1-2. Intervention: Patient assessed and the following interventions initiated safety checks 15 Minute Checks Cognitive Assessment , Head to toe Assessment , Medications. Response: After interactions and interventions patient responded in the following manner, Restless , Compliant ,Compliant. Continue to assess behaviors and condition will continue to monitor throughout the shift as needed. Patient educated on ADL's, and hand hygiene. Plan: Continue to monitor Master Treatment Plan for patient's progress toward short term goals of Medication Compliance, No harm To self/ others, half-way goals to return to previous living setting vs placement. Continue to assess patient for changes in above assessment. Monitor for medication needs, pain, and safety concerns. Hourly rounding performed to ensure safe environment.
--- NOTE | 2017-12-09 13:55 | NUR ---
CARLOS spoke w/Misty and Roya w/[facility] regarding requested CARE for Level II as this is pt's 2nd admit to this facility after dc to medical floor for amputation of finger. Due to pt's increased need for medical care and improved mental stability, pt will not be triggering for a Level II evaluation. Pt's recent Level I CARE Assessment will remain current.
--- NOTE | 2017-12-09 14:16 | NUR ---
CARLOS left message for CARLOS Carlson at [facility] filling in for Maia Earnestine @ [phone] ext [phone] requesting updates on current progress of pt's [facility] Contract for [facility] placement. CARLOS then contacted pt's brother, Drew to update on progress of current placement. CARLOS faxed updated admission information to [facility] and [facility] as they are both [facility] Contracted facilities. CARLOS will f/u maria m/Drew later in the week if either facility is able to accept pt. CARLOS was told by Maia Colby the [facility] may be able to expedite the contract if there is a facility able to accept pt.
[2017-12-09 16:53] VITALS: BP 123/50
[2017-12-09] MEDS: MIRTAZAPINE 15 MG TABLET PO SCH (19:16)
[2017-12-09] MEDS: TERAZOSIN 5 MG CAPSULE. PO SCH (19:17)
[2017-12-09] MEDS: risperiDONE 0.5 MG TABLET. PO SCH (19:17)
[2017-12-09] MEDS: traZODone 50 MG TABLET. PO PRN (19:21)
--- NOTE | 2017-12-09 20:50 | PDOC ---
Exam Note: Torsten Note: Please also refer to the separate dictated note~for this date of service dictated separately.~Patient seen individually. Discussed the patient with Nursing staff reviewed the chart.~Reviewed interim history and current functioning. Reviewed vital signs,~Labs/ Radiology~and current medications noted below. Continue current treatment with the changes noted in the dictated addendum note Assessment: Vital Signs: Vital Signs Date Time Temp Pulse Resp B/P (MAP) Pulse Ox O2 Delivery O2 Flow Rate FiO2 12/09/17 19:17 77 123/50 12/09/17 16:53 98.7 16 95 12/09/17 09:34 Room Air I&O Intake and Output 12/09/17 07:00 Intake Total 1760 ml Output Total 1800 ml Balance -40 ml Intake Oral 1760 ml Output Urine Total 1800 ml # Bowel Movements 1 Current Medications: Meds: Current Medications Acetaminophen (Tylenol) 650 mg PRN Q6HRS PRN PO PAIN / TEMP Last administered on 12/05/17 10:54; Start 11/29/17 at 21:15 Multi-Ingredient Ointment (Analgesic [place]) 1 warren PRN QID PRN TP MUSCLE PAIN; Start 11/29/17 at 21:15 Al Hydroxide/Mg Hydroxide (Mylanta Plus Xs) 15 ml PRN AFTMEALHC PRN PO DYSPEPSIA Last administered on 11/30/17at 03:43; Start 11/29/17 at 21:15 Magnesium Hydroxide (Milk Of Magnesia) 2,400 mg PRN QHS PRN PO CONSTIPATION; Start 11/29/17 at 21:15 Mirtazapine (Remeron) 7.5 mg QHS PO Last administered on 12/05/17at 19:52; Start 11/29/17 at 22:00; Stop 12/06/17 at 18:13; Status DC Olanzapine (ZyPREXA ZYDIS) 5 mg PRN Q2HR PRN PO PSYCHOSIS Last administered on 12/06/17 10:11; Start 11/29/17 at 21:15 Baclofen (Lioresal) 10 mg BID PO Last administered on 12/09/17 19:17; Start at 22:00 [place] Carbonate 150 mg DAILY PO Last administered on 12/09/17at 09:33; Start at 09:00 [place] Carbonate 300 mg QHS PO Last administered on 12/09/17 19:17; Start at 22:00 Lorazepam (Ativan) 0.5 mg PRN TID PRN PO ANXIETY / AGITATION Last administered on 12/05/17 10:54; Start 11/29/17 at 21:30 Risperidone (RisperDAL) 1.5 mg QHS PO Last administered on 12/09/17 19:17; Start 11/29/17 at 22:00 Trazodone HCl (Desyrel) 50 mg PRN QHS PRN PO INSOMNIA, MAY REPEAT X1 Last administered on 12/09/17 19:21; Start 11/29/17 at 21:30 Vitamin D (Vitamin D3) 5,000 unit DAILY PO Last administered on 12/02/17 07:54 ; Start 11/30/17 at 09:00; Stop 12/02/17 at 15:34; Status DC Multivitamins/ Calcium (Thera-M Plus) 1 tab DAILY PO Last administered on 09:33; Start 11/30/17 at 09:00 Neomycin/ Polymyxin/ Bacitracin (Triple Antibiotic Ointment) 1 pkt PRN DAILY PRN TP Wound Healing; Start 11/29/17 at 21:15 Simethicone (Gas-X) 80 mg PRN AFTMEALHC PRN PO GAS / BLOATING; Start 11/29/17 at 21:15 Ascorbic Acid (Vitamin C) 500 mg DAILY PO Last administered on 12/09/17 09:33; Start 11/30/17 at 09:00 Bisacodyl (Dulcolax Supp) 10 mg PRN DAILY PRN [place] CONSTIPATION; Start 11/29/17 at 21:30 Cetirizine HCl (ZyrTEC) 10 mg DAILY PO Last administered on 12/09/17 09:33; Start 11/30/17 at 09:00 Docusate Sodium (Colace) 100 mg PRN BID PRN PO CONSTIPATION; Start 11/29/17 at 21:30 Famotidine (Pepcid) 20 mg BIDBFRMEAL PO Last administered on 11/30/17at 07:49; Start 11/30/17 at 07:30; Stop 11/30/17 at 07:53; Status DC Finasteride (Proscar) 5 mg DAILY PO Last administered on 12/09/17 09:33; Start 11/30/17 at 09:00 Lactobacillus Rhamnosus (Culturelle) 1 cap BID PO Last administered on 19:16; Start 11/29/17 at 22:00 Oxycodone HCl (Roxicodone) 5 mg PRN Q6HRS PRN PO PAIN Last administered on 06:44; Start 11/29/17 at 21:30 Polyethylene Glycol (miraLAX) 17 gm BID PO Last administered on 12/09/17 19:16 ; Start 11/29/17 at 22:00 Sennosides (Senna) 8.6 mg BID PO Last administered on 12/09/17 19:17; Start at 22:00 Terazosin HCl (Hytrin) 10 mg QHS PO Last administered on 12/09/17 19:17; Start 11/29/17 at 22:00 Ondansetron HCl (Zofran Odt) 4 mg PRN Q8HRS PRN PO NAUSEA/VOMITING; Start 11/29 at 21:30 Famotidine (Pepcid) 20 mg BID PO Last administered on 12/09/17 19:17; Start at 21:00 Levothyroxine Sodium (Synthroid) 50 mcg DAILY06 PO Last administered on 06:12; Start 12/01/17 at 06:00 Vitamin D (Vitamin D3) 50,000 unit WEEKLY PO Last administered on 12/03/17 08: 48; Start 12/03/17 at 09:00 Mirtazapine (Remeron) 15 mg QHS PO Last administered on 12/09/17 19:16; Start 12/06/17 at 21:00 Active Scripts Active Reported Zofran Odt (Ondansetron) 4 Mg Tab.rapdis 4 Mg PO PRN Q6HRS PRN Simethicone 80 Mg Tab.chew 80 Mg PO PRN AFTMEALHC PRN Thera M Plus Tablet (Multivits,Ca,Minerals/Iron/FA) 1 Each Tablet 1 Tab PO DAILY Mirtazapine 7.5 Mg Tablet 7.5 Mg PO QHS Milk Of Magnesia (Magnesium Hydroxide) 400 Mg/5 Ml Oral.susp 2,400 Mg PO PRN DAILY PRN Culturelle (Lactobacillus Rhamnosus Gg) 1 Each Capsule 1 Each PO BID Vitamin D3 (Cholecalciferol (Vitamin D3)) 1,000 Unit Tablet 5,000 Unit PO DAILY Zyrtec (Cetirizine Hcl) 10 Mg Tablet 10 Mg PO DAILY Vitamin C (Ascorbate Calcium) 500 Mg Tablet 500 Mg PO DAILY Trazodone Hcl 50 Mg Tablet 50 Mg PO PRN QHS PRN Risperdal (Risperidone) 1 Mg Tablet 1.5 Mg PO QHS Zyprexa Zydis (Olanzapine) 5 Mg Tab.rapdis 5 Mg PO PRN Q2HR PRN [place] Carbonate 150 Mg Capsule 150 Mg PO DAILY Miralax (Polyethylene Glycol 3350) 17 Gm Powd.pack 17 Gm PO BID Triple Antibiotic Ointment (Neomy Sulf/Bacitra/Polymyxin B) 1 Each Packet 1 Packet TP PRN DAILY PRN Oxycodone Hcl 5 Mg Capsule 5 Mg PO PRN Q6HRS PRN Lorazepam 0.5 Mg Tablet 0.5 Mg PO TID PRN PRN Famotidine 20 Mg Tablet 20 Mg PO BIDBFRMEAL Terazosin Hcl 10 Mg Capsule 10 Mg PO DAILY [place] Carbonate 300 Mg Capsule 300 Mg PO HS Baclofen 10 Mg Tablet 10 Mg PO BID Maalox Maximum Strength Susp (Mag Hydrox/Al Hydrox/Simeth) 355 Ml Oral.susp 30 Ml PO PRN Q2HR PRN Finasteride 5 Mg Tablet 5 Mg PO DAILY Colace (Docusate Sodium) 100 Mg Capsule 100 Mg PO PRN BID PRN Senokot (Sennosides) 8.6 Mg Tablet 8.6 Mg PO BID Bisacodyl 10 Mg Supp.rect 10 Mg RC PRN DAILY PRN Tylenol (Acetaminophen) 325 Mg Tablet 650 Mg PO PRN Q6HRS PRN I have reviewed the current psychotropics carefully including drug interactions. Risk benefit ratio favors no change other than as noted in my dictated progress note. Diagnosis: Problems: (1) Anxiety disorder (2) Bipolar affective, mixed, sev w/ psych (3) Dementia, vascular, with delusions (4) Mild cognitive impairment (5) Osteomyelitis of hand, left, acute (6) Quadriplegia MARQUIS SCOTT MD Dec 09, 2017 20:50
--- NOTE | 2017-12-09 21:01 | PN ---
DATE: 12/08/2017 This is a late entry for 12/08/2017 covers elements not covered in my initial note of 12/08/2017. SUBJECTIVE: The patient was seen in the evening. Per nursing report, bedside swallow study was unremarkable. The patient spends much time in his bed in his room listening to music, quite appropriate, cognitively much clearer. REVIEW OF SYSTEMS: Ambulation impaired. No CV, , pulmonary, eye system symptoms on review. MENTAL STATUS EXAM: Oriented to himself and situation. Speech has some latency, coherent. Abstraction fair. Computation, able to do one step on serial 7's. Memory able to remember 2/3 objects at 3 minutes. Attention span short. Mood and affect is improved. No suicidal or homicidal ideation. IMPRESSION: Unchanged from initial note. PLAN: Continue current psychotropics, lithium, Risperdal, Remeron, Ativan and trazodone the latter to PRNs. MARQUIS SCOTT MD DR: ARIA/rut JOB#: [id number] / [id number]
--- NOTE | 2017-12-09 23:23 | NUR ---
Behavior Intervention Response and Plan: BIRP Note: Behavior: Assumed Care of patient, patient located in Patient Room at shift change. Patient exhibited the following behavior Restless, Calm, Appropriate. Brief assessment on rounds of vital signs, medication needs, lab studies, and pain. Treatment plan problems 1 and 2. Intervention: Patient assessed and the following interventions initiated safety checks 15 Minute Checks Cognitive Assessment , Head to toe Assessment , Medications. Response: After interactions and interventions patient responded in the following manner, Calm , Compliant ,Cooperative. Continue to assess behaviors and condition will continue to monitor throughout the shift as needed. Patient educated on ADL's, and hand hygiene. Plan: Continue to monitor Master Treatment Plan for patient's progress toward short term goals of Decreased Anxiety, Improved Mood, long winder tender goals to return to previous living setting vs placement. Continue to assess patient for changes in above assessment. Monitor for medication needs, pain, and safety concerns. Hourly rounding performed to ensure safe environment.
[2017-12-10] MEDS: LEVOTHYROXINE 50 MCG TABLET PO SCH (05:15)
[2017-12-10] MEDS: ACETAMINOPHEN 325 MG TABLET PO PRN (05:18)
[2017-12-10 06:22] VITALS: BP 101/58
[2017-12-10] MEDS: CHOLECALCIFEROL (VITAMIN D3) 50,000 UNIT CAPSULE PO SCH (09:00)
[2017-12-10] MEDS: BACLOFEN 10 MG TABLET PO SCH ×2 (09:14→19:16)
[2017-12-10] MEDS: POLYETHYLENE GLYCOL 3350 17 GM PACKET. PO SCH ×2 (09:14→19:16)
[2017-12-10] MEDS: FAMOTIDINE 20 MG TABLET PO SCH ×2 (09:14→19:16)
[2017-12-10] MEDS: SENNOSIDES 8.6 MG TABLET PO SCH ×2 (09:14→19:16)
[2017-12-10] MEDS: CETIRIZINE HCL 10 MG TABLET PO SCH (09:14)
[2017-12-10] MEDS: FINASTERIDE 5 MG TABLET PO SCH (09:15)
[2017-12-10] MEDS: LACTOBACILLUS RHAMNOSUS GG 1 CAPSULE. PO SCH ×2 (09:15→19:16)
[2017-12-10] MEDS: LITHIUM CARBONATE 150 MG CAPSULE. PO SCH ×2 (09:15→19:16)
[2017-12-10] MEDS: MULTIVITAMIN with MINERAL TABLET. PO SCH (09:15)
[2017-12-10] MEDS: ASCORBIC ACID 500 MG TABLET PO SCH (09:15)
--- NOTE | 2017-12-10 10:52 | PN ---
DATE: 12/09/2017 This is a late entry, 12/09/2017, covers the elements not covered in my initial note, 12/09/2017. SUBJECTIVE: I met with the patient in the evening. Per nursing report, the patient has been screaming out quite anxious, having different somatic complaints and wanting assistance by the nursing staff for things like Chapstick and wanting water repeatedly and wanting someone to rub his leg. Other than this, he is reasonably, cognitively intact and appropriate. REVIEW OF SYSTEMS: Ambulation impaired, in a Broda chair. He has vague somatic symptoms as above. No CV, , pulmonary, eye system symptoms on review. MENTAL STATUS EXAM: Oriented to himself, situation, and place. He is aware of the year and month, not the date. Speech coherent, less pressured. Abstraction fair, computation impaired, language function intact. Mood and affect generally better, less anxious. No psychotic symptoms. IMPRESSION: Bipolar 1 disorder, mixed with psychotic features, in partial remission. PLAN: Continue psychotropics from initial note. MAN Lindsey SCOTT MD DR: ARIA/rut JOB#: [id number] / [id number]
--- NOTE | 2017-12-10 11:31 | NUR ---
SW met w/pt to discuss dc plans. Pt was in very good spirits, reported feeling much better and was thankful to be alive. Pt stated he realizes he still yells out at times and has bad days, but hopes staff realizes he is in pain. CARLOS validated pt and told pt there is not a call light and no other way to notify staff he is in need of anything other then to call out for staff, so yelling out for staff is just fine as he is confined to his bed. Pt laughed and showed SW his hands (retracted) and stated he could not push a call light anyways! SW reported to pt SW was working on placement and will get him transitioned just as soon as the [facility] is able to complete the VA contract - again laughing w/the pt because "we all know how fast the VA works at anything!". Pt was very appreciative of SW helping the pt w/placement and the VA contract. CARLOS told pt SW had talked w/pt's brother recently and would continue to update pt and his family as more news is made available. Pt spoke very lovingly about seeing his brother and during a visit recently. CARLOS will continue to update pt regarding placement.
--- NOTE | 2017-12-10 13:43 | NUR ---
Behavior Intervention Response and Plan: BIRP Note: Behavior: Assumed Care of patient, patient located in Patient Room at shift change. Patient exhibited the following behavior Restless, Interactive, Disorganized. Brief assessment on rounds of vital signs, medication needs, lab studies, and pain. Treatment plan problems 1-2. Intervention: Patient assessed and the following interventions initiated safety checks 15 Minute Checks Cognitive Assessment , Head to toe Assessment , Medications. Response: After interactions and interventions patient responded in the following manner, Restless , Interactive ,Disorganized. Continue to assess behaviors and condition will continue to monitor throughout the shift as needed. Patient educated on ADL's, and hand hygiene. Plan: Continue to monitor Master Treatment Plan for patient's progress toward short term goals of Medication Compliance, No harm To self/ others, oysterman goals to return to previous living setting vs placement. Continue to assess patient for changes in above assessment. Monitor for medication needs, pain, and safety concerns. Hourly rounding performed to ensure safe environment.
--- NOTE | 2017-12-10 14:32 | NUR ---
CARLOS left a 2nd message for Gem Elizabeth, [place] SW covering for Maia Gutierrezsofiya this week. CARLOS is attempting to gather additional information regarding VA contract approval as Maia's voicemail to this SW at the end of last week was it was still being processed, but may be expedited if a facility was willing to accept pt. [facility] will be out to assess pt on for possible admit upon VA contract approval.
--- NOTE | 2017-12-10 15:00 | NUR ---
WEEKLY THERAPEUTIC RECREATION NOTE Date of Admission: 11/29/2017 Date of AT Assessment: 12/02/2017 Goal aimed: to increase stimulation Initial goal: Pt. will participate in at least one group a day. Weekly progress towards goal: on track Group participation level: minimal Behaviors observed: Spent most of his time in his room, resting listening to music Plan: No change to goal.
--- NOTE | 2017-12-10 15:35 | NUR ---
Wound Care: Patient seen per wound care follow up regarding buttock pressure ulcer. Pt has stage III to bilateral buttocks. Pt also has surgical incision to distal portion of left 5th finger. Cleansed and measured wounds. Recommendations for Hydrocolloid to bilateral buttock and cover with Aquacel foam changing every 4 days or sooner if becomes soiled. Pt is on P500 bed and should be left to right turns only. To the left 5th finger applied Xeroform gauze and wrapped with kerlix. No other wounds noted on complete head to toe assessment. Pt turned to the right side at this time. Floated heels and educated pt on pressure ulcer prevention. WC will continue to follow patient regarding wound care.
[2017-12-10 16:14] VITALS: BP 130/69
[2017-12-10] MEDS: MIRTAZAPINE 15 MG TABLET PO SCH (19:16)
[2017-12-10] MEDS: risperiDONE 0.5 MG TABLET. PO SCH (19:16)
[2017-12-10] MEDS: TERAZOSIN 5 MG CAPSULE. PO SCH (19:17)
[2017-12-10] MEDS: traZODone 50 MG TABLET. PO PRN (19:20)
--- NOTE | 2017-12-10 20:45 | PDOC ---
Exam Note: Torsten Note: Please also refer to the separate dictated note~for this date of service dictated separately.~Patient seen individually. Discussed the patient with Nursing staff reviewed the chart.~Reviewed interim history and current functioning. Reviewed vital signs,~Labs/ Radiology~and current medications noted below. Continue current treatment with the changes noted in the dictated addendum note Assessment: Vital Signs: Vital Signs Date Time Temp Pulse Resp B/P (MAP) Pulse Ox O2 Delivery O2 Flow Rate FiO2 12/10/17 19:17 74 130/69 12/10/17 16:14 98.6 16 96 12/09/17 22:46 Room Air I&O Intake and Output 12/10/17 07:00 Intake Total 2680 ml Output Total 1450 ml Balance 1230 ml Intake Oral 2680 ml Output Urine Total 1450 ml Current Medications: Meds: Current Medications Acetaminophen (Tylenol) 650 mg PRN Q6HRS PRN PO PAIN / TEMP Last administered on 12/10/17 05:18; Start 11/29/17 at 21:15 Multi-Ingredient Ointment (Analgesic [place]) 1 warren PRN QID PRN TP MUSCLE PAIN; Start 11/29/17 at 21:15 Al Hydroxide/Mg Hydroxide (Mylanta Plus Xs) 15 ml PRN AFTMEALHC PRN PO DYSPEPSIA Last administered on 11/30/17at 03:43; Start 11/29/17 at 21:15 Magnesium Hydroxide (Milk Of Magnesia) 2,400 mg PRN QHS PRN PO CONSTIPATION; Start 11/29/17 at 21:15 Mirtazapine (Remeron) 7.5 mg QHS PO Last administered on 12/05/17at 19:52; Start 11/29/17 at 22:00; Stop 12/06/17 at 18:13; Status DC Olanzapine (ZyPREXA ZYDIS) 5 mg PRN Q2HR PRN PO PSYCHOSIS Last administered on 12/06/17at 10:11; Start 11/29/17 at 21:15 Baclofen (Lioresal) 10 mg BID PO Last administered on 12/10/17 19:16; Start at 22:00 [place] Carbonate 150 mg DAILY PO Last administered on 12/10/17at 09:15; Start at 09:00 [place] Carbonate 300 mg QHS PO Last administered on 12/10/17 19:16; Start at 22:00 Lorazepam (Ativan) 0.5 mg PRN TID PRN PO ANXIETY / AGITATION Last administered on 12/05/17 10:54; Start 11/29/17 at 21:30 Risperidone (RisperDAL) 1.5 mg QHS PO Last administered on 12/10/17 19:16; Start 11/29/17 at 22:00 Trazodone HCl (Desyrel) 50 mg PRN QHS PRN PO INSOMNIA, MAY REPEAT X1 Last administered on 12/10/17 19:20; Start 11/29/17 at 21:30 Vitamin D (Vitamin D3) 5,000 unit DAILY PO Last administered on 12/02/17 07:54 ; Start 11/30/17 at 09:00; Stop 12/02/17 at 15:34; Status DC Multivitamins/ Calcium (Thera-M Plus) 1 tab DAILY PO Last administered on at 09:15; Start 11/30/17 at 09:00 Neomycin/ Polymyxin/ Bacitracin (Triple Antibiotic Ointment) 1 pkt PRN DAILY PRN TP Wound Healing; Start 11/29/17 at 21:15 Simethicone (Gas-X) 80 mg PRN AFTMEALHC PRN PO GAS / BLOATING; Start 11/29/17 at 21:15 Ascorbic Acid (Vitamin C) 500 mg DAILY PO Last administered on 12/10/17at 09:15; Start 11/30/17 at 09:00 Bisacodyl (Dulcolax Supp) 10 mg PRN DAILY PRN [place] CONSTIPATION; Start 11/29/17 at 21:30 Cetirizine HCl (ZyrTEC) 10 mg DAILY PO Last administered on 12/10/17at 09:14; Start 11/30/17 at 09:00 Docusate Sodium (Colace) 100 mg PRN BID PRN PO CONSTIPATION; Start 11/29/17 at 21:30 Famotidine (Pepcid) 20 mg BIDBFRMEAL PO Last administered on 11/30/17at 07:49; Start 11/30/17 at 07:30; Stop 11/30/17 at 07:53; Status DC Finasteride (Proscar) 5 mg DAILY PO Last administered on 12/10/17 09:15; Start 11/30/17 at 09:00 Lactobacillus Rhamnosus (Culturelle) 1 cap BID PO Last administered on 19:16; Start 11/29/17 at 22:00 Oxycodone HCl (Roxicodone) 5 mg PRN Q6HRS PRN PO PAIN Last administered on 21:46; Start 11/29/17 at 21:30 Polyethylene Glycol (miraLAX) 17 gm BID PO Last administered on 12/10/17 19:16 ; Start 11/29/17 at 22:00 Sennosides (Senna) 8.6 mg BID PO Last administered on 12/10/17 19:16; Start at 22:00 Terazosin HCl (Hytrin) 10 mg QHS PO Last administered on 12/10/17 19:17; Start 11/29/17 at 22:00 Ondansetron HCl (Zofran Odt) 4 mg PRN Q8HRS PRN PO NAUSEA/VOMITING; Start 11/29 at 21:30 Famotidine (Pepcid) 20 mg BID PO Last administered on 12/10/17 19:16; Start at 21:00 Levothyroxine Sodium (Synthroid) 50 mcg DAILY06 PO Last administered on 05:15; Start 12/01/17 at 06:00 Vitamin D (Vitamin D3) 50,000 unit WEEKLY PO Last administered on 12/10/17 09: 00; Start 12/03/17 at 09:00 Mirtazapine (Remeron) 15 mg QHS PO Last administered on 12/10/17 19:16; Start 12/06/17 at 21:00 Active Scripts Active Reported Zofran Odt (Ondansetron) 4 Mg Tab.rapdis 4 Mg PO PRN Q6HRS PRN Simethicone 80 Mg Tab.chew 80 Mg PO PRN AFTMEALHC PRN Thera M Plus Tablet (Multivits,Ca,Minerals/Iron/FA) 1 Each Tablet 1 Tab PO DAILY Mirtazapine 7.5 Mg Tablet 7.5 Mg PO QHS Milk Of Magnesia (Magnesium Hydroxide) 400 Mg/5 Ml Oral.susp 2,400 Mg PO PRN DAILY PRN Culturelle (Lactobacillus Rhamnosus Gg) 1 Each Capsule 1 Each PO BID Vitamin D3 (Cholecalciferol (Vitamin D3)) 1,000 Unit Tablet 5,000 Unit PO DAILY Zyrtec (Cetirizine Hcl) 10 Mg Tablet 10 Mg PO DAILY Vitamin C (Ascorbate Calcium) 500 Mg Tablet 500 Mg PO DAILY Trazodone Hcl 50 Mg Tablet 50 Mg PO PRN QHS PRN Risperdal (Risperidone) 1 Mg Tablet 1.5 Mg PO QHS Zyprexa Zydis (Olanzapine) 5 Mg Tab.rapdis 5 Mg PO PRN Q2HR PRN [place] Carbonate 150 Mg Capsule 150 Mg PO DAILY Miralax (Polyethylene Glycol 3350) 17 Gm Powd.pack 17 Gm PO BID Triple Antibiotic Ointment (Neomy Sulf/Bacitra/Polymyxin B) 1 Each Packet 1 Packet TP PRN DAILY PRN Oxycodone Hcl 5 Mg Capsule 5 Mg PO PRN Q6HRS PRN Lorazepam 0.5 Mg Tablet 0.5 Mg PO TID PRN PRN Famotidine 20 Mg Tablet 20 Mg PO BIDBFRMEAL Terazosin Hcl 10 Mg Capsule 10 Mg PO DAILY [place] Carbonate 300 Mg Capsule 300 Mg PO HS Baclofen 10 Mg Tablet 10 Mg PO BID Maalox Maximum Strength Susp (Mag Hydrox/Al Hydrox/Simeth) 355 Ml Oral.susp 30 Ml PO PRN Q2HR PRN Finasteride 5 Mg Tablet 5 Mg PO DAILY Colace (Docusate Sodium) 100 Mg Capsule 100 Mg PO PRN BID PRN Senokot (Sennosides) 8.6 Mg Tablet 8.6 Mg PO BID Bisacodyl 10 Mg Supp.rect 10 Mg RC PRN DAILY PRN Tylenol (Acetaminophen) 325 Mg Tablet 650 Mg PO PRN Q6HRS PRN I have reviewed the current psychotropics carefully including drug interactions. Risk benefit ratio favors no change other than as noted in my dictated progress note. Diagnosis: Problems: (1) Anxiety disorder (2) Bipolar affective, mixed, sev w/ psych (3) Dementia, vascular, with delusions (4) Mild cognitive impairment (5) Osteomyelitis of hand, left, acute (6) Quadriplegia MARQUIS SCOTT MD Dec 10, 2017 20:45
--- NOTE | 2017-12-10 23:08 | NUR ---
Behavior Intervention Response and Plan: BIRP Note: Behavior: Assumed Care of patient, patient located in Day Room at shift change. Patient exhibited the following behavior Calm, Interactive, Cooperative. Brief assessment on rounds of vital signs, medication needs, lab studies, and pain. Treatment plan problems 1 and 2. Intervention: Patient assessed and the following interventions initiated safety checks 15 Minute Checks Cognitive Assessment , Head to toe Assessment , Medications. Response: After interactions and interventions patient responded in the following manner, Calm , Compliant ,Cooperative. Continue to assess behaviors and condition will continue to monitor throughout the shift as needed. Patient educated on ADL's, and hand hygiene. Plan: Continue to monitor Master Treatment Plan for patient's progress toward short term goals of No harm To self/ others, Improved Mood, intermediate goals to return to previous living setting vs placement. Continue to assess patient for changes in above assessment. Monitor for medication needs, pain, and safety concerns. Hourly rounding performed to ensure safe environment.
[2017-12-10] MEDS: oxyCODONE IR 5 MG TABLET PO PRN (23:33)
[2017-12-11] MEDS: ACETAMINOPHEN 325 MG TABLET PO PRN ×2 (03:11→21:31)
[2017-12-11] MEDS: LEVOTHYROXINE 50 MCG TABLET PO SCH (05:29)
[2017-12-11] MEDS: oxyCODONE IR 5 MG TABLET PO PRN ×3 (05:29→22:29)
[2017-12-11 06:24] VITALS: BP 108/51
[2017-12-11] MEDS: LITHIUM CARBONATE 150 MG CAPSULE. PO SCH ×2 (07:49→19:37)
[2017-12-11] MEDS: CETIRIZINE HCL 10 MG TABLET PO SCH (07:49)
[2017-12-11] MEDS: BACLOFEN 10 MG TABLET PO SCH ×2 (07:49→19:37)
[2017-12-11] MEDS: LACTOBACILLUS RHAMNOSUS GG 1 CAPSULE. PO SCH ×2 (07:49→19:37)
[2017-12-11] MEDS: FAMOTIDINE 20 MG TABLET PO SCH ×2 (07:49→19:38)
[2017-12-11] MEDS: FINASTERIDE 5 MG TABLET PO SCH (07:49)
[2017-12-11] MEDS: POLYETHYLENE GLYCOL 3350 17 GM PACKET. PO SCH ×2 (07:49→19:38)
[2017-12-11] MEDS: SENNOSIDES 8.6 MG TABLET PO SCH ×2 (07:49→19:37)
[2017-12-11] MEDS: MULTIVITAMIN with MINERAL TABLET. PO SCH (07:49)
[2017-12-11] MEDS: ASCORBIC ACID 500 MG TABLET PO SCH (07:49)
--- NOTE | 2017-12-11 12:19 | NUR ---
Nursing Notes Pt in good spirits today, was even singing with me to a Zack Cuellar song. He knows all of the words and sings it really well, even is kind of chair dancing, and smiling ear to ear. He states that was super fun, thanks for singing with me I love Zack Cuellar. Med compliant and cooperative.
--- NOTE | 2017-12-11 13:51 | NUR ---
DON from [facility] out to eval pt for possible admission. They are able to accept pt as early as Friday, pending VA contract. CARLOS received call from CARLOS Rabago at [place] stating they should have everything signed by the Chief Photoengraving Sketch Maker by noon tomorrow regarding the VA Contract. CARLOS then contacted pt's brother, Drew to provide update on [facility] accepting pt for admit as early as Friday. CARLOS stated dc could be planned for Friday to ensure enough time is provided for admission paperwork to be signed and belongings to be transferred. Drew shared his concerns regarding both [facility] and [facility] having low ratings and felt uncomfortable having pt transition to a facility that may not be best suited for pt. CARLOS validated Drew's concerns but also stated due to pt's VA Contract as payor source, it severely limited options for facilities, and although there are 3 additional facilities in the area, they would very likely not accept pt due to his behaviors and needs. Drew understood this. Drew asked for the weekend to tour [facility] and [facility] to determine how he felt about the facilities. CARLOS stated pt is ready for dc and really needed to plan for dc on Friday. CARLOS then contacted [facility] and inquired about VA contract and they have one male bed available. CARLOS will send referral for review. CARLOS contacted Drew back and will provide information via email at for him to research this evening and encouraged him to tour along w/[facility] on Friday to make a determination for placement.
--- NOTE | 2017-12-11 15:53 | NUR ---
CARLOS received call from CARLOS Rabago at [place] requesting assistance w/communicating w/pt's as she called to verify placement w/Mrs. Medina and she stated she would not allow pt to go to [facility]. Gem stated there were limited options for pt, and also verified what this CARLOS had already told Drew regarding certain facilities not accepting certain types of behaviors and care. Gem is requiring placement to be secured by late Friday morning as she is attempting to obtain permission to get a broda chair prior to dc for pt. CARLOS provided phone number for Gem to contact Drew to further discuss the importance of visiting [facility] and [facility] Friday morning if at all possible to help make a decision.
[2017-12-11 16:18] VITALS: BP 129/64
[2017-12-11] MEDS: risperiDONE 0.5 MG TABLET. PO SCH (19:37)
[2017-12-11] MEDS: MIRTAZAPINE 15 MG TABLET PO SCH (19:37)
[2017-12-11] MEDS: TERAZOSIN 5 MG CAPSULE. PO SCH (19:40)
--- NOTE | 2017-12-11 22:24 | PDOC ---
Exam Note: Torsten Note: Please also refer to the separate dictated note~for this date of service dictated separately.~Patient seen individually. Discussed the patient with Nursing staff reviewed the chart.~Reviewed interim history and current functioning. Reviewed vital signs,~Labs/ Radiology~and current medications noted below. Continue current treatment with the changes noted in the dictated addendum note Assessment: Vital Signs: Vital Signs Date Time Temp Pulse Resp B/P (MAP) Pulse Ox O2 Delivery O2 Flow Rate FiO2 12/11/17 19:40 65 105/60 12/11/17 18:29 20 12/11/17 16:18 98.6 100 Room Air I&O Intake and Output 12/11/17 07:00 Intake Total 2420 ml Output Total 3050 ml Balance -630 ml Intake Oral 2420 ml Output Urine Total 3050 ml # Bowel Movements 1 Current Medications: Meds: Current Medications Acetaminophen (Tylenol) 650 mg PRN Q6HRS PRN PO PAIN / TEMP Last administered on 12/11/17 21:31; Start 11/29/17 at 21:15 Multi-Ingredient Ointment (Analgesic [place]) 1 warren PRN QID PRN TP MUSCLE PAIN Last administered on 12/11/17 21:24; Start 11/29/17 at 21:15 Al Hydroxide/Mg Hydroxide (Mylanta Plus Xs) 15 ml PRN AFTMEALHC PRN PO DYSPEPSIA Last administered on 11/30/17 03:43; Start 11/29/17 at 21:15 Magnesium Hydroxide (Milk Of Magnesia) 2,400 mg PRN QHS PRN PO CONSTIPATION; Start 11/29/17 at 21:15 Mirtazapine (Remeron) 7.5 mg QHS PO Last administered on 12/05/17 19:52; Start 11/29/17 at 22:00; Stop 12/06/17 at 18:13; Status DC Olanzapine (ZyPREXA ZYDIS) 5 mg PRN Q2HR PRN PO PSYCHOSIS Last administered on 12/06/17 10:11; Start 11/29/17 at 21:15 Baclofen (Lioresal) 10 mg BID PO Last administered on 12/11/17 19:37; Start at 22:00 [place] Carbonate 150 mg DAILY PO Last administered on 12/11/17 07:49; Start at 09:00 [place] Carbonate 300 mg QHS PO Last administered on 12/11/17 19:37; Start at 22:00 Lorazepam (Ativan) 0.5 mg PRN TID PRN PO ANXIETY / AGITATION Last administered on 12/05/17 10:54; Start 11/29/17 at 21:30 Risperidone (RisperDAL) 1.5 mg QHS PO Last administered on 12/11/17 19:37; Start 11/29/17 at 22:00 Trazodone HCl (Desyrel) 50 mg PRN QHS PRN PO INSOMNIA, MAY REPEAT X1 Last administered on 12/10/17 19:20; Start 11/29/17 at 21:30 Vitamin D (Vitamin D3) 5,000 unit DAILY PO Last administered on 12/02/17 07:54 ; Start 11/30/17 at 09:00; Stop 12/02/17 at 15:34; Status DC Multivitamins/ Calcium (Thera-M Plus) 1 tab DAILY PO Last administered on 07:49; Start 11/30/17 at 09:00 Neomycin/ Polymyxin/ Bacitracin (Triple Antibiotic Ointment) 1 pkt PRN DAILY PRN TP Wound Healing; Start 11/29/17 at 21:15 Simethicone (Gas-X) 80 mg PRN AFTMEALHC PRN PO GAS / BLOATING; Start 11/29/17 at 21:15 Ascorbic Acid (Vitamin C) 500 mg DAILY PO Last administered on 12/11/17 07:49; Start 11/30/17 at 09:00 Bisacodyl (Dulcolax Supp) [address] CONSTIPATION; Start 11/29/17 at 21:30 Cetirizine HCl (ZyrTEC) 10 mg DAILY PO Last administered on 12/11/17 07:49; Start 11/30/17 at 09:00 Docusate Sodium (Colace) 100 mg PRN BID PRN PO CONSTIPATION; Start 11/29/17 at 21:30 Famotidine (Pepcid) 20 mg BIDBFRMEAL PO Last administered on 11/30/17at 07:49; Start 11/30/17 at 07:30; Stop 11/30/17 at 07:53; Status DC Finasteride (Proscar) 5 mg DAILY PO Last administered on 12/11/17 07:49; Start 11/30/17 at 09:00 Lactobacillus Rhamnosus (Culturelle) 1 cap BID PO Last administered on 19:37; Start 11/29/17 at 22:00 Oxycodone HCl (Roxicodone) 5 mg PRN Q6HRS PRN PO PAIN Last administered on 16:28; Start 11/29/17 at 21:30 Polyethylene Glycol (miraLAX) 17 gm BID PO Last administered on 12/11/17 19:38 ; Start 11/29/17 at 22:00 Sennosides (Senna) 8.6 mg BID PO Last administered on 12/11/17 19:37; Start at 22:00 Terazosin HCl (Hytrin) 10 mg QHS PO Last administered on 12/10/17 19:17; Start 11/29/17 at 22:00 Ondansetron HCl (Zofran Odt) 4 mg PRN Q8HRS PRN PO NAUSEA/VOMITING; Start 11/29 at 21:30 Famotidine (Pepcid) 20 mg BID PO Last administered on 12/11/17 19:38; Start at 21:00 Levothyroxine Sodium (Synthroid) 50 mcg DAILY06 PO Last administered on 05:29; Start 12/01/17 at 06:00 Vitamin D (Vitamin D3) 50,000 unit WEEKLY PO Last administered on 12/10/17 09: 00; Start 12/03/17 at 09:00 Mirtazapine (Remeron) 15 mg QHS PO Last administered on 12/11/17 19:37; Start 12/06/17 at 21:00 Active Scripts Active Reported Zofran Odt (Ondansetron) 4 Mg Tab.rapdis 4 Mg PO PRN Q6HRS PRN Simethicone 80 Mg Tab.chew 80 Mg PO PRN AFTMEALHC PRN Thera M Plus Tablet (Multivits,Ca,Minerals/Iron/FA) 1 Each Tablet 1 Tab PO DAILY Mirtazapine 7.5 Mg Tablet 7.5 Mg PO QHS Milk Of Magnesia (Magnesium Hydroxide) 400 Mg/5 Ml Oral.susp 2,400 Mg PO PRN DAILY PRN Culturelle (Lactobacillus Rhamnosus Gg) 1 Each Capsule 1 Each PO BID Vitamin D3 (Cholecalciferol (Vitamin D3)) 1,000 Unit Tablet 5,000 Unit PO DAILY Zyrtec (Cetirizine Hcl) 10 Mg Tablet 10 Mg PO DAILY Vitamin C (Ascorbate Calcium) 500 Mg Tablet 500 Mg PO DAILY Trazodone Hcl 50 Mg Tablet 50 Mg PO PRN QHS PRN Risperdal (Risperidone) 1 Mg Tablet 1.5 Mg PO QHS Zyprexa Zydis (Olanzapine) 5 Mg Tab.rapdis 5 Mg PO PRN Q2HR PRN [place] Carbonate 150 Mg Capsule 150 Mg PO DAILY Miralax (Polyethylene Glycol 3350) 17 Gm Powd.pack 17 Gm PO BID Triple Antibiotic Ointment (Neomy Sulf/Bacitra/Polymyxin B) 1 Each Packet 1 Packet TP PRN DAILY PRN Oxycodone Hcl 5 Mg Capsule 5 Mg PO PRN Q6HRS PRN Lorazepam 0.5 Mg Tablet 0.5 Mg PO TID PRN PRN Famotidine 20 Mg Tablet 20 Mg PO BIDBFRMEAL Terazosin Hcl 10 Mg Capsule 10 Mg PO DAILY [place] Carbonate 300 Mg Capsule 300 Mg PO HS Baclofen 10 Mg Tablet 10 Mg PO BID Maalox Maximum Strength Susp (Mag Hydrox/Al Hydrox/Simeth) 355 Ml Oral.susp 30 Ml PO PRN Q2HR PRN Finasteride 5 Mg Tablet 5 Mg PO DAILY Colace (Docusate Sodium) 100 Mg Capsule 100 Mg PO PRN BID PRN Senokot (Sennosides) 8.6 Mg Tablet 8.6 Mg PO BID Bisacodyl 10 Mg Supp.rect 10 Mg RC PRN DAILY PRN Tylenol (Acetaminophen) 325 Mg Tablet 650 Mg PO PRN Q6HRS PRN I have reviewed the current psychotropics carefully including drug interactions. Risk benefit ratio favors no change other than as noted in my dictated progress note. Diagnosis: Problems: (1) Anxiety disorder (2) Bipolar affective, mixed, sev w/ psych (3) Dementia, vascular, with delusions (4) Mild cognitive impairment (5) Osteomyelitis of hand, left, acute (6) Quadriplegia MARQUIS SCOTT MD Dec 11, 2017 22:24
[2017-12-12] MEDS: traZODone 50 MG TABLET. PO PRN (01:11)
--- NOTE | 2017-12-12 03:34 | NUR ---
Nursing Note Patient given PRN Analgesic [place]@2123, PRN Tylenol@2130,PRN Oxycodone@2228. Patient Alert and oriented to self and location. Patient is calm and cooperative with assessment. Patient is interactive and pleasant during interaction. Patient requesting PRN pain medication for leg pain. Patient states that pain medications were effective. Patient remains in bed at this time.
[2017-12-12] MEDS: ACETAMINOPHEN 325 MG TABLET PO PRN (03:56)
[2017-12-12 05:44] VITALS: BP 116/64
[2017-12-12] MEDS: LEVOTHYROXINE 50 MCG TABLET PO SCH (07:21)
[2017-12-12] MEDS: SENNOSIDES 8.6 MG TABLET PO SCH ×2 (07:48→21:19)
[2017-12-12] MEDS: ASCORBIC ACID 500 MG TABLET PO SCH (07:48)
[2017-12-12] MEDS: LITHIUM CARBONATE 150 MG CAPSULE. PO SCH ×2 (07:48→21:19)
[2017-12-12] MEDS: CETIRIZINE HCL 10 MG TABLET PO SCH (07:48)
[2017-12-12] MEDS: LACTOBACILLUS RHAMNOSUS GG 1 CAPSULE. PO SCH ×2 (07:48→21:18)
[2017-12-12] MEDS: FINASTERIDE 5 MG TABLET PO SCH (07:48)
[2017-12-12] MEDS: POLYETHYLENE GLYCOL 3350 17 GM PACKET. PO SCH ×2 (07:48→21:19)
[2017-12-12] MEDS: MULTIVITAMIN with MINERAL TABLET. PO SCH (07:48)
[2017-12-12] MEDS: FAMOTIDINE 20 MG TABLET PO SCH ×2 (07:48→21:17)
[2017-12-12] MEDS: BACLOFEN 10 MG TABLET PO SCH ×2 (07:48→21:18)
--- NOTE | 2017-12-12 09:41 | NUR ---
Behavior Intervention Response and Plan: BIRP Note: Behavior: Assumed Care of patient, patient located in Day Room at shift change. Patient exhibited the following behavior Interactive, Calm, Compliant. Brief assessment on rounds of vital signs, medication needs, lab studies, and pain. Treatment plan problems . Intervention: Patient assessed and the following interventions initiated safety checks 15 Minute Checks Cognitive Assessment , Head to toe Assessment , Medications. Response: After interactions and interventions patient responded in the following manner, Interactive , Calm ,Compliant. Continue to assess behaviors and condition will continue to monitor throughout the shift as needed. Patient educated on ADL's, and hand hygiene.
--- NOTE | 2017-12-12 12:28 | PN ---
DATE: 12/10/2017 PSYCHIATRIC PROGRESS NOTE This is a late entry 12/10/2017 covers elements not covered in my initial note. SUBJECTIVE: I met with the patient in the evening. The patient slept 4-1/4 hours. He does get anxious at times, asks for help, screams out, but much better. Appetite is improved. Cognitively, he is much clearer. REVIEW OF SYSTEMS: Ambulation impaired, in Broda chair. No CV, , pulmonary, eye system symptoms on review. MENTAL STATUS EXAM: Oriented to himself and situation. Speech has some latency, coherent, less pressured. Abstraction fair, computation impaired, language function intact, attention span short. Mood and affect showing improvement, improved lability. LABORATORY DATA: [place] level 0.8. IMPRESSION: Bipolar 1 disorder, mixed with psychotic features, in partial remission; cognitive disorder, unspecified. PLAN: Continue current psychotropics. Discussed with social service staff with possible transition to skilled nursing by the end of the week. MAN Lindsey SCOTT MD DR: ARIA/rut JOB#: [id number] / [id number]
[2017-12-12 15:52] VITALS: BP 125/69
--- NOTE | 2017-12-12 16:57 | NUR ---
pt up for meals. in pleasant spirits. compliant with meds and cares. [facility]
--- NOTE | 2017-12-12 17:26 | NUR ---
CARLOS coordinate placement w/pt, pt's family and [facility] today. Pt will be discharging on Friday as [facility] will need to order a Broda for pt. [facility] was [facility] for payor source.
--- NOTE | 2017-12-12 17:27 | NUR ---
[facility] Social Work Discharge Planning Form Patient Name SYLWIA TRUJILLO Admit Date: 11/29/17 DISCHARGE PLAN Discharge Destination: new to [facility] Care Assessment: complete Level II Assessment: does not trigger Transportation: Facility to transport 12/15/17 time TBD (11?) DISCHARGE TO FACILITY Facility: [facility] Address: [address] [place] [id number] Contact Name: LYNDA Serrato PCP: at facility w/in 7-10 days of dc Psychiatrist: at facility w/in 7-10 days of dc
--- NOTE | 2017-12-12 18:41 | PN ---
DATE: 12/11/2017 PSYCHIATRIC PROGRESS NOTE This late entry 12/11/2017 covers elements not covered in my initial note 12/11/2017. SUBJECTIVE: I met with the patient in the evening and staffed at a treatment team meeting with entire team in the morning. Review of the patient's history, diagnosis, progress, discharge plan possibly for 12/12/2017. He got a new wound dressing the day before. He is wearing a glove over this hand. He yells out at times. Social service staffs are [facility] or may be accepted to [facility] per social service staff discussed at the morning treatment team meeting. I met with him in the evening. REVIEW OF SYSTEMS: Ambulation impaired, in Broda chair. No CV, , pulmonary, eye, ENT system symptoms on review. MENTAL STATUS EXAM: Oriented to himself and situation. Speech coherent, less pressured. Abstraction fair, computation impaired. Mood and affect is improved. No suicidal or homicidal ideation. LABORATORIES: Reviewed. IMPRESSION: Unchanged from initial note. PLAN: No change from a psychiatric standpoint. MAN Lindsey SCOTT MD DR: ARIA/rut JOB#: [id number] / [id number]
--- NOTE | 2017-12-12 20:00 | NUR ---
Behavior Intervention Response and Plan: BIRP Note: Behavior: Assumed Care of patient, patient located in Patient Room at shift change. Patient exhibited the following behavior Disorganized, Calm, Social. Brief assessment on rounds of vital signs, medication needs, lab studies, and pain. Treatment plan problems . Intervention: Patient assessed and the following interventions initiated safety checks 15 Minute Checks Cognitive Assessment , Head to toe Assessment , Medications. Response: After interactions and interventions patient responded in the following manner, Disorganized , Interactive ,Cooperative. Continue to assess behaviors and condition will continue to monitor throughout the shift as needed. Patient educated on ADL's, and hand hygiene. 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 Continue to assess patient for changes in above assessment. Monitor for medication needs, pain, and safety concerns. Hourly rounding performed to ensure safe environment.
[2017-12-12] MEDS: risperiDONE 0.5 MG TABLET. PO SCH (21:18)
[2017-12-12] MEDS: GABAPENTIN 100 MG CAPSULE. PO SCH (21:19)
[2017-12-12] MEDS: TERAZOSIN 5 MG CAPSULE. PO SCH (21:19)
[2017-12-12] MEDS: MIRTAZAPINE 15 MG TABLET PO SCH (21:23)
--- NOTE | 2017-12-12 23:10 | PDOC ---
Exam Note: Torsten Note: Please also refer to the separate dictated note~for this date of service dictated separately.~Patient seen individually. Discussed the patient with Nursing staff reviewed the chart.~Reviewed interim history and current functioning. Reviewed vital signs,~Labs/ Radiology~and current medications noted below. Continue current treatment with the changes noted in the dictated addendum note Assessment: Vital Signs: Vital Signs Date Time Temp Pulse Resp B/P (MAP) Pulse Ox O2 Delivery O2 Flow Rate FiO2 12/12/17 21:19 62 125/69 12/12/17 15:52 98.5 18 98 12/11/17 23:29 Room Air I&O Intake and Output 12/12/17 07:00 Intake Total 1560 ml Output Total 1700 ml Balance -140 ml Intake Oral 1560 ml Output Urine Total 1700 ml Current Medications: Meds: Current Medications Acetaminophen (Tylenol) 650 mg PRN Q6HRS PRN PO PAIN / TEMP Last administered on 12/12/17 03:56; Start 11/29/17 at 21:15 Multi-Ingredient Ointment (Analgesic [place]) 1 warren PRN QID PRN TP MUSCLE PAIN Last administered on 12/11/17 21:24; Start 11/29/17 at 21:15 Al Hydroxide/Mg Hydroxide (Mylanta Plus Xs) 15 ml PRN AFTMEALHC PRN PO DYSPEPSIA Last administered on 11/30/17 03:43; Start 11/29/17 at 21:15 Magnesium Hydroxide (Milk Of Magnesia) 2,400 mg PRN QHS PRN PO CONSTIPATION; Start 11/29/17 at 21:15 Mirtazapine (Remeron) 7.5 mg QHS PO Last administered on 12/05/17 19:52; Start 11/29/17 at 22:00; Stop 12/06/17 at 18:13; Status DC Olanzapine (ZyPREXA ZYDIS) 5 mg PRN Q2HR PRN PO PSYCHOSIS Last administered on 12/06/17 10:11; Start 11/29/17 at 21:15 Baclofen (Lioresal) 10 mg BID PO Last administered on 12/12/17 21:18; Start at 22:00 [place] Carbonate 150 mg DAILY PO Last administered on 12/12/17at 07:48; Start at 09:00 [place] Carbonate 300 mg QHS PO Last administered on 12/12/17 21:19; Start at 22:00 Lorazepam (Ativan) 0.5 mg PRN TID PRN PO ANXIETY / AGITATION Last administered on 12/05/17 10:54; Start 11/29/17 at 21:30 Risperidone (RisperDAL) 1.5 mg QHS PO Last administered on 12/12/17 21:18; Start 11/29/17 at 22:00 Trazodone HCl (Desyrel) 50 mg PRN QHS PRN PO INSOMNIA, MAY REPEAT X1 Last administered on 12/12/17 01:11; Start 11/29/17 at 21:30 Vitamin D (Vitamin D3) 5,000 unit DAILY PO Last administered on 12/02/17 07:54 ; Start 11/30/17 at 09:00; Stop 12/02/17 at 15:34; Status DC Multivitamins/ Calcium (Thera-M Plus) 1 tab DAILY PO Last administered on 07:48; Start 11/30/17 at 09:00 Neomycin/ Polymyxin/ Bacitracin (Triple Antibiotic Ointment) 1 pkt PRN DAILY PRN TP Wound Healing; Start 11/29/17 at 21:15 Simethicone (Gas-X) 80 mg PRN AFTMEALHC PRN PO GAS / BLOATING; Start 11/29/17 at 21:15 Ascorbic Acid (Vitamin C) 500 mg DAILY PO Last administered on 12/12/17 07:48; Start 11/30/17 at 09:00 Bisacodyl (Dulcolax Supp) 10 mg PRN DAILY PRN [place] CONSTIPATION; Start 11/29/17 at 21:30 Cetirizine HCl (ZyrTEC) 10 mg DAILY PO Last administered on 12/12/17 07:48; Start 11/30/17 at 09:00 Docusate Sodium (Colace) 100 mg PRN BID PRN PO CONSTIPATION Last administered on 12/12/17 21:18; Start 11/29/17 at 21:30 Famotidine (Pepcid) 20 mg BIDBFRMEAL PO Last administered on 11/30/17at 07:49; Start 11/30/17 at 07:30; Stop 11/30/17 at 07:53; Status DC Finasteride (Proscar) 5 mg DAILY PO Last administered on 12/12/17 07:48; Start 11/30/17 at 09:00 Lactobacillus Rhamnosus (Culturelle) 1 cap BID PO Last administered on 21:18; Start 11/29/17 at 22:00 Oxycodone HCl (Roxicodone) 5 mg PRN Q6HRS PRN PO PAIN Last administered on 22:29; Start 11/29/17 at 21:30 Polyethylene Glycol (miraLAX) 17 gm BID PO Last administered on 12/12/17 21:19 ; Start 11/29/17 at 22:00 Sennosides (Senna) 8.6 mg BID PO Last administered on 12/12/17 21:19; Start at 22:00 Terazosin HCl (Hytrin) 10 mg QHS PO Last administered on 12/12/17 21:19; Start 11/29/17 at 22:00 Ondansetron HCl (Zofran Odt) 4 mg PRN Q8HRS PRN PO NAUSEA/VOMITING; Start 11/29 at 21:30 Famotidine (Pepcid) 20 mg BID PO Last administered on 12/12/17 21:17; Start at 21:00 Levothyroxine Sodium (Synthroid) 50 mcg DAILY06 PO Last administered on 07:21; Start 12/01/17 at 06:00 Vitamin D (Vitamin D3) 50,000 unit WEEKLY PO Last administered on 12/10/17 09: 00; Start 12/03/17 at 09:00 Mirtazapine (Remeron) 15 mg QHS PO Last administered on 12/12/17 21:23; Start 12/06/17 at 21:00 Gabapentin (Neurontin) 100 mg TID PO Last administered on 12/12/17 21:19; Start 12/12/17 at 21:00 Active Scripts Active Reported Zofran Odt (Ondansetron) 4 Mg Tab.rapdis 4 Mg PO PRN Q6HRS PRN Simethicone 80 Mg Tab.chew 80 Mg PO PRN AFTMEALHC PRN Thera M Plus Tablet (Multivits,Ca,Minerals/Iron/FA) 1 Each Tablet 1 Tab PO DAILY Mirtazapine 7.5 Mg Tablet 7.5 Mg PO QHS Milk Of Magnesia (Magnesium Hydroxide) 400 Mg/5 Ml Oral.susp 2,400 Mg PO PRN DAILY PRN Culturelle (Lactobacillus Rhamnosus Gg) 1 Each Capsule 1 Each PO BID Vitamin D3 (Cholecalciferol (Vitamin D3)) 1,000 Unit Tablet 5,000 Unit PO DAILY Zyrtec (Cetirizine Hcl) 10 Mg Tablet 10 Mg PO DAILY Vitamin C (Ascorbate Calcium) 500 Mg Tablet 500 Mg PO DAILY Trazodone Hcl 50 Mg Tablet 50 Mg PO PRN QHS PRN Risperdal (Risperidone) 1 Mg Tablet 1.5 Mg PO QHS Zyprexa Zydis (Olanzapine) 5 Mg Tab.rapdis 5 Mg PO PRN Q2HR PRN [place] Carbonate 150 Mg Capsule 150 Mg PO DAILY Miralax (Polyethylene Glycol 3350) 17 Gm Powd.pack 17 Gm PO BID Triple Antibiotic Ointment (Neomy Sulf/Bacitra/Polymyxin B) 1 Each Packet 1 Packet TP PRN DAILY PRN Oxycodone Hcl 5 Mg Capsule 5 Mg PO PRN Q6HRS PRN Lorazepam 0.5 Mg Tablet 0.5 Mg PO TID PRN PRN Famotidine 20 Mg Tablet 20 Mg PO BIDBFRMEAL Terazosin Hcl 10 Mg Capsule 10 Mg PO DAILY [place] Carbonate 300 Mg Capsule 300 Mg PO HS Baclofen 10 Mg Tablet 10 Mg PO BID Maalox Maximum Strength Susp (Mag Hydrox/Al Hydrox/Simeth) 355 Ml Oral.susp 30 Ml PO PRN Q2HR PRN Finasteride 5 Mg Tablet 5 Mg PO DAILY Colace (Docusate Sodium) 100 Mg Capsule 100 Mg PO PRN BID PRN Senokot (Sennosides) 8.6 Mg Tablet 8.6 Mg PO BID Bisacodyl 10 Mg Supp.rect 10 Mg RC PRN DAILY PRN Tylenol (Acetaminophen) 325 Mg Tablet 650 Mg PO PRN Q6HRS PRN I have reviewed the current psychotropics carefully including drug interactions. Risk benefit ratio favors no change other than as noted in my dictated progress note. Diagnosis: Problems: (1) Anxiety disorder (2) Bipolar affective, mixed, sev w/ psych (3) Dementia, vascular, with delusions (4) Mild cognitive impairment (5) Osteomyelitis of hand, left, acute (6) Quadriplegia MARQUIS SCOTT MD Dec 12, 2017 23:10
[2017-12-13] MEDS: ACETAMINOPHEN 325 MG TABLET PO PRN (01:28)
[2017-12-13 05:38] VITALS: BP 92/56
[2017-12-13] MEDS: LEVOTHYROXINE 50 MCG TABLET PO SCH (06:12)
[2017-12-13] MEDS: ASCORBIC ACID 500 MG TABLET PO SCH (08:19)
[2017-12-13] MEDS: POLYETHYLENE GLYCOL 3350 17 GM PACKET. PO SCH ×2 (08:19→20:58)
[2017-12-13] MEDS: MULTIVITAMIN with MINERAL TABLET. PO SCH (08:19)
[2017-12-13] MEDS: GABAPENTIN 100 MG CAPSULE. PO SCH ×3 (08:19→20:53)
[2017-12-13] MEDS: LITHIUM CARBONATE 150 MG CAPSULE. PO SCH ×2 (08:20→21:02)
[2017-12-13] MEDS: FINASTERIDE 5 MG TABLET PO SCH (08:20)
[2017-12-13] MEDS: FAMOTIDINE 20 MG TABLET PO SCH ×2 (08:20→20:56)
[2017-12-13] MEDS: LACTOBACILLUS RHAMNOSUS GG 1 CAPSULE. PO SCH ×2 (08:20→20:53)
[2017-12-13] MEDS: SENNOSIDES 8.6 MG TABLET PO SCH ×2 (08:20→20:56)
[2017-12-13] MEDS: CETIRIZINE HCL 10 MG TABLET PO SCH (08:20)
[2017-12-13] MEDS: BACLOFEN 10 MG TABLET PO SCH ×2 (08:20→20:52)
--- NOTE | 2017-12-13 12:54 | PN ---
DATE: 12/12/2017 PSYCHIATRIC PROGRESS NOTE This late entry 12/12/2017 covers elements not covered in my initial note. SUBJECTIVE: Met with the patient in the evening. I met with him in his room at length. Per nursing report, he has been fairly appropriate, less hyperverbal and anxious. REVIEW OF SYSTEMS: Ambulation is impaired, in bed. No CV, , pulmonary, eye, ENT system symptoms on review. MENTAL STATUS EXAM: Oriented to himself, situation. Speech is coherent, less pressured. Abstraction fair, computation is impaired, language function intact, attention span short. Mood and affect remains improved, less labile. LABORATORY DATA: Reviewed. IMPRESSION: Unchanged from initial note. PLAN: Continue current psychotropics. [place] level is 0.8 MAN Lindsey SCOTT MD DR: ARIA/rut JOB#: [id number] / [id number]
[2017-12-13 16:13] VITALS: BP 93/57
--- NOTE | 2017-12-13 18:22 | NUR ---
pt up for meals. in pleasant spirits. compliant with meds and cares.
--- NOTE | 2017-12-13 20:00 | NUR ---
Behavior Intervention Response and Plan: BIRP Note: Behavior: Assumed Care of patient, patient located in Patient Room at shift change. Patient exhibited the following behavior Interactive, Social, Cooperative. Brief assessment on rounds of vital signs, medication needs, lab studies, and pain. Treatment plan problems . Intervention: Patient assessed and the following interventions initiated safety checks 15 Minute Checks Cognitive Assessment , Head to toe Assessment , Medications. Response: After interactions and interventions patient responded in the following manner, Drowsy , Interactive ,Appropriate. Continue to assess behaviors and condition will continue to monitor throughout the shift as needed. Patient educated on ADL's, and hand hygiene. 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 Continue to assess patient for changes in above assessment. Monitor for medication needs, pain, and safety concerns. Hourly rounding performed to ensure safe environment.
[2017-12-13] MEDS: traZODone 50 MG TABLET. PO PRN (20:53)
[2017-12-13] MEDS: risperiDONE 0.5 MG TABLET. PO SCH (20:53)
[2017-12-13] MEDS: MIRTAZAPINE 15 MG TABLET PO SCH (20:53)
[2017-12-13] MEDS: TERAZOSIN 5 MG CAPSULE. PO SCH (21:29)
[2017-12-13] MEDS: oxyCODONE IR 5 MG TABLET PO PRN (21:36)
[2017-12-14 05:35] VITALS: BP 89/53
[2017-12-14] MEDS: LEVOTHYROXINE 50 MCG TABLET PO SCH (05:49)
[2017-12-14] MEDS: LACTOBACILLUS RHAMNOSUS GG 1 CAPSULE. PO SCH ×2 (08:45→20:53)
[2017-12-14] MEDS: ASCORBIC ACID 500 MG TABLET PO SCH (08:45)
[2017-12-14] MEDS: BACLOFEN 10 MG TABLET PO SCH ×2 (08:45→20:53)
[2017-12-14] MEDS: MULTIVITAMIN with MINERAL TABLET. PO SCH (08:45)
[2017-12-14] MEDS: FAMOTIDINE 20 MG TABLET PO SCH ×2 (08:45→20:53)
[2017-12-14] MEDS: FINASTERIDE 5 MG TABLET PO SCH (08:45)
[2017-12-14] MEDS: SENNOSIDES 8.6 MG TABLET PO SCH ×2 (08:45→20:53)
[2017-12-14] MEDS: GABAPENTIN 100 MG CAPSULE. PO SCH ×3 (08:45→20:54)
[2017-12-14] MEDS: POLYETHYLENE GLYCOL 3350 17 GM PACKET. PO SCH ×2 (08:45→20:54)
[2017-12-14] MEDS: CETIRIZINE HCL 10 MG TABLET PO SCH (08:45)
[2017-12-14] MEDS: LITHIUM CARBONATE 150 MG CAPSULE. PO SCH ×2 (09:00→21:00)
[2017-12-14 13:39] LABS: BASO # 0.1 x10^3/uL (0.0-0.2); BASO % 1 % (0-3); EOS # 0.1 x10^3/uL (0.0-0.7); EOS % 1 % (0-3); HEMATOCRIT 36.6 % (39.0-53.0); LYMPH # 3.4 x10^3/uL (1.0-4.8); LYMPH % 37 % (24-48); MEAN CORPUSCULAR HEMOGLOBIN 30 pg (25-35); MEAN CORPUSCULAR HGB CONC 33 g/dL (31-37); MEAN CORPUSCULAR VOLUME 91 fL (79-100); MONO # 0.9 x10^3/uL (0.0-1.1); MONO % 10 % (0-9); NEUT # 4.8 x10^3uL (1.8-7.7); NEUT % 52 % (31-73); PLATELET COUNT 224 x10^3/uL (140-400); RED BLOOD COUNT 4.01 x10^6/uL (4.30-5.70); RED CELL DISTRIBUTION WIDTH 16.2 % (11.5-14.5); WHITE BLOOD COUNT 9.3 x10^3/uL (4.0-11.0)
[2017-12-14 13:50] LABS: ALBUMIN 2.5 g/dL (3.4-5.0); ALBUMIN/GLOBULIN RATIO 0.6 (1.0-1.7); CALCIUM 8.6 mg/dL (8.5-10.1); CREATININE 1.2 mg/dL (0.7-1.3); GFR 59.3; POTASSIUM 4.1 mmol/L (3.5-5.1); TOTAL BILIRUBIN 0.3 mg/dL (0.2-1.0)
[2017-12-14] MEDS: oxyCODONE IR 5 MG TABLET PO PRN (14:31)
[2017-12-14 16:29] VITALS: BP 110/60
--- NOTE | 2017-12-14 18:34 | NUR ---
pt up for meals. compliant with meds and cares. Oxycodone given x1 for pain.
--- NOTE | 2017-12-14 20:00 | NUR ---
Behavior Intervention Response and Plan: BIRP Note: Behavior: Assumed Care of patient, patient located in Day Room at shift change. Patient exhibited the following behavior Interactive, Calm, Social. Brief assessment on rounds of vital signs, medication needs, lab studies, and pain. Treatment plan problems . Intervention: Patient assessed and the following interventions initiated safety checks 15 Minute Checks Cognitive Assessment , Head to toe Assessment , Medications. Response: After interactions and interventions patient responded in the following manner, Cooperative , Calm ,Compliant. Continue to assess behaviors and condition will continue to monitor throughout the shift as needed. Patient educated on ADL's, and hand hygiene. 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 Continue to assess patient for changes in above assessment. Monitor for medication needs, pain, and safety concerns. Hourly rounding performed to ensure safe environment.
--- NOTE | 2017-12-14 20:11 | PDOC ---
Exam Note: Torsten Note: Late entry for date of service December 13, 2017. Please also refer to the separate dictated note~for this date of service dictated separately.~Patient seen individually. Discussed the patient with Nursing staff reviewed the chart.~ Reviewed interim history and current functioning. Reviewed vital signs,~Labs/ Radiology~and current medications noted below. Continue current treatment with the changes noted in the dictated addendum note Assessment: Vital Signs: VS - Last 72 Hours, by Label Date Time Temp Pulse Resp B/P (MAP) Pulse Ox O2 Delivery O2 Flow Rate FiO2 12/14/17 16:29 97.1 61 18 110/60 (77) 97 12/14/17 05:35 98.2 53 18 89/53 (65) 94 12/13/17 21:29 128/76 12/13/17 16:13 97.5 60 18 93/57 (69) 96 12/13/17 05:38 97.9 61 16 92/56 (68) 95 12/12/17 21:19 62 125/69 12/12/17 15:52 98.5 62 18 125/69 (87) 98 12/12/17 05:44 96.7 59 18 116/64 (81) 96 12/11/17 23:29 18 Room Air 12/11/17 22:29 18 Room Air Vital Signs Date Time Temp Pulse Resp B/P (MAP) Pulse Ox O2 Delivery O2 Flow Rate FiO2 12/14/17 16:29 97.1 61 18 110/60 (77) 97 12/11/17 23:29 Room Air I&O Intake and Output 12/14/17 07:00 Intake Total 1440 ml Output Total 2390 ml Balance -950 ml Intake Oral 1440 ml Output Urine Total 2390 ml # Bowel Movements 2 Labs: Laboratory Tests Test 12/14/17 13:26 White Blood Count 9.3 x10^3/uL (4.0-11.0) Red Blood Count 4.01 x10^6/uL (4.30-5.70) L Hemoglobin 12.0 g/dL (13.0-17.5) L Hematocrit 36.6 % (39.0-53.0) L Mean Corpuscular Volume 91 fL (79-100) Mean Corpuscular Hemoglobin 30 pg (25-35) Mean Corpuscular Hemoglobin Concent 33 g/dL (31-37) Red Cell Distribution Width 16.2 % (11.5-14.5) H Platelet Count 224 x10^3/uL (140-400) Neutrophils (%) (Auto) 52 % (31-73) Lymphocytes (%) (Auto) 37 % (24-48) Monocytes (%) (Auto) 10 % (0-9) H Eosinophils (%) (Auto) 1 % (0-3) Basophils (%) (Auto) 1 % (0-3) Neutrophils # (Auto) 4.8 x10^3uL (1.8-7.7) Lymphocytes # (Auto) 3.4 x10^3/uL (1.0-4.8) Monocytes # (Auto) 0.9 x10^3/uL (0.0-1.1) Eosinophils # (Auto) 0.1 x10^3/uL (0.0-0.7) Basophils # (Auto) 0.1 x10^3/uL (0.0-0.2) Sodium Level 138 mmol/L (136-145) Potassium Level 4.1 mmol/L (3.5-5.1) Chloride Level 105 mmol/L (98-107) Carbon Dioxide Level 27 mmol/L (21-32) Anion Gap 6 (6-14) Blood Urea Nitrogen 35 mg/dL (8-26) H Creatinine 1.2 mg/dL (0.7-1.3) Estimated GFR (Cockcroft-Gault) 59.3 BUN/Creatinine Ratio 29 (6-20) H Glucose Level 142 mg/dL (70-99) H Calcium Level 8.6 mg/dL (8.5-10.1) Total Bilirubin 0.3 mg/dL (0.2-1.0) Aspartate Amino Transferase (AST) 20 U/L (15-37) Alanine Aminotransferase (ALT) 31 U/L (16-63) Alkaline Phosphatase 88 U/L (46-116) Total Protein 7.0 g/dL (6.4-8.2) Albumin 2.5 g/dL (3.4-5.0) L Albumin/Globulin Ratio 0.6 (1.0-1.7) L Current Medications: Meds: Current Medications Acetaminophen (Tylenol) 650 mg PRN Q6HRS PRN PO PAIN / TEMP Last administered on 6/9/18at 01:28; Start 11/29/17 at 21:15 Multi-Ingredient Ointment (Analgesic [place]) 1 warren PRN QID PRN TP MUSCLE PAIN Last administered on 12/11/17 21:24; Start 11/29/17 at 21:15 Al Hydroxide/Mg Hydroxide (Mylanta Plus Xs) 15 ml PRN AFTMEALHC PRN PO DYSPEPSIA Last administered on 11/30/17 03:43; Start 11/29/17 at 21:15 Magnesium Hydroxide (Milk Of Magnesia) 2,400 mg PRN QHS PRN PO CONSTIPATION; Start 11/29/17 at 21:15 Mirtazapine (Remeron) 7.5 mg QHS PO Last administered on 12/05/17 19:52; Start 11/29/17 at 22:00; Stop 12/06/17 at 18:13; Status DC Olanzapine (ZyPREXA ZYDIS) 5 mg PRN Q2HR PRN PO PSYCHOSIS Last administered on 12/06/17 10:11; Start 11/29/17 at 21:15 Baclofen (Lioresal) 10 mg BID PO Last administered on 12/14/17 08:45; Start at 22:00 [place] Carbonate 150 mg DAILY PO Last administered on 12/14/17 09:00; Start 11/30/17 at 09:00 [place] Carbonate 300 mg QHS PO Last administered on 12/13/17 21:02; Start at 22:00 Lorazepam (Ativan) 0.5 mg PRN TID PRN PO ANXIETY / AGITATION Last administered on 12/05/17 10:54; Start 11/29/17 at 21:30 Risperidone (RisperDAL) 1.5 mg QHS PO Last administered on 12/13/17 20:53; Start 11/29/17 at 22:00 Trazodone HCl (Desyrel) 50 mg PRN QHS PRN PO INSOMNIA, MAY REPEAT X1 Last administered on 12/13/17 20:53; Start 11/29/17 at 21:30 Vitamin D (Vitamin D3) 5,000 unit DAILY PO Last administered on 12/02/17 07:54 ; Start 11/30/17 at 09:00; Stop 12/02/17 at 15:34; Status DC Multivitamins/ Calcium (Thera-M Plus) 1 tab DAILY PO Last administered on 08:45; Start 11/30/17 at 09:00 Neomycin/ Polymyxin/ Bacitracin (Triple Antibiotic Ointment) 1 pkt PRN DAILY PRN TP Wound Healing; Start 11/29/17 at 21:15 Simethicone (Gas-X) 80 mg PRN AFTMEALHC PRN PO GAS / BLOATING; Start 11/29/17 at 21:15 Ascorbic Acid (Vitamin C) 500 mg DAILY PO Last administered on 12/14/17 08:45 ; Start 11/30/17 at 09:00 Bisacodyl (Dulcolax Supp) 10 mg PRN DAILY PRN [place] CONSTIPATION; Start 11/29/17 at 21:30 Cetirizine HCl (ZyrTEC) 10 mg DAILY PO Last administered on 12/14/17 08:45; Start 11/30/17 at 09:00 Docusate Sodium (Colace) 100 mg PRN BID PRN PO CONSTIPATION Last administered on 12/12/17 21:18; Start 11/29/17 at 21:30 Famotidine (Pepcid) 20 mg BIDBFRMEAL PO Last administered on 11/30/17at 07:49; Start 11/30/17 at 07:30; Stop 11/30/17 at 07:53; Status DC Finasteride (Proscar) 5 mg DAILY PO Last administered on 12/14/17 08:45; Start 11/30/17 at 09:00 Lactobacillus Rhamnosus (Culturelle) 1 cap BID PO Last administered on 08:45; Start 11/29/17 at 22:00 Oxycodone HCl (Roxicodone) 5 mg PRN Q6HRS PRN PO PAIN Last administered on 12/14 14:31; Start 11/29/17 at 21:30 Polyethylene Glycol (miraLAX) 17 gm BID PO Last administered on 12/14/17 08:45 ; Start 11/29/17 at 22:00 Sennosides (Senna) 8.6 mg BID PO Last administered on 12/14/17 08:45; Start at 22:00 Terazosin HCl (Hytrin) 10 mg QHS PO Last administered on 12/13/17at 21:29; Start 11/29/17 at 22:00 Ondansetron HCl (Zofran Odt) 4 mg PRN Q8HRS PRN PO NAUSEA/VOMITING; Start 11/29 at 21:30 Famotidine (Pepcid) 20 mg BID PO Last administered on 12/14/17at 08:45; Start at 21:00 Levothyroxine Sodium (Synthroid) 50 mcg DAILY06 PO Last administered on at 05:49; Start 12/01/17 at 06:00 Vitamin D (Vitamin D3) 50,000 unit WEEKLY PO Last administered on 12/10/17at 09: 00; Start 12/03/17 at 09:00 Mirtazapine (Remeron) 15 mg QHS PO Last administered on 12/13/17at 20:53; Start 12/06/17 at 21:00 Gabapentin (Neurontin) 100 mg TID PO Last administered on 12/14/17at 14:32; Start 12/12/17 at 21:00 Active Scripts Active Reported Zofran Odt (Ondansetron) 4 Mg Tab.rapdis 4 Mg PO PRN Q6HRS PRN Simethicone 80 Mg Tab.chew 80 Mg PO PRN AFTMEALHC PRN Thera M Plus Tablet (Multivits,Ca,Minerals/Iron/FA) 1 Each Tablet 1 Tab PO DAILY Mirtazapine 7.5 Mg Tablet 7.5 Mg PO QHS Milk Of Magnesia (Magnesium Hydroxide) 400 Mg/5 Ml Oral.susp 2,400 Mg PO PRN DAILY PRN Culturelle (Lactobacillus Rhamnosus Gg) 1 Each Capsule 1 Each PO BID Vitamin D3 (Cholecalciferol (Vitamin D3)) 1,000 Unit Tablet 5,000 Unit PO DAILY Zyrtec (Cetirizine Hcl) 10 Mg Tablet 10 Mg PO DAILY Vitamin C (Ascorbate Calcium) 500 Mg Tablet 500 Mg PO DAILY Trazodone Hcl 50 Mg Tablet 50 Mg PO PRN QHS PRN Risperdal (Risperidone) 1 Mg Tablet 1.5 Mg PO QHS Zyprexa Zydis (Olanzapine) 5 Mg Tab.rapdis 5 Mg PO PRN Q2HR PRN [place] Carbonate 150 Mg Capsule 150 Mg PO DAILY Miralax (Polyethylene Glycol 3350) 17 Gm Powd.pack 17 Gm PO BID Triple Antibiotic Ointment (Neomy Sulf/Bacitra/Polymyxin B) 1 Each Packet 1 Packet TP PRN DAILY PRN Oxycodone Hcl 5 Mg Capsule 5 Mg PO PRN Q6HRS PRN Lorazepam 0.5 Mg Tablet 0.5 Mg PO TID PRN PRN Famotidine 20 Mg Tablet 20 Mg PO BIDBFRMEAL Terazosin Hcl 10 Mg Capsule 10 Mg PO DAILY [place] Carbonate 300 Mg Capsule 300 Mg PO HS Baclofen 10 Mg Tablet 10 Mg PO BID Maalox Maximum Strength Susp (Mag Hydrox/Al Hydrox/Simeth) 355 Ml Oral.susp 30 Ml PO PRN Q2HR PRN Finasteride 5 Mg Tablet 5 Mg PO DAILY Colace (Docusate Sodium) 100 Mg Capsule 100 Mg PO PRN BID PRN Senokot (Sennosides) 8.6 Mg Tablet 8.6 Mg PO BID Bisacodyl 10 Mg Supp.rect 10 Mg RC PRN DAILY PRN Tylenol (Acetaminophen) 325 Mg Tablet 650 Mg PO PRN Q6HRS PRN I have reviewed the current psychotropics carefully including drug interactions. Risk benefit ratio favors no change other than as noted in my dictated progress note. Diagnosis: Problems: (1) Anxiety disorder (2) Bipolar affective, mixed, sev w/ psych (3) Dementia, vascular, with delusions (4) Mild cognitive impairment (5) Osteomyelitis of hand, left, acute (6) Quadriplegia MARQUIS SCOTT MD Dec 14, 2017 20:11
--- NOTE | 2017-12-14 20:12 | PDOC ---
Exam Note: Torsten Note: Please also refer to the separate dictated note~for this date of service dictated separately.~Patient seen individually. Discussed the patient with Nursing staff reviewed the chart.~Reviewed interim history and current functioning. Reviewed vital signs,~Labs/ Radiology~and current medications noted below. Continue current treatment with the changes noted in the dictated addendum note Assessment: Vital Signs: Vital Signs Date Time Temp Pulse Resp B/P (MAP) Pulse Ox O2 Delivery O2 Flow Rate FiO2 12/14/17 16:29 97.1 61 18 110/60 (77) 97 12/11/17 23:29 Room Air I&O Intake and Output 12/14/17 07:00 Intake Total 1440 ml Output Total 2390 ml Balance -950 ml Intake Oral 1440 ml Output Urine Total 2390 ml # Bowel Movements 2 Labs: Laboratory Tests Test 12/14/17 13:26 White Blood Count 9.3 x10^3/uL (4.0-11.0) Red Blood Count 4.01 x10^6/uL (4.30-5.70) L Hemoglobin 12.0 g/dL (13.0-17.5) L Hematocrit 36.6 % (39.0-53.0) L Mean Corpuscular Volume 91 fL (79-100) Mean Corpuscular Hemoglobin 30 pg (25-35) Mean Corpuscular Hemoglobin Concent 33 g/dL (31-37) Red Cell Distribution Width 16.2 % (11.5-14.5) H Platelet Count 224 x10^3/uL (140-400) Neutrophils (%) (Auto) 52 % (31-73) Lymphocytes (%) (Auto) 37 % (24-48) Monocytes (%) (Auto) 10 % (0-9) H Eosinophils (%) (Auto) 1 % (0-3) Basophils (%) (Auto) 1 % (0-3) Neutrophils # (Auto) 4.8 x10^3uL (1.8-7.7) Lymphocytes # (Auto) 3.4 x10^3/uL (1.0-4.8) Monocytes # (Auto) 0.9 x10^3/uL (0.0-1.1) Eosinophils # (Auto) 0.1 x10^3/uL (0.0-0.7) Basophils # (Auto) 0.1 x10^3/uL (0.0-0.2) Sodium Level 138 mmol/L (136-145) Potassium Level 4.1 mmol/L (3.5-5.1) Chloride Level 105 mmol/L (98-107) Carbon Dioxide Level 27 mmol/L (21-32) Anion Gap 6 (6-14) Blood Urea Nitrogen 35 mg/dL (8-26) H Creatinine 1.2 mg/dL (0.7-1.3) Estimated GFR (Cockcroft-Gault) 59.3 BUN/Creatinine Ratio 29 (6-20) H Glucose Level 142 mg/dL (70-99) H Calcium Level 8.6 mg/dL (8.5-10.1) Total Bilirubin 0.3 mg/dL (0.2-1.0) Aspartate Amino Transferase (AST) 20 U/L (15-37) Alanine Aminotransferase (ALT) 31 U/L (16-63) Alkaline Phosphatase 88 U/L (46-116) Total Protein 7.0 g/dL (6.4-8.2) Albumin 2.5 g/dL (3.4-5.0) L Albumin/Globulin Ratio 0.6 (1.0-1.7) L Current Medications: Meds: Current Medications Acetaminophen (Tylenol) 650 mg PRN Q6HRS PRN PO PAIN / TEMP Last administered on 12/13/17at 01:28; Start 11/29/17 at 21:15 Multi-Ingredient Ointment (Analgesic [place]) 1 warren PRN QID PRN TP MUSCLE PAIN Last administered on 12/11/17at 21:24; Start 11/29/17 at 21:15 Al Hydroxide/Mg Hydroxide (Mylanta Plus Xs) 15 ml PRN AFTMEALHC PRN PO DYSPEPSIA Last administered on 11/30/17at 03:43; Start 11/29/17 at 21:15 Magnesium Hydroxide (Milk Of Magnesia) 2,400 mg PRN QHS PRN PO CONSTIPATION; Start 11/29/17 at 21:15 Mirtazapine (Remeron) 7.5 mg QHS PO Last administered on 12/05/17at 19:52; Start 11/29/17 at 22:00; Stop 12/06/17 at 18:13; Status DC Olanzapine (ZyPREXA ZYDIS) 5 mg PRN Q2HR PRN PO PSYCHOSIS Last administered on 12/06/17 10:11; Start 11/29/17 at 21:15 Baclofen (Lioresal) 10 mg BID PO Last administered on 12/14/17 08:45; Start at 22:00 [place] Carbonate 150 mg DAILY PO Last administered on 12/14/17 09:00; Start 11/30/17 at 09:00 [place] Carbonate 300 mg QHS PO Last administered on 12/13/17 21:02; Start at 22:00 Lorazepam (Ativan) 0.5 mg PRN TID PRN PO ANXIETY / AGITATION Last administered on 12/05/17 10:54; Start 11/29/17 at 21:30 Risperidone (RisperDAL) 1.5 mg QHS PO Last administered on 12/13/17 20:53; Start 11/29/17 at 22:00 Trazodone HCl (Desyrel) 50 mg PRN QHS PRN PO INSOMNIA, MAY REPEAT X1 Last administered on 12/13/17 20:53; Start 11/29/17 at 21:30 Vitamin D (Vitamin D3) 5,000 unit DAILY PO Last administered on 12/02/17 07:54 ; Start 11/30/17 at 09:00; Stop 12/02/17 at 15:34; Status DC Multivitamins/ Calcium (Thera-M Plus) 1 tab DAILY PO Last administered on 08:45; Start 11/30/17 at 09:00 Neomycin/ Polymyxin/ Bacitracin (Triple Antibiotic Ointment) 1 pkt PRN DAILY PRN TP Wound Healing; Start 11/29/17 at 21:15 Simethicone (Gas-X) 80 mg PRN AFTMEALHC PRN PO GAS / BLOATING; Start 11/29/17 at 21:15 Ascorbic Acid (Vitamin C) 500 mg DAILY PO Last administered on 12/14/17 08:45 ; Start 11/30/17 at 09:00 Bisacodyl (Dulcolax Supp) 10 mg PRN DAILY PRN [place] CONSTIPATION; Start 11/29/17 at 21:30 Cetirizine HCl (ZyrTEC) 10 mg DAILY PO Last administered on 12/14/17 08:45; Start 11/30/17 at 09:00 Docusate Sodium (Colace) 100 mg PRN BID PRN PO CONSTIPATION Last administered on 12/12/17 21:18; Start 11/29/17 at 21:30 Famotidine (Pepcid) 20 mg BIDBFRMEAL PO Last administered on 11/30/17 07:49; Start 11/30/17 at 07:30; Stop 11/30/17 at 07:53; Status DC Finasteride (Proscar) 5 mg DAILY PO Last administered on 12/14/17 08:45; Start 11/30/17 at 09:00 Lactobacillus Rhamnosus (Culturelle) 1 cap BID PO Last administered on 08:45; Start 11/29/17 at 22:00 Oxycodone HCl (Roxicodone) 5 mg PRN Q6HRS PRN PO PAIN Last administered on 12/14 14:31; Start 11/29/17 at 21:30 Polyethylene Glycol (miraLAX) 17 gm BID PO Last administered on 12/14/17 08:45 ; Start 11/29/17 at 22:00 Sennosides (Senna) 8.6 mg BID PO Last administered on 12/14/17 08:45; Start at 22:00 Terazosin HCl (Hytrin) 10 mg QHS PO Last administered on 12/13/17 21:29; Start 11/29/17 at 22:00 Ondansetron HCl (Zofran Odt) 4 mg PRN Q8HRS PRN PO NAUSEA/VOMITING; Start 11/29 at 21:30 Famotidine (Pepcid) 20 mg BID PO Last administered on 12/14/17 08:45; Start at 21:00 Levothyroxine Sodium (Synthroid) 50 mcg DAILY06 PO Last administered on 05:49; Start 12/01/17 at 06:00 Vitamin D (Vitamin D3) 50,000 unit WEEKLY PO Last administered on 12/10/17 09: 00; Start 12/03/17 at 09:00 Mirtazapine (Remeron) 15 mg QHS PO Last administered on 6/9/18at 20:53; Start 12/06/17 at 21:00 Gabapentin (Neurontin) 100 mg TID PO Last administered on 12/14/17at 14:32; Start 12/12/17 at 21:00 Active Scripts Active Reported Zofran Odt (Ondansetron) 4 Mg Tab.rapdis 4 Mg PO PRN Q6HRS PRN Simethicone 80 Mg Tab.chew 80 Mg PO PRN AFTMEALHC PRN Thera M Plus Tablet (Multivits,Ca,Minerals/Iron/FA) 1 Each Tablet 1 Tab PO DAILY Mirtazapine 7.5 Mg Tablet 7.5 Mg PO QHS Milk Of Magnesia (Magnesium Hydroxide) 400 Mg/5 Ml Oral.susp 2,400 Mg PO PRN DAILY PRN Culturelle (Lactobacillus Rhamnosus Gg) 1 Each Capsule 1 Each PO BID Vitamin D3 (Cholecalciferol (Vitamin D3)) 1,000 Unit Tablet 5,000 Unit PO DAILY Zyrtec (Cetirizine Hcl) 10 Mg Tablet 10 Mg PO DAILY Vitamin C (Ascorbate Calcium) 500 Mg Tablet 500 Mg PO DAILY Trazodone Hcl 50 Mg Tablet 50 Mg PO PRN QHS PRN Risperdal (Risperidone) 1 Mg Tablet 1.5 Mg PO QHS Zyprexa Zydis (Olanzapine) 5 Mg Tab.rapdis 5 Mg PO PRN Q2HR PRN [place] Carbonate 150 Mg Capsule 150 Mg PO DAILY Miralax (Polyethylene Glycol 3350) 17 Gm Powd.pack 17 Gm PO BID Triple Antibiotic Ointment (Neomy Sulf/Bacitra/Polymyxin B) 1 Each Packet 1 Packet TP PRN DAILY PRN Oxycodone Hcl 5 Mg Capsule 5 Mg PO PRN Q6HRS PRN Lorazepam 0.5 Mg Tablet 0.5 Mg PO TID PRN PRN Famotidine 20 Mg Tablet 20 Mg PO BIDBFRMEAL Terazosin Hcl 10 Mg Capsule 10 Mg PO DAILY [place] Carbonate 300 Mg Capsule 300 Mg PO HS Baclofen 10 Mg Tablet 10 Mg PO BID Maalox Maximum Strength Susp (Mag Hydrox/Al Hydrox/Simeth) 355 Ml Oral.susp 30 Ml PO PRN Q2HR PRN Finasteride 5 Mg Tablet 5 Mg PO DAILY Colace (Docusate Sodium) 100 Mg Capsule 100 Mg PO PRN BID PRN Senokot (Sennosides) 8.6 Mg Tablet 8.6 Mg PO BID Bisacodyl 10 Mg Supp.rect 10 Mg RC PRN DAILY PRN Tylenol (Acetaminophen) 325 Mg Tablet 650 Mg PO PRN Q6HRS PRN I have reviewed the current psychotropics carefully including drug interactions. Risk benefit ratio favors no change other than as noted in my dictated progress note. Diagnosis: Problems: (1) Anxiety disorder (2) Bipolar affective, mixed, sev w/ psych (3) Dementia, vascular, with delusions (4) Mild cognitive impairment (5) Osteomyelitis of hand, left, acute (6) Quadriplegia MARQUIS SCOTT MD Dec 14, 2017 20:12
[2017-12-14] MEDS: TERAZOSIN 5 MG CAPSULE. PO SCH (20:53)
[2017-12-14] MEDS: risperiDONE 0.5 MG TABLET. PO SCH (20:54)
[2017-12-14] MEDS: MIRTAZAPINE 15 MG TABLET PO SCH (20:54)
[2017-12-15] MEDS ORDERED: GABA-585 PO (00:29)
[2017-12-15] MEDS ORDERED: LEVO50TA5 PO (00:30)
[2017-12-15] MEDS ORDERED: METH29OI TP (00:32)
[2017-12-15 06:07] VITALS: BP 103/61
[2017-12-15] MEDS: LEVOTHYROXINE 50 MCG TABLET PO SCH (06:08)
[2017-12-15] MEDS: LACTOBACILLUS RHAMNOSUS GG 1 CAPSULE. PO SCH (09:12)
[2017-12-15] MEDS: LITHIUM CARBONATE 150 MG CAPSULE. PO SCH (09:12)
[2017-12-15] MEDS: MULTIVITAMIN with MINERAL TABLET. PO SCH (09:13)
[2017-12-15] MEDS: GABAPENTIN 100 MG CAPSULE. PO SCH ×2 (09:13→14:52)
[2017-12-15] MEDS: SENNOSIDES 8.6 MG TABLET PO SCH (09:13)
[2017-12-15] MEDS: FAMOTIDINE 20 MG TABLET PO SCH (09:13)
[2017-12-15] MEDS: BACLOFEN 10 MG TABLET PO SCH (09:13)
[2017-12-15] MEDS: POLYETHYLENE GLYCOL 3350 17 GM PACKET. PO SCH (09:13)
[2017-12-15] MEDS: CETIRIZINE HCL 10 MG TABLET PO SCH (09:13)
[2017-12-15] MEDS: FINASTERIDE 5 MG TABLET PO SCH (09:13)
[2017-12-15] MEDS: ASCORBIC ACID 500 MG TABLET PO SCH (09:13)
[2017-12-15] MEDS ORDERED: CHOL500021 PO (10:24)
--- NOTE | 2017-12-15 10:50 | NUR ---
Sutures removed from 5th digit on left hand. Pt tolerated well. No pain, redness, swelling, drainage, or signs of infection noted. Pt asked for an oxycodone bc he was "afraid I might have pain later." PRN pain medication given per pt request.
[2017-12-15] MEDS: oxyCODONE IR 5 MG TABLET PO PRN (10:56)
--- NOTE | 2017-12-15 13:33 | NUR ---
Behavior Intervention Response and Plan: BIRP Note: Behavior: Assumed Care of patient, patient located in Day Room at shift change. Patient exhibited the following behavior Interactive, Calm, Social, happy. Brief assessment on rounds of vital signs, medication needs, lab studies, and pain. Treatment plan problems . Intervention: Patient assessed and the following interventions initiated safety checks 15 Minute Checks Cognitive Assessment , Head to toe Assessment , Medications. Response: After interactions and interventions patient responded in the following manner, Cooperative, Calm ,Compliant, stated he will miss staff when he leaves. Continue to assess behaviors and condition will continue to monitor throughout the shift as needed. Patient educated on ADL's, and hand hygiene. Plan: Continue to monitor Master Treatment Plan for patient's progress toward short term goals of Medication Compliance, Decreased Anxiety, custodial goals to return to previous living setting vs placement. Continue to assess patient for changes in above assessment. Monitor for medication needs, pain, and safety concerns. Hourly rounding performed to ensure safe environment.
--- NOTE | 2017-12-15 15:16 | NUR ---
Transition Record was faxed to follow-up provider with the following elements: Reason for admission, procedures, tests, principal diagnosis, pending studies, patient instructions, 27/01 contact information for unit, phone number to obtain pending test results, plan for follow-up care, physician follow-up, advanced directive information, and medication list with dose, duration and instructions. This information was included in the following documents: History and physical, lab results, study results, progress notes, social work planning form, DC instruction form, patient visit summary, and medication reconciliation form. Date & time record faxed:[id number] 12/15/17 Record faxed to: [facility] Record discussed with/ report given to: Pamela Palomares
--- NOTE | 2017-12-15 18:22 | PDOC ---
Exam Note: Torsten Note: Please also refer to the separate dictated note~for this date of service dictated separately.~Patient seen individually. Discussed the patient with Nursing staff reviewed the chart.~Reviewed interim history and current functioning. Reviewed vital signs,~Labs/ Radiology~and current medications noted below. Continue current treatment with the changes noted in the dictated addendum note Assessment: Vital Signs: Vital Signs Date Time Temp Pulse Resp B/P (MAP) Pulse Ox O2 Delivery O2 Flow Rate FiO2 12/15/17 11:56 20 12/15/17 06:07 98.4 59 103/61 (75) 97 12/11/17 23:29 Room Air I&O Intake and Output 12/15/17 07:00 Intake Total 2000 ml Output Total 2425 ml Balance -425 ml Intake Oral 2000 ml Output Urine Total 2425 ml Current Medications: Meds: Current Medications Acetaminophen (Tylenol) 650 mg PRN Q6HRS PRN PO PAIN / TEMP Last administered on 12/13/17at 01:28; Start 11/29/17 at 21:15; Stop 12/15/17 at 15:21; Status DC Multi-Ingredient Ointment (Analgesic [place]) 1 doris PRN QID PRN TP MUSCLE PAIN Last administered on 12/11/17at 21:24; Start 11/29/17 at 21:15; Stop 12/15/17 at 15:21; Status DC Al Hydroxide/Mg Hydroxide (Mylanta Plus Xs) 15 ml PRN AFTMEALHC PRN PO DYSPEPSIA Last administered on 11/30/17at 03:43; Start 11/29/17 at 21:15; Stop at 15:21; Status DC Magnesium Hydroxide (Milk Of Magnesia) 2,400 mg PRN QHS PRN PO CONSTIPATION; Start 11/29/17 at 21:15; Stop 12/15/17 at 15:21; Status DC Mirtazapine (Remeron) 7.5 mg QHS PO Last administered on 12/05/17at 19:52; Start 11/29/17 at 22:00; Stop 12/06/17 at 18:13; Status DC Olanzapine (ZyPREXA ZYDIS) 5 mg PRN Q2HR PRN PO PSYCHOSIS Last administered on 12/06/17at 10:11; Start 11/29/17 at 21:15; Stop 12/15/17 at 15:21; Status DC Baclofen (Lioresal) 10 mg BID PO Last administered on 12/15/17at 09:13; Start at 22:00; Stop 12/15/17 at 15:21; Status DC [place] Carbonate 150 mg DAILY PO Last administered on 12/15/17at 09:12; Start 11/30/17 at 09:00; Stop 12/15/17 at 15:21; Status DC [place] Carbonate 300 mg QHS PO Last administered on 12/14/17at 21:00; Start at 22:00; Stop 12/15/17 at 15:21; Status DC Lorazepam (Ativan) 0.5 mg PRN TID PRN PO ANXIETY / AGITATION Last administered on 12/05/17at 10:54; Start 11/29/17 at 21:30; Stop 12/15/17 at 15:21; Status DC Risperidone (RisperDAL) 1.5 mg QHS PO Last administered on 12/14/17at 20:54; Start 11/29/17 at 22:00; Stop 12/15/17 at 15:21; Status DC Trazodone HCl (Desyrel) 50 mg PRN QHS PRN PO INSOMNIA, MAY REPEAT X1 Last administered on 12/13/17at 20:53; Start 11/29/17 at 21:30; Stop 12/15/17 at 15:21 ; Status DC Vitamin D (Vitamin D3) 5,000 unit DAILY PO Last administered on 12/02/17at 07:54 ; Start 11/30/17 at 09:00; Stop 12/02/17 at 15:34; Status DC Multivitamins/ Calcium (Thera-M Plus) 1 tab DAILY PO Last administered on at 09:13; Start 11/30/17 at 09:00; Stop 12/15/17 at 15:21; Status DC Neomycin/ Polymyxin/ Bacitracin (Triple Antibiotic Ointment) 1 pkt PRN DAILY PRN TP Wound Healing; Start 11/29/17 at 21:15; Stop 12/15/17 at 15:21; Status DC Simethicone (Gas-X) 80 mg PRN AFTMEALHC PRN PO GAS / BLOATING; Start 11/29/17 at 21:15; Stop 12/15/17 at 15:21; Status DC Ascorbic Acid (Vitamin C) 500 mg DAILY PO Last administered on 12/15/17at 09:13 ; Start 11/30/17 at 09:00; Stop 12/15/17 at 15:21; Status DC Bisacodyl (Dulcolax Supp) 10 mg PRN DAILY PRN [place] CONSTIPATION; Start 11/29/17 at 21:30; Stop 12/15/17 at 15:21; Status DC Cetirizine HCl (ZyrTEC) 10 mg DAILY PO Last administered on 12/15/17at 09:13; Start 11/30/17 at 09:00; Stop 12/15/17 at 15:21; Status DC Docusate Sodium (Colace) 100 mg PRN BID PRN PO CONSTIPATION Last administered on 12/12/17at 21:18; Start 11/29/17 at 21:30; Stop 12/15/17 at 15:21; Status DC Famotidine (Pepcid) 20 mg BIDBFRMEAL PO Last administered on 11/30/17at 07:49; Start 11/30/17 at 07:30; Stop 11/30/17 at 07:53; Status DC Finasteride (Proscar) 5 mg DAILY PO Last administered on 12/15/17at 09:13; Start 11/30/17 at 09:00; Stop 12/15/17 at 15:21; Status DC Lactobacillus Rhamnosus (Culturelle) 1 cap BID PO Last administered on at 09:12; Start 11/29/17 at 22:00; Stop 12/15/17 at 15:21; Status DC Oxycodone HCl (Roxicodone) 5 mg PRN Q6HRS PRN PO PAIN Last administered on 12/15at 10:56; Start 11/29/17 at 21:30; Stop 12/15/17 at 15:21; Status DC Polyethylene Glycol (miraLAX) 17 gm BID PO Last administered on 12/15/17at 09:13 ; Start 11/29/17 at 22:00; Stop 12/15/17 at 15:21; Status DC Sennosides (Senna) 8.6 mg BID PO Last administered on 12/15/17at 09:13; Start at 22:00; Stop 12/15/17 at 15:21; Status DC Terazosin HCl (Hytrin) 10 mg QHS PO Last administered on 12/14/17at 20:53; Start 11/29/17 at 22:00; Stop 12/15/17 at 15:21; Status DC Ondansetron HCl (Zofran Odt) 4 mg PRN Q8HRS PRN PO NAUSEA/VOMITING; Start 11/29 at 21:30; Stop 12/15/17 at 15:21; Status DC Famotidine (Pepcid) 20 mg BID PO Last administered on 12/15/17at 09:13; Start at 21:00; Stop 12/15/17 at 15:21; Status DC Levothyroxine Sodium (Synthroid) 50 mcg DAILY06 PO Last administered on at 06:08; Start 12/01/17 at 06:00; Stop 12/15/17 at 15:21; Status DC Vitamin D (Vitamin D3) 50,000 unit WEEKLY PO Last administered on 12/10/17at 09: 00; Start 12/03/17 at 09:00; Stop 12/15/17 at 15:21; Status DC Mirtazapine (Remeron) 15 mg QHS PO Last administered on 12/14/17at 20:54; Start 12/06/17 at 21:00; Stop 12/15/17 at 15:22; Status DC Gabapentin (Neurontin) 100 mg TID PO Last administered on 12/15/17at 14:52; Start 12/12/17 at 21:00; Stop 12/15/17 at 15:22; Status DC Active Scripts Active Reported D3-50 (Cholecalciferol (Vitamin D3)) 50,000 Unit Capsule 1 Cap PO WEEKLY Analgesic [place] (Methyl Salicylate/Menthol) 28 Gm Oint...g. 1 Doris TP PRN QID PRN Levothyroxine Sodium 50 Mcg Tablet 50 Mcg PO DAILY06 Gabapentin 100 Mg Capsule 100 Mg PO TID Zofran Odt (Ondansetron) 4 Mg Tab.rapdis 4 Mg PO PRN Q8HRS PRN Simethicone 80 Mg Tab.chew 80 Mg PO PRN AFTMEALHC PRN Thera M Plus Tablet (Multivits,Ca,Minerals/Iron/FA) 1 Each Tablet 1 Tab PO DAILY Mirtazapine 7.5 Mg Tablet 15 Mg PO QHS Milk Of Magnesia (Magnesium Hydroxide) 400 Mg/5 Ml Oral.susp 2,400 Mg PO PRN QHS PRN Culturelle (Lactobacillus Rhamnosus Gg) 1 Each Capsule 1 Each PO BID Zyrtec (Cetirizine Hcl) 10 Mg Tablet 10 Mg PO DAILY Vitamin C (Ascorbate Calcium) 500 Mg Tablet 500 Mg PO DAILY Trazodone Hcl 50 Mg Tablet 50 Mg PO PRN QHS PRN Risperdal (Risperidone) 1 Mg Tablet 1.5 Mg PO QHS Zyprexa Zydis (Olanzapine) 5 Mg Tab.rapdis 5 Mg PO PRN Q2HR PRN [place] Carbonate 150 Mg Capsule 150 Mg PO DAILY Miralax (Polyethylene Glycol 3350) 17 Gm Powd.pack 17 Gm PO BID Triple Antibiotic Ointment (Neomy Sulf/Bacitra/Polymyxin B) 1 Each Packet 1 Packet TP PRN DAILY PRN apply to finger wound. Oxycodone Hcl 5 Mg Capsule 5 Mg PO PRN Q6HRS PRN Lorazepam 0.5 Mg Tablet 0.5 Mg PO TID PRN PRN Famotidine 20 Mg Tablet 20 Mg PO BID Terazosin Hcl 10 Mg Capsule 10 Mg PO HS [place] Carbonate 300 Mg Capsule 300 Mg PO HS Baclofen 10 Mg Tablet 10 Mg PO BID Maalox Maximum Strength Susp (Mag Hydrox/Al Hydrox/Simeth) 355 Ml Oral.susp 30 Ml PO PRN Q2HR PRN Finasteride 5 Mg Tablet 5 Mg PO DAILY Colace (Docusate Sodium) 100 Mg Capsule 100 Mg PO PRN BID PRN Senokot (Sennosides) 8.6 Mg Tablet 8.6 Mg PO BID Bisacodyl 10 Mg Supp.rect 10 Mg RC PRN DAILY PRN Tylenol (Acetaminophen) 325 Mg Tablet 650 Mg PO PRN Q6HRS PRN I have reviewed the current psychotropics carefully including drug interactions. Risk benefit ratio favors no change other than as noted in my dictated progress note. Diagnosis: Problems: (1) Mild cognitive impairment (2) Dementia, vascular, with delusions (3) Bipolar affective, mixed, sev w/ psych (4) Anxiety disorder MARQUIS SCOTT MD Dec 15, 2017 18:22
--- NOTE | 2017-12-16 01:58 | PN ---
DATE: 12/14/2017 PSYCHIATRIC PROGRESS NOTE This is a late entry for 12/14/2017, covers elements not covered in my initial note. SUBJECTIVE: I met with the patient in the evening. Overall, the patient is being more coherent, cooperative. Ambulation impaired, in Broda chair. No CV, , pulmonary, eye, ENT system symptoms on review. MENTAL STATUS EXAM: Oriented to himself and situation. Speech has some latency, coherent. Abstraction fair, computation impaired, language function intact, attention span short. Mood and affect showing improvement, very verbal, appropriate, pleasant as I met with him. LABORATORY DATA: Reviewed. IMPRESSION: Unchanged from initial note. PLAN: No change from a psychiatric standpoint, discharge this coming week. MAN Lindsey SCOTT MD DR: ARIA/rut JOB#: [id number] / [id number]
--- NOTE | 2017-12-16 13:16 | DS ---
DATE OF DISCHARGE: 12/15/2017 DISCHARGE SUMMARY AND PSYCHIATRIC NOTE This is a late entry for 12/15/2017 and covers elements not covered in my initial note of 12/15/2017. REASON FOR ADMISSION: Please refer to the admission history for details. Briefly, the patient is a 72-year-old male who returns back to us after medical stabilization at [facility] following the successful amputation of his finger, which he had bitten off during his prior stay on our unit, at that time when he was extremely manic and psychotic. 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 SIGNIFICANT FINDINGS AND CLINICAL COURSE: Following admission, the patient was seen daily individually by myself from a psychiatric standpoint, medical followup per Dr. Lincoln/Dr. Alonzo. The patient remained quite manic, labile, grandiose at times and delusional. Adjustments were made in his psychotropics. He seemed to respond to a combination of lithium carbonate 150 mg a.m. and 300 mg at bedtime with a level of 0.8 along with Risperdal 1.5 mg at bedtime, Remeron 15 mg at bedtime, Ativan and trazodone p.r.n., Zyprexa p.r.n. Gradually, mood appeared to improve. Family were very pleased with his progress. He was much more oriented: Psychotic symptoms resolved. No suicidal or homicidal ideation at discharge. CONDITION AT DISCHARGE: Improved. REVIEW OF SYSTEMS: Prior to discharge, ambulation impaired, in Broda chair. No CV, , pulmonary, eye, ENT system symptoms on review. MENTAL STATUS EXAM: Oriented to himself and situation. Speech coherent, less pressured. Abstraction fair, computation impaired, language function intact. Mood and affect improved. FINAL DIAGNOSES: Bipolar 1 disorder, mixed with psychotic features, in partial remission; anxiety disorder, unspecified; impulse control disorder, unspecified; cognitive disorder, unspecified. Rest unchanged from above. Relevant to the patient's history is his past treatment on ECT for his bipolar disorder in the distant past. DISCHARGE MEDICATIONS: Please refer to the EMRAD. DISCHARGE INSTRUCTIONS: Outpatient psychiatric and medical followup at the [facility]. MAN Lindsey SCOTT MD DR: Cole JOB#: [id number] / [id number]
== END 2017-12-15 15:21 | DRG 885 ==
LOC: GEROPSY 18:00
PROVIDERS: ADMIT Psychiatry & Neurology Psychiatry; ATTEND Psychiatry & Neurology Psychiatry
DX: F31.64 Bipolar disorder, current episode mixed, severe, with psychotic features (principal); E43 Unspecified severe protein-calorie malnutrition; G82.50 Quadriplegia, unspecified; R64 Cachexia; Z68.1 Body mass index [BMI] 19.9 or less, adult; M86.8X4 Other osteomyelitis, hand; K59.09 Other constipation; F01.50 Vascular dementia, unspecified severity, without behavioral disturbance, psychotic disturbance, mood disturbance, and anxiety; F09 Unspecified mental disorder due to known physiological condition; E03.9 Hypothyroidism, unspecified; F41.9 Anxiety disorder, unspecified; F63.9 Impulse disorder, unspecified; N18.9 Chronic kidney disease, unspecified; N40.0 Benign prostatic hyperplasia without lower urinary tract symptoms; Z66 Do not resuscitate; Z79.899 Other long term (current) drug therapy; Z89.029 Acquired absence of unspecified finger(s)
CPT/HCPCS: 36415; 80053; 80061; 80178; 81001; 82306; 82607; 83036; 83540; 83550; 83735; 84436; 84439; 84443; 84480; 85025; 86593; 87086; 92610

== ENCOUNTER 2018-01-27 06:23 | Inpatient (IN) | payer MEDICARE ==
[~2018-01-27] VITALS: Ht 175.3 cm; Wt 66.3 kg
[~2018-01-27 06:23] MED LIST changes: +ASCO-78 PO; +CETI10TA22 PO; +CHOL10003 PO; +GABA-585 PO; +LACT1CAP21 PO; +LEVO50TA5 PO; +MAGN400O7 PO; +METH29OI TP; +MIRT7.5T8 PO; +MULT-638 PO; +ONDA4TAB10 PO; +SIME80TA14 PO; +TRAZ-85 PO; -TRAZ50TA15 PO
--- NOTE | 2018-01-27 06:40 | EKG ---
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
[2018-01-27 06:43] LABS: BGAS PH 7.48 (7.35-7.46)
[2018-01-27 06:45] LABS: BASO # 0.1 x10^3/uL (0.0-0.2); BASO % 1 % (0-3); EOS # 0.1 x10^3/uL (0.0-0.7); EOS % 1 % (0-3); HEMATOCRIT 38.4 % (39.0-53.0); HEMOGLOBIN 12.4 g/dL (13.0-17.5); LYMPH # 3.6 x10^3/uL (1.0-4.8); LYMPH % 29 % (24-48); MEAN CORPUSCULAR HEMOGLOBIN 29 pg (25-35); MEAN CORPUSCULAR HGB CONC 32 g/dL (31-37); MEAN CORPUSCULAR VOLUME 90 fL (79-100); MONO # 1.2 x10^3/uL (0.0-1.1); MONO % 10 % (0-9); NEUT # 7.3 x10^3uL (1.8-7.7); NEUT % 59 % (31-73); PLATELET COUNT 233 x10^3/uL (140-400); RED BLOOD COUNT 4.27 x10^6/uL (4.30-5.70); WHITE BLOOD COUNT 12.4 x10^3/uL (4.0-11.0)
[2018-01-27] MEDS ORDERED: VANCOMYCIN 1 GM in IV NORMAL SALINE 250ML 250 ML IV ONE (06:45)
[2018-01-27] MEDS: IV NORMAL SALINE 1,000ML 1,000 ML IV SCH ×5 (06:52→22:15)
--- NOTE | 2018-01-27 06:57 | PHYS DOC ---
Past History Past Medical History: Depression Additional Past Medical Histor: quadriplegic Smoking: Non-smoker Adult General Chief Complaint Chief Complaint: SHORTNESS OF BREATH HPI HPI 72-year-old male patient presents of senior care with history of quadriplegia brought in by EMS because of shortness of breath and hypoxia. intermediate reported that patient had O2 sat of 80% at room air with temperature of 102 and called 911. EMS reported the patient was not on oxygen and started on nonrebreather with improvement of his condition. Patient had O2 sat of 91% at room air at arrival to ER and able to answer the question with short sentences and denied chest pain. Review of Systems Review of Systems Unable to obtain because of medical condition Current Medications Current Medications Current Medications Medications (Trade) Dose Ordered Sig/Frank Start Time Stop Time Status Last Admin Dose Admin Albuterol/ Ipratropium (Duoneb) 3 ml 1X ONCE 01/27/18 07:00 01/27/18 07:01 Levofloxacin/ Dextrose 150 ml @ 150 mls/hr 1X ONCE 01/27/18 07:00 01/27/18 07:59 Methylprednisolone Sodium Succinate (SOLU-Medrol 125MG VIAL) 125 mg 1X ONCE 01/27/18 07:00 01/27/18 07:01 Sodium Chloride 1,000 ml @ 1,000 mls/hr Q1H 01/27/18 07:00 01/27/18 07:59 Vancomycin HCl 1 gm/Sodium Chloride 250 ml @ 250 mls/hr 1X ONCE 01/27/18 06:45 01/27/18 07:44 UNV Allergies Allergies Allergies Coded Allergies Type Severity Reaction Last Updated Verified Penicillins Allergy Intermediate 11/29/17 Yes I S O L A T I O N *CONTACT* Allergy Unknown 11/29/17 Yes Physical Exam Physical Exam Constitutional: Moderate distress, non-toxic appearance. [] HENT: Normocephalic, atraumatic, oropharynx dry, Eyes: PERRLA, EOMI, conjunctiva normal, no discharge. [] Neck: Normal range of motion, no tenderness, supple, no stridor. [] Cardiovascular:Heart rate regular rhythm, systolic murmur [] Lungs & Thorax: Marked respiratory distress with intercostal dissection and hyperventilation, bilateral rhonchi Abdomen: Bowel sounds normal, soft, no tenderness, no masses, no pulsatile masses. [] Skin: Warm, dry, no rash, large grade 3 bedsore in sacral area with erythema filled with stool Back: No tenderness, no CVA tenderness. [] Extremities: No tenderness, no cyanosis, no clubbing, ROM intact, no edema. [] Neurologic: Alert and oriented X 3, quadriplegic Psychologic: Unable to evaluate Current Patient Data Lab Results Laboratory Tests Test 01/27/18 06:25 01/27/18 06:36 White Blood Count 12.4 x10^3/uL (4.0-11.0) H Red Blood Count 4.27 x10^6/uL (4.30-5.70) L Hemoglobin 12.4 g/dL (13.0-17.5) L Hematocrit 38.4 % (39.0-53.0) L Mean Corpuscular Volume 90 fL (79-100) Mean Corpuscular Hemoglobin 29 pg (25-35) Mean Corpuscular Hemoglobin Concent 32 g/dL (31-37) Red Cell Distribution Width 15.0 % (11.5-14.5) H Platelet Count 233 x10^3/uL (140-400) Neutrophils (%) (Auto) 59 % (31-73) Lymphocytes (%) (Auto) 29 % (24-48) Monocytes (%) (Auto) 10 % (0-9) H Eosinophils (%) (Auto) 1 % (0-3) Basophils (%) (Auto) 1 % (0-3) Neutrophils # (Auto) 7.3 x10^3uL (1.8-7.7) Lymphocytes # (Auto) 3.6 x10^3/uL (1.0-4.8) Monocytes # (Auto) 1.2 x10^3/uL (0.0-1.1) H Eosinophils # (Auto) 0.1 x10^3/uL (0.0-0.7) Basophils # (Auto) 0.1 x10^3/uL (0.0-0.2) Blood pH 7.48 (7.35-7.46) H Blood Gas PCO2 32 mmHg (35-46) L Blood Gas PO2 133 mmHg (71-100) H Blood Gas HCO3 24 mmol/L (21-28) Arterial Bld O2 Saturation (Calc) 99 % (92-99) FiO2 100 % EKG EKG EKG interpreted by me. EKG at 0636 showed normal sinus rhythm at rate of 86, left fourth axis, multiple artifact, poor R-wave progress in anteroseptal lead, no acute ST and T-wave abnormalities[] Radiology/Procedures Radiology/Procedures [address] [address] IMAGING REPORT Signed PATIENT: SYLWIA TRUJILLO ACCOUNT: [id number] : 1945 LOCATION: ER AGE: 72 SEX: M EXAM STATUS: REG ER ORD. PHYSICIAN: IGNACIO ROSALES MD REASON: SOB PROCEDURE: PORTABLE CHEST 1V AP chest. HISTORY: Difficulty breathing, short of air AP views were taken of the chest. Heart is normal in size without heart failure. Patient is rotated to the left. There is mild retrocardiac atelectasis or infiltrate in the left lung base. There are no other infiltrates. There is no definite effusion. A lateral view could be of benefit. IMPRESSION: 1. Mild retrocardiac atelectasis or infiltrate in the left lung base. Electronically signed by: Micheal Yousif MD (01/27/2018 6:59 AM) [facility] DICTATED AND SIGNED BY: MICHEAL YOUSIF MD DATE: 01/27/18656 CC: IGNACIO ROSALES MD; GURMEET VALERA ~ [][address] [address] IMAGING REPORT Signed PATIENT: SYLWIA TRUJILLO ACCOUNT: [id number] : 1945 LOCATION: ER AGE: 72 SEX: M EXAM STATUS: REG ER ORD. PHYSICIAN: IGNACIO ROSALES MD REASON: shortness of breath PROCEDURE: CT ANGIOGRAPHY CHEST CTA chest with contrast Indication: SOA, difficulty breathing. Prior stroke, unable to lift arms, suspend respirations, follow directions.OMNI 300/75ml . Comparison: No comparison is available. Technique: After intravenous contrast administration, CT imaging was performed of the chest. MIP reconstructions were obtained. Exposure: One or more of the following individualized dose reduction techniques were utilized for this examination: 1. Automated exposure control 2. Adjustment of the mA and/or kV according to patient size 3. Use of iterative reconstruction technique. FINDINGS: Pulmonary arteries:No evidence of pulmonary embolism. Thoracic aorta: Mild pulsatility artifact at the ascending aorta, which is mildly ectatic, measuring about 4 cm transverse diameter. No evidence of descending aortic dissection or descending aortic aneurysm. Thyroid gland: Asymmetric in size Lymph nodes:No significant enlargement Heart: Coronary artery calcifications. Esophagus: Mildly distended. Contains some debris compatible with food product. Pleural spaces: No significant effusion Lungs: Atelectasis/infiltrate in both lower lobes. Trachea and central airways: Patent Bones: Degenerative spondylosis. Right convexity thoracic spinal curvature. Upper abdomen: Slices through the upper abdomen are limited due to the technique .No obvious acute findings. IMPRESSION: 1. Negative for pulmonary embolism. 2. Mild infiltrate/atelectasis in both lung bases. 3. Thyroid gland asymmetry, correlate clinically. 4. Esophagus is mildly distended and contains food/debris, suggesting esophageal dysmotility or reflux. 5. Ascending aorta ectasia. Electronically signed by: Boom Thayer MD (01/27/2018 8:52 AM) [facility] DICTATED AND SIGNED BY: BOOM THAYER MD DATE: 01/27/18 0841 CC: IGNACIO ROSALES MD; GURMEET VALERA ~ Course & Med Decision Making Course & Med Decision Making Pertinent Labs and Imaging studies reviewed. (See chart for details) Evaluation of patient in ER showed 71-year-old male patient brought in with respiratory distress and hypoxia that improved with nebulizer treatment and nonrebreather oxygen. ABG showed O2 sat of 133 and patient wasn't started on nasal cannula. Chest x-ray showed bibasilar infiltrates. Patient was started on IV fluid and antibiotic and Dr. Lincoln accepted admission at 0708. [] Dragon Disclaimer Dragon Disclaimer This electronic medical record was generated, in whole or in part, using a voice recognition dictation system. Departure Departure: Impression: Primary Impression: Sepsis Additional Impressions: HCAP (healthcare-associated pneumonia) Quadriplegia Dementia, vascular, with delusions Pressure sore on sacrum Disposition: ADMITTED INPATIENT (at 0708) Admitting Physician: Salazar, Ahmed Condition: GUARDED Referrals: GURMEET VALERA (PCP) Problem Qualifiers IGNACIO ROSALES MD Jan 27, 2018 06:57
[2018-01-27] MEDS ORDERED: methylPREDNISolone SOD SUCC PF 125 MG/2 ML VIAL. IV ONE (07:00)
[2018-01-27] MEDS ORDERED: IPRATRPIUM/ALBUTEROL 0.5/2.5MG 3 ML NEBU. NEB ONE (07:00)
[2018-01-27] MEDS ORDERED: VANCOMYCIN 1.5 GM in IV NORMAL SALINE 500ML 500 ML IV ONE ×5 (07:00→07:15)
--- NOTE | 2018-01-27 07:02 | RAD ---
AP chest. HISTORY: Difficulty breathing, short of air AP views were taken of the chest. Heart is normal in size without heart failure. Patient is rotated to the left. There is mild retrocardiac atelectasis or infiltrate in the left lung base. There are no other infiltrates. There is no definite effusion. A lateral view could be of benefit. IMPRESSION: 1. Mild retrocardiac atelectasis or infiltrate in the left lung base. Electronically signed by: Micheal Yousif MD (01/27/2018 6:59 AM) [facility]
[2018-01-27 07:03] LABS: ALBUMIN 2.6 g/dL (3.4-5.0); ALBUMIN/GLOBULIN RATIO 0.5 (1.0-1.7); ALK PHOS 88 U/L (46-116); ALT (SGPT) 24 U/L (16-63); ANION GAP 11 (6-14); AST (SGOT) 24 U/L (15-37); BLOOD UREA NITROGEN 26 mg/dL (8-26); BUN/CREATININE RATIO 22 (6-20); CALCIUM 9.3 mg/dL (8.5-10.1); CARBON DIOXIDE 25 mmol/L (21-32); CHLORIDE 106 mmol/L (98-107); CREATININE 1.2 mg/dL (0.7-1.3); GFR 59.3; GLUCOSE 105 mg/dL (70-99); SODIUM 142 mmol/L (136-145); TOTAL BILIRUBIN 0.4 mg/dL (0.2-1.0); TOTAL PROTEIN 7.5 g/dL (6.4-8.2)
[2018-01-27 07:04] LABS: POTASSIUM 3.7 mmol/L (3.5-5.1)
[2018-01-27 07:12] LABS: BACTERIA,URINE MANY /HPF (0-FEW); BILIRUBIN,URINE NEG (NEG); CLARITY,URINE TURBID; COLOR,URINE AMBER; GLUCOSE,URINE NEG (NEG); NITRITE,URINE POS (NEG); SQUAMOUS EPITHELIAL CELL,UR FEW /LPF; UROBILINOGEN,URINE 0.2 mg/dL (0.2 mg/dL); WBC,URINE 20-40 /HPF (0-4)
[2018-01-27 07:13] LABS: AMORPHOUS SEDIMENT,UR PRESENT /HPF
[2018-01-27] MEDS: IPRATRPIUM/ALBUTEROL 0.5/2.5MG 3 ML NEBU. NEB SCH ×4 (07:19→20:33)
[2018-01-27] MEDS ORDERED: IOHEXOL 300 MG/ML 75 ML VIAL. IV ONE (08:00)
--- NOTE | 2018-01-27 08:55 | RAD ---
CTA chest with contrast Indication: SOA, difficulty breathing. Prior stroke, unable to lift arms, suspend respirations, follow directions.OMNI 300/75ml . Comparison: No comparison is available. Technique: After intravenous contrast administration, CT imaging was performed of the chest. MIP reconstructions were obtained. Exposure: One or more of the following individualized dose reduction techniques were utilized for this examination: 1. Automated exposure control 2. Adjustment of the mA and/or kV according to patient size 3. Use of iterative reconstruction technique. FINDINGS: Pulmonary arteries:No evidence of pulmonary embolism. Thoracic aorta: Mild pulsatility artifact at the ascending aorta, which is mildly ectatic, measuring about 4 cm transverse diameter. No evidence of descending aortic dissection or descending aortic aneurysm. Thyroid gland: Asymmetric in size Lymph nodes:No significant enlargement Heart: Coronary artery calcifications. Esophagus: Mildly distended. Contains some debris compatible with food product. Pleural spaces: No significant effusion Lungs: Atelectasis/infiltrate in both lower lobes. Trachea and central airways: Patent Bones: Degenerative spondylosis. Right convexity thoracic spinal curvature. Upper abdomen: Slices through the upper abdomen are limited due to the technique .No obvious acute findings. IMPRESSION: 1. Negative for pulmonary embolism. 2. Mild infiltrate/atelectasis in both lung bases. 3. Thyroid gland asymmetry, correlate clinically. 4. Esophagus is mildly distended and contains food/debris, suggesting esophageal dysmotility or reflux. 5. Ascending aorta ectasia. Electronically signed by: Boom Thayer MD (01/27/2018 8:52 AM) [facility]
[2018-01-27 09:22] VITALS: BP 104/66
[2018-01-27] MEDS ORDERED: BISACODYL 10 MG SUPP.RECT RC PRN (13:45)
[2018-01-27] MEDS ORDERED: MAGNESIUM HYDROXIDE 2,400 MG/30 ML ORAL.SUSP. PO PRN (13:45)
[2018-01-27] MEDS ORDERED: ACETAMINOPHEN 325 MG TABLET PO PRN (13:45)
[2018-01-27] MEDS ORDERED: ONDANSETRON ODT 4 MG TAB.RAPDIS PO PRN (13:45)
[2018-01-27] MEDS ORDERED: METHYL SALICYLATE/MENTHOL TOPICAL OINTMENT 29GM TUBE. TP PRN (13:45)
[2018-01-27] MEDS ORDERED: NEOMY/BACITR/POLYMYXIN OINT PACKET. TP PRN (13:45)
[2018-01-27] MEDS ORDERED: MAG HYDROX/AL HYDROX/SIMETH 30 ML ORAL.SUSP PO PRN (13:45)
[2018-01-27] MEDS ORDERED: SIMETHICONE 80 MG TAB.CHEW PO PRN (13:45)
[2018-01-27] MEDS ORDERED: traZODone 50 MG TABLET. PO PRN (13:45)
[2018-01-27] MEDS: GABAPENTIN 100 MG CAPSULE. PO SCH ×2 (14:00→21:00)
--- NOTE | 2018-01-27 14:00 | NUR ---
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
[2018-01-27] MEDS ORDERED: DOCUSATE SODIUM 100 MG CAPSULE PO PRN (14:15)
--- NOTE | 2018-01-27 14:25 | HP ---
ADMIT DATE: 01/27/2018 HISTORY OF PRESENT ILLNESS: The patient is a 72-year-old male patient, who was referred to the Emergency Room from [facility] as the patient was noted to have fever and shortness of breath together with altered mental status and he was evaluated in the Emergency Room, was found to have be septic, has leukocytosis. His chest x-ray showed that he has mild retrocardiac atelectasis infiltrate in the left lung. He did have also CT angio of the chest, which again showed that he has mild infiltrate, atelectasis in both lung bases and his esophagus is mildly distended and contains food and debris suggesting esophageal dysmotility or reflux. He was also found to have sacral decubitus ulcer and therefore the patient was admitted to be on telemetry bed to continue with IV antibiotic as he is allergic to PENICILLIN. He was started on IV vancomycin as well as Levaquin for healthcare-associated pneumonia and was admitted after obtaining the appropriate cultures. The patient was encephalopathic when I saw him. I was not able to give any useful information. PAST MEDICAL HISTORY: Significant for hypothyroidism, benign prostatic hypertrophy, chronic constipation, cervical myelopathy with quadriplegia as well as neurogenic bladder requiring indwelling Rosa catheter. He is known to have chronic kidney disease and bladder outlet obstruction, requiring indwelling Rosa catheter. PAST PSYCHIATRIC HISTORY: Significant for bipolar disorder. He has racing thoughts alternating with depression, has significant insomnia and worsening mood swings. FAMILY HISTORY: Noncontributory. SOCIAL HISTORY: [place] [facility] [place] apparently does not smoke, drink alcohol or use any recreational drugs. REVIEW OF SYSTEMS: Unobtainable. ALLERGIES: He is allergic to PENICILLIN. MEDICATIONS: He is currently on following medications: He is on Zyrtec 10 mg once a day, baclofen 10 mg twice a day, terazosin 10 mg at bedtime, analgesic balm applied topically 4 times a day, oxycodone 5 mg every 6 hours, Tylenol 650 mg every 6 hours, gabapentin 100 mg 3 times a day, mirtazapine 15 mg at bedtime, trazodone 50 mg at bedtime, olanzapine for Zyprexa 5 mg every 2 hours as needed for psychosis. He is on lithium 300 mg at bedtime and [place] 150 mg daily. He is on Maalox 30 mL every 2 hours as needed, simethicone 80 mg as needed after meals. He is on bisacodyl 10 mg rectally daily p.r.n. for constipation, Colace 100 mg twice a day, milk of magnesia 30 mL daily p.r.n. for constipation, polyethylene glycol 17 grams twice a day, senna 1 tablet twice a day, ondansetron 4 mg every 8 hours, famotidine 20 mg twice a day, lactobacillus rhamnosus for Culturelle 1 twice a day, levothyroxine 50 mcg once a day, triple antibiotic ointment for wound, ascorbate calcium 500 mg once a day, cholecalciferol vitamin D3 50,000 international unit once a week, multivitamin with mineral 1 tablet once a day, finasteride 5 mg daily. PHYSICAL EXAMINATION: GENERAL: When I examined him, he was pale, cachectic, but no jaundice, cyanosis, or thyromegaly. No jugular venous distension. No lower limb edema. VITAL SIGNS: His heart rate was 84, blood pressure 141/81, temperature was 99.8 at the snf, and temperature was 102.9 degrees Fahrenheit. His oxygen saturation was 95% on room air. HEAD, EYES, EARS, NOSE AND THROAT: Showed normocephalic, atraumatic. NECK: Supple. HEART: Showed normal first and second heart sounds. No gallop, rub or murmur. CHEST: Shows central trachea, equal bilateral expansion, air entry, vesicular sounds and crepitation or rhonchi. ABDOMEN: Distended, soft, nontender. No guarding or rigidity. No organomegaly. All hernial orifice intact. Bowel sounds normal. NEUROLOGIC: He was unresponsive. He has quadriplegia with marked muscle wasting and fixed flexion contraction of both upper and lower extremities. He has neurogenic bladder, requiring indwelling Rosa catheter. LABORATORY DATA: On admission showed a serum sodium 142, potassium 3.7, chloride 106, bicarbonate 25, anion gap of 11, BUN 26, creatinine 1.2, estimated GFR was 59 mL per minute, his glucose 105. Lactic acid was 0.7, calcium was 9.3. Total bilirubin, AST, ALT, alkaline phosphatase were normal. His total protein was 7.5, albumin was 2.6. His blood gases showed a pH of 7.48, pCO2 of 32, pO2 of 133, bicarbonate 24. Oxygen saturation was 99%. His white cell count was 12,400, hemoglobin 12.4, hematocrit 38, MCV 90 and platelet count of 233,000. His urinalysis showed the urine was [place], turbid with a pH of 7.5 with specific gravity of 1.020. There was large amount of protein, negative for glucose, ketones, small amount of blood, positive for nitrite, negative for urine bilirubin and moderate amount of leukocyte esterase. There are 1-2 rbc's, 20-40 wbc's and too many bacteria. His blood and urine was sent for culture and sensitivity. He has had a chest x-ray, which showed that there is mild retrocardiac atelectasis infiltrate in the left lung and CT angio of the chest showed that there is no evidence of pulmonary embolism. This showed atelectasis and infiltrate in both lower lobes. There is negative for pulmonary embolism. There is mild infiltrate, atelectasis in both lung bases. Thyroid gland is the same. The esophagus is mildly distended and contains food and debris suggesting esophageal dysmotility, reflux. PLAN: Continue to treat the patient for healthcare-associated pneumonia, possible urinary tract infection, has large sacral decubitus ulcer, quadriplegia, neurogenic bladder requiring indwelling Rosa catheter. The patient has multiple other medical problems including hypothyroidism, chronic constipation, benign prostatic hypertrophy. I will continue with vancomycin and Levaquin. I will add also meropenem, given that he is allergic to PENICILLIN and monitor his labs closely and decide on further management accordingly. MONIKA FOFANA MD DR: KARLA/rut JOB#: [id number] / [id number]
[2018-01-27] MEDS: VANCOMYCIN PER PHARMACY MC PRN (14:44)
--- NOTE | 2018-01-27 14:46 | NUR ---
Pharmacy Vancomycin Dosing Note S:Consulted to monitor and dose vancomycin started 01/27/18. O:SYLWIA TRUJILLO is a 72 year old M with Sepsis CAP . Height: 5 feet, 9 inches Weight: 66.782692 kg [place] Body Weight: 70.70 Adjusted Body Weight: 68.98 Dosing Weight: Actual Other Antibiotics: MERREM LABS: Last BUN: 26 Last Creatinine: 1.2 Creatinine Clearance: 51.5 Last WBC: 12.4 Last Platelets: 233 Vancomycin Dosing: Loading Dose: 1500 mg x1 Dosing Weight: Actual Target Trough: 15-20 A: Initial dosing is based on height, actual weight, indication, and renal function. P: 1. After loading dose (given in ER) give Vancomycin 1000 mg IV q24h. 2. Follow up Trough level on 01/29/18 at 0630. 3. Pharmacy will continue to monitor, follow and adjust therapy as needed. VERONICA PORTER, 01/27/18 [id number]
[2018-01-27 15:00] VITALS: BP 110/68
--- NOTE | 2018-01-27 20:00 | NUR ---
The patient, SYLWIA TRUJILLO, 72 y/o, M admitted by MONIKA FOFANA MD, was given written information regarding hospital policies, unit procedures and contact persons. Valuables were checked and left in room with pt.
[2018-01-27 20:10] VITALS: BP 104/58
[2018-01-27] MEDS: MEROPENEM 500 MG in IV NORMAL SALINE 50ML 50 ML IV SCH ×2 (20:22→22:00)
[2018-01-27] MEDS: LITHIUM CARBONATE 300 MG TABLET PO SCH (21:00)
[2018-01-27] MEDS: LACTOBACILLUS RHAMNOSUS GG 1 CAPSULE. PO SCH (21:00)
[2018-01-27] MEDS: FAMOTIDINE 20 MG TABLET PO SCH (21:00)
[2018-01-27] MEDS: risperiDONE 1 MG TABLET. PO SCH (21:00)
[2018-01-27] MEDS: TERAZOSIN 5 MG CAPSULE. PO SCH (21:00)
[2018-01-27] MEDS: BACLOFEN 10 MG TABLET PO SCH (21:00)
[2018-01-27] MEDS: MIRTAZAPINE 15 MG TABLET PO SCH (21:00)
[2018-01-27] MEDS: SENNOSIDES/DOCUSATE 8.6/50MG TABLET. PO SCH (21:00)
[2018-01-27 22:49] VITALS: BP 122/62
--- NOTE | 2018-01-28 03:17 | NUR ---
Meropenem 1400 dose missed. Administered dose at 2000, non-administered 2200 dose and resume schedule as normal per pharmacy's recommendations.
[2018-01-28] MEDS: IPRATRPIUM/ALBUTEROL 0.5/2.5MG 3 ML NEBU. NEB SCH ×4 (05:02→20:10)
[2018-01-28] MEDS: MEROPENEM 500 MG in IV NORMAL SALINE 50ML 50 ML IV SCH ×3 (05:10→21:30)
[2018-01-28] MEDS: IV NORMAL SALINE 1,000ML 1,000 ML IV SCH ×2 (05:10→23:15)
[2018-01-28 06:10] VITALS: BP 150/85
[2018-01-28 06:47] LABS: BASO % 0 % (0-3); EOS % 0 % (0-3); HEMATOCRIT 31.4 % (39.0-53.0); HEMOGLOBIN 10.2 g/dL (13.0-17.5); LYMPH # 1.8 x10^3/uL (1.0-4.8); LYMPH % 16 % (24-48); MEAN CORPUSCULAR HEMOGLOBIN 29 pg (25-35); MEAN CORPUSCULAR HGB CONC 32 g/dL (31-37); MEAN CORPUSCULAR VOLUME 89 fL (79-100); MONO # 1.2 x10^3/uL (0.0-1.1); MONO % 11 % (0-9); NEUT # 8.1 x10^3uL (1.8-7.7); NEUT % 73 % (31-73); PLATELET COUNT 210 x10^3/uL (140-400); RED BLOOD COUNT 3.54 x10^6/uL (4.30-5.70); RED CELL DISTRIBUTION WIDTH 14.8 % (11.5-14.5); WHITE BLOOD COUNT 11.1 x10^3/uL (4.0-11.0)
[2018-01-28 06:55] LABS: ALBUMIN/GLOBULIN RATIO 0.4 (1.0-1.7); CALCIUM 8.7 mg/dL (8.5-10.1); GFR 73.2; POTASSIUM 3.3 mmol/L (3.5-5.1); TOTAL BILIRUBIN 0.3 mg/dL (0.2-1.0); TOTAL PROTEIN 6.5 g/dL (6.4-8.2)
--- NOTE | 2018-01-28 10:19 | NUR ---
PATIENT IN BED AT SHIFT CHANGE. PATIENT REPORTS NO PAIN AT THIS TIME. PATIENT IS CALM AND COOPERATIVE WITH ASSESSMENT. PATIENT IS TO HAVE SWALLOW STUDY TODAY TO EVALUATE PATIENTS SWALLOWING ABILITIES, PATIENT REMAINS NPO UNTIL SWALLOW STUDY. PATIENT IS ORIENTED TO SELF ONLY. PATIENT IS RESTING COMFORTABLE IN BED AT THIS TIME.
--- NOTE | 2018-01-28 10:30 | NUR ---
Mechanical soft diet resumed per while patient is awake. Will continue to monitor.
[2018-01-28 10:57] VITALS: BP 129/69
[2018-01-28] MEDS: ASCORBIC ACID 500 MG TABLET PO SCH (11:07)
[2018-01-28] MEDS: FAMOTIDINE 20 MG TABLET PO SCH ×2 (11:07→21:29)
[2018-01-28] MEDS: SENNOSIDES/DOCUSATE 8.6/50MG TABLET. PO SCH ×2 (11:07→21:00)
[2018-01-28] MEDS: CETIRIZINE HCL 10 MG TABLET PO SCH (11:07)
[2018-01-28] MEDS: LACTOBACILLUS RHAMNOSUS GG 1 CAPSULE. PO SCH ×2 (11:07→21:26)
[2018-01-28] MEDS: GABAPENTIN 100 MG CAPSULE. PO SCH ×3 (11:07→21:26)
[2018-01-28] MEDS: LITHIUM CARBONATE 300 MG TABLET PO SCH ×2 (11:08→21:29)
[2018-01-28] MEDS: LEVOTHYROXINE 50 MCG TABLET PO SCH (11:08)
[2018-01-28] MEDS: BACLOFEN 10 MG TABLET PO SCH ×2 (11:08→21:29)
[2018-01-28] MEDS: MULTIVITAMIN with MINERAL TABLET. PO SCH (11:08)
[2018-01-28] MEDS: FINASTERIDE 5 MG TABLET PO SCH (11:15)
--- NOTE | 2018-01-28 13:15 | NUR ---
Patient tolerated lunch well. Patient showed no s/s of aspiration.
[2018-01-28] MEDS: oxyCODONE IR 5 MG TABLET PO PRN ×2 (14:13→21:27)
[2018-01-28] MEDS: VANCOMYCIN 1 GM in IV NORMAL SALINE 250ML 250 ML IV SCH (14:15)
[2018-01-28 15:33] VITALS: BP 108/53
--- NOTE | 2018-01-28 16:56 | PN ---
DATE: 01/28/2018 SUBJECTIVE: The patient is resting, slightly propped up in bed, definitely more awake, alert, responding appropriately. Nursing staff stated that he has eaten some soft food but they are still awaiting the speech therapy to do a bedside swallowing evaluation if need be a redo swallowing evaluation. He is afebrile. PHYSICAL EXAMINATION: GENERAL: When I examined him, he looked pale, cachectic, but no jaundice, cyanosis, or thyromegaly. No jugular venous distension. No limb edema. VITAL SIGNS: His heart rate was 69, blood pressure 129/69, temperature was 98, respiratory rate was 20, and oxygen saturation was 97% on 3 liters of oxygen by nasal cannula. HEAD, EYES, EARS, NOSE and THROAT: Showed normocephalic, atraumatic. NECK: Supple. HEART: Showed normal first and second sounds. No gallop, rub or murmur. CHEST: Clear to auscultation. No crepitation or rhonchi. ABDOMEN: Distended, soft, nontender. NEUROLOGIC: He is awake, alert, responding appropriately, although at times confused. He has quadriplegia with marked muscle wasting and fixed flexion contracture. He has a neurogenic bladder requiring indwelling Rosa catheterization He has a neurogenic bladder, benign prostatic hypertrophy with bladder outlet obstruction requiring indwelling Rosa catheter. He has a large sacral decubitus ulcer. His intake over the last 24 hours was 1700, output was 1100. LABORATORY DATA: His white cell count is 11,000, hemoglobin 10, hematocrit 31, MCV 89 and platelet count of 210,000. His serum sodium was 144, potassium 3.3, chloride 112, bicarbonate 23, anion gap of 9, BUN 28, creatinine 1, estimated GFR was 73 mL per minute. His glucose was 105. Calcium was 8.7. Total bilirubin, AST, ALT, alkaline phosphatase were normal. Total protein 6.5, albumin 2. His nasal screen for MRSA by PCR was negative so far. His blood cultures are negative. ASSESSMENT: 1. Acute hypoxic respiratory failure. 2. Healthcare-associated pneumonia. 3. Urinary tract infection. 4. Sacral decubitus ulcer. 5. Quadriplegia with neurogenic bladder requiring indwelling Rosa catheter. 6. Hypothyroidism. 7. Benign prostatic hypertrophy. PLAN: To continue IV antibiotic in the form of vancomycin, meropenem and levofloxacin. Continue with the nutritional support, pain management, wound care. MONIKA FOFANA MD DR: KARLA/rut JOB#: [id number] / [id number]
--- NOTE | 2018-01-28 17:05 | PDOC ---
Exam Note: Torsten Note: Please also refer to the separate dictated note~for this date of service dictated separately.~Patient seen individually. Discussed the patient with Nursing staff reviewed the chart.~Reviewed interim history and current functioning. Reviewed vital signs,~Labs/ Radiology~and current medications noted below. Continue current treatment with the changes noted in the dictated addendum note Assessment: Vital Signs: Vital Signs Date Time Temp Pulse Resp B/P (MAP) Pulse Ox O2 Delivery O2 Flow Rate FiO2 01/28/18 15:33 108.0 60 20 108/53 (71) 97 Nasal Cannula 2.0 I&O Intake and Output 01/28/18 06:59 Intake Total 1701.56 ml Output Total 1100 ml Balance 601.56 ml Intake Oral 0 ml IV Total 1701.56 ml Output Urine Total 1100 ml # Voids 2 Labs: Laboratory Tests Test 01/27/18 18:10 01/28/18 06:23 Nasal Screen MRSA (PCR) Negative (Negative) White Blood Count 11.1 x10^3/uL (4.0-11.0) H Red Blood Count 3.54 x10^6/uL (4.30-5.70) L Hemoglobin 10.2 g/dL (13.0-17.5) L Hematocrit 31.4 % (39.0-53.0) L Mean Corpuscular Volume 89 fL (79-100) Mean Corpuscular Hemoglobin 29 pg (25-35) Mean Corpuscular Hemoglobin Concent 32 g/dL (31-37) Red Cell Distribution Width 14.8 % (11.5-14.5) H Platelet Count 210 x10^3/uL (140-400) Neutrophils (%) (Auto) 73 % (31-73) Lymphocytes (%) (Auto) 16 % (24-48) L Monocytes (%) (Auto) 11 % (0-9) H Eosinophils (%) (Auto) 0 % (0-3) Basophils (%) (Auto) 0 % (0-3) Neutrophils # (Auto) 8.1 x10^3uL (1.8-7.7) H Lymphocytes # (Auto) 1.8 x10^3/uL (1.0-4.8) Monocytes # (Auto) 1.2 x10^3/uL (0.0-1.1) H Eosinophils # (Auto) 0.0 x10^3/uL (0.0-0.7) Basophils # (Auto) 0.0 x10^3/uL (0.0-0.2) Sodium Level 144 mmol/L (136-145) Potassium Level 3.3 mmol/L (3.5-5.1) L Chloride Level 112 mmol/L (98-107) H Carbon Dioxide Level 23 mmol/L (21-32) Anion Gap 9 (6-14) Blood Urea Nitrogen 28 mg/dL (8-26) H Creatinine 1.0 mg/dL (0.7-1.3) Estimated GFR (Cockcroft-Gault) 73.2 BUN/Creatinine Ratio 28 (6-20) H Glucose Level 105 mg/dL (70-99) H Calcium Level 8.7 mg/dL (8.5-10.1) Total Bilirubin 0.3 mg/dL (0.2-1.0) Aspartate Amino Transferase (AST) 11 U/L (15-37) L Alanine Aminotransferase (ALT) 21 U/L (16-63) Alkaline Phosphatase 65 U/L (46-116) Total Protein 6.5 g/dL (6.4-8.2) Albumin 2.0 g/dL (3.4-5.0) L Albumin/Globulin Ratio 0.4 (1.0-1.7) L Current Medications: Meds: Current Medications Sodium Chloride 1,000 ml @ 1,000 mls/hr Q1H IV Last administered on 01/27/18at 07:33; Start 01/27/18 at 07:00; Stop 01/27/18 at 07:59; Status DC Albuterol/ Ipratropium (Duoneb) 3 ml 1X ONCE NEB Last administered on at 06:51; Start 01/27/18 at 07:00; Stop 01/27/18 at 07:01; Status DC Methylprednisolone Sodium Succinate (SOLU-Medrol 125MG VIAL) 125 mg 1X ONCE IV Last administered on 01/27/18at 06:51; Start 01/27/18 at 07:00; Stop 01/27/18 at 07:01; Status DC Levofloxacin/ Dextrose 150 ml @ 150 mls/hr 1X ONCE IV Last administered on at 07:31; Start 01/27/18 at 07:00; Stop 01/27/18 at 07:59; Status DC Vancomycin HCl 1 gm/Sodium Chloride 250 ml @ 250 mls/hr 1X ONCE IV ; Start at 06:45; Stop 01/27/18 at 07:44; Status UNV Vancomycin HCl 1.5 gm/Sodium Chloride 500 ml @ 250 mls/hr 1X ONCE IV ; Start 01/27/18 at 07:00; Stop 01/27/18 at 08:59; Status Cancel Vancomycin HCl (Vanco Per Pharmacy) 1 each PRN DAILY PRN MC SEE COMMENTS Last administered on 01/27/18at 14:44; Start 01/27/18 at 07:00 Vancomycin HCl 1.5 gm/Sodium Chloride 500 ml @ 250 mls/hr 1X ONCE IV ; Start 01/27/18 at 07:15; Stop 01/27/18 at 07:15; Status DC Vancomycin HCl 1.5 gm/Sodium Chloride 500 ml @ 250 mls/hr 1X ONCE IV Last administered on 01/27/18at 15:07; Start 01/27/18 at 07:15; Stop 01/27/18 at 09:14 ; Status DC Sodium Chloride 1,000 ml @ 150 mls/hr Q6H40M IV Last administered on at 05:10; Start 01/27/18 at 07:09; Stop 01/28/18 at 07:08; Status DC Albuterol/ Ipratropium (Duoneb) 3 ml RTQID NEB Last administered on 01/27/18at 20:33; Start 01/27/18 at 08:00; Stop 01/28/18 at 07:59; Status DC Iohexol (Omnipaque 300 Mg/ml) 75 ml 1X ONCE IV ; Start 01/27/18 at 08:00; Stop 01/27/18 at 08:01; Status DC Meropenem 500 mg/ Sodium Chloride 50 ml @ 100 mls/hr Q8HRS IV Last administered on 01/28/18at 12:58; Start 01/27/18 at 14:00 Acetaminophen (Tylenol) 650 mg PRN Q6HRS PRN PO PAIN / TEMP; Start 01/27/18 at 13:45 Vitamin D (Vitamin D3) 50,000 unit WEEKLY PO ; Start 02/03/18 at 09:00 Gabapentin (Neurontin) 100 mg TID PO Last administered on 01/28/18at 14:13; Start 01/27/18 at 14:00 Al Hydroxide/Mg Hydroxide (Mylanta Plus Xs) 30 ml PRN Q2HR PRN PO DYSPEPSIA; Start 01/27/18 at 13:45 Magnesium Hydroxide (Milk Of Magnesia) 2,400 mg PRN QHS PRN PO CONSTIPATION; Start 01/27/18 at 13:45 Multi-Ingredient Ointment (Analgesic [place]) 1 doris PRN QID PRN TP muscle pain; Start 01/27/18 at 13:45 Mirtazapine (Remeron) 15 mg QHS PO Last administered on 01/27/18at 21:00; Start 01/27/18 at 21:00 Multivitamins/ Calcium (Thera-M Plus) 1 tab DAILY PO Last administered on at 11:08; Start 01/28/18 at 09:00 Neomycin/ Polymyxin/ Bacitracin (Triple Antibiotic Ointment) 1 pkt PRN DAILY PRN TP Wound Healing; Start 01/27/18 at 13:45 Olanzapine (ZyPREXA ZYDIS) 5 mg PRN Q2HR PRN PO PSYCHOSIS; Start 01/27/18 at 13 :45 Ondansetron HCl (Zofran Odt) 4 mg PRN Q8HRS PRN PO NAUSEA/VOMITING; Start 01/27 at 13:45 Simethicone (Gas-X) 80 mg PRN AFTMEALHC PRN PO GAS / BLOATING; Start 01/27/18 at 13:45 Ascorbic Acid (Vitamin C) 500 mg DAILY PO Last administered on 01/28/18at 11:07 ; Start 01/28/18 at 09:00 Baclofen (Lioresal) 10 mg BID PO Last administered on 01/28/18at 11:08; Start at 21:00 Bisacodyl (Dulcolax Supp) 10 mg PRN DAILY PRN RC CONSTIPATION; Start 01/27/18 at 13:45 Cetirizine HCl (ZyrTEC) 10 mg DAILY PO Last administered on 01/28/18at 11:07; Start 01/28/18 at 09:00 Docusate Sodium (Colace) 100 mg PRN BID PRN PO CONSTIPATION; Start 01/27/18 at 14:15 Famotidine (Pepcid) 20 mg BID PO Last administered on 01/28/18 11:07; Start at 21:00 Finasteride (Proscar) 5 mg DAILY PO Last administered on 01/28/18 11:15; Start 01/28/18 at 09:00 Lactobacillus Rhamnosus (Culturelle) 1 cap BID PO Last administered on at 11:07; Start 01/27/18 at 21:00 Levothyroxine Sodium (Synthroid) 50 mcg DAILY07 PO Last administered on 11:08; Start 01/28/18 at 07:00 [place] Carbonate 150 mg DAILY PO Last administered on 01/28/18 11:08; Start 01/28/18 at 09:00 [place] Carbonate 300 mg QHS PO ; Start 01/27/18 at 21:00 Lorazepam (Ativan) 0.5 mg TID PRN PRN PO ANXIETY / AGITATION; Start 01/27/18 at 13:45 Oxycodone HCl (Roxicodone) 5 mg PRN Q6HRS PRN PO PAIN Last administered on 01/28at 14:13; Start 01/27/18 at 13:45 Polyethylene Glycol (miraLAX) 17 gm BID PO ; Start 01/28/18 at 21:00 Risperidone (RisperDAL) 1.5 mg QHS PO ; Start 01/27/18 at 21:00 Senna/Docusate Sodium (Senna Plus) 1 tab BID PO Last administered on 01/28/18at 11:07; Start 01/27/18 at 21:00 Terazosin HCl (Hytrin) 10 mg QHS PO ; Start 01/27/18 at 21:00 Trazodone HCl (Desyrel) 50 mg PRN QHS PRN PO INSOMNIA, MAY REPEAT X1; Start at 13:45 Fentanyl Citrate (Fentanyl 2ml Vial) 50 mcg PRN Q3HRS PRN IV PAIN Last administered on 01/28/18at 12:57; Start 01/27/18 at 14:15 Vancomycin HCl 1 gm/Sodium Chloride 250 ml @ 250 mls/hr Q24H IV Last administered on 7/25/18at 14:15; Start 01/28/18 at 15:00 Vancomycin HCl (Vancomycin Trough Level) 1 each 1X ONCE MC ; Start 01/29/18 at 14:30; Stop 01/29/18 at 14:31 Albuterol/ Ipratropium (Duoneb) 3 ml RTQID NEB Last administered on 01/28/18at 15:36; Start 01/28/18 at 08:00 Active Scripts Active Reported D3-50 (Cholecalciferol (Vitamin D3)) 50,000 Unit Capsule 1 Cap PO WEEKLY Analgesic [place] (Methyl Salicylate/Menthol) 28 Gm Oint...g. 1 Doris TP PRN QID PRN Levothyroxine Sodium 50 Mcg Tablet 50 Mcg PO DAILY06 Gabapentin 100 Mg Capsule 100 Mg PO TID Zofran Odt (Ondansetron) 4 Mg Tab.rapdis 4 Mg PO PRN Q8HRS PRN Simethicone 80 Mg Tab.chew 80 Mg PO PRN AFTMEALHC PRN Thera M Plus Tablet (Multivits,Ca,Minerals/Iron/FA) 1 Each Tablet 1 Tab PO DAILY Mirtazapine 7.5 Mg Tablet 15 Mg PO QHS Milk Of Magnesia (Magnesium Hydroxide) 400 Mg/5 Ml Oral.susp 2,400 Mg PO PRN QHS PRN Culturelle (Lactobacillus Rhamnosus Gg) 1 Each Capsule 1 Each PO BID Zyrtec (Cetirizine Hcl) 10 Mg Tablet 10 Mg PO DAILY Vitamin C (Ascorbate Calcium) 500 Mg Tablet 500 Mg PO DAILY Trazodone Hcl 50 Mg Tablet 50 Mg PO PRN QHS PRN Risperdal (Risperidone) 1 Mg Tablet 1.5 Mg PO QHS Zyprexa Zydis (Olanzapine) 5 Mg Tab.rapdis 5 Mg PO PRN Q2HR PRN [place] Carbonate 150 Mg Capsule 150 Mg PO DAILY Miralax (Polyethylene Glycol 3350) 17 Gm Powd.pack 17 Gm PO BID Triple Antibiotic Ointment (Neomy Sulf/Bacitra/Polymyxin B) 1 Each Packet 1 Packet TP PRN DAILY PRN apply to finger wound. Oxycodone Hcl 5 Mg Capsule 5 Mg PO PRN Q6HRS PRN Lorazepam 0.5 Mg Tablet 0.5 Mg PO TID PRN PRN Famotidine 20 Mg Tablet 20 Mg PO BID Terazosin Hcl 10 Mg Capsule 10 Mg PO HS [place] Carbonate 300 Mg Capsule 300 Mg PO HS Baclofen 10 Mg Tablet 10 Mg PO BID Maalox Maximum Strength Susp (Mag Hydrox/Al Hydrox/Simeth) 355 Ml Oral.susp 30 Ml PO PRN Q2HR PRN Finasteride 5 Mg Tablet 5 Mg PO DAILY Colace (Docusate Sodium) 100 Mg Capsule 100 Mg PO PRN BID PRN Senokot (Sennosides) 8.6 Mg Tablet 8.6 Mg PO BID Bisacodyl 10 Mg Supp.rect 10 Mg RC PRN DAILY PRN Tylenol (Acetaminophen) 325 Mg Tablet 650 Mg PO PRN Q6HRS PRN I have reviewed the current psychotropics carefully including drug interactions. Risk benefit ratio favors no change other than as noted in my dictated progress note. Diagnosis: Problems: (1) HCAP (healthcare-associated pneumonia) (2) Pressure sore on sacrum (3) Dementia, vascular, with delusions (4) Bipolar affective, mixed, sev w/ psych (5) Anxiety disorder (6) Mild cognitive impairment MARQUIS SCOTT MD Jan 28, 2018 17:05
--- NOTE | 2018-01-28 17:05 | PDOC ---
Exam Note: Torsten Note: Please also refer to the separate dictated note~for this date of service dictated separately.~Patient seen individually. Discussed the patient with Nursing staff reviewed the chart.~Reviewed interim history and current functioning. Reviewed vital signs,~Labs/ Radiology~and current medications noted below. Continue current treatment with the changes noted in the dictated addendum note. Late entry for 01/27/18 Assessment: Vital Signs: VS - Last 72 Hours, by Label Date Time Temp Pulse Resp B/P (MAP) Pulse Ox O2 Delivery O2 Flow Rate FiO2 01/28/18 15:33 108.0 60 20 108/53 (71) 97 Nasal Cannula 2.0 01/28/18 15:13 18 97 Nasal Cannula 3.0 01/28/18 14:13 97 Nasal Cannula 3.0 01/28/18 13:27 20 97 Nasal Cannula 3.0 01/28/18 12:57 18 97 Nasal Cannula 3.0 01/28/18 10:57 98.0 69 20 129/69 (89) 97 Room Air 01/28/18 09:52 20 Room Air 01/28/18 09:00 97 Nasal Cannula 3.0 01/28/18 08:50 Nasal Cannula 3.0 01/28/18 06:10 97.4 68 22 150/85 (106) 94 Nasal Cannula 2.0 01/28/18 05:11 18 Nasal Cannula 3.0 01/28/18 05:04 97 Nasal Cannula 3.0 01/27/18 22:49 98.6 76 26 122/62 (82) 97 Nasal Cannula 2.0 01/27/18 22:47 20 Nasal Cannula 3.0 01/27/18 20:35 98 Nasal Cannula 2.0 01/27/18 20:10 98.7 78 22 104/58 (73) 92 Nasal Cannula 2.0 01/27/18 20:00 Nasal Cannula 3.0 01/27/18 16:56 100 Nasal Cannula 3.0 01/27/18 15:00 98.2 70 18 110/68 (82) 97 Nasal Cannula 2.0 01/27/18 10:56 99 Nasal Cannula 4.0 01/27/18 10:00 Nasal Cannula 4.0 01/27/18 09:22 98.5 74 18 104/66 (79) 97 Room Air 01/27/18 09:20 81 22 128/70 (89) 99 Room Air 4.0 01/27/18 07:19 96 Nasal Cannula 6.0 01/27/18 06:53 78 18 133/78 (96) 01/27/18 06:51 99 Nasal Cannula 6.0 01/27/18 06:30 84 24 141/81 (101) 95 NonRebreather Mask 01/27/18 06:23 99.8 86 24 90 Bag Valve Mask Vital Signs Date Time Temp Pulse Resp B/P (MAP) Pulse Ox O2 Delivery O2 Flow Rate FiO2 01/28/18 15:33 108.0 60 20 108/53 (71) 97 Nasal Cannula 2.0 I&O Intake and Output 01/28/18 06:59 Intake Total 1701.56 ml Output Total 1100 ml Balance 601.56 ml Intake Oral 0 ml IV Total 1701.56 ml Output Urine Total 1100 ml # Voids 2 Labs: Laboratory Tests Test 01/27/18 18:10 01/28/18 06:23 Nasal Screen MRSA (PCR) Negative (Negative) White Blood Count 11.1 x10^3/uL (4.0-11.0) H Red Blood Count 3.54 x10^6/uL (4.30-5.70) L Hemoglobin 10.2 g/dL (13.0-17.5) L Hematocrit 31.4 % (39.0-53.0) L Mean Corpuscular Volume 89 fL (79-100) Mean Corpuscular Hemoglobin 29 pg (25-35) Mean Corpuscular Hemoglobin Concent 32 g/dL (31-37) Red Cell Distribution Width 14.8 % (11.5-14.5) H Platelet Count 210 x10^3/uL (140-400) Neutrophils (%) (Auto) 73 % (31-73) Lymphocytes (%) (Auto) 16 % (24-48) L Monocytes (%) (Auto) 11 % (0-9) H Eosinophils (%) (Auto) 0 % (0-3) Basophils (%) (Auto) 0 % (0-3) Neutrophils # (Auto) 8.1 x10^3uL (1.8-7.7) H Lymphocytes # (Auto) 1.8 x10^3/uL (1.0-4.8) Monocytes # (Auto) 1.2 x10^3/uL (0.0-1.1) H Eosinophils # (Auto) 0.0 x10^3/uL (0.0-0.7) Basophils # (Auto) 0.0 x10^3/uL (0.0-0.2) Sodium Level 144 mmol/L (136-145) Potassium Level 3.3 mmol/L (3.5-5.1) L Chloride Level 112 mmol/L (98-107) H Carbon Dioxide Level 23 mmol/L (21-32) Anion Gap 9 (6-14) Blood Urea Nitrogen 28 mg/dL (8-26) H Creatinine 1.0 mg/dL (0.7-1.3) Estimated GFR (Cockcroft-Gault) 73.2 BUN/Creatinine Ratio 28 (6-20) H Glucose Level 105 mg/dL (70-99) H Calcium Level 8.7 mg/dL (8.5-10.1) Total Bilirubin 0.3 mg/dL (0.2-1.0) Aspartate Amino Transferase (AST) 11 U/L (15-37) L Alanine Aminotransferase (ALT) 21 U/L (16-63) Alkaline Phosphatase 65 U/L (46-116) Total Protein 6.5 g/dL (6.4-8.2) Albumin 2.0 g/dL (3.4-5.0) L Albumin/Globulin Ratio 0.4 (1.0-1.7) L Current Medications: Meds: Current Medications Sodium Chloride 1,000 ml @ 1,000 mls/hr Q1H IV Last administered on 01/27/18at 07:33; Start 01/27/18 at 07:00; Stop 01/27/18 at 07:59; Status DC Albuterol/ Ipratropium (Duoneb) 3 ml 1X ONCE NEB Last administered on at 06:51; Start 01/27/18 at 07:00; Stop 01/27/18 at 07:01; Status DC Methylprednisolone Sodium Succinate (SOLU-Medrol 125MG VIAL) 125 mg 1X ONCE IV Last administered on 01/27/18at 06:51; Start 01/27/18 at 07:00; Stop 01/27/18 at 07:01; Status DC Levofloxacin/ Dextrose 150 ml @ 150 mls/hr 1X ONCE IV Last administered on 7/ 24/18at 07:31; Start 01/27/18 at 07:00; Stop 01/27/18 at 07:59; Status DC Vancomycin HCl 1 gm/Sodium Chloride 250 ml @ 250 mls/hr 1X ONCE IV ; Start at 06:45; Stop 01/27/18 at 07:44; Status UNV Vancomycin HCl 1.5 gm/Sodium Chloride 500 ml @ 250 mls/hr 1X ONCE IV ; Start 01/27/18 at 07:00; Stop 01/27/18 at 08:59; Status Cancel Vancomycin HCl (Vanco Per Pharmacy) 1 each PRN DAILY PRN MC SEE COMMENTS Last administered on 01/27/18at 14:44; Start 01/27/18 at 07:00 Vancomycin HCl 1.5 gm/Sodium Chloride 500 ml @ 250 mls/hr 1X ONCE IV ; Start 01/27/18 at 07:15; Stop 01/27/18 at 07:15; Status DC Vancomycin HCl 1.5 gm/Sodium Chloride 500 ml @ 250 mls/hr 1X ONCE IV Last administered on 01/27/18at 15:07; Start 01/27/18 at 07:15; Stop 01/27/18 at 09:14 ; Status DC Sodium Chloride 1,000 ml @ 150 mls/hr Q6H40M IV Last administered on at 05:10; Start 01/27/18 at 07:09; Stop 01/28/18 at 07:08; Status DC Albuterol/ Ipratropium (Duoneb) 3 ml RTQID NEB Last administered on 01/27/18at 20:33; Start 01/27/18 at 08:00; Stop 01/28/18 at 07:59; Status DC Iohexol (Omnipaque 300 Mg/ml) 75 ml 1X ONCE IV ; Start 01/27/18 at 08:00; Stop 01/27/18 at 08:01; Status DC Meropenem 500 mg/ Sodium Chloride 50 ml @ 100 mls/hr Q8HRS IV Last administered on 01/28/18at 12:58; Start 01/27/18 at 14:00 Acetaminophen (Tylenol) 650 mg PRN Q6HRS PRN PO PAIN / TEMP; Start 01/27/18 at 13:45 Vitamin D (Vitamin D3) 50,000 unit WEEKLY PO ; Start 02/03/18 at 09:00 Gabapentin (Neurontin) 100 mg TID PO Last administered on 01/28/18at 14:13; Start 01/27/18 at 14:00 Al Hydroxide/Mg Hydroxide (Mylanta Plus Xs) 30 ml PRN Q2HR PRN PO DYSPEPSIA; Start 01/27/18 at 13:45 Magnesium Hydroxide (Milk Of Magnesia) 2,400 mg PRN QHS PRN PO CONSTIPATION; Start 01/27/18 at 13:45 Multi-Ingredient Ointment (Analgesic [place]) 1 doris PRN QID PRN TP muscle pain; Start 01/27/18 at 13:45 Mirtazapine (Remeron) 15 mg QHS PO Last administered on 01/27/18at 21:00; Start 01/27/18 at 21:00 Multivitamins/ Calcium (Thera-M Plus) 1 tab DAILY PO Last administered on at 11:08; Start 01/28/18 at 09:00 Neomycin/ Polymyxin/ Bacitracin (Triple Antibiotic Ointment) 1 pkt PRN DAILY PRN TP Wound Healing; Start 01/27/18 at 13:45 Olanzapine (ZyPREXA ZYDIS) 5 mg PRN Q2HR PRN PO PSYCHOSIS; Start 01/27/18 at 13 :45 Ondansetron HCl (Zofran Odt) 4 mg PRN Q8HRS PRN PO NAUSEA/VOMITING; Start 01/27 at 13:45 Simethicone (Gas-X) 80 mg PRN AFTMEALHC PRN PO GAS / BLOATING; Start 01/27/18 at 13:45 Ascorbic Acid (Vitamin C) 500 mg DAILY PO Last administered on 01/28/18at 11:07 ; Start 01/28/18 at 09:00 Baclofen (Lioresal) 10 mg BID PO Last administered on 01/28/18at 11:08; Start at 21:00 Bisacodyl (Dulcolax Supp) 10 mg PRN DAILY PRN RC CONSTIPATION; Start 01/27/18 at 13:45 Cetirizine HCl (ZyrTEC) 10 mg DAILY PO Last administered on 01/28/18at 11:07; Start 01/28/18 at 09:00 Docusate Sodium (Colace) 100 mg PRN BID PRN PO CONSTIPATION; Start 01/27/18 at 14:15 Famotidine (Pepcid) 20 mg BID PO Last administered on 01/28/18at 11:07; Start at 21:00 Finasteride (Proscar) 5 mg DAILY PO Last administered on 01/28/18at 11:15; Start 01/28/18 at 09:00 Lactobacillus Rhamnosus (Culturelle) 1 cap BID PO Last administered on 11:07; Start 01/27/18 at 21:00 Levothyroxine Sodium (Synthroid) 50 mcg DAILY07 PO Last administered on 11:08; Start 01/28/18 at 07:00 [place] Carbonate 150 mg DAILY PO Last administered on 01/28/18at 11:08; Start 01/28/18 at 09:00 [place] Carbonate 300 mg QHS PO ; Start 01/27/18 at 21:00 Lorazepam (Ativan) 0.5 mg TID PRN PRN PO ANXIETY / AGITATION; Start 01/27/18 at 13:45 Oxycodone HCl (Roxicodone) 5 mg PRN Q6HRS PRN PO PAIN Last administered on 01/28at 14:13; Start 01/27/18 at 13:45 Polyethylene Glycol (miraLAX) 17 gm BID PO ; Start 01/28/18 at 21:00 Risperidone (RisperDAL) 1.5 mg QHS PO ; Start 01/27/18 at 21:00 Senna/Docusate Sodium (Senna Plus) 1 tab BID PO Last administered on 01/28/18at 11:07; Start 01/27/18 at 21:00 Terazosin HCl (Hytrin) 10 mg QHS PO ; Start 01/27/18 at 21:00 Trazodone HCl (Desyrel) 50 mg PRN QHS PRN PO INSOMNIA, MAY REPEAT X1; Start at 13:45 Fentanyl Citrate (Fentanyl 2ml Vial) 50 mcg PRN Q3HRS PRN IV PAIN Last administered on 01/28/18at 12:57; Start 01/27/18 at 14:15 Vancomycin HCl 1 gm/Sodium Chloride 250 ml @ 250 mls/hr Q24H IV Last administered on 01/28/18at 14:15; Start 01/28/18 at 15:00 Vancomycin HCl (Vancomycin Trough Level) 1 each 1X ONCE MC ; Start 01/29/18 at 14:30; Stop 01/29/18 at 14:31 Albuterol/ Ipratropium (Duoneb) 3 ml RTQID NEB Last administered on 01/28/18at 15:36; Start 01/28/18 at 08:00 Active Scripts Active Reported D3-50 (Cholecalciferol (Vitamin D3)) 50,000 Unit Capsule 1 Cap PO WEEKLY Analgesic [place] (Methyl Salicylate/Menthol) 28 Gm Oint...g. 1 Doris TP PRN QID PRN Levothyroxine Sodium 50 Mcg Tablet 50 Mcg PO DAILY06 Gabapentin 100 Mg Capsule 100 Mg PO TID Zofran Odt (Ondansetron) 4 Mg Tab.rapdis 4 Mg PO PRN Q8HRS PRN Simethicone 80 Mg Tab.chew 80 Mg PO PRN AFTMEALHC PRN Thera M Plus Tablet (Multivits,Ca,Minerals/Iron/FA) 1 Each Tablet 1 Tab PO DAILY Mirtazapine 7.5 Mg Tablet 15 Mg PO QHS Milk Of Magnesia (Magnesium Hydroxide) 400 Mg/5 Ml Oral.susp 2,400 Mg PO PRN QHS PRN Culturelle (Lactobacillus Rhamnosus Gg) 1 Each Capsule 1 Each PO BID Zyrtec (Cetirizine Hcl) 10 Mg Tablet 10 Mg PO DAILY Vitamin C (Ascorbate Calcium) 500 Mg Tablet 500 Mg PO DAILY Trazodone Hcl 50 Mg Tablet 50 Mg PO PRN QHS PRN Risperdal (Risperidone) 1 Mg Tablet 1.5 Mg PO QHS Zyprexa Zydis (Olanzapine) 5 Mg Tab.rapdis 5 Mg PO PRN Q2HR PRN [place] Carbonate 150 Mg Capsule 150 Mg PO DAILY Miralax (Polyethylene Glycol 3350) 17 Gm Powd.pack 17 Gm PO BID Triple Antibiotic Ointment (Neomy Sulf/Bacitra/Polymyxin B) 1 Each Packet 1 Packet TP PRN DAILY PRN apply to finger wound. Oxycodone Hcl 5 Mg Capsule 5 Mg PO PRN Q6HRS PRN Lorazepam 0.5 Mg Tablet 0.5 Mg PO TID PRN PRN Famotidine 20 Mg Tablet 20 Mg PO BID Terazosin Hcl 10 Mg Capsule 10 Mg PO HS [place] Carbonate 300 Mg Capsule 300 Mg PO HS Baclofen 10 Mg Tablet 10 Mg PO BID Maalox Maximum Strength Susp (Mag Hydrox/Al Hydrox/Simeth) 355 Ml Oral.susp 30 Ml PO PRN Q2HR PRN Finasteride 5 Mg Tablet 5 Mg PO DAILY Colace (Docusate Sodium) 100 Mg Capsule 100 Mg PO PRN BID PRN Senokot (Sennosides) 8.6 Mg Tablet 8.6 Mg PO BID Bisacodyl 10 Mg Supp.rect 10 Mg RC PRN DAILY PRN Tylenol (Acetaminophen) 325 Mg Tablet 650 Mg PO PRN Q6HRS PRN I have reviewed the current psychotropics carefully including drug interactions. Risk benefit ratio favors no change other than as noted in my dictated progress note. Diagnosis: Problems: (1) Bipolar affective, mixed, sev w/ psych (2) Dementia, vascular, with delusions (3) Mild cognitive impairment (4) Anxiety disorder (5) HCAP (healthcare-associated pneumonia) MARQUIS SCOTT MD Jan 28, 2018 17:04
[2018-01-28 19:05] VITALS: BP 109/64
--- NOTE | 2018-01-28 19:08 | NUR ---
Wound care: Patient seen per wound care consult. Patient is known to wound care from previous admissions. Patient has an an unstageable pressure ulcer on coccyx. Wound cleansed and assessed. Recommendations for Hydrocolloid and cover with foam. The wound is slough covered and needs some type of debridement. Patient is also incontinent of stool, dressing should also help to keep stool out of wound. Patient states wound is very painful. Requesting pain medication, RN informed. Patient repositioned and turned to left side using pillow. Bilateral heels floated. Patient is on a P-500 bed at this time. Dressing change instructions left in room. RN informed of POC and patient re educated on turning. Will follow patient regarding wound care.
--- NOTE | 2018-01-28 20:06 | CONS ---
DATE OF CONSULTATION: 01/27/2018 PSYCHIATRIC CONSULTATION This late entry 01/27/2018 covers elements, not covered in my initial note. IDENTIFYING DATA: The patient is a 72-year-old male seen in bed 124, [facility] for a psychiatric consult requested by Dr. Lincoln on account of the patient's worsening confusion, mental status changes within the context of his bipolar disorder, mixed episode along with dementia, vascular with delusions, mild cognitive impairment, after he was admitted via the Emergency Room, sent in from [facility] in [place] and admitted consequent to sepsis and atelectasis along with esophageal dysmotility or reflux. I have been asked to consult to make any recommendation from a psychiatric standpoint to help relieve some of the confusion. The patient is seen individually, discussed with nursing staff, reviewed the chart. CHIEF COMPLAINT: "I am okay." The patient was unaware of where he was, did not seem to recognize me even though I have [facility]. HISTORY OF PRESENT ILLNESS: The patient has been admitted with a community-acquired pneumonia as noted above and possible additional UTI. He is appeared more confused. He does have a history of bipolar disorder with episodic tamiko alternating with depression and psychotic symptoms, but the confusion has been more significant recently. No active suicidal or homicidal ideation. He has had some sleep and appetite changes. PAST PSYCHIATRIC HISTORY: As above. PAST MEDICAL HISTORY: As noted. In addition, he has hypothyroidism, BPH, chronic constipation, cervical myelopathy with quadriplegia, neurogenic bladder, indwelling Rosa catheter, chronic kidney disease, bladder outlet obstruction. FAMILY HISTORY: Noncontributory. SOCIAL HISTORY: Resides at [facility]. No alcohol or drug abuse history. ALLERGIES: PENICILLIN. CURRENT PSYCHOTROPICS: Trazodone 50 mg at bedtime, Zyprexa 5 mg q. 2 hours p.r.n. psychosis, lithium carbonate 150 mg a.m. and 300 at bedtime. He is also on vitamin D. MENTAL STATUS EXAM: The patient was seen individually. He was lying in bed, unable to recognize me. Speech moderate latency, low in rate and rhythm, often responses monosyllabic. Insight, judgment, recent and remote memory, attention, concentration, fund of knowledge poor, consistent with his diagnosis. LABORATORY DATA: Reviewed. [place] level has not been drawn, but we will request it. IMPRESSION: Bipolar 1 disorder, mixed with psychotic features; anxiety disorder, unspecified. Major neurocognitive disorder, Alzheimer, vascular with delusion, depression. Rest as above. PLAN: From a psychiatric standpoint, we will check a lithium level. Continue current psychotropics, monitor and I would be happy to follow the patient during his stay in the hospital. Dr. Lincoln, thank you for the opportunity to participate in your patient's care. MAN Lindsey SCOTT MD DR: ARAI/rut JOB#: [id number] / [id number]
[2018-01-28] MEDS: POLYETHYLENE GLYCOL 3350 17 GM PACKET. PO SCH (21:00)
[2018-01-28] MEDS: MIRTAZAPINE 15 MG TABLET PO SCH (21:27)
[2018-01-28] MEDS: risperiDONE 1 MG TABLET. PO SCH (21:29)
[2018-01-28] MEDS: TERAZOSIN 5 MG CAPSULE. PO SCH (21:29)
[2018-01-28 23:39] VITALS: BP 94/57
[2018-01-29] MEDS: IPRATRPIUM/ALBUTEROL 0.5/2.5MG 3 ML NEBU. NEB SCH ×4 (05:28→20:00)
[2018-01-29] MEDS: oxyCODONE IR 5 MG TABLET PO PRN ×2 (05:28→16:55)
[2018-01-29] MEDS: LEVOTHYROXINE 50 MCG TABLET PO SCH (05:29)
[2018-01-29] MEDS: MEROPENEM 500 MG in IV NORMAL SALINE 50ML 50 ML IV SCH ×3 (05:35→23:03)
[2018-01-29] MEDS: IV NORMAL SALINE 1,000ML 1,000 ML IV SCH (06:09)
[2018-01-29 06:20] VITALS: BP 101/55
[2018-01-29 06:38] LABS: BASO # 0.1 x10^3/uL (0.0-0.2); BASO % 1 % (0-3); EOS # 0.1 x10^3/uL (0.0-0.7); EOS % 1 % (0-3); HEMATOCRIT 30.9 % (39.0-53.0); HEMOGLOBIN 9.9 g/dL (13.0-17.5); LYMPH # 3.2 x10^3/uL (1.0-4.8); LYMPH % 40 % (24-48); MEAN CORPUSCULAR HEMOGLOBIN 29 pg (25-35); MEAN CORPUSCULAR HGB CONC 32 g/dL (31-37); MEAN CORPUSCULAR VOLUME 91 fL (79-100); MONO # 0.6 x10^3/uL (0.0-1.1); MONO % 7 % (0-9); NEUT # 4.1 x10^3uL (1.8-7.7); NEUT % 51 % (31-73); PLATELET COUNT 178 x10^3/uL (140-400); RED BLOOD COUNT 3.41 x10^6/uL (4.30-5.70); RED CELL DISTRIBUTION WIDTH 15.1 % (11.5-14.5)
[2018-01-29 06:51] LABS: ALBUMIN 1.9 g/dL (3.4-5.0); ALBUMIN/GLOBULIN RATIO 0.5 (1.0-1.7); C REACTIVE PROTEIN 22.7 mg/L (0-3.3); CALCIUM 8.1 mg/dL (8.5-10.1); GFR 73.2; POTASSIUM 3.4 mmol/L (3.5-5.1); TOTAL BILIRUBIN 0.3 mg/dL (0.2-1.0)
[2018-01-29 07:43] LABS: SEDIMENTATION RATE 20 (0-15)
[2018-01-29] MEDS: SENNOSIDES/DOCUSATE 8.6/50MG TABLET. PO SCH ×2 (09:00→21:00)
[2018-01-29] MEDS: POLYETHYLENE GLYCOL 3350 17 GM PACKET. PO SCH ×2 (09:00→21:00)
[2018-01-29] MEDS: FINASTERIDE 5 MG TABLET PO SCH (09:08)
[2018-01-29] MEDS: BACLOFEN 10 MG TABLET PO SCH ×2 (09:09→21:33)
[2018-01-29] MEDS: MULTIVITAMIN with MINERAL TABLET. PO SCH (09:09)
[2018-01-29] MEDS: FAMOTIDINE 20 MG TABLET PO SCH ×2 (09:09→21:35)
[2018-01-29] MEDS: CETIRIZINE HCL 10 MG TABLET PO SCH (09:09)
[2018-01-29] MEDS: ASCORBIC ACID 500 MG TABLET PO SCH (09:09)
[2018-01-29] MEDS: LACTOBACILLUS RHAMNOSUS GG 1 CAPSULE. PO SCH ×2 (09:10→21:32)
[2018-01-29] MEDS: GABAPENTIN 100 MG CAPSULE. PO SCH ×3 (09:10→21:35)
[2018-01-29] MEDS: LITHIUM CARBONATE 300 MG TABLET PO SCH ×2 (09:11→21:32)
[2018-01-29 10:50] VITALS: BP 106/61
[2018-01-29] MEDS: POTASSIUM CL 40MEQ IN D5W 1,000 ML IV SCH (13:50)
[2018-01-29 14:52] VITALS: BP 111/67
[2018-01-29 14:55] LABS: VANC TR 11.3 mcg/mL (10.0-20.0)
[2018-01-29] MEDS: VANCOMYCIN 1 GM in IV NORMAL SALINE 250ML 250 ML IV SCH (15:19)
[2018-01-29] MEDS: VANCOMYCIN PER PHARMACY MC PRN (16:16)
--- NOTE | 2018-01-29 16:16 | NUR ---
Pharmacy Vancomycin Dosing Note S:Consulted to monitor and dose vancomycin started 01/27/18. O:SYLWIA TRUJILLO is a 72 year old M with Sepsis HCAP . Height: 5 feet, 9 inches Weight: 66.841686 kg Roy Body Weight: 70.70 Adjusted Body Weight: 68.98 Dosing Weight: Actual Other Antibiotics: MERREM LABS: Last BUN: 22 Last Creatinine: 1.0 Creatinine Clearance: 61.8 Last WBC: 8.0 Last Platelets: 178 Vancomycin Dosing: Loading Dose: 1500 mg x1 Dosing Weight: Actual Target Trough: 15-20 A: Based on today's trough of 11.3, we will increase the frequency to q12hrs. P: 1. Increase Vancomycin to 1000 mg IV q12h 2. Follow up Trough level on 01/31/18 at 1430 3. Pharmacy will continue to monitor, follow and adjust therapy as needed. VERONICA PORTER RPH 01/29/18 [id number]
[2018-01-29] MEDS: LORazepam 0.5 MG TABLET PO PRN (16:55)
--- NOTE | 2018-01-29 17:28 | PDOC ---
Exam Note: Torsten Note: Please also refer to the separate dictated note~for this date of service dictated separately.~Patient seen individually. Discussed the patient with Nursing staff reviewed the chart.~Reviewed interim history and current functioning. Reviewed vital signs,~Labs/ Radiology~and current medications noted below. Continue current treatment with the changes noted in the dictated addendum note Assessment: Vital Signs: Vital Signs Date Time Temp Pulse Resp B/P (MAP) Pulse Ox O2 Delivery O2 Flow Rate FiO2 01/29/18 15:07 97 Nasal Cannula 2.0 01/29/18 14:52 98.2 63 20 111/67 (82) I&O Intake and Output 01/29/18 07:00 Intake Total 1960 ml Output Total 1375 ml Balance 585 ml Intake Oral 660 ml IV Total 1300 ml Output Urine Total 1375 ml # Bowel Movements 1 Labs: Laboratory Tests Test 01/29/18 06:30 01/29/18 14:28 White Blood Count 8.0 x10^3/uL (4.0-11.0) Red Blood Count 3.41 x10^6/uL (4.30-5.70) L Hemoglobin 9.9 g/dL (13.0-17.5) L Hematocrit 30.9 % (39.0-53.0) L Mean Corpuscular Volume 91 fL (79-100) Mean Corpuscular Hemoglobin 29 pg (25-35) Mean Corpuscular Hemoglobin Concent 32 g/dL (31-37) Red Cell Distribution Width 15.1 % (11.5-14.5) H Platelet Count 178 x10^3/uL (140-400) Neutrophils (%) (Auto) 51 % (31-73) Lymphocytes (%) (Auto) 40 % (24-48) Monocytes (%) (Auto) 7 % (0-9) Eosinophils (%) (Auto) 1 % (0-3) Basophils (%) (Auto) 1 % (0-3) Neutrophils # (Auto) 4.1 x10^3uL (1.8-7.7) Lymphocytes # (Auto) 3.2 x10^3/uL (1.0-4.8) Monocytes # (Auto) 0.6 x10^3/uL (0.0-1.1) Eosinophils # (Auto) 0.1 x10^3/uL (0.0-0.7) Basophils # (Auto) 0.1 x10^3/uL (0.0-0.2) Erythrocyte Sedimentation Rate 20 (0-15) H Sodium Level 146 mmol/L (136-145) H Potassium Level 3.4 mmol/L (3.5-5.1) L Chloride Level 115 mmol/L (98-107) H Carbon Dioxide Level 23 mmol/L (21-32) Anion Gap 8 (6-14) Blood Urea Nitrogen 22 mg/dL (8-26) Creatinine 1.0 mg/dL (0.7-1.3) Estimated GFR (Cockcroft-Gault) 73.2 BUN/Creatinine Ratio 22 (6-20) H Glucose Level 110 mg/dL (70-99) H Calcium Level 8.1 mg/dL (8.5-10.1) L Total Bilirubin 0.3 mg/dL (0.2-1.0) Aspartate Amino Transferase (AST) 11 U/L (15-37) L Alanine Aminotransferase (ALT) 16 U/L (16-63) Alkaline Phosphatase 62 U/L (46-116) C-Reactive Protein 22.7 mg/L (0-3.3) H Total Protein 6.0 g/dL (6.4-8.2) L Albumin 1.9 g/dL (3.4-5.0) L Albumin/Globulin Ratio 0.5 (1.0-1.7) L [place] Level 0.5 mmol/L (0.6-1.2) L [place] Last Dose Date 01/28/18 [place] Last Dose Time 2100 Vancomycin Level Trough 11.3 mcg/mL (10.0-20.0) Vancomycin Last Dose Date 01/28/18 Vancomycin Last Dose Time 1500 Current Medications: Meds: Current Medications Sodium Chloride 1,000 ml @ 1,000 mls/hr Q1H IV Last administered on 01/27/18at 07:33; Start 01/27/18 at 07:00; Stop 01/27/18 at 07:59; Status DC Albuterol/ Ipratropium (Duoneb) 3 ml 1X ONCE NEB Last administered on at 06:51; Start 01/27/18 at 07:00; Stop 01/27/18 at 07:01; Status DC Methylprednisolone Sodium Succinate (SOLU-Medrol 125MG VIAL) 125 mg 1X ONCE IV Last administered on 01/27/18at 06:51; Start 01/27/18 at 07:00; Stop 01/27/18 at 07:01; Status DC Levofloxacin/ Dextrose 150 ml @ 150 mls/hr 1X ONCE IV Last administered on at 07:31; Start 01/27/18 at 07:00; Stop 01/27/18 at 07:59; Status DC Vancomycin HCl 1 gm/Sodium Chloride 250 ml @ 250 mls/hr 1X ONCE IV ; Start at 06:45; Stop 01/27/18 at 07:44; Status UNV Vancomycin HCl 1.5 gm/Sodium Chloride 500 ml @ 250 mls/hr 1X ONCE IV ; Start 01/27/18 at 07:00; Stop 01/27/18 at 08:59; Status Cancel Vancomycin HCl (Vanco Per Pharmacy) 1 each PRN DAILY PRN MC SEE COMMENTS Last administered on 01/29/18at 16:16; Start 01/27/18 at 07:00 Vancomycin HCl 1.5 gm/Sodium Chloride 500 ml @ 250 mls/hr 1X ONCE IV ; Start 01/27/18 at 07:15; Stop 01/27/18 at 07:15; Status DC Vancomycin HCl 1.5 gm/Sodium Chloride 500 ml @ 250 mls/hr 1X ONCE IV Last administered on 01/27/18at 15:07; Start 01/27/18 at 07:15; Stop 01/27/18 at 09:14 ; Status DC Sodium Chloride 1,000 ml @ 150 mls/hr Q6H40M IV Last administered on at 05:10; Start 01/27/18 at 07:09; Stop 01/28/18 at 07:08; Status DC Albuterol/ Ipratropium (Duoneb) 3 ml RTQID NEB Last administered on 01/27/18at 20:33; Start 01/27/18 at 08:00; Stop 01/28/18 at 07:59; Status DC Iohexol (Omnipaque 300 Mg/ml) 75 ml 1X ONCE IV ; Start 01/27/18 at 08:00; Stop 01/27/18 at 08:01; Status DC Meropenem 500 mg/ Sodium Chloride 50 ml @ 100 mls/hr Q8HRS IV Last administered on 01/29/18at 14:22; Start 01/27/18 at 14:00 Acetaminophen (Tylenol) 650 mg PRN Q6HRS PRN PO PAIN / TEMP; Start 01/27/18 at 13:45 Vitamin D (Vitamin D3) 50,000 unit WEEKLY PO ; Start 02/03/18 at 09:00 Gabapentin (Neurontin) 100 mg TID PO Last administered on 01/29/18at 14:48; Start 01/27/18 at 14:00 Al Hydroxide/Mg Hydroxide (Mylanta Plus Xs) 30 ml PRN Q2HR PRN PO DYSPEPSIA; Start 01/27/18 at 13:45 Magnesium Hydroxide (Milk Of Magnesia) 2,400 mg PRN QHS PRN PO CONSTIPATION; Start 01/27/18 at 13:45 Multi-Ingredient Ointment (Analgesic [place]) 1 doris PRN QID PRN TP muscle pain; Start 01/27/18 at 13:45 Mirtazapine (Remeron) 15 mg QHS PO Last administered on 01/28/18at 21:27; Start 01/27/18 at 21:00 Multivitamins/ Calcium (Thera-M Plus) 1 tab DAILY PO Last administered on at 09:09; Start 01/28/18 at 09:00 Neomycin/ Polymyxin/ Bacitracin (Triple Antibiotic Ointment) 1 pkt PRN DAILY PRN TP Wound Healing; Start 01/27/18 at 13:45 Olanzapine (ZyPREXA ZYDIS) 5 mg PRN Q2HR PRN PO PSYCHOSIS; Start 01/27/18 at 13 :45 Ondansetron HCl (Zofran Odt) 4 mg PRN Q8HRS PRN PO NAUSEA/VOMITING; Start 01/27 at 13:45 Simethicone (Gas-X) 80 mg PRN AFTMEALHC PRN PO GAS / BLOATING; Start 01/27/18 at 13:45 Ascorbic Acid (Vitamin C) 500 mg DAILY PO Last administered on 01/29/18at 09:09 ; Start 01/28/18 at 09:00 Baclofen (Lioresal) 10 mg BID PO Last administered on 01/29/18at 09:09; Start at 21:00 Bisacodyl (Dulcolax Supp) 10 mg PRN DAILY PRN RC CONSTIPATION; Start 01/27/18 at 13:45 Cetirizine HCl (ZyrTEC) 10 mg DAILY PO Last administered on 01/29/18 09:09; Start 01/28/18 at 09:00 Docusate Sodium (Colace) 100 mg PRN BID PRN PO CONSTIPATION; Start 01/27/18 at 14:15 Famotidine (Pepcid) 20 mg BID PO Last administered on 01/29/18 09:09; Start at 21:00 Finasteride (Proscar) 5 mg DAILY PO Last administered on 01/29/18 09:08; Start 01/28/18 at 09:00 Lactobacillus Rhamnosus (Culturelle) 1 cap BID PO Last administered on at 09:10; Start 01/27/18 at 21:00 Levothyroxine Sodium (Synthroid) 50 mcg DAILY07 PO Last administered on 05:29; Start 01/28/18 at 07:00 [place] Carbonate 150 mg DAILY PO Last administered on 01/29/18 09:11; Start 01/28/18 at 09:00 [place] Carbonate 300 mg QHS PO Last administered on 01/28/18 21:29; Start at 21:00 Lorazepam (Ativan) 0.5 mg TID PRN PRN PO ANXIETY / AGITATION Last administered on 01/29/18at 16:55; Start 01/27/18 at 13:45 Oxycodone HCl (Roxicodone) 5 mg PRN Q6HRS PRN PO PAIN Last administered on 01/29 16:55; Start 01/27/18 at 13:45 Polyethylene Glycol (miraLAX) 17 gm BID PO ; Start 01/28/18 at 21:00 Risperidone (RisperDAL) 1.5 mg QHS PO Last administered on 01/28/18 21:29; Start 01/27/18 at 21:00 Senna/Docusate Sodium (Senna Plus) 1 tab BID PO Last administered on 01/28/18 11:07; Start 01/27/18 at 21:00 Terazosin HCl (Hytrin) 10 mg QHS PO Last administered on 01/28/18at 21:29; Start 01/27/18 at 21:00 Trazodone HCl (Desyrel) 50 mg PRN QHS PRN PO INSOMNIA, MAY REPEAT X1; Start at 13:45 Fentanyl Citrate (Fentanyl 2ml Vial) 50 mcg PRN Q3HRS PRN IV PAIN Last administered on 01/29/18at 08:55; Start 01/27/18 at 14:15 Vancomycin HCl 1 gm/Sodium Chloride 250 ml @ 250 mls/hr Q24H IV Last administered on 01/29/18at 15:19; Start 01/28/18 at 15:00; Stop 01/29/18 at 16:12 ; Status DC Vancomycin HCl (Vancomycin Trough Level) 1 each 1X ONCE MC Last administered on 01/29/18at 14:30; Start 01/29/18 at 14:30; Stop 01/29/18 at 14:31; Status DC Albuterol/ Ipratropium (Duoneb) 3 ml RTQID NEB Last administered on 01/29/18at 15:05; Start 01/28/18 at 08:00 Sodium Chloride 1,000 ml @ 150 mls/hr Q6H40M IV Last administered on at 06:09; Start 01/28/18 at 23:15; Stop 01/29/18 at 12:50; Status DC Potassium Chloride/Dextrose 1,000 ml @ 75 mls/hr [id number] IV Last administered on 01/29/18at 13:50; Start 01/29/18 at 13:00 Vancomycin HCl 1 gm/Sodium Chloride 250 ml @ 250 mls/hr Q12H IV ; Start at 03:00 Vancomycin HCl (Vancomycin Trough Level) 1 each 1X ONCE MC ; Start 01/31/18 at 14:30; Stop 01/31/18 at 14:31 Active Scripts Active Reported D3-50 (Cholecalciferol (Vitamin D3)) 50,000 Unit Capsule 1 Cap PO WEEKLY Analgesic [place] (Methyl Salicylate/Menthol) 28 Gm Oint...g. 1 Doris TP PRN QID PRN Levothyroxine Sodium 50 Mcg Tablet 50 Mcg PO DAILY06 Gabapentin 100 Mg Capsule 100 Mg PO TID Zofran Odt (Ondansetron) 4 Mg Tab.rapdis 4 Mg PO PRN Q8HRS PRN Simethicone 80 Mg Tab.chew 80 Mg PO PRN AFTMEALHC PRN Thera M Plus Tablet (Multivits,Ca,Minerals/Iron/FA) 1 Each Tablet 1 Tab PO DAILY Mirtazapine 7.5 Mg Tablet 15 Mg PO QHS Milk Of Magnesia (Magnesium Hydroxide) 400 Mg/5 Ml Oral.susp 2,400 Mg PO PRN QHS PRN Culturelle (Lactobacillus Rhamnosus Gg) 1 Each Capsule 1 Each PO BID Zyrtec (Cetirizine Hcl) 10 Mg Tablet 10 Mg PO DAILY Vitamin C (Ascorbate Calcium) 500 Mg Tablet 500 Mg PO DAILY Trazodone Hcl 50 Mg Tablet 50 Mg PO PRN QHS PRN Risperdal (Risperidone) 1 Mg Tablet 1.5 Mg PO QHS Zyprexa Zydis (Olanzapine) 5 Mg Tab.rapdis 5 Mg PO PRN Q2HR PRN [place] Carbonate 150 Mg Capsule 150 Mg PO DAILY Miralax (Polyethylene Glycol 3350) 17 Gm Powd.pack 17 Gm PO BID Triple Antibiotic Ointment (Neomy Sulf/Bacitra/Polymyxin B) 1 Each Packet 1 Packet TP PRN DAILY PRN apply to finger wound. Oxycodone Hcl 5 Mg Capsule 5 Mg PO PRN Q6HRS PRN Lorazepam 0.5 Mg Tablet 0.5 Mg PO TID PRN PRN Famotidine 20 Mg Tablet 20 Mg PO BID Terazosin Hcl 10 Mg Capsule 10 Mg PO HS [place] Carbonate 300 Mg Capsule 300 Mg PO HS Baclofen 10 Mg Tablet 10 Mg PO BID Maalox Maximum Strength Susp (Mag Hydrox/Al Hydrox/Simeth) 355 Ml Oral.susp 30 Ml PO PRN Q2HR PRN Finasteride 5 Mg Tablet 5 Mg PO DAILY Colace (Docusate Sodium) 100 Mg Capsule 100 Mg PO PRN BID PRN Senokot (Sennosides) 8.6 Mg Tablet 8.6 Mg PO BID Bisacodyl 10 Mg Supp.rect 10 Mg RC PRN DAILY PRN Tylenol (Acetaminophen) 325 Mg Tablet 650 Mg PO PRN Q6HRS PRN I have reviewed the current psychotropics carefully including drug interactions. Risk benefit ratio favors no change other than as noted in my dictated progress note. Diagnosis: Problems: (1) HCAP (healthcare-associated pneumonia) (2) Bipolar affective, mixed, sev w/ psych (3) Anxiety disorder (4) Dementia, vascular, with delusions MARQUIS SCOTT MD Jan 29, 2018 17:28
[2018-01-29 19:49] VITALS: BP 118/63
[2018-01-29] MEDS: TERAZOSIN 5 MG CAPSULE. PO SCH (21:33)
[2018-01-29] MEDS: risperiDONE 1 MG TABLET. PO SCH (21:34)
[2018-01-29] MEDS: MIRTAZAPINE 15 MG TABLET PO SCH (21:35)
[2018-01-29 22:51] VITALS: BP 105/62
--- NOTE | 2018-01-30 00:12 | PN ---
DATE: 01/29/2018 SUBJECTIVE: The patient is resting, slightly propped up in bed, in no apparent distress. He denied any complaint. The nursing staff stated that he is constantly oozing loose bowel movement. He is now on a low air loss mattress for his sacral decubitus ulcer. PHYSICAL EXAMINATION: GENERAL: When I examined him, he looked pale, cachectic, but no jaundice, cyanosis, or thyromegaly. No jugular venous distension. No limb edema. VITAL SIGNS: His heart rate was 64, blood pressure 106/61, temperature was 98, respiratory rate 20, and oxygen saturation was 100%, on 2 liters of oxygen by nasal cannula. HEAD, EYES, EARS, NOSE AND THROAT: Showed normocephalic, atraumatic. NECK: Supple. HEART: Showed normal first and second sounds. No gallop, rub or murmur. CHEST: Clear to auscultation. No crepitation or rhonchi. ABDOMEN: Scaphoid, soft, and nontender. NEUROLOGIC: He is awake, alert, but very confused. All his cranial nerves are intact. He has quadriplegia with marked muscle wasting, fixed flexion contraction of both upper and lower extremities, has large sacrococcygeal decubitus ulcer. His intake was 1700, output was 1100. LABORATORY DATA: As of this morning showed a serum sodium 146, potassium 3.4, chloride 115, bicarbonate 23, anion gap of 8, BUN 22, creatinine 1, estimated GFR was 73 mL per minute, his glucose 110, and calcium was 8.1. Total bilirubin, AST, ALT, alkaline phosphatase were normal. His C-reactive protein was 22.7 mg/dL. Total protein 6, albumin was 1.9. His white cell count was 8000, hemoglobin 10, hematocrit 30, MCV 91, and platelet count of 178,000. Sed rate was 20 mmHg. His blood cultures are still negative. His urine culture has grown greater than 100,000 colony-forming units per mL of gram-negative rods. The identification and sensitivity is still pending. ASSESSMENT: In summary, the patient was admitted with, 1. Acute hypoxic respiratory failure. 2. Healthcare-associated pneumonia. 3. Urinary tract infection. 4. Sacral decubitus ulcer. 5. Quadriplegia with neurogenic bladder requiring indwelling Rosa catheter. 6. Hypothyroidism. 7. Benign prostatic hypertrophy with bladder outlet obstruction. PLAN: To continue intravenous antibiotic in the form of vancomycin, meropenem, and levofloxacin. Continue nutritional support given that he has severe protein-calorie malnutrition. Thank you for Dr. Banda for his input, who recommended to continue with the current psychotropic agent and to monitor his lithium levels. MONIKA FOFANA MD DR: KARLA/rut JOB#: [id number] / [id number]
--- NOTE | 2018-01-30 02:15 | PN ---
DATE: 01/28/2018 This late entry 01/28/2018 covers elements not covered in my initial note. SUBJECTIVE: I met with the patient in the evening of 01/28/2018. Per nursing report, the patient is doing better. Individually as I met with him, he seemed a little more awake, alert, but still did not seem to recognize me. REVIEW OF SYSTEMS: Positive for tiredness. No CV, , eye, ENT system symptoms on review. Reliability poor. MENTAL STATUS EXAM: Oriented to himself and situation. Insight, judgment, recent and remote memory, attention, concentration, fund of knowledge poor, consistent with his diagnosis. IMPRESSION: Bipolar 1 disorder, mixed with psychotic features; major neurocognitive disorder, Alzheimer, vascular with delusion, depression. Rest unchanged. PLAN: [place] level is 0.5. Given his overall general medical condition, this is adequate, especially since we are not seeing any significant manic or depressive symptoms. We will reassess as he medically stabilizes to determine if we need to increase the lithium to reach a level of approximately 0.7. Continue rest unchanged. MAN Lindsey SCOTT MD DR: ARIA/rut JOB#: [id number] / [id number]
[2018-01-30] MEDS ORDERED: VANCOMYCIN 1 GM in IV NORMAL SALINE 250ML 250 ML IV SCH (03:00)
[2018-01-30] MEDS: POTASSIUM CL 40MEQ IN D5W 1,000 ML IV SCH (04:06)
[2018-01-30] MEDS: IPRATRPIUM/ALBUTEROL 0.5/2.5MG 3 ML NEBU. NEB SCH (05:28)
[2018-01-30 06:05] VITALS: BP 134/73
[2018-01-30 07:28] LABS: CALCIUM 8.7 mg/dL (8.5-10.1); CREATININE 0.9 mg/dL (0.7-1.3); GFR 82.7; POTASSIUM 3.7 mmol/L (3.5-5.1)
[2018-01-30] MEDS: MEROPENEM 500 MG in IV NORMAL SALINE 50ML 50 ML IV SCH (07:55)
[2018-01-30] MEDS: LEVOTHYROXINE 50 MCG TABLET PO SCH (07:59)
[2018-01-30] MEDS: MULTIVITAMIN with MINERAL TABLET. PO SCH (08:30)
[2018-01-30] MEDS: POLYETHYLENE GLYCOL 3350 17 GM PACKET. PO SCH (08:30)
[2018-01-30] MEDS: FINASTERIDE 5 MG TABLET PO SCH (08:34)
[2018-01-30] MEDS: SENNOSIDES/DOCUSATE 8.6/50MG TABLET. PO SCH (08:34)
[2018-01-30] MEDS: FAMOTIDINE 20 MG TABLET PO SCH (08:34)
[2018-01-30] MEDS: BACLOFEN 10 MG TABLET PO SCH (08:34)
[2018-01-30] MEDS: LACTOBACILLUS RHAMNOSUS GG 1 CAPSULE. PO SCH (08:34)
[2018-01-30] MEDS: ASCORBIC ACID 500 MG TABLET PO SCH (08:34)
[2018-01-30] MEDS: GABAPENTIN 100 MG CAPSULE. PO SCH (08:34)
[2018-01-30] MEDS: CETIRIZINE HCL 10 MG TABLET PO SCH (08:40)
[2018-01-30] MEDS: LITHIUM CARBONATE 300 MG TABLET PO SCH (08:46)
[2018-01-30] MEDS: LORazepam 0.5 MG TABLET PO PRN (08:56)
[2018-01-30] MEDS: oxyCODONE IR 5 MG TABLET PO PRN (08:56)
--- NOTE | 2018-01-30 11:05 | NUR ---
Discharge Note: SYLWIA TRUJILLO [facility] Discharge instructions and discharge home medications reviewed with Vicki Mullen nurse and a copy given. All questions have been answered and understanding verbalized. The following instructions and handouts were given: discussed medications, wound care, diet, activity, and plan of care. Discontinued lines and drains: IV left intact for use at [facility]. Patient discharged to [facility] via EMS.
--- NOTE | 2018-01-31 14:50 | DS ---
DATE OF DISCHARGE: 01/30/2018 HOSPITAL COURSE: The patient is a 72-year-old male patient, a resident at [facility] who was brought to the Emergency Room of [facility] with altered mental status. He was found to be febrile and further evaluation showed that he has bilateral lung infiltrate, questionable urinary tract infection and a large sacral decubitus ulcer. The patient was admitted with sepsis secondary to bilateral lower lobe infiltrate as well as urinary tract infection was treated with IV vancomycin as well as Levaquin as he is ALLERGIC TO PENICILLIN. He was also seen by the wound care team for his sacral decubitus ulcer and as he requires IV antibiotic, wound care and nutritional support, the decision was made to transfer him to [facility] to continue all these measures. PHYSICAL EXAMINATION: GENERAL: When I saw him prior to discharge, he was resting slightly propped up in bed, in no apparent respiratory distress. He was pale, cachectic, but no jaundice, cyanosis, lymphadenopathy or thyromegaly. No jugular venous distension. No limb edema. VITAL SIGNS: His heart rate was 63, blood pressure was 134/73, temperature was 97.8, respiratory rate 22, and oxygen saturation was 96% on 2 liters of oxygen by nasal cannula. HEAD, EYES, EARS, NOSE AND THROAT: Showed normocephalic, atraumatic. NECK: Supple. HEART: Showed normal first and second sounds. No gallop, rub or murmur. CHEST: Shows central trachea, equally reduced expansion, reduced air entry, vesicular sounds with crepitation mostly on both sides posteriorly. I could not appreciate any rhonchi. ABDOMEN: Scaphoid, soft, nontender. NEUROLOGIC: He is confused; however, all his cranial nerves are intact. He has quadriplegia with marked muscle wasting and fixed flexion contraction of her both upper and lower extremities. GENITOURINARY: He has neurogenic bladder requiring indwelling Rosa catheter. He has large sacral decubitus ulcer. LABORATORY DATA: Show his white cell count is down to 8000, hemoglobin 9.9, hematocrit 31, MCV 91, and platelet count of 178,000. His chemistry showed a serum sodium of 143, potassium 3.7, chloride 113, bicarbonate 25, anion gap of 5, BUN 18, creatinine 0.9, estimated GFR was 83 mL per minute. His glucose was 99, calcium was 8.7. His total protein was 6, albumin is only 1.9 g/dL. His C-reactive protein was 22.7 mg/dL and his sedimentation rate was 20 mm per hour. His blood cultures are so far negative. His urine culture showed growth of more than 100,000 colony-forming units per mL of Morganella morganii that is sensitive to meropenem and intermediate sensitivity to ciprofloxacin. DISCHARGE MEDICATIONS: He was transferred to [facility] to continue on following medication: Vitamin D 50,000 units once a week, vancomycin 1000 mg IV q. 12 hourly, D5 with 40 mEq of potassium chloride IV at 75 mL per hour, polyethylene glycol 17 grams twice a day, lithium carbonate 150 mg daily, finasteride 5 mg daily, cetirizine 10 mg daily, ascorbic acid 500 mg daily and multivitamin 1 tablet once a day, albuterol/ipratropium bromide by nebulizer 4 times a day, levothyroxine sodium 50 mcg once a day, terazosin 10 mg daily, Senna-S 1 tablet twice a day, risperidone 1.5 mg at bedtime, lithium carbonate 300 mg at bedtime, lactobacillus rhamnosus 1 tablet twice a day and famotidine 20 mg twice a day, baclofen 10 mg twice a day, mirtazapine 50 mg at bedtime, fentanyl citrate 50 mcg IV every 2 hours. Docusate sodium 100 mg twice a day, gabapentin 100 mg 3 times a day. He is on meropenem 500 mg IV q. 8 hourly, trazodone 50 mg at bedtime, oxycodone 5 mg every 6 hours, lorazepam 0.5 mg 3 times a day as needed for anxiety and bisacodyl 10 mg suppositories rectally daily p.r.n. for constipation, simethicone 80 mg every 8 hours as needed, ondansetron 4 mg every 8 hours, olanzapine 5 mg every 2 hours as needed for agitation, Mylanta 30 mL as needed every 2 hours for indigestion, Tylenol 650 mg every 6 hours as needed for pain or fever. FINAL DISCHARGE DIAGNOSES: 1. Acute hypoxic respiratory failure. 2. Healthcare-associated pneumonia. 3. Urinary tract infection. 4. Sacral decubitus ulcer. 5. Quadriplegia with neurogenic bladder requiring indwelling Rosa catheter. 6. Hypothyroidism. 7. Benign prostatic hypertrophy with bladder outlet obstruction. MONIKA FOFANA MD DR: Elvin JOB#: [id number] / [id number]
[2018-02-03] MEDS ORDERED: CHOLECALCIFEROL (VITAMIN D3) 50,000 UNIT CAPSULE PO SCH (09:00)
== END 2018-01-30 09:30 | DRG 871 ==
LOC: ER 06:23 → 1 SOUTH 07:11
PROVIDERS: ADMIT Internal Medicine; ATTEND Internal Medicine
DX: A41.9 Sepsis, unspecified organism (principal); G93.40 Encephalopathy, unspecified; J18.9 Pneumonia, unspecified organism; J96.01 Acute respiratory failure with hypoxia; G82.50 Quadriplegia, unspecified; F31.60 Bipolar disorder, current episode mixed, unspecified; J98.11 Atelectasis; N13.8 Other obstructive and reflux uropathy; N39.0 Urinary tract infection, site not specified; Z88.0 Allergy status to penicillin; E03.9 Hypothyroidism, unspecified; F01.50 Vascular dementia, unspecified severity, without behavioral disturbance, psychotic disturbance, mood disturbance, and anxiety; F02.80 Dementia in other diseases classified elsewhere, unspecified severity, without behavioral disturbance, psychotic disturbance, mood disturbance, and anxiety; F41.9 Anxiety disorder, unspecified; G30.9 Alzheimer's disease, unspecified; I77.810 Thoracic aortic ectasia; K59.09 Other constipation; L89.159 Pressure ulcer of sacral region, unspecified stage; G47.00 Insomnia, unspecified; N18.9 Chronic kidney disease, unspecified; N31.9 Neuromuscular dysfunction of bladder, unspecified; N40.1 Benign prostatic hyperplasia with lower urinary tract symptoms; Y95 Nosocomial condition; Z86.73 Personal history of transient ischemic attack (TIA), and cerebral infarction without residual deficits
CPT/HCPCS: 36415; 36600; 51702; 71045; 71275; 80048; 80053; 80178; 80202; 81001; 82553; 82803; 83605; 83880; 84443; 84484; 85025; 85651; 86140; 87040; 87086; 87186; 87641; 93005; 94640; 96365; J1956; J2185; J2930; J3010; J3370; J7040; J7050; J7620; 99285-25; J7030